=== PATIENT | male | born 1950 | race Asian ===

== ENCOUNTER 2018-11-30 14:55 | Inpatient (IN) | payer SELFPAY ==
[~2018-11-30] VITALS: Ht 170.2 cm; Wt 95.5 kg
[2018-11-30] MEDS ORDERED: FURO-68 PO (15:25)
[2018-11-30] MEDS ORDERED: APIX5TAB PO (15:25)
[2018-11-30] MEDS ORDERED: ALBU2.5V8 INH (15:25)
[2018-11-30] MEDS ORDERED: ASPI-630 PO (15:26)
[2018-11-30] MEDS ORDERED: ATOR40TA59 PO (15:26)
[2018-11-30] MEDS ORDERED: BUPR200T2 PO (15:26)
[2018-11-30] MEDS ORDERED: METO50TA6 PO (15:27)
[2018-11-30] MEDS ORDERED: NITR0.4T22 SL (15:27)
[2018-11-30] MEDS ORDERED: LEVE500T56 PO (15:27)
--- NOTE | 2018-11-30 15:34 | PHYS DOC ---
Past Medical History Past Medical History: A-Fib, Angina, Anxiety, Depression, Diabetes-Type II, GERD, High Cholesterol, Hypertension, Seizure Additional Past Medical Histor: BACK&NECK PAIN Additional Past Surgical Histo: CARDIAC STENTS Additional Information: EXPOSED TO SECOND HAND SMOKE Alcohol Use: Sober Additional Information: FORMER HEAVY ETOH Drug Use: None Adult General Chief Complaint Chief Complaint: SHORTNESS OF BREATH HPI HPI Patient is a 68 year old male, accompanied by his , who presents to the ER with complaints of shortness of breath since yesterday and a productive cough with yellow sputum. Pt states he has been out of his lasix for 2 days and reports increased swelling in both of his legs. Pt states he is from [place], [place] and he is in town visiting his daughter for a few weeks. He states that he has been having some intermittent chest pain, he denies chest pain today but states yesterday he took his nitro because of the chest pain. He denies any pain at this time. ROS Pt denies fever, sore throat, ear pain, dizziness, or headache. Pt denies nausea, vomiting, diarrhea, abdominal pain, or diaphoresis. Patient denies any chest pain or palpitations at this time. All other ROS is neg unless otherwise noted in HPI. Review of Systems Review of Systems See Above Current Medications Current Medications Current Medications Medications (Trade) Dose Ordered Sig/Cecile Start Time Stop Time Status Last Admin Dose Admin Piperacillin Sod/ Tazobactam Sod 4.5 gm/Sodium Chloride 100 ml @ 200 mls/hr 1X ONCE 11/30/18 17:00 11/30/18 17:29 Sodium Chloride 1,000 ml @ 1,000 mls/hr 1X ONCE 11/30/18 16:30 11/30/18 17:29 11/30/18 16:21 1,000 MLS/HR Allergies Allergies Allergies Coded Allergies Type Severity Reaction Last Updated Verified No Known Drug Allergies 11/30/18 No Physical Exam Physical Exam See Above Constitutional: Well developed, well nourished, no acute distress, non-toxic appearance. [] HENT: Normocephalic, atraumatic, bilateral external ears normal, nose normal. [] Eyes: conjunctiva normal, no discharge. [] Neck: Normal range of motion, no stridor. [] Cardiovascular:Heart rate irregular rhythm Lungs & Thorax: Bilateral breath sounds clear to auscultation, no retractions, regular rate [] Abdomen: Bowel sounds normal, soft, no tenderness, no masses, no pulsatile masses. [] Skin: Warm, dry, no erythema, no rash. [] Extremities: No tenderness, no cyanosis, no clubbing, ROM intact, 1+ edema bilateral lower extremities Neurologic: Alert and oriented X 3, no focal deficits noted. [] Psychologic: Affect normal, judgement normal, mood normal. [] Current Patient Data Vital Signs Vital Signs Date Time Temp Pulse Resp B/P (MAP) Pulse Ox O2 Delivery O2 Flow Rate FiO2 11/30/18 15:49 72 14 90/62 (71) 98 Room Air 11/30/18 15:03 97.8 97.8 Lab Values Laboratory Tests Test 11/30/18 15:26 11/30/18 15:42 White Blood Count 6.0 x10^3/uL (4.0-11.0) Red Blood Count 5.20 x10^6/uL (4.30-5.70) Hemoglobin 12.7 g/dL (13.0-17.5) L Hematocrit 40.1 % (39.0-53.0) Mean Corpuscular Volume 77 fL (79-100) L Mean Corpuscular Hemoglobin 25 pg (25-35) Mean Corpuscular Hemoglobin Concent 32 g/dL (31-37) Red Cell Distribution Width 14.6 % (11.5-14.5) H Platelet Count 223 x10^3/uL (140-400) Neutrophils (%) (Auto) 47 % (31-73) Lymphocytes (%) (Auto) 39 % (24-48) Monocytes (%) (Auto) 11 % (0-9) H Eosinophils (%) (Auto) 2 % (0-3) Basophils (%) (Auto) 1 % (0-3) Neutrophils # (Auto) 2.8 x10^3/uL (1.8-7.7) Lymphocytes # (Auto) 2.4 x10^3/uL (1.0-4.8) Monocytes # (Auto) 0.6 x10^3/uL (0.0-1.1) Eosinophils # (Auto) 0.1 x10^3/uL (0.0-0.7) Basophils # (Auto) 0.0 x10^3/uL (0.0-0.2) Prothrombin Time 15.1 SEC (11.7-14.0) H Prothrombin Time INR 1.2 (0.8-1.1) H Activated Partial Thromboplast Time 37 SEC (24-38) D-Dimer (Esmer) 0.29 ug/mlFEU (0.00-0.50) Sodium Level 137 mmol/L (136-145) Potassium Level 4.1 mmol/L (3.5-5.1) Chloride Level 103 mmol/L (98-107) Carbon Dioxide Level 24 mmol/L (21-32) Anion Gap 10 (6-14) Blood Urea Nitrogen 12 mg/dL (8-26) Creatinine 1.3 mg/dL (0.7-1.3) Estimated GFR (Cockcroft-Gault) 54.6 BUN/Creatinine Ratio 9 (6-20) Glucose Level 117 mg/dL (70-99) H Calcium Level 8.8 mg/dL (8.5-10.1) Magnesium Level 2.1 mg/dL (1.8-2.4) Total Bilirubin 0.4 mg/dL (0.2-1.0) Aspartate Amino Transferase (AST) 27 U/L (15-37) Alanine Aminotransferase (ALT) 35 U/L (16-63) Alkaline Phosphatase 62 U/L (46-116) Creatine Kinase 165 U/L (39-308) Creatine Kinase MB (Mass) 1.6 ng/mL (0.0-3.6) Creatine Kinase MB Relative Index 1.0 % (0-4) Troponin I Quantitative 0.018 ng/mL (0.000-0.055) WK-Ifk-D-Type Natriuretic Peptide 1090 pg/mL (0-124) H Total Protein 7.3 g/dL (6.4-8.2) Albumin 3.3 g/dL (3.4-5.0) L Albumin/Globulin Ratio 0.8 (1.0-1.7) L Urine Collection Type Unknown Urine Color Yellow Urine Clarity Clear Urine pH 5.5 Urine Specific [place] 1.010 Urine Protein Negative mg/dL (NEG-TRACE) Urine Glucose (UA) Negative mg/dL (NEG) Urine Ketones (Stick) Negative mg/dL (NEG) Urine Blood Negative (NEG) Urine Nitrite Negative (NEG) Urine Bilirubin Negative (NEG) Urine Urobilinogen Dipstick 0.2 mg/dL (0.2 mg/dL) Urine Leukocyte Esterase Negative (NEG) Urine RBC 0 /HPF (0-2) Urine WBC 0 /HPF (0-4) Urine Squamous Epithelial Cells Few /LPF Urine Bacteria 0 /HPF (0-FEW) Urine Hyaline Casts Few /HPF Urine Mucus Slight /LPF Laboratory Tests 11/30/18 15:26 Laboratory Tests 11/30/18 15:26 EKG EKG 1509- Sinus arrhythmia with prolonged MS interval, rate 72, No STEMI, ST & T abnormality consider anterior ischemia, inferolateral ischemia, or left ventricu lar strain. Read by Dr. Hou Radiology/Procedures Radiology/Procedures PROCEDURE: CHEST PA & LATERAL PA and lateral chest x-rays HISTORY: Shortness of breath. FINDINGS: Mild cardiomegaly. Mediastinal silhouette is unremarkable. There is prominent density right medial lung base partially obscuring right heart border on the frontal film with some corresponding linear density at the right lower lobe just posterior of the major fissure raising suspicion of segmental atelectasis or infiltrate of the right lower lobe anterior basilar and medial basilar segments. This is superimposed upon prominent epicardial fat pads along the right left heart borders. No pneumothorax or pleural effusions. IMPRESSION: Anterior and medial basilar right lower lobe atelectasis/infiltrate.[] Course & Med Decision Making Course & Med Decision Making Pertinent Labs and Imaging studies reviewed. (See chart for details) dx: Hospital acquired pneumonia CBC unremarkable, CMP glucose 117, BNP 1090, troponin 0.018, lactic acid 1.4, PT 15.1, INR 1.2 D-dimer 0.29, UA unremarkable CXR RLL infiltrate Pt's blood pressure had dropped to 78/53 in the ER, Pt was given 1 L of NS in the ER and BP returned to normal 119/64 at 1658. Zosyn 4.5 gm IV was ordered. 1701- Spoke with Dr. Rodriguez who will admit patient. Advised that pt was hypotensive in the ER, 1L of NS was given, lactic acid is pending. 4.5 gm of zosyn ordered in the ER and blood cx x2. Pt had been admitted at [facility] 11/03/18-11/06/18 for chest pain [] Dragon Disclaimer Dragon Disclaimer This electronic medical record was generated, in whole or in part, using a voice recognition dictation system. Departure Departure Impression: Primary Impression: HAP (hospital-acquired pneumonia) Additional Impression: Shortness of breath Disposition: ADMITTED INPATIENT Admitting Physician: JOE van) Condition: STABLE Problem Qualifiers BRIDGETT URRUTIA APRN Nov 30, 2018 15:34
[2018-11-30 15:42] LABS: BASO % 1 % (0-3); EOS # 0.1 x10^3/uL (0.0-0.7); EOS % 2 % (0-3); HEMATOCRIT 40.1 % (39.0-53.0); HEMOGLOBIN 12.7 g/dL (13.0-17.5); LYMPH # 2.4 x10^3/uL (1.0-4.8); LYMPH % 39 % (24-48); MEAN CORPUSCULAR HEMOGLOBIN 25 pg (25-35); MEAN CORPUSCULAR HGB CONC 32 g/dL (31-37); MEAN CORPUSCULAR VOLUME 77 fL (79-100); MONO # 0.6 x10^3/uL (0.0-1.1); MONO % 11 % (0-9); NEUT # 2.8 x10^3/uL (1.8-7.7); NEUT % 47 % (31-73); PLATELET COUNT 223 x10^3/uL (140-400); RED CELL DISTRIBUTION WIDTH 14.6 % (11.5-14.5)
[2018-11-30 15:48] LABS: CALCIUM 8.8 mg/dL (8.5-10.1); CREATININE 1.3 mg/dL (0.7-1.3); GFR 54.6; POTASSIUM 4.1 mmol/L (3.5-5.1)
[2018-11-30 15:48] LABS: BILIRUBIN,URINE NEGATIVE (NEG); CLARITY,URINE CLEAR; COLOR,URINE YELLOW; NITRITE,URINE NEGATIVE (NEG); PH,URINE 5.5; PROTEIN,URINE NEGATIVE (NEG-TRACE); UROBILINOGEN,URINE 0.2 mg/dL (0.2 mg/dL)
[2018-11-30 15:50] LABS: PROTHROMBIN TIME PATIENT 15.1 SEC (11.7-14.0)
[2018-11-30 15:53] LABS: ALBUMIN 3.3 g/dL (3.4-5.0); ALBUMIN/GLOBULIN RATIO 0.8 (1.0-1.7); MAGNESIUM 2.1 mg/dL (1.8-2.4); TOTAL BILIRUBIN 0.4 mg/dL (0.2-1.0); TOTAL PROTEIN 7.3 g/dL (6.4-8.2)
[2018-11-30 15:59] LABS: SQUAMOUS EPITHELIAL CELL,UR FEW /LPF
[2018-11-30 16:00] LABS: BACTERIA,URINE 0 /HPF (0-FEW); HYALINE CASTS, URINE FEW /HPF; RBC,URINE 0 /HPF (0-2); WBC,URINE 0 /HPF (0-4)
[2018-11-30] MEDS ORDERED: IV NORMAL SALINE 1000ML BAG 1,000 ML IV ONE (16:30)
--- NOTE | 2018-11-30 16:30 | RAD ---
PA and lateral chest x-rays HISTORY: Shortness of breath. FINDINGS: Mild cardiomegaly. Mediastinal silhouette is unremarkable. There is prominent density right medial lung base partially obscuring right heart border on the frontal film with some corresponding linear density at the right lower lobe just posterior of the major fissure raising suspicion of segmental atelectasis or infiltrate of the right lower lobe anterior basilar and medial basilar segments. This is superimposed upon prominent epicardial fat pads along the right left heart borders. No pneumothorax or pleural effusions. IMPRESSION: Anterior and medial basilar right lower lobe atelectasis/infiltrate. Electronically signed by: Ry Gaffney MD (11/30/2018 4:28 PM) [facility] [place]
[2018-11-30] MEDS ORDERED: PIPERACILLIN/TAZOBACTAM 4.5 GM in IV NORMAL SALINE 100ML 100 ML IV ONE (17:00)
--- NOTE | 2018-11-30 17:26 | EKG ---
[facility] [address] [place] [address] Test Date: 2018-11-30 Test Time: 15:09:17 Pat Name: NABOR EASON Department: Room: Gender: M Lumber Straightened: : 1950 Requested By: BRIDGETT URRUTIA Order Number: [id number] Reading MD: Measurements Intervals [place] Rate: 72 P: 61 ND: 360 QRS: 24 QRSD: 86 T: -113 QT: 422 QTc: 463 Interpretive Statements SINUS ARRHYTHMIA PROLONGED ND INTERVAL R-S TRANSITION ZONE IN V LEADS DISPLACED TO THE RIGHT ST & T ABNORMALITY, CONSIDER ANTERIOR ISCHEMIA OR LEFT VENTRICULAR STRAIN INFEROLATERAL ISCHEMIA OR LEFT VENTRICULAR STRAIN ABNORMAL ECG No previous ECG available for comparison
--- NOTE | 2018-11-30 18:05 | NUR ---
[id number] Patient placed in room 203 and oriented to room and call light. Claire edgar ordered and I reviewed home medications with pt. and spouse. Pt placed on telemetry monitor
[2018-11-30] MEDS ORDERED: ACET325T9 PO (18:26)
[2018-11-30 19:55] VITALS: BP 90/53
[2018-11-30] MEDS ORDERED: ALBUTEROL SULFATE 2.5 MG/3 ML NEBU. INH PRN (21:00)
[2018-11-30] MEDS ORDERED: NITROGLYCERIN SUBLINGUAL 0.4 MG BOTTLE OF 25. SL PRN (21:00)
[2018-11-30] MEDS ORDERED: ACETAMINOPHEN 325 MG TABLET. PO PRN (21:00)
[2018-11-30] MEDS ORDERED: PIP/TAZO PER PHARMACY MC PRN (21:15)
--- NOTE | 2018-11-30 21:31 | HP ---
ADMIT DATE: 11/30/2018 CHIEF COMPLAINT: Shortness of breath. HISTORY OF PRESENT ILLNESS: The patient is a pleasant 68-year-old male from [facility]. He speaks mild Stat[place]. His speaks much better [place]. Basically, he presented with shortness of breath and cough. We did some imaging, it appears he probably has pneumonia. He has also been in some type of a healthcare facility recently. I discussed the case with ER physician. We are going to admit the patient, give him some IV antibiotics and consult Pulmonary. PAST MEDICAL HISTORY: AFib, myocardial infarction, chronic angina, anxiety, depression, diabetes, GERD, hyperlipidemia, hypertension, seizures, back and neck surgery, cardiac stents, previous alcohol abuse, but apparently he has quit that. ALLERGIES: None. FAMILY HISTORY: Diabetes. SOCIAL HISTORY: He quit smoking, no drinking or drugs; apparently, he did have some secondhand smoke exposure. MEDICATIONS: Reviewed, please refer to the MRAD. REVIEW OF SYSTEMS: GENERAL: No history of weight change, weakness or fevers. SKIN: No bruising, hair changes or rashes. EYES: No blurred, double or loss of vision. NOSE AND THROAT: No history of nosebleeds, hoarseness or sore throat. HEART: No history of palpitations, chest pain or shortness of breath on exertion. LUNGS: He complains of shortness of breath and cough. GASTROINTESTINAL: Denies changes in appetite, nausea, vomiting, diarrhea or constipation. GENITOURINARY: No history of frequency, urgency, hesitancy or nocturia. NEUROLOGIC: Denies history of numbness, tingling, tremor or weakness. PSYCHIATRIC: No history of panic, anxiety or depression. ENDOCRINE: No history of heat or cold intolerance, polyuria or polydipsia. EXTREMITIES: Denies muscle weakness, joint pain, pain on walking or stiffness. PHYSICAL EXAMINATION: VITALS: Within normal limits and are stable. GENERAL: No apparent distress. Alert and oriented. HEENT: Head is normocephalic, atraumatic, pupils were equally round and reactive to light and accommodation. NECK: Supple, no JVD, no thyromegaly was noted. LUNGS: Clear to auscultation in all lung garibay without rhonchi or wheezing. HEART: RRR, S1, S2 present. Peripheral pulses intact, no obvious murmurs were noted. ABDOMEN: Soft, nontender. Positive bowel sounds no organomegaly, normal bowel sounds. EXTREMITIES: Without any cyanosis, clubbing, or edema. Pedal pulses intact, Homans sign is negative. NEUROLOGIC: Normal speech, normal tone. A & O x 3, moves all extremities, no obvious focal deficits. PSYCHIATRIC: Normal affect, normal mood. Stable. SKIN: No ulcerations or rashes, good skin turgor, no jaundice. VASCULAR: Good capillary refill, neurovascular bundle appears to be intact. LABORATORY DATA: Hemoglobin is 12.7. White count 6. Electrolytes are normal. Chest x-ray shows anterior and medial basilar right lower lobe infiltrate. ASSESSMENT AND PLAN: Pneumonia. The patient has been admitted. We will consult Pulmonary. IV antibiotics, DuoNebs, O2 per nasal cannula. Home meds, PT, OT, frequent labs. PROGNOSIS: Guarded. OUSMANE EDWARDS DO DR: LIDIA/merritt JOB#: [id number] / [id number]
[2018-11-30] MEDS: ATORVASTATIN CALCIUM 40 MG TABLET. PO SCH (21:57)
[2018-11-30] MEDS: buPROPion SR 100 MG TABLET.SA. PO SCH (21:57)
[2018-11-30] MEDS: levETIRAcetam 500 MG TABLET PO SCH (21:57)
[2018-11-30] MEDS: APIXABAN 5 MG TABLET. PO SCH (21:58)
[2018-11-30] MEDS: ALBUTEROL SULFATE 2.5 MG/3 ML NEBU. NEB PRN (22:07)
[2018-11-30] MEDS: PIPERACILLIN/TAZOBACTAM 3.375 GM in IV NORMAL SALINE 50ML 50 ML IV SCH (23:13)
[2018-11-30] MEDS: METOPROLOL TART IMMED RELEASE 50 MG TABLET. PO SCH (23:21)
[2018-11-30] MEDS: ANTI-COAG MONITOR BY PHARMACY. MC PRN (23:38)
[2018-11-30 23:45] VITALS: BP 116/56
[2018-12-01 03:45] VITALS: BP 113/82
[2018-12-01] MEDS: ALBUTEROL SULFATE 2.5 MG/3 ML NEBU. NEB PRN (03:53)
[2018-12-01] MEDS: PIPERACILLIN/TAZOBACTAM 3.375 GM in IV NORMAL SALINE 50ML 50 ML IV SCH ×4 (05:18→23:01)
[2018-12-01 07:00] VITALS: BP 112/62
--- NOTE | 2018-12-01 07:27 | PDOC ---
Provider Note Provider Note [id number] dyspnea abnl cxr pneumonia ct abx bd ? echo SHABBIR RIVERA MD Dec 01, 2018 07:27
[2018-12-01] MEDS: IPRATROPIUM BROMIDE 0.5 MG/2.5 ML NEBU. NEB SCH ×4 (08:00→19:37)
--- NOTE | 2018-12-01 08:12 | CONS ---
DATE OF CONSULTATION: 11/30/2018 I was asked to see this 68-year-old gentleman for shortness of breath, pneumonia. HISTORY OF PRESENT ILLNESS: He does have history of [id number] of smoking; quit smoking about 9 years ago. He has not been diagnosed with COPD, but has had daily cough. His cough has been getting worse for the past few days. He denies fever or chills. He has had thick yellow sputum production. He also ran out of his Lasix, has had more lower extremity edema and more shortness of breath. He has had runny nose, has had occasional gastroesophageal reflux symptoms. He denies chest pain. He is from [facility], has lived in the since 2009. He has atrial fibrillation, is on apixaban. He does not believe in [place]. He lives in [place]. He is here visiting a family member. PAST MEDICAL HISTORY: Atrial fibrillation, diabetes mellitus, hypertension, seizure, coronary artery disease, status post stent. ALLERGIES: No known drug allergies. MEDICATIONS: Currently, he is on Lasix, aspirin, Zosyn, Wellbutrin, Lipitor, apixaban, Keppra. SOCIAL HISTORY: History of [id number] smoking, stopped smoking 9 years ago. FAMILY HISTORY: Hypertension. REVIEW OF SYSTEMS: As mentioned above, other systems otherwise negative. PHYSICAL EXAMINATION: GENERAL: This is a well-developed gentleman. VITAL SIGNS: His O2 saturation on room air is 96%, respiratory rate 18, heart rate 66, blood pressure 113/82, temperature 97.9. HEENT: Normocephalic, atraumatic. Pupils are equal, round, reactive to light. He has poor dentition. Nose is clear. NECK: There is no JVD, lymphadenopathy or thyromegaly. CARDIOVASCULAR: Irregularly, irregular rhythm. PMI is nondisplaced. CHEST: Inspection is normal. LUNGS: There are bibasilar crackles, dullness at the bases. There is no wheezing. ABDOMEN: Soft and obese. Bowel sounds are good. There is no mass. EXTREMITIES: There is edema. LYMPHATICS: There is no lymphadenopathy. NEUROLOGIC: He is alert. SKIN: Chronic changes. LABORATORY DATA: I reviewed the following lab data: Chest x-ray shows right middle lobe density infiltrate/atelectasis, cannot rule out mass, cardiomegaly. WBC 6, hemoglobin 12.7, platelet 223. Sodium 137, potassium 4.1, chloride 103, CO2 24, glucose 117, BUN 112, creatinine 1.3. Lactic acid 1.4. Troponin 0.018. BNP 1090. IMPRESSION: 1. Dyspnea secondary to pneumonia, acute diastolic congestive heart failure. I suspect he has chronic obstructive pulmonary disease versus others. 2. Abnormal chest x-ray as mentioned above. 3. Pneumonia. 4. Ex-smoker, probable chronic obstructive pulmonary disease. 5. Atrial fibrillation. 6. Acute diastolic congestive heart failure, cannot rule out systolic congestive heart failure. 7. Hypertension. 8. Diabetes mellitus. PLAN AND RECOMMENDATIONS: 1. Titrate the FiO2 to keep O2 saturation 92%. 2. Start bronchodilator, Atrovent only. He has atrial fibrillation. Avoid albuterol. 3. Continue Zosyn. 4. I will do a CT of the chest to have a better look at the right middle lobe density. 5. Continue Lasix. Keep intake less than output. 6. Continue apixaban. 7. Monitor for bleeding. 8. May consider echocardiogram. 9. He has poor dentition that needs to be addressed. I defer that to the primary doctor. 10. Continue not smoking. The findings and recommendations were discussed with the patient and his . He understood and agreed to proceed with the plan. I have answered all of his questions. Thank you very much for allowing me to participate in care of this very nice gentleman. SHABBIR RIVERA M.D. : RUTH/merritt JOB#: [id number] / [id number]
[2018-12-01] MEDS: levETIRAcetam 500 MG TABLET PO SCH ×2 (08:46→20:26)
[2018-12-01] MEDS: buPROPion SR 100 MG TABLET.SA. PO SCH ×2 (08:46→20:25)
[2018-12-01] MEDS: LACTOBACILLUS RHAMNOSUS GG 1 CAPSULE. PO SCH ×2 (08:46→20:25)
[2018-12-01] MEDS: APIXABAN 5 MG TABLET. PO SCH ×2 (08:46→20:26)
[2018-12-01] MEDS: ASPIRIN CHEWABLE 81 MG TABLET. PO SCH (08:46)
[2018-12-01] MEDS: FUROSEMIDE 20 MG TABLET PO SCH (08:46)
[2018-12-01] MEDS: METOPROLOL TART IMMED RELEASE 50 MG TABLET. PO SCH ×2 (08:47→20:26)
[2018-12-01] MEDS: ANTI-COAG MONITOR BY PHARMACY. MC PRN (09:10)
[2018-12-01 11:00] VITALS: BP 118/59
[2018-12-01] MEDS ORDERED: ACETAMINOPHEN 500 MG TABLET PO PRN (11:45)
[2018-12-01] MEDS ORDERED: ONDANSETRON PF 4 MG/2 ML VIAL. IV PRN (11:45)
[2018-12-01] MEDS ORDERED: ACETAMINOPHEN/CODEINE 300/30MG TABLET. PO PRN (11:45)
[2018-12-01] MEDS ORDERED: NICOTINE 21MG PATCH. TD PRN (11:45)
[2018-12-01] MEDS ORDERED: guaiFENesin DM 200MG/20MG 10 ML SYRUP PO PRN (11:45)
[2018-12-01] MEDS: IPRATRPIUM/ALBUTEROL 0.5/2.5MG 3 ML NEBU. NEB SCH ×3 (12:16→19:36)
--- NOTE | 2018-12-01 12:31 | PDOC ---
PROGRESS NOTES Chief Complaint Chief Complaint 1. Dyspnea secondary to pneumonia, acute diastolic congestive heart failure. I suspect he has chronic obstructive pulmonary disease versus others. 2. 80 pack yr smoking hx 3. Pneumonia. 4. Ex-smoker, probable chronic obstructive pulmonary disease. 5. Atrial fibrillation on eliquis 6. Acute diastolic congestive heart failure, cannot rule out systolic congestive heart failure. 7. Hypertension. 8. Diabetes mellitus. History of Present Illness History of Present Illness no inc in [place], no cp, no complaints Only pulmo on case on eliqus for a fib and he mentioned to me he almost in [place] before and was brought back to life quit smoking 9 yrs ago PLAN: CT chest, ok to t.o non tele cont pulmo meds Vitals Vitals Vital Signs Date Time Temp Pulse Resp B/P (MAP) Pulse Ox O2 Delivery O2 Flow Rate FiO2 12/01/18 12:19 Room Air 12/01/18 11:00 97.5 73 16 118/59 (78) 97 97.5 Physical Exam General: Alert, No acute distress Heart: Regular rate, Normal S1, Normal S2 Lungs: Other (sce, diminshed BS) Abdomen: Normal bowel sounds, Soft, No tenderness Extremities: No clubbing, No cyanosis, No edema Skin: No rashes, No breakdown, No significant lesion Labs LABS Laboratory Tests Test 11/30/18 15:26 11/30/18 15:42 11/30/18 17:10 White Blood Count 6.0 x10^3/uL (4.0-11.0) Red Blood Count 5.20 x10^6/uL (4.30-5.70) Hemoglobin 12.7 g/dL (13.0-17.5) Hematocrit 40.1 % (39.0-53.0) Mean Corpuscular Volume 77 fL (79-100) Mean Corpuscular Hemoglobin 25 pg (25-35) Mean Corpuscular Hemoglobin Concent 32 g/dL (31-37) Red Cell Distribution Width 14.6 % (11.5-14.5) Platelet Count 223 x10^3/uL (140-400) Neutrophils (%) (Auto) 47 % (31-73) Lymphocytes (%) (Auto) 39 % (24-48) Monocytes (%) (Auto) 11 % (0-9) Eosinophils (%) (Auto) 2 % (0-3) Basophils (%) (Auto) 1 % (0-3) Neutrophils # (Auto) 2.8 x10^3/uL (1.8-7.7) Lymphocytes # (Auto) 2.4 x10^3/uL (1.0-4.8) Monocytes # (Auto) 0.6 x10^3/uL (0.0-1.1) Eosinophils # (Auto) 0.1 x10^3/uL (0.0-0.7) Basophils # (Auto) 0.0 x10^3/uL (0.0-0.2) Prothrombin Time 15.1 SEC (11.7-14.0) Prothromb Time International Ratio 1.2 (0.8-1.1) Activated Partial Thromboplast Time 37 SEC (24-38) D-Dimer (Esmer) 0.29 ug/mlFEU (0.00-0.50) Sodium Level 137 mmol/L (136-145) Potassium Level 4.1 mmol/L (3.5-5.1) Chloride Level 103 mmol/L (98-107) Carbon Dioxide Level 24 mmol/L (21-32) Anion Gap 10 (6-14) Blood Urea Nitrogen 12 mg/dL (8-26) Creatinine 1.3 mg/dL (0.7-1.3) Estimated GFR (Cockcroft-Gault) 54.6 BUN/Creatinine Ratio 9 (6-20) Glucose Level 117 mg/dL (70-99) Calcium Level 8.8 mg/dL (8.5-10.1) Magnesium Level 2.1 mg/dL (1.8-2.4) Total Bilirubin 0.4 mg/dL (0.2-1.0) Aspartate Amino Transf (AST/SGOT) 27 U/L (15-37) Alanine Aminotransferase (ALT/SGPT) 35 U/L (16-63) Alkaline Phosphatase 62 U/L (46-116) Creatine Kinase 165 U/L (39-308) Creatine Kinase MB (Mass) 1.6 ng/mL (0.0-3.6) Creatine Kinase MB Relative Index 1.0 % (0-4) Troponin I Quantitative 0.018 ng/mL (0.000-0.055) MJ-Xhi-[id number]-Type Natriuretic Peptide 1090 pg/mL (0-124) Total Protein 7.3 g/dL (6.4-8.2) Albumin 3.3 g/dL (3.4-5.0) Albumin/Globulin Ratio 0.8 (1.0-1.7) Urine Collection Type Unknown Urine Color Yellow Urine Clarity Clear Urine pH 5.5 Urine Specific [place] 1.010 Urine Protein Negative mg/dL (NEG-TRACE) Urine Glucose (UA) Negative mg/dL (NEG) Urine Ketones (Stick) Negative mg/dL (NEG) Urine Blood Negative (NEG) Urine Nitrite Negative (NEG) Urine Bilirubin Negative (NEG) Urine Urobilinogen Dipstick 0.2 mg/dL (0.2 mg/dL) Urine Leukocyte Esterase Negative (NEG) Urine RBC 0 /HPF (0-2) Urine WBC 0 /HPF (0-4) Urine Squamous Epithelial Cells Few /LPF Urine Bacteria 0 /HPF (0-FEW) Urine Hyaline Casts Few /HPF Urine Mucus Slight /LPF Lactic Acid Level 1.4 mmol/L (0.4-2.0) Review of Systems Review of Systems no inc in [place], no cp, no fever, no abd pain, no n/v..d Assessment and Plan Assessmemt and Plan Problems Medical Problems: (1) HAP (hospital-acquired pneumonia) Status: Acute (2) Shortness of breath Status: Acute Comment Review of Relevant I have reviewed the following items von (where applicable) has been applied. Labs Laboratory Tests Test 11/30/18 15:26 11/30/18 15:42 11/30/18 17:10 White Blood Count 6.0 x10^3/uL (4.0-11.0) Red Blood Count 5.20 x10^6/uL (4.30-5.70) Hemoglobin 12.7 g/dL (13.0-17.5) Hematocrit 40.1 % (39.0-53.0) Mean Corpuscular Volume 77 fL (79-100) Mean Corpuscular Hemoglobin 25 pg (25-35) Mean Corpuscular Hemoglobin Concent 32 g/dL (31-37) Red Cell Distribution Width 14.6 % (11.5-14.5) Platelet Count 223 x10^3/uL (140-400) Neutrophils (%) (Auto) 47 % (31-73) Lymphocytes (%) (Auto) 39 % (24-48) Monocytes (%) (Auto) 11 % (0-9) Eosinophils (%) (Auto) 2 % (0-3) Basophils (%) (Auto) 1 % (0-3) Neutrophils # (Auto) 2.8 x10^3/uL (1.8-7.7) Lymphocytes # (Auto) 2.4 x10^3/uL (1.0-4.8) Monocytes # (Auto) 0.6 x10^3/uL (0.0-1.1) Eosinophils # (Auto) 0.1 x10^3/uL (0.0-0.7) Basophils # (Auto) 0.0 x10^3/uL (0.0-0.2) Prothrombin Time 15.1 SEC (11.7-14.0) Prothromb Time International Ratio 1.2 (0.8-1.1) Activated Partial Thromboplast Time 37 SEC (24-38) D-Dimer (Esmer) 0.29 ug/mlFEU (0.00-0.50) Sodium Level 137 mmol/L (136-145) Potassium Level 4.1 mmol/L (3.5-5.1) Chloride Level 103 mmol/L (98-107) Carbon Dioxide Level 24 mmol/L (21-32) Anion Gap 10 (6-14) Blood Urea Nitrogen 12 mg/dL (8-26) Creatinine 1.3 mg/dL (0.7-1.3) Estimated GFR (Cockcroft-Gault) 54.6 BUN/Creatinine Ratio 9 (6-20) Glucose Level 117 mg/dL (70-99) Calcium Level 8.8 mg/dL (8.5-10.1) Magnesium Level 2.1 mg/dL (1.8-2.4) Total Bilirubin 0.4 mg/dL (0.2-1.0) Aspartate Amino Transf (AST/SGOT) 27 U/L (15-37) Alanine Aminotransferase (ALT/SGPT) 35 U/L (16-63) Alkaline Phosphatase 62 U/L (46-116) Creatine Kinase 165 U/L (39-308) Creatine Kinase MB (Mass) 1.6 ng/mL (0.0-3.6) Creatine Kinase MB Relative Index 1.0 % (0-4) Troponin I Quantitative 0.018 ng/mL (0.000-0.055) LH-Lpn-Y-Type Natriuretic Peptide 1090 pg/mL (0-124) Total Protein 7.3 g/dL (6.4-8.2) Albumin 3.3 g/dL (3.4-5.0) Albumin/Globulin Ratio 0.8 (1.0-1.7) Urine Collection Type Unknown Urine Color Yellow Urine Clarity Clear Urine pH 5.5 Urine Specific [place] 1.010 Urine Protein Negative mg/dL (NEG-TRACE) Urine Glucose (UA) Negative mg/dL (NEG) Urine Ketones (Stick) Negative mg/dL (NEG) Urine Blood Negative (NEG) Urine Nitrite Negative (NEG) Urine Bilirubin Negative (NEG) Urine Urobilinogen Dipstick 0.2 mg/dL (0.2 mg/dL) Urine Leukocyte Esterase Negative (NEG) Urine RBC 0 /HPF (0-2) Urine WBC 0 /HPF (0-4) Urine Squamous Epithelial Cells Few /LPF Urine Bacteria 0 /HPF (0-FEW) Urine Hyaline Casts Few /HPF Urine Mucus Slight /LPF Lactic Acid Level 1.4 mmol/L (0.4-2.0) Laboratory Tests Test 11/30/18 15:26 11/30/18 15:42 11/30/18 17:10 White Blood Count 6.0 x10^3/uL (4.0-11.0) Red Blood Count 5.20 x10^6/uL (4.30-5.70) Hemoglobin 12.7 g/dL (13.0-17.5) Hematocrit 40.1 % (39.0-53.0) Mean Corpuscular Volume 77 fL (79-100) Mean Corpuscular Hemoglobin 25 pg (25-35) Mean Corpuscular Hemoglobin Concent 32 g/dL (31-37) Red Cell Distribution Width 14.6 % (11.5-14.5) Platelet Count 223 x10^3/uL (140-400) Neutrophils (%) (Auto) 47 % (31-73) Lymphocytes (%) (Auto) 39 % (24-48) Monocytes (%) (Auto) 11 % (0-9) Eosinophils (%) (Auto) 2 % (0-3) Basophils (%) (Auto) 1 % (0-3) Neutrophils # (Auto) 2.8 x10^3/uL (1.8-7.7) Lymphocytes # (Auto) 2.4 x10^3/uL (1.0-4.8) Monocytes # (Auto) 0.6 x10^3/uL (0.0-1.1) Eosinophils # (Auto) 0.1 x10^3/uL (0.0-0.7) Basophils # (Auto) 0.0 x10^3/uL (0.0-0.2) Prothrombin Time 15.1 SEC (11.7-14.0) Prothromb Time International Ratio 1.2 (0.8-1.1) Activated Partial Thromboplast Time 37 SEC (24-38) D-Dimer (Esmer) 0.29 ug/mlFEU (0.00-0.50) Sodium Level 137 mmol/L (136-145) Potassium Level 4.1 mmol/L (3.5-5.1) Chloride Level 103 mmol/L (98-107) Carbon Dioxide Level 24 mmol/L (21-32) Anion Gap 10 (6-14) Blood Urea Nitrogen 12 mg/dL (8-26) Creatinine 1.3 mg/dL (0.7-1.3) Estimated GFR (Cockcroft-Gault) 54.6 BUN/Creatinine Ratio 9 (6-20) Glucose Level 117 mg/dL (70-99) Calcium Level 8.8 mg/dL (8.5-10.1) Magnesium Level 2.1 mg/dL (1.8-2.4) Total Bilirubin 0.4 mg/dL (0.2-1.0) Aspartate Amino Transf (AST/SGOT) 27 U/L (15-37) Alanine Aminotransferase (ALT/SGPT) 35 U/L (16-63) Alkaline Phosphatase 62 U/L (46-116) Creatine Kinase 165 U/L (39-308) Creatine Kinase MB (Mass) 1.6 ng/mL (0.0-3.6) Creatine Kinase MB Relative Index 1.0 % (0-4) Troponin I Quantitative 0.018 ng/mL (0.000-0.055) DD-Pxy-Z-Type Natriuretic Peptide 1090 pg/mL (0-124) Total Protein 7.3 g/dL (6.4-8.2) Albumin 3.3 g/dL (3.4-5.0) Albumin/Globulin Ratio 0.8 (1.0-1.7) Urine Collection Type Unknown Urine Color Yellow Urine Clarity Clear Urine pH 5.5 Urine Specific [place] 1.010 Urine Protein Negative mg/dL (NEG-TRACE) Urine Glucose (UA) Negative mg/dL (NEG) Urine Ketones (Stick) Negative mg/dL (NEG) Urine Blood Negative (NEG) Urine Nitrite Negative (NEG) Urine Bilirubin Negative (NEG) Urine Urobilinogen Dipstick 0.2 mg/dL (0.2 mg/dL) Urine Leukocyte Esterase Negative (NEG) Urine RBC 0 /HPF (0-2) Urine WBC 0 /HPF (0-4) Urine Squamous Epithelial Cells Few /LPF Urine Bacteria 0 /HPF (0-FEW) Urine Hyaline Casts Few /HPF Urine Mucus Slight /LPF Lactic Acid Level 1.4 mmol/L (0.4-2.0) Medications Current Medications Sodium Chloride 1,000 ml @ 1,000 mls/hr 1X ONCE IV Last administered on 11/30/18at 16:21; Start 11/30/18 at 16:30; Stop 11/30/18 at 17:29; Status DC Piperacillin Sod/ Tazobactam Sod 4.5 gm/Sodium Chloride 100 ml @ 200 mls/hr 1X ONCE IV Last administered on 11/30/18at 17:31; Start 11/30/18 at 17:00; Stop 11/30/18 at 17:29; Status DC Acetaminophen (Tylenol) 650 mg PRN Q6HRS PRN PO MILD PAIN 1-3; Start 11/30/18 at 21:00; Status Cancel Albuterol Sulfate (Ventolin Neb Soln) 2.5 mg PRN BID PRN INH SHORTNESS OF BREATH; Start 11/30/18 at 21:00; Stop 11/30/18 at 21:08; Status DC Apixaban (Eliquis) 5 mg BID PO Last administered on 12/01/18at 08:47; Start 11/30/18 at 21:00 Aspirin (Children'S Aspirin) 81 mg DAILY PO Last administered on 12/01/18at 08:47; Start 12/01/18 at 09:00 Atorvastatin Calcium (Lipitor) 40 mg QHS PO Last administered on 11/30/18at 22:01; Start 11/30/18 at 22:00 Furosemide (Lasix) 20 mg DAILY PO Last administered on 12/01/18at 08:47; Start 12/01/18 at 09:00 Levetiracetam (Keppra) 1,000 mg BID PO Last administered on 12/01/18at 08:47; Start 11/30/18 at 21:00 Metoprolol Tartrate (Lopressor) 75 mg BID PO Last administered on 12/01/18 08:47; Start 11/30/18 at 21:00 Nitroglycerin (Nitrostat) 0.4 mg PRN Q5MIN PRN SL CHEST PAIN; Start 11/30/18 at 21:00 Bupropion HCl (Wellbutrin Sr) 100 mg BID PO Last administered on 12/01/18 08:47; Start 11/30/18 at 22:00 Albuterol Sulfate (Ventolin Neb Soln) 2.5 mg PRN Q4HRS PRN NEB SHORTNESS OF BREATH Last administered on 12/01/18at 03:53; Start 11/30/18 at 21:15 Piperacillin Sod/ Tazobactam Sod (Zosyn Per Pharmacy) 1 each PRN DAILY PRN MC SEE COMMENTS; Start 11/30/18 at 21:15 Info (Anti-Coagulation Monitoring By Pharmacy) 1 each PRN DAILY PRN MC SEE COMMENTS Last administered on 12/01/18at 09:10; Start 11/30/18 at 21:15 Piperacillin Sod/ Tazobactam Sod 3.375 gm/Sodium Chloride 50 ml @ 100 mls/hr Q6HRS IV Last administered on 12/01/18at 05:18; Start 12/01/18 at 00:00 Lactobacillus Rhamnosus (Culturelle) 1 cap BID PO Last administered on 12/01/18 08:47; Start 12/01/18 at 09:00 Ipratropium [place] (Atrovent) 0.5 mg RTQID NEB ; Start 12/01/18 at 08:00 Acetaminophen (Tylenol) 500 mg PRN Q6HRS PRN PO MILD PAIN / TEMP; Start 12/01/18 at 11:45 Acetaminophen/ Codeine Phosphate (Tylenol #3) 1 tab PRN Q6HRS PRN PO PAIN MILD; Start 12/01/18 at 11:45 Ondansetron HCl (Zofran) 4 mg PRN Q6HRS PRN IV NAUSEA/VOMITING; Start 12/01/18 at 11:45 Guaifenesin (Robitussin Dm) 10 ml PRN Q6HRS PRN PO COUGH; Start 12/01/18 at 11:45 Albuterol/ Ipratropium (Duoneb) 3 ml RTQID NEB Last administered on 12/01/18at 12:17; Start 12/01/18 at 12:00 Nicotine (Nicoderm Cq 21mg) 1 patch PRN DAILY PRN TD SMOKING CESSATION; Start 12/01/18 at 11:45 Active Scripts Active Reported Tylenol (Acetaminophen) 325 Mg Tablet 2 Tab PO PRN Q6HRS PRN NITROGLYCERIN SubLingual (Nitroglycerin) 0.4 Mg Tab.subl 1 Tab SL UD Metoprolol Tartrate 50 Mg Tablet 1.5 Tab PO BID Keppra (Levetiracetam) 500 Mg Tablet 2 Tab PO BID Wellbutrin Sr (Bupropion Hcl) 200 Mg Tablet.er 100 Mg PO BID Atorvastatin Calcium 40 Mg Tablet 1 Tab PO DAILY Aspirin 81 Mg Tab.chew 1 Tab PO DAILY Proair Hfa Inhaler (Albuterol Sulfate) 8.5 Gm Hfa.aer.ad 2 Puff INH PRN BID PRN Eliquis (Apixaban) 5 Mg Tablet 5 Mg PO BID Lasix (Furosemide) 40 Mg Tablet 20 Mg PO DAILY Vitals/I & O Vital Sign - Last 24 Hours 11/30/18 11/30/18 11/30/18 11/30/18 15:03 15:49 16:08 16:13 Temp 97.8 97.8 Pulse 77 72 75 Resp 20 14 B/P (MAP) 129/97 (108) 90/62 (71) 78/53 (61) 85/67 (73) Pulse Ox 100 98 98 O2 Delivery Room Air Room Air Room Air 11/30/18 11/30/18 11/30/18 11/30/18 16:28 16:43 16:58 17:13 Pulse 83 85 94 74 Resp 18 B/P (MAP) 96/66 (76) 101/65 (77) 119/64 (82) 115/69 (84) Pulse Ox 98 96 96 98 O2 Delivery Room Air Room Air Room Air Room Air 11/30/18 11/30/18 11/30/18 11/30/18 17:28 19:55 19:58 22:03 Temp 97.5 97.5 Pulse 81 68 Resp 16 B/P (MAP) 120/66 (84) 90/53 (65) Pulse Ox 95 95 97 O2 Delivery Room Air Room Air Room Air Room Air 11/30/18 11/30/18 12/01/18 12/01/18 23:21 23:45 03:45 03:53 Temp 97.1 97.9 97.1 97.9 Pulse 77 64 66 Resp 17 18 B/P (MAP) 116/56 116/56 (76) 113/82 (92) Pulse Ox 96 96 97 O2 Delivery Room Air Room Air Room Air 12/01/18 12/01/18 12/01/18 12/01/18 07:00 08:00 08:47 11:00 Temp 97.4 97.5 97.4 97.5 Pulse 66 66 73 Resp 16 16 B/P (MAP) 112/62 (79) 112/62 118/59 (78) Pulse Ox 96 97 O2 Delivery Room Air Room Air Room Air 12/01/18 12:19 O2 Delivery Room Air Intake and Output 11/30/18 11/30/18 12/01/18 15:00 23:00 07:00 Intake Total 1000 ml 270 ml Balance 1000 ml 270 ml SUSIE GONZALEZ MD Dec 01, 2018 12:31
[2018-12-01 15:00] VITALS: BP 91/60
--- NOTE | 2018-12-01 15:45 | RAD ---
EXAM: CT Chest without IV contrast CLINICAL HISTORY: Right middle lobe density COMPARISON: Chest x-ray 11/30/2018 TECHNIQUE: CT of the chest without intravenous contrast. Axial, coronal and sagittal reformatted images were generated. ---PQRS compliance statement - One or more of the following individualized dose reduction techniques were utilized for this study: 1. Automated exposure control 2. Adjustment of the mA and/or kV according to patient size 3. Use of iterative reconstruction technique--- FINDINGS: Lack of intravenous contrast limits evaluation of solid organs, vasculature, and lymph nodes. Chest: Mild cardiomegaly. Coronary artery and aortic root calcifications are seen. No pericardial effusion. Prominent pericardial fat pad. No pneumothorax. Trace bilateral pleural fusions. Linear and wedge-shaped opacities in the lower lobes and lingula as well as middle lobe likely scarring/atelectasis. Vague groundglass opacities are seen in the dependent right greater than left lung base also likely atelectasis. Visualized Upper abdomen: Unremarkable Bones: Degenerative changes of the spine are seen. No aggressive osseous lesion is noted. IMPRESSION: 1. The nodular opacity seen on prior chest radiograph corresponds to prominent pericardial fat pad with adjacent linear opacities, likely atelectasis. 2. No lobar consolidation. No suspicious lung nodule or mass is seen. Electronically signed by: Anibal Moreira MD (12/01/2018 3:41 PM) [facility]
[2018-12-01 19:00] VITALS: BP 110/59
[2018-12-01] MEDS: ATORVASTATIN CALCIUM 40 MG TABLET. PO SCH (20:26)
[2018-12-01 22:49] VITALS: BP 88/61
[2018-12-02] MEDS: ALBUTEROL SULFATE 2.5 MG/3 ML NEBU. NEB PRN (01:30)
[2018-12-02 03:24] VITALS: BP 91/60
[2018-12-02] MEDS: PIPERACILLIN/TAZOBACTAM 3.375 GM in IV NORMAL SALINE 50ML 50 ML IV SCH ×4 (05:24→23:04)
[2018-12-02 07:00] VITALS: BP 100/59
[2018-12-02] MEDS: IPRATRPIUM/ALBUTEROL 0.5/2.5MG 3 ML NEBU. NEB SCH ×4 (07:17→20:00)
[2018-12-02] MEDS: IPRATROPIUM BROMIDE 0.5 MG/2.5 ML NEBU. NEB SCH ×4 (07:17→20:09)
[2018-12-02] MEDS: APIXABAN 5 MG TABLET. PO SCH ×2 (08:30→21:00)
[2018-12-02] MEDS: levETIRAcetam 500 MG TABLET PO SCH ×2 (08:30→21:00)
[2018-12-02] MEDS: FUROSEMIDE 20 MG TABLET PO SCH (08:30)
[2018-12-02] MEDS: buPROPion SR 100 MG TABLET.SA. PO SCH ×2 (08:30→21:00)
[2018-12-02] MEDS: ASPIRIN CHEWABLE 81 MG TABLET. PO SCH (08:31)
[2018-12-02] MEDS: METOPROLOL TART IMMED RELEASE 50 MG TABLET. PO SCH ×2 (08:31→21:00)
[2018-12-02] MEDS: LACTOBACILLUS RHAMNOSUS GG 1 CAPSULE. PO SCH ×2 (08:31→21:00)
--- NOTE | 2018-12-02 08:44 | PDOC ---
PROGRESS NOTES Chief Complaint Chief Complaint Dyspnea secondary to pneumonia Acute diastolic congestive heart failure, cannot rule out systolic congestive heart failure. 80 pack yr smoking hx Pneumonia. Ex-smoker, probable chronic obstructive pulmonary disease. Atrial fibrillation on eliquis Hypertension. Diabetes mellitus. History of Present Illness History of Present Illness no inc in [place], no cp, no complaints Only pulmo on case on eliqus for a fib. He wishes to return to [place] soon quit smoking 9 yrs ago PLAN: CT chest does not show nodule, was cardiac fat pad cont pulmo meds Vitals Vitals Vital Signs Date Time Temp Pulse Resp B/P (MAP) Pulse Ox O2 Delivery O2 Flow Rate FiO2 12/02/18 08:34 69 100/59 12/02/18 07:19 95 Nasal Cannula 2.0 12/02/18 07:00 97.4 18 97.4 Physical Exam General: Alert, No acute distress Heart: Regular rate, Normal S1, Normal S2 Lungs: Other (sce, diminshed BS) Abdomen: Normal bowel sounds, Soft, No tenderness Extremities: No clubbing, No cyanosis, No edema Skin: No rashes, No breakdown, No significant lesion Assessment and Plan Assessmemt and Plan Problems Medical Problems: (1) HAP (hospital-acquired pneumonia) Status: Acute (2) Shortness of breath Status: Acute Comment Review of Relevant I have reviewed the following items von (where applicable) has been applied. Labs Laboratory Tests Test 11/30/18 15:26 11/30/18 15:42 11/30/18 17:10 White Blood Count 6.0 x10^3/uL (4.0-11.0) Red Blood Count 5.20 x10^6/uL (4.30-5.70) Hemoglobin 12.7 g/dL (13.0-17.5) Hematocrit 40.1 % (39.0-53.0) Mean Corpuscular Volume 77 fL (79-100) Mean Corpuscular Hemoglobin 25 pg (25-35) Mean Corpuscular Hemoglobin Concent 32 g/dL (31-37) Red Cell Distribution Width 14.6 % (11.5-14.5) Platelet Count 223 x10^3/uL (140-400) Neutrophils (%) (Auto) 47 % (31-73) Lymphocytes (%) (Auto) 39 % (24-48) Monocytes (%) (Auto) 11 % (0-9) Eosinophils (%) (Auto) 2 % (0-3) Basophils (%) (Auto) 1 % (0-3) Neutrophils # (Auto) 2.8 x10^3/uL (1.8-7.7) Lymphocytes # (Auto) 2.4 x10^3/uL (1.0-4.8) Monocytes # (Auto) 0.6 x10^3/uL (0.0-1.1) Eosinophils # (Auto) 0.1 x10^3/uL (0.0-0.7) Basophils # (Auto) 0.0 x10^3/uL (0.0-0.2) Prothrombin Time 15.1 SEC (11.7-14.0) Prothromb Time International Ratio 1.2 (0.8-1.1) Activated Partial Thromboplast Time 37 SEC (24-38) D-Dimer (Esmer) 0.29 ug/mlFEU (0.00-0.50) Sodium Level 137 mmol/L (136-145) Potassium Level 4.1 mmol/L (3.5-5.1) Chloride Level 103 mmol/L (98-107) Carbon Dioxide Level 24 mmol/L (21-32) Anion Gap 10 (6-14) Blood Urea Nitrogen 12 mg/dL (8-26) Creatinine 1.3 mg/dL (0.7-1.3) Estimated GFR (Cockcroft-Gault) 54.6 BUN/Creatinine Ratio 9 (6-20) Glucose Level 117 mg/dL (70-99) Calcium Level 8.8 mg/dL (8.5-10.1) Magnesium Level 2.1 mg/dL (1.8-2.4) Total Bilirubin 0.4 mg/dL (0.2-1.0) Aspartate Amino Transf (AST/SGOT) 27 U/L (15-37) Alanine Aminotransferase (ALT/SGPT) 35 U/L (16-63) Alkaline Phosphatase 62 U/L (46-116) Creatine Kinase 165 U/L (39-308) Creatine Kinase MB (Mass) 1.6 ng/mL (0.0-3.6) Creatine Kinase MB Relative Index 1.0 % (0-4) Troponin I Quantitative 0.018 ng/mL (0.000-0.055) CP-Fek-N-Type Natriuretic Peptide 1090 pg/mL (0-124) Total Protein 7.3 g/dL (6.4-8.2) Albumin 3.3 g/dL (3.4-5.0) Albumin/Globulin Ratio 0.8 (1.0-1.7) Urine Collection Type Unknown Urine Color Yellow Urine Clarity Clear Urine pH 5.5 Urine Specific [place] 1.010 Urine Protein Negative mg/dL (NEG-TRACE) Urine Glucose (UA) Negative mg/dL (NEG) Urine Ketones (Stick) Negative mg/dL (NEG) Urine Blood Negative (NEG) Urine Nitrite Negative (NEG) Urine Bilirubin Negative (NEG) Urine Urobilinogen Dipstick 0.2 mg/dL (0.2 mg/dL) Urine Leukocyte Esterase Negative (NEG) Urine RBC 0 /HPF (0-2) Urine WBC 0 /HPF (0-4) Urine Squamous Epithelial Cells Few /LPF Urine Bacteria 0 /HPF (0-FEW) Urine Hyaline Casts Few /HPF Urine Mucus Slight /LPF Lactic Acid Level 1.4 mmol/L (0.4-2.0) Microbiology 11/30/18 Blood Culture - Preliminary, Resulted NO GROWTH AFTER 1 DAY Medications Current Medications Sodium Chloride 1,000 ml @ 1,000 mls/hr 1X ONCE IV Last administered on 11/30/18at 16:21; Start 11/30/18 at 16:30; Stop 11/30/18 at 17:29; Status DC Piperacillin Sod/ Tazobactam Sod 4.5 gm/Sodium Chloride 100 ml @ 200 mls/hr 1X ONCE IV Last administered on 11/30/18at 17:31; Start 11/30/18 at 17:00; Stop 11/30/18 at 17:29; Status DC Acetaminophen (Tylenol) 650 mg PRN Q6HRS PRN PO MILD PAIN 1-3; Start 11/30/18 at 21:00; Status Cancel Albuterol Sulfate (Ventolin Neb Soln) 2.5 mg PRN BID PRN INH SHORTNESS OF BREATH; Start 11/30/18 at 21:00; Stop 11/30/18 at 21:08; Status DC Apixaban (Eliquis) 5 mg BID PO Last administered on 12/02/18at 08:34; Start 11/30/18 at 21:00 Aspirin (Children'S Aspirin) 81 mg DAILY PO Last administered on 12/02/18 08:34; Start 12/01/18 at 09:00 Atorvastatin Calcium (Lipitor) 40 mg QHS PO Last administered on 12/01/18 20:26; Start 11/30/18 at 22:00 Furosemide (Lasix) 20 mg DAILY PO Last administered on 12/02/18 08:34; Start 12/01/18 at 09:00 Levetiracetam (Keppra) 1,000 mg BID PO Last administered on 12/02/18 08:34; Start 11/30/18 at 21:00 Metoprolol Tartrate (Lopressor) 75 mg BID PO Last administered on 12/02/18 08:34; Start 11/30/18 at 21:00 Nitroglycerin (Nitrostat) 0.4 mg PRN Q5MIN PRN SL CHEST PAIN; Start 11/30/18 at 21:00 Bupropion HCl (Wellbutrin Sr) 100 mg BID PO Last administered on 12/02/18 08:34; Start 11/30/18 at 22:00 Albuterol Sulfate (Ventolin Neb Soln) 2.5 mg PRN Q4HRS PRN NEB SHORTNESS OF BREATH Last administered on 12/02/18 01:30; Start 11/30/18 at 21:15 Piperacillin Sod/ Tazobactam Sod (Zosyn Per Pharmacy) 1 each PRN DAILY PRN MC SEE COMMENTS; Start 11/30/18 at 21:15 Info (Anti-Coagulation Monitoring By Pharmacy) 1 each PRN DAILY PRN MC SEE COMMENTS Last administered on 12/01/18 09:10; Start 11/30/18 at 21:15 Piperacillin Sod/ Tazobactam Sod 3.375 gm/Sodium Chloride 50 ml @ 100 mls/hr Q6HRS IV Last administered on 12/02/18 05:24; Start 12/01/18 at 00:00 Lactobacillus Rhamnosus (Culturelle) 1 cap BID PO Last administered on 12/02/18 08:34; Start 12/01/18 at 09:00 Ipratropium [place] (Atrovent) 0.5 mg RTQID NEB Last administered on 12/02/18 07:17; Start 12/01/18 at 08:00 Acetaminophen (Tylenol) 500 mg PRN Q6HRS PRN PO MILD PAIN / TEMP; Start 12/01/18 at 11:45 Acetaminophen/ Codeine Phosphate (Tylenol #3) 1 tab PRN Q6HRS PRN PO PAIN MILD; Start 12/01/18 at 11:45 Ondansetron HCl (Zofran) 4 mg PRN Q6HRS PRN IV NAUSEA/VOMITING; Start 12/01/18 at 11:45 Guaifenesin (Robitussin Dm) 10 ml PRN Q6HRS PRN PO COUGH; Start 12/01/18 at 11:45 Albuterol/ Ipratropium (Duoneb) 3 ml RTQID NEB Last administered on 12/02/18at 07:17; Start 12/01/18 at 12:00 Nicotine (Nicoderm Cq 21mg) 1 patch PRN DAILY PRN TD SMOKING CESSATION; Start 12/01/18 at 11:45 Active Scripts Active Reported Tylenol (Acetaminophen) 325 Mg Tablet 2 Tab PO PRN Q6HRS PRN NITROGLYCERIN SubLingual (Nitroglycerin) 0.4 Mg Tab.subl 1 Tab SL UD Metoprolol Tartrate 50 Mg Tablet 1.5 Tab PO BID Keppra (Levetiracetam) 500 Mg Tablet 2 Tab PO BID Wellbutrin Sr (Bupropion Hcl) 200 Mg Tablet.er 100 Mg PO BID Atorvastatin Calcium 40 Mg Tablet 1 Tab PO DAILY Aspirin 81 Mg Tab.chew 1 Tab PO DAILY Proair Hfa Inhaler (Albuterol Sulfate) 8.5 Gm Hfa.aer.ad 2 Puff INH PRN BID PRN Eliquis (Apixaban) 5 Mg Tablet 5 Mg PO BID Lasix (Furosemide) 40 Mg Tablet 20 Mg PO DAILY Vitals/I & O Vital Sign - Last 24 Hours 12/01/18 12/01/18 12/01/18 12/01/18 08:47 11:00 12:19 15:00 Temp 97.5 97.5 97.5 97.5 Pulse 66 73 65 Resp 16 16 B/P (MAP) 112/62 118/59 (78) 91/60 (70) Pulse Ox 97 93 O2 Delivery Room Air Room Air Room Air 12/01/18 12/01/18 12/01/1818/19 15:33 19:00 19:37 19:43 Temp 97.6 97.6 Pulse 68 Resp 18 B/P (MAP) 110/59 (76) Pulse Ox 98 95 96 O2 Delivery Room Air Room Air Room Air Room Air 12/01/18 12/01/18 12/02/18 12/02/18 20:26 22:49 01:30 03:24 Temp 97.3 97.4 97.3 97.4 Pulse 68 74 74 Resp 18 20 B/P (MAP) 110/59 88/61 (70) 91/60 (70) Pulse Ox 74 99 O2 Delivery Room Air Nasal Cannula Nasal Cannula O2 Flow Rate 2.0 12/02/18 12/02/18 12/02/18 07:00 07:19 08:34 Temp 97.4 97.4 Pulse 69 69 Resp 18 B/P (MAP) 100/59 (73) 100/59 Pulse Ox 100 95 O2 Delivery Room Air Nasal Cannula O2 Flow Rate 2.0 Intake and Output 12/01/18 12/01/18 12/02/18 14:59 22:59 06:59 Intake Total 587 ml 50 ml 0 ml Output Total 200 ml Balance 587 ml -150 ml 0 ml SINA KILLIAN MD Dec 02, 2018 08:43
[2018-12-02 10:45] VITALS: BP 110/55
--- NOTE | 2018-12-02 13:17 | PDOC ---
PULMONARY PROGRESS NOTES Subjective c/o mild soa Vitals Vital Signs Date Time Temp Pulse Resp B/P (MAP) Pulse Ox O2 Delivery O2 Flow Rate FiO2 12/02/18 12:08 95 Room Air 12/02/18 10:45 97.5 82 18 110/55 (73) 97.5 12/02/18 08:00 2.0 General: Alert, No acute distress Lungs: Clear Cardiovascular: S1 Abdomen: Soft Neuro Exam: Alert Extremities: No Edema Skin: Warm Labs Laboratory Tests Test 11/30/18 15:26 11/30/18 15:42 11/30/18 17:10 White Blood Count 6.0 x10^3/uL (4.0-11.0) Red Blood Count 5.20 x10^6/uL (4.30-5.70) Hemoglobin 12.7 g/dL (13.0-17.5) Hematocrit 40.1 % (39.0-53.0) Mean Corpuscular Volume 77 fL (79-100) Mean Corpuscular Hemoglobin 25 pg (25-35) Mean Corpuscular Hemoglobin Concent 32 g/dL (31-37) Red Cell Distribution Width 14.6 % (11.5-14.5) Platelet Count 223 x10^3/uL (140-400) Neutrophils (%) (Auto) 47 % (31-73) Lymphocytes (%) (Auto) 39 % (24-48) Monocytes (%) (Auto) 11 % (0-9) Eosinophils (%) (Auto) 2 % (0-3) Basophils (%) (Auto) 1 % (0-3) Neutrophils # (Auto) 2.8 x10^3/uL (1.8-7.7) Lymphocytes # (Auto) 2.4 x10^3/uL (1.0-4.8) Monocytes # (Auto) 0.6 x10^3/uL (0.0-1.1) Eosinophils # (Auto) 0.1 x10^3/uL (0.0-0.7) Basophils # (Auto) 0.0 x10^3/uL (0.0-0.2) Prothrombin Time 15.1 SEC (11.7-14.0) Prothromb Time International Ratio 1.2 (0.8-1.1) Activated Partial Thromboplast Time 37 SEC (24-38) D-Dimer (Esmer) 0.29 ug/mlFEU (0.00-0.50) Sodium Level 137 mmol/L (136-145) Potassium Level 4.1 mmol/L (3.5-5.1) Chloride Level 103 mmol/L (98-107) Carbon Dioxide Level 24 mmol/L (21-32) Anion Gap 10 (6-14) Blood Urea Nitrogen 12 mg/dL (8-26) Creatinine 1.3 mg/dL (0.7-1.3) Estimated GFR (Cockcroft-Gault) 54.6 BUN/Creatinine Ratio 9 (6-20) Glucose Level 117 mg/dL (70-99) Calcium Level 8.8 mg/dL (8.5-10.1) Magnesium Level 2.1 mg/dL (1.8-2.4) Total Bilirubin 0.4 mg/dL (0.2-1.0) Aspartate Amino Transf (AST/SGOT) 27 U/L (15-37) Alanine Aminotransferase (ALT/SGPT) 35 U/L (16-63) Alkaline Phosphatase 62 U/L (46-116) Creatine Kinase 165 U/L (39-308) Creatine Kinase MB (Mass) 1.6 ng/mL (0.0-3.6) Creatine Kinase MB Relative Index 1.0 % (0-4) Troponin I Quantitative 0.018 ng/mL (0.000-0.055) GV-Zsk-F-Type Natriuretic Peptide 1090 pg/mL (0-124) Total Protein 7.3 g/dL (6.4-8.2) Albumin 3.3 g/dL (3.4-5.0) Albumin/Globulin Ratio 0.8 (1.0-1.7) Urine Collection Type Unknown Urine Color Yellow Urine Clarity Clear Urine pH 5.5 Urine Specific Amado 1.010 Urine Protein Negative mg/dL (NEG-TRACE) Urine Glucose (UA) Negative mg/dL (NEG) Urine Ketones (Stick) Negative mg/dL (NEG) Urine Blood Negative (NEG) Urine Nitrite Negative (NEG) Urine Bilirubin Negative (NEG) Urine Urobilinogen Dipstick 0.2 mg/dL (0.2 mg/dL) Urine Leukocyte Esterase Negative (NEG) Urine RBC 0 /HPF (0-2) Urine WBC 0 /HPF (0-4) Urine Squamous Epithelial Cells Few /LPF Urine Bacteria 0 /HPF (0-FEW) Urine Hyaline Casts Few /HPF Urine Mucus Slight /LPF Lactic Acid Level 1.4 mmol/L (0.4-2.0) Medications Active Scripts Medications Dose Route/Sig Max Daily Dose Days Date Category Tylenol (Acetaminophen) 325 Mg Tablet 2 Tab PO PRN Q6HRS PRN 11/30/18 Reported NITROGLYCERIN SubLingual (Nitroglycerin) 0.4 Mg Tab.subl 1 Tab SL UD 11/30/18 Reported Metoprolol Tartrate 50 Mg Tablet 1.5 Tab PO BID 11/30/18 Reported Keppra (Levetiracetam) 500 Mg Tablet 2 Tab PO BID 11/30/18 Reported Wellbutrin Sr (Bupropion Hcl) 200 Mg Tablet.er 100 Mg PO BID 11/30/18 Reported Atorvastatin Calcium 40 Mg Tablet 1 Tab PO DAILY 11/30/18 Reported Aspirin 81 Mg Tab.chew 1 Tab PO DAILY 11/30/18 Reported Proair Hfa Inhaler (Albuterol Sulfate) 8.5 Gm Hfa.aer.ad 2 Puff INH PRN BID PRN 11/30/18 Reported Eliquis (Apixaban) 5 Mg Tablet 5 Mg PO BID 11/30/18 Reported Lasix (Furosemide) 40 Mg Tablet 20 Mg PO DAILY 11/30/18 Reported Impression . 1. Dyspnea secondary to mild RLL pneumonia, AND exacerbation of chronic obstructive pulmonary disease 2. Abnormal chest x-ray as mentioned above. 3. Pneumonia. 4. Ex-smoker, probable chronic obstructive pulmonary disease. 5. Atrial fibrillation. 6. No congestive heart failure on ct 7. Hypertension. 8. Diabetes mellitus. Plan . 1. Titrate the FiO2 to keep O2 saturation 92%. 2. bronchodilator, Atrovent only. He has atrial fibrillation. Avoid albuterol. 3. Continue Zosyn. 4. ct with no lung mass 5. Continue Lasix. Keep intake less than output. 6. Continue apixaban. 7. Monitor for bleeding. 8. May consider echocardiogram. 9. He has poor dentition that needs to be addressed. I defer that to the primary doctor. 10. Continue not smoking. PRAKASH PRESLEY MD Dec 02, 2018 13:17
[2018-12-02 14:44] VITALS: BP 138/71
--- NOTE | 2018-12-02 15:33 | NUR ---
Wound care: Attempted to see patient regarding wound care. Patient off unit at this time. Spoke with RN whom stated wound is scabbed and open to air. Will see patient tomorrow.
--- NOTE | 2018-12-02 15:46 | CARD ---
MR#: [id number] Date of Study: 12/02/2018 Ordering Physician: SINA KILLIAN, Referring Physician: SINA KILLIAN, Tech: Amber Wang [facility] APPROVED REPORT EXAM: Two-dimensional and M-mode echocardiogram with Doppler and color Doppler. Other Information Quality : AverageHR: 70bpm Rhythm : NSR INDICATION Chest Pain 2D DIMENSIONS RVDd3.0 (2.9-3.5cm)Left Atrium(2D)3.9 (1.6-4.0cm) IVSd1.4 (0.7-1.1cm)Aortic Root(2D)3.5 (2.0-3.7cm) LVDd4.9 (3.9-5.9cm)LVOT Diameter2.1 (1.8-2.4cm) PWd1.3 (0.7-1.1cm)LVDs3.4 (2.5-4.0cm) FS (%) 30.2 %SV64.8 ml LVEF(%)57.4 (>50%) M-Mode DIMENSIONS Left Atrium(MM)3.81 (2.5-4.0cm)Aortic Root3.64 (2.2-3.7cm) Aortic Valve AoV Peak Hector.126.9cm/sAoV VTI26.7cm AO Peak GR.6.4mmHgLVOT Peak Hector.105.3cm/s AO Mean GR.3mmHgAVA (VMAX)2.95cm2 CUAUHTEMOC (VTI)3.06wo3YK P 1/2 Iyqr469sv Mitral Valve MV E Aacsolag33.5cm/sMV DECEL PFAP767qu MV A Nuvrwnqz33.2cm/sE/A Ratio3.5 Pulmonary Valve PV Peak Khaprlpi55.0cm/s Tricuspid Valve TR P. Elssldfd424po/sRAP FOPBMIWQ6kbFd TR Peak Gr.71izDtLTVN80krIi LEFT VENTRICLE The left ventricle is normal size. There is mild concentric left ventricular hypertrophy. Left ventri janine systolic function is normal. The Ejection Fraction is 55-60%. There is normal LV segmental wall m otion. Transmitral Doppler flow pattern is Grade II-pseudonormal filling dynamics. RIGHT VENTRICLE The right ventricle is normal size. There is normal right ventricular wall thickness. The right ventr icular systolic function is normal. ATRIA The left atrium size is normal. The right atrium size is normal. The interatrial septum is intact wit h no evidence for an atrial septal defect or patent foramen ovale as noted on 2-D or Doppler imaging. AORTIC VALVE The aortic valve is probably trileaflet. The aortic valve is not well visualized. Doppler and Color F low revealed mild aortic regurgitation. There is no significant aortic valvular stenosis. MITRAL VALVE The mitral valve is thickened but opens well. There is no evidence of mitral valve prolapse. There is no mitral valve stenosis. Doppler and Color-flow revealed mild to moderate mitral regurgitation. TRICUSPID VALVE The tricuspid valve is normal in structure and function. Doppler and Color Flow revealed mild tricusp id regurgitation. The PA pressure was estimated at 52 mmHg. There is no tricuspid valve prolapse or v egetation. There is no tricuspid valve stenosis. PULMONIC VALVE The pulmonic valve is not well visualized. GREAT VESSELS The aortic root is normal in size. The ascending aorta is normal in size. The IVC is normal in size a nd collapses >50% with inspiration. PERICARDIAL EFFUSION There is no evidence of significant pericardial effusion. Critical Notification Critical Value: No <Conclusion> The left ventricle is normal size. Left ventricle systolic function is normal. The Ejection Fraction is 55-60%. There is mild concentric left ventricular hypertrophy. There is no significant aortic valvular stenosis. Doppler and Color Flow revealed mild aortic regurgitation. Doppler and Color-flow revealed mild to moderate mitral regurgitation. Doppler and Color Flow revealed mild tricuspid regurgitation. The PA pressure was estimated at 52 mmHg. Signed by : Jorge De Santiago MD Electronically Approved : 12/02/2018 15:46:16
--- NOTE | 2018-12-02 16:09 | NUR ---
SS following for discharge planning. SS reviewed pt chart. Pt is self pay pt. HCFS following for self pay status. Pt is from home with spouse and is currently requiring oxygen. PT recommended home at discharge. No discharge needs noted at this time. SS will continue to follow for discharge planning.
[2018-12-02 19:34] VITALS: BP 101/68
[2018-12-02] MEDS: ATORVASTATIN CALCIUM 40 MG TABLET. PO SCH (21:00)
[2018-12-02 22:52] VITALS: BP 144/66
[2018-12-03 03:16] VITALS: BP 90/55
[2018-12-03] MEDS: PIPERACILLIN/TAZOBACTAM 3.375 GM in IV NORMAL SALINE 50ML 50 ML IV SCH (05:10)
[2018-12-03 07:00] VITALS: BP 119/66
[2018-12-03] MEDS: IPRATROPIUM BROMIDE 0.5 MG/2.5 ML NEBU. NEB SCH ×2 (07:24→12:35)
[2018-12-03] MEDS: IPRATRPIUM/ALBUTEROL 0.5/2.5MG 3 ML NEBU. NEB SCH ×2 (07:29→12:30)
[2018-12-03] MEDS: APIXABAN 5 MG TABLET. PO SCH (08:18)
[2018-12-03] MEDS: ASPIRIN CHEWABLE 81 MG TABLET. PO SCH (08:18)
[2018-12-03] MEDS: levETIRAcetam 500 MG TABLET PO SCH (08:19)
[2018-12-03] MEDS: METOPROLOL TART IMMED RELEASE 50 MG TABLET. PO SCH (08:19)
[2018-12-03] MEDS: buPROPion SR 100 MG TABLET.SA. PO SCH (08:19)
[2018-12-03] MEDS: LACTOBACILLUS RHAMNOSUS GG 1 CAPSULE. PO SCH (08:19)
[2018-12-03] MEDS: FUROSEMIDE 20 MG TABLET PO SCH (08:20)
--- NOTE | 2018-12-03 08:48 | PDOC ---
PROGRESS NOTES Chief Complaint Chief Complaint Dyspnea secondary to pneumonia Acute diastolic congestive heart failure, cannot rule out systolic congestive heart failure. 80 pack yr smoking hx Pneumonia. Ex-smoker, probable chronic obstructive pulmonary disease. Atrial fibrillation on eliquis Hypertension. Diabetes mellitus. History of Present Illness History of Present Illness Mr Walker is a 68yo w/ PMHx afib, DM2, HTN, Sz disorder, CAD s/p stenting who presented with cough getting worse for the past few days. He denies fever or chills. He has had thick yellow sputum production. He also ran out of his Lasix, has had more lower extremity edema and more shortness of breath. He has had runny nose, has had occasional gastroesophageal reflux symptoms. He denies chest pain. He is from [facility], has lived in the since 2009 in [place], [place] and is visiting family in [place] for the month. He has atrial fibrillation, is on apixaban. no inc in soa, no cp, no complaints Only pulm on case on eliqus for a fib. He wishes to return to [place] soon. Needs 1 month of refills quit smoking 9 yrs ago PLAN: CT chest does not show nodule or pneumonia, this was more a diastolic CHF exac erbation based on echo Greater than 30 minutes spent on discharge. Vitals Vitals Vital Signs Date Time Temp Pulse Resp B/P (MAP) Pulse Ox O2 Delivery O2 Flow Rate FiO2 12/03/18 08:24 75 119/66 12/03/18 08:00 Room Air 2.0 12/03/18 07:25 98 12/03/18 07:00 97.3 20 97.3 Physical Exam General: Alert, No acute distress Heart: Regular rate, Normal S1, Normal S2 Lungs: Clear Abdomen: Normal bowel sounds, Soft, No tenderness Extremities: No clubbing, No cyanosis, No edema Skin: No rashes, No breakdown, No significant lesion Assessment and Plan Assessmemt and Plan Problems Medical Problems: (1) HAP (hospital-acquired pneumonia) Status: Acute (2) Shortness of breath Status: Acute Comment Review of Relevant I have reviewed the following items von (where applicable) has been applied. Labs Microbiology 11/30/18 Blood Culture - Preliminary, Resulted NO GROWTH AFTER 2 DAYS Medications Current Medications Sodium Chloride 1,000 ml @ 1,000 mls/hr 1X ONCE IV Last administered on 11/30/18 16:21; Start 11/30/18 at 16:30; Stop 11/30/18 at 17:29; Status DC Piperacillin Sod/ Tazobactam Sod 4.5 gm/Sodium Chloride 100 ml @ 200 mls/hr 1X ONCE IV Last administered on 11/30/18at 17:31; Start 11/30/18 at 17:00; Stop 11/30/18 at 17:29; Status DC Acetaminophen (Tylenol) 650 mg PRN Q6HRS PRN PO MILD PAIN 1-3; Start 11/30/18 at 21:00; Status Cancel Albuterol Sulfate (Ventolin Neb Soln) 2.5 mg PRN BID PRN INH SHORTNESS OF BREATH; Start 11/30/18 at 21:00; Stop 11/30/18 at 21:08; Status DC Apixaban (Eliquis) 5 mg BID PO Last administered on 12/03/18 08:24; Start 11/30/18 at 21:00 Aspirin (Children'S Aspirin) 81 mg DAILY PO Last administered on 12/03/18 08:24; Start 12/01/18 at 09:00 Atorvastatin Calcium (Lipitor) 40 mg QHS PO Last administered on 12/02/18 21:01; Start 11/30/18 at 22:00 Furosemide (Lasix) 20 mg DAILY PO Last administered on 12/03/18 08:24; Start 12/01/18 at 09:00 Levetiracetam (Keppra) 1,000 mg BID PO Last administered on 12/03/18 08:24; Start 11/30/18 at 21:00 Metoprolol Tartrate (Lopressor) 75 mg BID PO Last administered on 12/03/18 08:24; Start 11/30/18 at 21:00 Nitroglycerin (Nitrostat) 0.4 mg PRN Q5MIN PRN SL CHEST PAIN; Start 11/30/18 at 21:00 Bupropion HCl (Wellbutrin Sr) 100 mg BID PO Last administered on 12/03/18 08:24; Start 11/30/18 at 22:00 Albuterol Sulfate (Ventolin Neb Soln) 2.5 mg PRN Q4HRS PRN NEB SHORTNESS OF BREATH Last administered on 8/19/19at 01:30; Start 11/30/18 at 21:15 Piperacillin Sod/ Tazobactam Sod (Zosyn Per Pharmacy) 1 each PRN DAILY PRN MC SEE COMMENTS; Start 11/30/18 at 21:15 Info (Anti-Coagulation Monitoring By Pharmacy) 1 each PRN DAILY PRN MC SEE COMMENTS Last administered on 12/01/18at 09:10; Start 11/30/18 at 21:15 Piperacillin Sod/ Tazobactam Sod 3.375 gm/Sodium Chloride 50 ml @ 100 mls/hr Q6HRS IV Last administered on 12/03/18at 05:10; Start 12/01/18 at 00:00 Lactobacillus Rhamnosus (Culturelle) 1 cap BID PO Last administered on 12/03/18at 08:24; Start 12/01/18 at 09:00 Ipratropium [place] (Atrovent) 0.5 mg RTQID NEB Last administered on 12/03/18at 07:25; Start 12/01/18 at 08:00 Acetaminophen (Tylenol) 500 mg PRN Q6HRS PRN PO MILD PAIN / TEMP; Start 12/01/18 at 11:45 Acetaminophen/ Codeine Phosphate (Tylenol #3) 1 tab PRN Q6HRS PRN PO PAIN MILD; Start 12/01/18 at 11:45 Ondansetron HCl (Zofran) 4 mg PRN Q6HRS PRN IV NAUSEA/VOMITING; Start 12/01/18 at 11:45 Guaifenesin (Robitussin Dm) 10 ml PRN Q6HRS PRN PO COUGH; Start 12/01/18 at 11:45 Albuterol/ Ipratropium (Duoneb) 3 ml RTQID NEB Last administered on 12/02/18at 15:40; Start 12/01/18 at 12:00 Nicotine (Nicoderm Cq 21mg) 1 patch PRN DAILY PRN TD SMOKING CESSATION; Start 12/01/18 at 11:45 Active Scripts Active Reported Tylenol (Acetaminophen) 325 Mg Tablet 2 Tab PO PRN Q6HRS PRN NITROGLYCERIN SubLingual (Nitroglycerin) 0.4 Mg Tab.subl 1 Tab SL UD Metoprolol Tartrate 50 Mg Tablet 1.5 Tab PO BID Keppra (Levetiracetam) 500 Mg Tablet 2 Tab PO BID Wellbutrin Sr (Bupropion Hcl) 200 Mg Tablet.er 100 Mg PO BID Atorvastatin Calcium 40 Mg Tablet 1 Tab PO DAILY Aspirin 81 Mg Tab.chew 1 Tab PO DAILY Proair Hfa Inhaler (Albuterol Sulfate) 8.5 Gm Hfa.aer.ad 2 Puff INH PRN BID PRN Eliquis (Apixaban) 5 Mg Tablet 5 Mg PO BID Lasix (Furosemide) 40 Mg Tablet 20 Mg PO DAILY Vitals/I & O Vital Sign - Last 24 Hours 12/02/18 12/02/18 12/02/18 12/02/18 10:45 12:08 14:44 15:40 Temp 97.5 98.1 97.5 98.1 Pulse 82 67 Resp 18 18 B/P (MAP) 110/55 (73) 138/71 (93) Pulse Ox 100 95 98 95 O2 Delivery Room Air Room Air Room Air Room Air 12/02/18 12/02/18 12/02/18 12/02/18 19:00 19:34 20:11 21:01 Temp 97.9 97.9 Pulse 77 77 Resp 18 B/P (MAP) 101/68 (79) 101/68 Pulse Ox 98 95 O2 Delivery Room Air Room Air Room Air 12/02/18 12/03/18 12/03/18 12/03/18 22:52 03:16 07:00 07:25 Temp 98.2 97.8 97.3 98.2 97.8 97.3 Pulse 70 73 75 Resp 20 20 20 B/P (MAP) 144/66 (92) 90/55 (67) 119/66 (83) Pulse Ox 97 97 98 98 O2 Delivery Room Air Room Air Room Air Nasal Cannula O2 Flow Rate 2.0 12/03/18 12/03/18 08:00 08:24 Pulse 75 B/P (MAP) 119/66 O2 Delivery Room Air O2 Flow Rate 2.0 Intake and Output 12/02/18 12/02/18 12/03/18 15:00 23:00 07:00 Intake Total 500 ml 200 ml Balance 500 ml 200 ml SINA KILLIAN MD Dec 03, 2018 08:48
[2018-12-03 11:00] VITALS: BP 142/85
--- NOTE | 2018-12-03 11:00 | NUR ---
Wound Care: Wound care consult for left foot wound. Left foot assessed, no open areas noted, healed wound between 2nd and 3rd toe. No other open wound noted on assessment. Pt is in room accompanied by and children. Wound care signing off at this time.
[2018-12-03] MEDS ORDERED: FURO-68 PO (11:25)
[2018-12-03] MEDS ORDERED: ATOR40TA59 PO (11:25)
[2018-12-03] MEDS ORDERED: METO50TA6 PO (11:25)
[2018-12-03] MEDS ORDERED: BUPR200T2 PO (11:25)
[2018-12-03] MEDS ORDERED: LEVE500T56 PO (11:25)
[2018-12-03] MEDS ORDERED: ALBU2.5V8 INH (11:25)
[2018-12-03] MEDS ORDERED: APIX5TAB PO (11:25)
--- NOTE | 2018-12-03 11:35 | PDOC3 ---
Discharge Summary Visit Information Date of Admission: Nov 30, 2018 Date of Discharge: Dec 03, 2018 Admitting Diagnosis: Shortness of breath Final Diagnosis Problems Medical Problems: (1) HAP (hospital-acquired pneumonia) Status: Acute (2) Shortness of breath Status: Acute Brief Hospital Course Allergies Allergies Coded Allergies Type Severity Reaction Last Updated Verified No Known Drug Allergies 11/30/18 No Vital Signs Vital Signs Date Time Temp Pulse Resp B/P (MAP) Pulse Ox O2 Delivery O2 Flow Rate FiO2 12/03/18 08:24 75 119/66 12/03/18 08:00 Room Air 2.0 12/03/18 07:25 98 12/03/18 07:00 97.3 20 97.3 Brief Hospital Course Mr Walker is a 68yo w/ PMHx afib, DM2, HTN, Sz disorder, CAD s/p stenting who presented with cough getting worse for the past few days. He denies fever or chills. He has had thick yellow sputum production. He also ran out of his Lasix, has had more lower extremity edema and more shortness of breath. He has had runny nose, has had occasional gastroesophageal reflux symptoms. He denies chest pain. He is from [place], has lived in the since 2009 in [place], [place] and is visiting family in [place] for the month. He has atrial fibrillation, is on apixaban. no inc in soa, no cp, no complaints Only pulm on case on eliqus for a fib. He wishes to return to [place] soon. Needs 1 month of refills. D/w bedside quit smoking 9 yrs ago PLAN: CT chest does not show nodule or pneumonia, this was more a diastolic CHF exacerbation based on echo Dyspnea secondary to pneumonia Acute diastolic congestive heart failure, cannot rule out systolic congestive heart failure. 80 pack yr smoking hx Pneumonia. Ex-smoker, probable chronic obstructive pulmonary disease. Atrial fibrillation on eliquis Hypertension. Diabetes mellitus. Greater than 30 minutes spent on discharge. Discharge Information Condition at Discharge: Improved Follow Up: Weeks (1) Disposition/Orders: D/C to Home Scheduled Apixaban (Eliquis) 5 Mg Tablet, 5 MG PO BID for blood thinner for 30 Days, #60 Prescribed by: SINA KILLIAN MD on 12/03/18 1125 Aspirin (Aspirin) 81 Mg Tab.chew, 1 TAB PO DAILY, #30 Ref 3 (Reported) Entered as Reported by: LINDA YEAGER on 11/30/181525 Last Action: Continued on 11/30/182099 by Rommel Freeman Atorvastatin Calcium (Atorvastatin Calcium) 40 Mg Tablet, 1 TAB PO DAILY for HLD for 30 Days, #30 Ref 1 Prescribed by: SINA KILLIAN MD on 12/03/18 1125 Bupropion Hcl (Wellbutrin Sr) 200 Mg Tablet.er, 100 MG PO BID for depression for 30 Days, #30 Prescribed by: SINA KILLIAN MD on 12/03/18 1125 Furosemide (Lasix) 40 Mg Tablet, 20 MG PO DAILY for diuretic for 30 Days, #15 Ref 1 Prescribed by: SINA KILLIAN MD on 12/03/18 1125 Levetiracetam (Keppra) 500 Mg Tablet, 2 TAB PO BID for history of seizures for 30 Days, #120 Ref 3 Prescribed by: SINA KILLIAN MD on 12/03/18 1125 Metoprolol Tartrate (Metoprolol Tartrate) 50 Mg Tablet, 1.5 TAB PO BID for hypertension for 30 Days, #90 Ref 5 Prescribed by: SINA KILLIAN MD on 12/03/18 1125 Nitroglycerin (NITROGLYCERIN SubLingual) 0.4 Mg Tab.subl, 1 TAB SL UD, #25 Ref 3 (Reported) Entered as Reported by: LINDA YEAGER on 11/30/181526 Last Action: Continued on 11/30/182099 by Rommel Freeman Scheduled PRN Albuterol Sulfate (Proair Hfa Inhaler) 8.5 Gm Hfa.aer.ad, 2 PUFF INH PRN BID PRN for SHORTNESS OF BREATH for 30 Days, #1 Ref 1 Prescribed by: SINA KILLIAN MD on 12/03/18 1125 Discontinued Medications Acetaminophen (Tylenol) 325 Mg Tablet, 2 TAB PO PRN Q6HRS PRN for PAIN, #30 (Reported) Entered as Reported by: Sujatha Burgos on 11/30/181825 Last Taken: 650 mg PO Q 6HRS PRN on Unknown Date & Time Last Action: Continued on 11/30/182099 by SINA Montgomery MD Dec 03, 2018 11:35
--- NOTE | 2018-12-03 12:18 | PDOC ---
PULMONARY PROGRESS NOTES Subjective no soa Vitals Vital Signs Date Time Temp Pulse Resp B/P (MAP) Pulse Ox O2 Delivery O2 Flow Rate FiO2 12/03/18 11:00 97.7 75 20 142/85 (104) 98 Room Air 97.7 12/03/18 08:00 2.0 General: Alert, No acute distress Lungs: Clear Cardiovascular: S1 Abdomen: Soft Neuro Exam: Alert Extremities: No Edema Skin: Warm Medications Active Scripts Medications Dose Route/Sig Max Daily Dose Days Date Category Tylenol (Acetaminophen) 325 Mg Tablet 2 Tab PO PRN Q6HRS PRN 11/30/18 Reported NITROGLYCERIN SubLingual (Nitroglycerin) 0.4 Mg Tab.subl 1 Tab SL UD 11/30/18 Reported Metoprolol Tartrate 50 Mg Tablet 1.5 Tab PO BID 11/30/18 Reported Keppra (Levetiracetam) 500 Mg Tablet 2 Tab PO BID 11/30/18 Reported Wellbutrin Sr (Bupropion Hcl) 200 Mg Tablet.er 100 Mg PO BID 11/30/18 Reported Atorvastatin Calcium 40 Mg Tablet 1 Tab PO DAILY 11/30/18 Reported Aspirin 81 Mg Tab.chew 1 Tab PO DAILY 11/30/18 Reported Proair Hfa Inhaler (Albuterol Sulfate) 8.5 Gm Hfa.aer.ad 2 Puff INH PRN BID PRN 11/30/18 Reported Eliquis (Apixaban) 5 Mg Tablet 5 Mg PO BID 11/30/18 Reported Lasix (Furosemide) 40 Mg Tablet 20 Mg PO DAILY 11/30/18 Reported Impression . 1. Dyspnea secondary to mild RLL pneumonia, AND exacerbation of chronic obstructive pulmonary disease 2. Abnormal chest x-ray as mentioned above. 3. Pneumonia. 4. Ex-smoker, probable chronic obstructive pulmonary disease. 5. Atrial fibrillation. 6. No congestive heart failure on ct 7. Hypertension. 8. Diabetes mellitus. Plan . 1. Titrate the FiO2 to keep O2 saturation 92%. 2. bronchodilator, Atrovent only. He has atrial fibrillation. Avoid albuterol. 3. change to PO abx. 4. ct with no lung mass 5. Continue Lasix. Keep intake less than output. 6. Continue apixaban. 7. Monitor for bleeding. OK WITH PRAKASH BUSTAMANTE MD Dec 03, 2018 12:18
--- NOTE | 2018-12-03 12:40 | NUR ---
Discharge instruction given to patient and family and verbalizes understanding. PIV and heart monitor removed. Escorted patient to [facility] per ambulations into a private vehicle.
== END 2018-12-03 12:45 | disposition home or self-care (01) | DRG 193 ==
LOC: ER 14:55 → UNDOADMIN 17:01 → 4 NORTH 17:01 → 2 NORTH 17:02
PROVIDERS: ADMIT Internal Medicine; ATTEND Internal Medicine
DX: J18.1 Lobar pneumonia, unspecified organism (principal); I50.43 Acute on chronic combined systolic (congestive) and diastolic (congestive) heart failure; J44.0 Chronic obstructive pulmonary disease with (acute) lower respiratory infection; J44.1 Chronic obstructive pulmonary disease with (acute) exacerbation; I11.0 Hypertensive heart disease with heart failure; E11.9 Type 2 diabetes mellitus without complications; E78.00 Pure hypercholesterolemia, unspecified; E78.5 Hyperlipidemia, unspecified; G40.909 Epilepsy, unspecified, not intractable, without status epilepticus; I25.10 Atherosclerotic heart disease of native coronary artery without angina pectoris; I25.2 Old myocardial infarction; I48.91 Unspecified atrial fibrillation; K21.9 Gastro-esophageal reflux disease without esophagitis; Z79.01 Long term (current) use of anticoagulants; Z82.49 Family history of ischemic heart disease and other diseases of the circulatory system; Z83.3 Family history of diabetes mellitus; Z87.891 Personal history of nicotine dependence; Z95.5 Presence of coronary angioplasty implant and graft; F32.9 Major depressive disorder, single episode, unspecified; F41.9 Anxiety disorder, unspecified; Z77.22 Contact with and (suspected) exposure to environmental tobacco smoke (acute) (chronic)
CPT/HCPCS: 36415; 71046; 71250; 80053; 81001; 82553; 83605; 83735; 83880; 84443; 84484; 85025; 85379; 85610; 85730; 87040; 93005; 93306; 94640; 94760; 96361; 96365; J2543; J7030; J7613; J7620; J7644; 97116; 97535; 99285-25; G0378

== ENCOUNTER 2019-02-01 13:48 | Inpatient (IN) | payer SELFPAY ==
[~2019-02-01] VITALS: Ht 170.2 cm; Wt 88.5 kg
[~2019-02-01 13:48] MED LIST: ACET325T9 PO; ALBU2.5V8 INH; APIX5TAB PO; ASPI-630 PO; ATOR40TA59 PO; BUPR200T2 PO; FURO-68 PO; LEVE500T56 PO; METO50TA6 PO; NITR0.4T22 SL
[2019-02-01 14:23] LABS: BASO % 1 % (0-3); EOS # 0.1 x10^3/uL (0.0-0.7); EOS % 1 % (0-3); HEMATOCRIT 40.9 % (39.0-53.0); LYMPH # 2.2 x10^3/uL (1.0-4.8); LYMPH % 29 % (24-48); MEAN CORPUSCULAR HEMOGLOBIN 24 pg (25-35); MEAN CORPUSCULAR HGB CONC 32 g/dL (31-37); MEAN CORPUSCULAR VOLUME 76 fL (79-100); MONO # 0.8 x10^3/uL (0.0-1.1); MONO % 11 % (0-9); NEUT # 4.6 x10^3/uL (1.8-7.7); NEUT % 59 % (31-73); PLATELET COUNT 306 x10^3/uL (140-400); RED BLOOD COUNT 5.37 x10^6/uL (4.30-5.70); RED CELL DISTRIBUTION WIDTH 15.6 % (11.5-14.5); WHITE BLOOD COUNT 7.8 x10^3/uL (4.0-11.0)
--- NOTE | 2019-02-01 14:27 | PHYS DOC ---
Past Medical History Past Medical History: A-Fib, Angina, Anxiety, Depression, Diabetes-Type II, GERD, High Cholesterol, Hypertension, Seizure Additional Past Medical Histor: BACK&NECK PAIN Additional Past Surgical Histo: CARDIAC STENTS Alcohol Use: Sober Drug Use: None Adult General Chief Complaint Chief Complaint: CHEST PAIN HPI HPI Patient is a 68 year old see mdm for hpi Review of Systems Review of Systems Constitutional: Denies fever or chills [] Eyes: Denies change in visual acuity, redness, or eye pain [] H Cardiovascular: No additional information not addressed in HPI [] GI: Denies abdominal pain, nausea, vomiting, bloody stools or diarrhea [] : Denies dysuria or hematuria [] Musculoskeletal: Denies back pain or joint pain [] Integument: Denies rash or skin lesions [] Neurologic: Denies headache, focal weakness or sensory changes [] Endocrine: Denies polyuria or polydipsia [] All other systems were reviewed and found to be within normal limits, except as documented in this note. Current Medications Current Medications Current Medications Medications (Trade) Dose Ordered Sig/Cecile Start Time Stop Time Status Last Admin Dose Admin Aspirin (Children'S Aspirin) 324 mg 1X ONCE 02/01/19 16:30 02/01/19 16:33 DC Info (CONTRAST GIVEN -- Rx MONITORING) 1 each PRN DAILY PRN 02/01/19 15:00 02/03/19 14:59 Iohexol (Omnipaque 350 Mg/ml) 90 ml 1X ONCE 02/01/19 15:00 02/01/19 15:01 DC 02/01/19 15:09 90 ML Nitroglycerin (Nitrostat) 0.4 mg PRN Q5MIN PRN 02/01/19 16:30 02/02/19 16:29 Allergies Allergies Allergies Coded Allergies Type Severity Reaction Last Updated Verified No Known Drug Allergies 11/30/18 No Physical Exam Physical Exam Constitutional: Well developed, well nourished, no acute distress, non-toxic appearance. [] HENT: Normocephalic, atraumatic, bilateral external ears normal, oropharynx moist, no oral exudates, nose normal. [] Eyes: PERRLA, EOMI, conjunctiva normal, no discharge. [] Neck: Normal range of motion, no tenderness, supple, no stridor. [] Cardiovascular:Heart rate regular rhythm, no murmur [] Lungs & Thorax: Bilateral breath sounds clear to auscultation [] Abdomen: Bowel sounds normal, soft, no tenderness, no masses, no pulsatile masses. [] Skin: Warm, dry, no erythema, no rash. [] Back: No tenderness, no CVA tenderness. [] Extremities: No tenderness, no cyanosis, no clubbing, ROM intact,one plus edema. Neurologic: Alert and oriented X 3, normal motor function, normal sensory function, no focal deficits noted. [] Psychologic: Affect normal, judgement normal, mood normal. [] Current Patient Data Vital Signs Vital Signs Date Time Temp Pulse Resp B/P (MAP) Pulse Ox O2 Delivery O2 Flow Rate FiO2 02/01/19 16:26 72 16 120/66 (84) Room Air 02/01/19 15:05 96 02/01/19 13:57 97.7 97.7 Lab Values Laboratory Tests Test 02/01/19 14:12 White Blood Count 7.8 x10^3/uL (4.0-11.0) Red Blood Count 5.37 x10^6/uL (4.30-5.70) Hemoglobin 13.0 g/dL (13.0-17.5) Hematocrit 40.9 % (39.0-53.0) Mean Corpuscular Volume 76 fL (79-100) L Mean Corpuscular Hemoglobin 24 pg (25-35) L Mean Corpuscular Hemoglobin Concent 32 g/dL (31-37) Red Cell Distribution Width 15.6 % (11.5-14.5) H Platelet Count 306 x10^3/uL (140-400) Neutrophils (%) (Auto) 59 % (31-73) Lymphocytes (%) (Auto) 29 % (24-48) Monocytes (%) (Auto) 11 % (0-9) H Eosinophils (%) (Auto) 1 % (0-3) Basophils (%) (Auto) 1 % (0-3) Neutrophils # (Auto) 4.6 x10^3/uL (1.8-7.7) Lymphocytes # (Auto) 2.2 x10^3/uL (1.0-4.8) Monocytes # (Auto) 0.8 x10^3/uL (0.0-1.1) Eosinophils # (Auto) 0.1 x10^3/uL (0.0-0.7) Basophils # (Auto) 0.0 x10^3/uL (0.0-0.2) Prothrombin Time 14.7 SEC (11.7-14.0) H Prothrombin Time INR 1.2 (0.8-1.1) H Sodium Level 138 mmol/L (136-145) Potassium Level 4.7 mmol/L (3.5-5.1) Chloride Level 104 mmol/L (98-107) Carbon Dioxide Level 28 mmol/L (21-32) Anion Gap 6 (6-14) Blood Urea Nitrogen 19 mg/dL (8-26) Creatinine 1.2 mg/dL (0.7-1.3) Estimated GFR (Cockcroft-Gault) 59.9 BUN/Creatinine Ratio 16 (6-20) Glucose Level 116 mg/dL (70-99) H Calcium Level 9.1 mg/dL (8.5-10.1) Total Bilirubin 0.3 mg/dL (0.2-1.0) Aspartate Amino Transferase (AST) 22 U/L (15-37) Alanine Aminotransferase (ALT) 19 U/L (16-63) Alkaline Phosphatase 90 U/L (46-116) Troponin I Quantitative < 0.017 ng/mL (0.000-0.055) TG-Ach-G-Type Natriuretic Peptide 1051 pg/mL (0-124) H Total Protein 8.1 g/dL (6.4-8.2) Albumin 3.4 g/dL (3.4-5.0) Albumin/Globulin Ratio 0.7 (1.0-1.7) L Lipase 195 U/L (73-393) Laboratory Tests 02/01/19 14:12 Laboratory Tests 02/01/19 14:12 EKG EKG afib rate 56 deep twi laterally compared to 11/30 that is similar v1/v2 Interpretation Time: rate normal no stemi. Radiology/Procedures Radiology/Procedures [] Impressions: TECHNIQUE: CT of the chest following the administration of intravenous contrast during the pulmonary arterial phase. Axial, coronal and sagittal reformatted images were generated including MIP images. ---PQRS compliance statement - One or more of the following individualized dose reduction techniques were utilized for this study: 1. Automated exposure control 2. Adjustment of the mA and/or kV according to patient size 3. Use of iterative reconstruction technique--- FINDINGS: CHEST: Diagnostic quality: Adequate. Pulmonary emboli: None seen Right heart strain: None Pulmonary arteries: Pulmonary arterial trunk measures up to 3.9 cm in diameter. Heart is mildly enlarged. No pericardial effusion. 3 mm left apical lung nodule (series 3 image 21) is seen. Mild prominent mediastinal and hilar lymph nodes are seen, not enlarged by size criteria. No axillary lymphadenopathy. Visualized Upper abdomen: Grossly unremarkable Bones: Evaluation of the bony structures limited given MIP reconstructions. Within these constraints no discrete aggressive osseous lesion is seen. IMPRESSION: 1. No evidence for acute pulmonary embolus. 2. Prominence of pulmonary arterial trunk, nonspecific but may be seen with pulmonary arterial hypertension. 3. 3 mm left apical lung nodule.Per Fleischner Society guidelines for incidentally found solid nodules measuring less than 6 mm, no follow-up is necessary if patient is considered at low risk for lung cancer. If patient is considered to be at high risk, such as with history of smoking, then CT follow-up in about 12 months can be considered. Electronically signed by: Anibal Moreira MD (02/01/2019 3:50 PM) [facility] [place] Course & Med Decision Making Course & Med Decision Making Pertinent Labs and Imaging studies reviewed. (See chart for details) [] PMHx afib, DM2, HTN, Sz disorder, CAD s/p stenting with leg swelling on eliquis for possible pe or afib? he says he has had a clot before. [facility] doctor. cp since yesterday intermittent left side sharp a/w sob. nonradiating worse with lying flat and walking no fever mild cough occasional runny nose.lasts less than one minute. mdm could be pe get ct pe protocol, r/o mi atypical pain final plan ct scan neg for pe. trop neg in er stress test >four years ago he tells me d/w fulbright for admit Gail Disclaimer Gail Disclaimer This electronic medical record was generated, in whole or in part, using a voice recognition dictation system. Departure Departure Impression: Primary Impression: Chest pain Disposition: ADMITTED INPATIENT Admitting Physician: HIMS Condition: STABLE Referrals: UNKNOWN PCP NAME (PCP) DANIEL DORANTES MD Feb 01, 2019 14:26
[2019-02-01 14:31] LABS: CALCIUM 9.1 mg/dL (8.5-10.1); CREATININE 1.2 mg/dL (0.7-1.3); GFR 59.9; POTASSIUM 4.7 mmol/L (3.5-5.1)
--- NOTE | 2019-02-01 14:36 | RAD ---
Exam performed: One view chest. Indication: Chest pain Date of Service: 02/01/2019 1:50 PM Comparison: Two-view chest from 11/30/2018. Single AP upright portable view chest findings: Cardiomediastinal silhouette is within upper limits of normal. No acute infiltrates, effusion or pneumothorax is detected. The bony structures are normal. Impression: No acute findings seen. Electronically signed by: Flores Morales MD (02/01/2019 2:33 PM) [facility]
[2019-02-01 14:37] LABS: ALBUMIN 3.4 g/dL (3.4-5.0); ALBUMIN/GLOBULIN RATIO 0.7 (1.0-1.7); TOTAL BILIRUBIN 0.3 mg/dL (0.2-1.0); TOTAL PROTEIN 8.1 g/dL (6.4-8.2)
[2019-02-01 14:42] LABS: PROTHROMBIN TIME PATIENT 14.7 SEC (11.7-14.0)
[2019-02-01] MEDS ORDERED: IOHEXOL 350 MG/ML 100 ML VIAL. IV ONE (15:00)
[2019-02-01] MEDS ORDERED: CONTRAST GIVEN. MC PRN (15:00)
--- NOTE | 2019-02-01 15:53 | RAD ---
EXAM: CT chest with contrast - pulmonary embolus protocol CLINICAL HISTORY: Pleuritic left chest pain, evaluate for acute pulmonary embolus. COMPARISON: None. TECHNIQUE: CT of the chest following the administration of intravenous contrast during the pulmonary arterial phase. Axial, coronal and sagittal reformatted images were generated including MIP images. ---PQRS compliance statement - One or more of the following individualized dose reduction techniques were utilized for this study: 1. Automated exposure control 2. Adjustment of the mA and/or kV according to patient size 3. Use of iterative reconstruction technique--- FINDINGS: CHEST: Diagnostic quality: Adequate. Pulmonary emboli: None seen Right heart strain: None Pulmonary arteries: Pulmonary arterial trunk measures up to 3.9 cm in diameter. Heart is mildly enlarged. No pericardial effusion. 3 mm left apical lung nodule (series 3 image 21) is seen. Mild prominent mediastinal and hilar lymph nodes are seen, not enlarged by size criteria. No axillary lymphadenopathy. Visualized Upper abdomen: Grossly unremarkable Bones: Evaluation of the bony structures limited given MIP reconstructions. Within these constraints no discrete aggressive osseous lesion is seen. IMPRESSION: 1. No evidence for acute pulmonary embolus. 2. Prominence of pulmonary arterial trunk, nonspecific but may be seen with pulmonary arterial hypertension. 3. 3 mm left apical lung nodule.Per Fleischner Society guidelines for incidentally found solid nodules measuring less than 6 mm, no follow-up is necessary if patient is considered at low risk for lung cancer. If patient is considered to be at high risk, such as with history of smoking, then CT follow-up in about 12 months can be considered. Electronically signed by: Anibal Moreira MD (02/01/2019 3:50 PM) [facility]
[2019-02-01] MEDS ORDERED: NITROGLYCERIN SUBLINGUAL 0.4 MG BOTTLE OF 25. SL PRN ×2 (16:30→20:15)
[2019-02-01] MEDS ORDERED: ASPIRIN CHEWABLE 81 MG TABLET. PO ONE (16:30)
--- NOTE | 2019-02-01 17:44 | PDOC1 ---
History and Physical Date of Admission Date of Admission DATE: 02/01/19 TIME: 17:43 Identification/Chief Complaint Chief Complaint seen in er with angina Past Medical History Past Medical History Past Medical History Past Medical History Past Medical History: A-Fib, Angina, Anxiety, Depression, Diabetes-Type II, GERD, High Cholesterol, Hypertension, Seizure Additional Past Medical Histor: BACK&NECK PAIN Additional Past Surgical Histo: CARDIAC STENTS Alcohol Use: Sober Drug Use: None fhx obesity Cardiovascular: CAD Musculoskeletal: Osteoarthritis Family History Family History: High Cholestrol, Hypertension Social History Smoke: 2 packs per day ALCOHOL: none Drugs: None Current Problem List Problem List Problems Medical Problems: (1) Chest pain Status: Acute Current Medications Current Medications Current Medications Iohexol (Omnipaque 350 Mg/ml) 90 ml 1X ONCE IV Last administered on 02/01/19at 15:09; Start 02/01/19 at 15:00; Stop 02/01/19 at 15:01; Status DC Info (CONTRAST GIVEN -- Rx MONITORING) 1 each PRN DAILY PRN MC SEE COMMENTS; Start 02/01/19 at 15:00; Stop 02/03/19 at 14:59 Aspirin (Children'S Aspirin) 324 mg 1X ONCE PO ; Start 02/01/19 at 16:30; Stop 02/01/19 at 16:33; Status DC Nitroglycerin (Nitrostat) 0.4 mg PRN Q5MIN PRN SL CHEST PAIN; Start 02/01/19 at 16:30; Stop 02/02/19 at 16:29 Active Scripts Active Metoprolol Tartrate 50 Mg Tablet 1.5 Tab PO BID 30 Days Keppra (Levetiracetam) 500 Mg Tablet 2 Tab PO BID 30 Days Wellbutrin Sr (Bupropion Hcl) 200 Mg Tablet.er 100 Mg PO BID 30 Days Atorvastatin Calcium 40 Mg Tablet 1 Tab PO DAILY 30 Days Proair Hfa Inhaler (Albuterol Sulfate) 8.5 Gm Hfa.aer.ad 2 Puff INH PRN BID PRN 30 Days Eliquis (Apixaban) 5 Mg Tablet 5 Mg PO BID 30 Days Lasix (Furosemide) 40 Mg Tablet 20 Mg PO DAILY 30 Days Reported NITROGLYCERIN SubLingual (Nitroglycerin) 0.4 Mg Tab.subl 1 Tab SL UD Aspirin 81 Mg Tab.chew 1 Tab PO DAILY Allergies Allergies: Coded Allergies: No Known Drug Allergies (Unverified , 11/30/18) ROS Review of System Review of Systems Review of Systems Constitutional: Denies fever or chills [] Eyes: Denies change in visual acuity, redness, or eye pain [] Cardiovascular: No additional information not addressed in HPI [] GI: Denies abdominal pain, nausea, vomiting, bloody stools or diarrhea [] : Denies dysuria or hematuria [] Musculoskeletal: Denies back pain or joint pain [] Integument: Denies rash or skin lesions [] Neurologic: Denies headache, focal weakness or sensory changes [] Endocrine: Denies polyuria or polydipsia [] 14 PT systems were reviewed and found to be within normal limits, except as documented ALLERGY AND IMMUNOLOGY: No: Hives, Insect Bite Sensitivity, Itchy/Watery Eyes, Nasal Congestion, Post Nasal Drip, Seasonal Allergies, Other Respiratory: YES: Shortness of breath, SOB with excertion Cardiovascular: yes Chest Pain Musculoskeletal: Yes Joint Stiffness Physical Exam Physical Exam Physical Exam Physical Exam Constitutional: Well developed, well nourished, no acute distress, non-toxic appearance. [] HENT: Normocephalic, atraumatic, bilateral external ears normal, oropharynx moist, no oral exudates, nose normal. [] Eyes: PERRLA, EOMI, conjunctiva normal, no discharge. [] Neck: Normal range of motion, no tenderness, supple, no stridor. [] Cardiovascular:Heart rate regular rhythm, no murmur [] Lungs & Thorax: Bilateral breath sounds clear to auscultation [] Abdomen: Bowel sounds normal, soft, no tenderness, no masses, no pulsatile masses. [] Skin: Warm, dry, no erythema, no rash. [] Back: No tenderness, no CVA tenderness. [] Extremities: No tenderness, no cyanosis, no clubbing, ROM intact,one plus edema. Neurologic: Alert and oriented X 3, normal motor function, normal sensory function, no focal deficits noted. [] Psychologic: Affect normal, judgement normal, mood normal. [] General: Alert, Oriented X3, Cooperative, No acute distress HEENT: EOMI, Mucous membr. moist/pink Lungs: Clear to auscultation Heart: RRR Breasts: Not examined Abdomen: Normal bowel sounds, Soft Rectal Exam: not examined PELVIC: Examination not indicated Extremities: No clubbing, No cyanosis Neuro: Normal speech, Cranial nerves 3-12 NL Psych/Mental Status: Mental status NL, Mood NL Vitals Vitals Vital Signs Date Time Temp Pulse Resp B/P (MAP) Pulse Ox O2 Delivery O2 Flow Rate FiO2 02/01/19 16:26 72 16 120/66 (84) Room Air 02/01/19 15:05 96 02/01/19 13:57 97.7 97.7 Labs Labs Laboratory Tests Test 02/01/19 14:12 White Blood Count 7.8 x10^3/uL (4.0-11.0) Red Blood Count 5.37 x10^6/uL (4.30-5.70) Hemoglobin 13.0 g/dL (13.0-17.5) Hematocrit 40.9 % (39.0-53.0) Mean Corpuscular Volume 76 fL (79-100) Mean Corpuscular Hemoglobin 24 pg (25-35) Mean Corpuscular Hemoglobin Concent 32 g/dL (31-37) Red Cell Distribution Width 15.6 % (11.5-14.5) Platelet Count 306 x10^3/uL (140-400) Neutrophils (%) (Auto) 59 % (31-73) Lymphocytes (%) (Auto) 29 % (24-48) Monocytes (%) (Auto) 11 % (0-9) Eosinophils (%) (Auto) 1 % (0-3) Basophils (%) (Auto) 1 % (0-3) Neutrophils # (Auto) 4.6 x10^3/uL (1.8-7.7) Lymphocytes # (Auto) 2.2 x10^3/uL (1.0-4.8) Monocytes # (Auto) 0.8 x10^3/uL (0.0-1.1) Eosinophils # (Auto) 0.1 x10^3/uL (0.0-0.7) Basophils # (Auto) 0.0 x10^3/uL (0.0-0.2) Prothrombin Time 14.7 SEC (11.7-14.0) Prothromb Time International Ratio 1.2 (0.8-1.1) Sodium Level 138 mmol/L (136-145) Potassium Level 4.7 mmol/L (3.5-5.1) Chloride Level 104 mmol/L (98-107) Carbon Dioxide Level 28 mmol/L (21-32) Anion Gap 6 (6-14) Blood Urea Nitrogen 19 mg/dL (8-26) Creatinine 1.2 mg/dL (0.7-1.3) Estimated GFR (Cockcroft-Gault) 59.9 BUN/Creatinine Ratio 16 (6-20) Glucose Level 116 mg/dL (70-99) Calcium Level 9.1 mg/dL (8.5-10.1) Total Bilirubin 0.3 mg/dL (0.2-1.0) Aspartate Amino Transf (AST/SGOT) 22 U/L (15-37) Alanine Aminotransferase (ALT/SGPT) 19 U/L (16-63) Alkaline Phosphatase 90 U/L (46-116) Troponin I Quantitative < 0.017 ng/mL (0.000-0.055) MI-Cej-W-Type Natriuretic Peptide 1051 pg/mL (0-124) Total Protein 8.1 g/dL (6.4-8.2) Albumin 3.4 g/dL (3.4-5.0) Albumin/Globulin Ratio 0.7 (1.0-1.7) Lipase 195 U/L (73-393) Laboratory Tests Test 02/01/19 14:12 White Blood Count 7.8 x10^3/uL (4.0-11.0) Red Blood Count 5.37 x10^6/uL (4.30-5.70) Hemoglobin 13.0 g/dL (13.0-17.5) Hematocrit 40.9 % (39.0-53.0) Mean Corpuscular Volume 76 fL (79-100) Mean Corpuscular Hemoglobin 24 pg (25-35) Mean Corpuscular Hemoglobin Concent 32 g/dL (31-37) Red Cell Distribution Width 15.6 % (11.5-14.5) Platelet Count 306 x10^3/uL (140-400) Neutrophils (%) (Auto) 59 % (31-73) Lymphocytes (%) (Auto) 29 % (24-48) Monocytes (%) (Auto) 11 % (0-9) Eosinophils (%) (Auto) 1 % (0-3) Basophils (%) (Auto) 1 % (0-3) Neutrophils # (Auto) 4.6 x10^3/uL (1.8-7.7) Lymphocytes # (Auto) 2.2 x10^3/uL (1.0-4.8) Monocytes # (Auto) 0.8 x10^3/uL (0.0-1.1) Eosinophils # (Auto) 0.1 x10^3/uL (0.0-0.7) Basophils # (Auto) 0.0 x10^3/uL (0.0-0.2) Prothrombin Time 14.7 SEC (11.7-14.0) Prothromb Time International Ratio 1.2 (0.8-1.1) Sodium Level 138 mmol/L (136-145) Potassium Level 4.7 mmol/L (3.5-5.1) Chloride Level 104 mmol/L (98-107) Carbon Dioxide Level 28 mmol/L (21-32) Anion Gap 6 (6-14) Blood Urea Nitrogen 19 mg/dL (8-26) Creatinine 1.2 mg/dL (0.7-1.3) Estimated GFR (Cockcroft-Gault) 59.9 BUN/Creatinine Ratio 16 (6-20) Glucose Level 116 mg/dL (70-99) Calcium Level 9.1 mg/dL (8.5-10.1) Total Bilirubin 0.3 mg/dL (0.2-1.0) Aspartate Amino Transf (AST/SGOT) 22 U/L (15-37) Alanine Aminotransferase (ALT/SGPT) 19 U/L (16-63) Alkaline Phosphatase 90 U/L (46-116) Troponin I Quantitative < 0.017 ng/mL (0.000-0.055) AH-Zek-R-Type Natriuretic Peptide 1051 pg/mL (0-124) Total Protein 8.1 g/dL (6.4-8.2) Albumin 3.4 g/dL (3.4-5.0) Albumin/Globulin Ratio 0.7 (1.0-1.7) Lipase 195 U/L (73-393) Images Images Pulmonary Valve PV Peak Velocity 74.0cm/s Tricuspid Valve TR P. Velocity 365cm/s RAP ESTIMATE 3mmHg TR Peak Gr. 53mmHg RVSP 56mmHg LEFT VENTRICLE The left ventricle is normal size. There is mild concentric left ventricular hypertrophy. Left ventricle systolic function is normal. The Ejection Fraction is 55-60%. There is normal LV segmental wall motion. Transmitral Doppler flow pattern is Grade II-pseudonormal filling dynamics. RIGHT VENTRICLE The right ventricle is normal size. There is normal right ventricular wall thickness. The right ventricular systolic function is normal. ATRIA The left atrium size is normal. The right atrium size is normal. The interatrial septum is intact with no evidence for an atrial septal defect or patent foramen ovale as noted on 2-D or Doppler imaging. AORTIC VALVE The aortic valve is probably trileaflet. The aortic valve is not well visualized . Doppler and Color Flow revealed mild aortic regurgitation. There is no significant aortic valvular stenosis. MITRAL VALVE The mitral valve is thickened but opens well. There is no evidence of mitral valve prolapse. There is no mitral valve stenosis. Doppler and Color-flow revealed mild to moderate mitral regurgitation. TRICUSPID VALVE The tricuspid valve is normal in structure and function. Doppler and Color Flow revealed mild tricuspid regurgitation. The PA pressure was estimated at 52 mmHg. There is no tricuspid valve prolapse or vegetation. There is no tricuspid valve stenosis. PULMONIC VALVE The pulmonic valve is not well visualized. GREAT VESSELS The aortic root is normal in size. The ascending aorta is normal in size. The IVC is normal in size and collapses >50% with inspiration. PERICARDIAL EFFUSION There is no evidence of significant pericardial effusion. Critical Notification Critical Value: No <Conclusion> The left ventricle is normal size. Left ventricle systolic function is normal. The Ejection Fraction is 55-60%. There is mild concentric left ventricular hypertrophy. There is no significant aortic valvular stenosis. Doppler and Color Flow revealed mild aortic regurgitation. Doppler and Color-flow revealed mild to moderate mitral regurgitation. Doppler and Color Flow revealed mild tricuspid regurgitation. The PA pressure was estimated at 52 mmHg. Signed by : Jorge De Santiago MD Electronically Approved : 12/02/2018 15:46:16 REASON: r/o pe. pleuritic left chest pain. prior hx of pe. PROCEDURE: CT ANGIOGRAPHY CHEST EXAM: CT chest with contrast - pulmonary embolus protocol CLINICAL HISTORY: Pleuritic left chest pain, evaluate for acute pulmonary embolus. COMPARISON: None. TECHNIQUE: CT of the chest following the administration of intravenous contrast during the pulmonary arterial phase. Axial, coronal and sagittal reformatted images were generated including MIP images. ---PQRS compliance statement - One or more of the following individualized dose reduction techniques were utilized for this study: 1. Automated exposure control 2. Adjustment of the mA and/or kV according to patient size 3. Use of iterative reconstruction technique--- FINDINGS: CHEST: Diagnostic quality: Adequate. Pulmonary emboli: None seen Right heart strain: None Pulmonary arteries: Pulmonary arterial trunk measures up to 3.9 cm in diameter. Heart is mildly enlarged. No pericardial effusion. 3 mm left apical lung nodule (series 3 image 21) is seen. Mild prominent mediastinal and hilar lymph nodes are seen, not enlarged by size criteria. No axillary lymphadenopathy. Visualized Upper abdomen: Grossly unremarkable Bones: Evaluation of the bony structures limited given MIP reconstructions. Within these constraints no discrete aggressive osseous lesion is seen. IMPRESSION: 1. No evidence for acute pulmonary embolus. 2. Prominence of pulmonary arterial trunk, nonspecific but may be seen with pulmonary arterial hypertension. 3. 3 mm left apical lung nodule.Per Fleischner Society guidelines for incidentally found solid nodules measuring less than 6 mm, no follow-up is necessary if patient is considered at low risk for lung cancer. If patient is considered to be at high risk, such as with history of smoking, then CT follow-up in about 12 months can be considered. Electronically signed by: Anibal Moreira MD (02/01/2019 3:50 PM) [place] [id number] DICTATED and SIGNED BY: ANIBAL MOREIRA MD DATE: 02/01/19 1550 VTE Prophylaxis Ordered VTE Prophylaxis Devices: Yes VTE Pharmacological Prophylaxi: Yes Assessment/Plan Assessment/Plan impression Dyspnea chest discomfort, hx stents No evidence for acute pulmonary embolus. on cta Prominence of pulmonary arterial trunk, nonspecific but may be seen with pulmonary arterial hypertension. 3 mm left apical lung nodule. diastolic congestive heart failure, cannot rule out systolic congestive heart failure. ECHO 12/02 Ejection Fraction is 55-60%. mild concentric left ventricular hypertrophy mild aortic regurgitation.,mild to moderate mitral regurgitation., mild tricuspid regurgitation. PA pressure was estimated at 52 mmHg. 80 pack yr smoking hx STOPPED 2010 Ex-smoker, probable chronic obstructive pulmonary disease. Atrial fibrillation on eliquis Hypertension. CAD WITH STENTS 2017 [facility] Morbid obesity hx a-fib on eliquis PLAN ADMIT [facility]VC BED CARDIOLOGY CONSULT serial troponin i echo pulm consult home meds ECHO 75 min pt exam, chart review, > 50% of time spent with exam, chart review, pt care coordination CAROLE RIOS MD Feb 01, 2019 17:44
[2019-02-01 18:40] VITALS: BP 136/77
--- NOTE | 2019-02-01 19:04 | NUR ---
Patient admitted to floor at 1825. Patient was placed on telemetry and found to be in controlled afib and asymptomatic. Patient was hungry. Food tray ordered. Patients VS are stable and the patient is resting comfortably in bed with no issues noted at this time. Will pass along care to oncoming RN.
[2019-02-01] MEDS ORDERED: ALBUTEROL SULFATE 2.5 MG/3 ML NEBU. INH PRN (20:15)
[2019-02-01] MEDS: buPROPion SR 100 MG TABLET.SA. PO SCH (21:02)
[2019-02-01] MEDS: levETIRAcetam 500 MG TABLET PO SCH (21:02)
[2019-02-01] MEDS: APIXABAN 5 MG TABLET. PO SCH (21:02)
[2019-02-01] MEDS: ATORVASTATIN CALCIUM 40 MG TABLET. PO SCH (21:02)
[2019-02-01] MEDS: METOPROLOL TART IMMED RELEASE 25 MG TABLET. PO SCH (21:02)
[2019-02-01 23:35] VITALS: BP 119/69
[2019-02-02 03:40] VITALS: BP 101/60
[2019-02-02 07:00] VITALS: BP 111/59
--- NOTE | 2019-02-02 07:18 | PDOC ---
Provider Note Provider Note [id number] sob lung nodule copd ct in 1 yr SHABBIR RIVERA MD Feb 02, 2019 07:18
[2019-02-02] MEDS ORDERED: IPRATRPIUM/ALBUTEROL 0.5/2.5MG 3 ML NEBU. NEB SCH (08:00)
--- NOTE | 2019-02-02 08:05 | CONS ---
DATE OF CONSULTATION: 02/02/2019 I was asked to see this 68-year-old gentleman for abnormal CT of the chest. HISTORY OF PRESENT ILLNESS: He does have a history of [id number] smoking, quit smoking in 2009. He was diagnosed with chronic obstructive pulmonary disease when he lived in [place], [place]. He is on 3 inhalers. One of them is albuterol, the other 3 he does not remember the name. He was admitted with shortness of breath and chest pain. He did have stent when he lived in his country in [facility]. He moved [place] in [place]. He has daily cough. He denies fever or chills. He has atrial fibrillation and is on apixaban. PAST MEDICAL HISTORY: Atrial fibrillation, diabetes mellitus, hypertension, COPD, seizure disorder, coronary artery disease, status post stent. ALLERGIES: No known drug allergies. SOCIAL HISTORY: History of [id number]-[id number] smoking, quit smoking in 2009. He is from [facility]. He moved to in 2009 to get better medical care. FAMILY HISTORY: Hypertension. MEDICATIONS: Currently, he is on Lasix, aspirin, Wellbutrin, Lopressor, Keppra, Lipitor, Eliquis. REVIEW OF SYSTEMS: As mentioned as above, other systems otherwise negative. PHYSICAL EXAMINATION: GENERAL: This is a well-developed gentleman. VITAL SIGNS: His O2 saturation is 98%, respiratory rate 17, heart rate 68, blood pressure 101/60, temperature 97.6. HEENT: Normocephalic, atraumatic. Pupils equal, round, reactive to light. Throat is clear. Nose is clear. NECK: There is no JVD, lymphadenopathy or thyromegaly. CARDIOVASCULAR: Irregularly irregular rhythm. PMI is nondisplaced. CHEST: Inspection is normal. LUNGS: Clear to auscultation. There is no wheezing. ABDOMEN: Soft. Bowel sounds are good. There is no mass. EXTREMITIES: There is no edema. LYMPHATICS: There is no lymphadenopathy. NEUROLOGIC: He is alert and oriented. SKIN: Chronic changes. LABORATORY DATA: I reviewed the following lab data. Echocardiogram on 12/02/2018 showed ejection fraction 55% to 60%, left ventricular hypertrophy, [id number] mitral regurgitation, mild aortic regurgitation, mild tricuspid regurgitation. PA pressure of 52 mmHg. WBC 7.8, hemoglobin 13, platelets 306. Sodium 138, potassium 4.7, chloride 104, CO2 of 28, BUN 19, creatinine 1.2, glucose 116. Troponin less than 0.017. BNP 1051. CT of the chest did not show pulmonary embolism, showed a 3 mm left apical nodule. IMPRESSION: 1. Dyspnea, multifactorial in etiology including chronic obstructive pulmonary disease, deconditioning, no pulmonary embolism. 2. Abnormal CT of the chest with a small 3 mm lung nodule. Differential diagnosis including inflammatory versus infectious versus granulomatous versus malignancy versus others. 3. Chronic obstructive pulmonary disease. 4. Ex-smoker. 5. Atrial fibrillation, on apixaban. 6. Hypertension. 7. Diabetes mellitus. PLAN AND RECOMMENDATIONS: 1. Titrate FiO2 to keep O2 saturation 92%. 2. Start bronchodilator. 3. Cardiology is consulted. 4. Continue apixaban. 5. Agree with repeat echocardiogram. Agree with Cardiology consultation. 6. He would require overnight oximetry and exercise oximetry at discharge. 7. His CT of the chest, which did not show pulmonary embolism did show a 3 mm left apical nodule. He has history of [id number]-[id number] smoking, I do recommend a CT of the chest in 1 year. 8. Continue not smoking. 8. Previous echocardiogram did show pulmonary hypertension, suspect it is multifactorial due to COPD, hypoxemia. He also has a history of diastolic CHF. There is no pulmonary embolism versus others. 9. The findings and recommendations were discussed with the patient. He understood and agreed to proceed with the plan. I have answered all of his questions. Thank you very much for allowing me to participate in care of this very nice gentleman. SHABBIR RIVERA M.D. : RUTH/merritt JOB#: [id number] / [id number]
[2019-02-02] MEDS: levETIRAcetam 500 MG TABLET PO SCH ×2 (08:37→20:30)
[2019-02-02] MEDS: ASPIRIN CHEWABLE 81 MG TABLET. PO SCH (08:38)
[2019-02-02] MEDS: buPROPion SR 100 MG TABLET.SA. PO SCH ×2 (08:38→20:30)
[2019-02-02] MEDS: METOPROLOL TART IMMED RELEASE 25 MG TABLET. PO SCH ×2 (08:38→20:30)
[2019-02-02] MEDS: FUROSEMIDE 20 MG TABLET PO SCH (08:38)
[2019-02-02] MEDS: APIXABAN 5 MG TABLET. PO SCH ×2 (08:38→20:30)
[2019-02-02] MEDS ORDERED: ANTI-COAG MONITOR BY PHARMACY. MC PRN (08:45)
[2019-02-02] MEDS: IPRATRPIUM/ALBUTEROL 0.5/2.5MG 3 ML NEBU. NEB SCH ×4 (08:53→19:55)
--- NOTE | 2019-02-02 10:24 | CONS ---
DATE OF CONSULTATION: 02/02/2019 REASON FOR CONSULTATION: Chest pain. HISTORY OF PRESENT ILLNESS: The patient is a 68-year-old man with past medical history as noted below, who presented with chest pain for 2 days. He has had some intermittent sharp localized chest pain over the left chest without any association with activity. He denies any exertional dyspnea, orthopnea, or PND. No syncope or palpitations. He was admitted to the hospital approximately 2 months ago where he had an echocardiogram, which revealed normal LV function, was diagnosed with diastolic heart failure, and was discharged in stable condition. Due to language barrier, the communication is slightly difficult, but overall, the patient denies any acute alarm symptoms. PAST MEDICAL HISTORY: 1. Remote history of coronary artery disease, status post PCI. 2. Hypertension. 3. Diabetes. 4. Seizure disorder. 5. Chronic atrial fibrillation, on rate control and anticoagulation. SOCIAL HISTORY: The patient used to smoke. Denies any alcohol or illicit drug use. He is . FAMILY HISTORY: Noncontributory. REVIEW OF SYSTEMS: Negative unless otherwise mentioned above. ALLERGIES: No known drug allergies. CURRENT CARDIOVASCULAR MEDICATIONS: 1. Aspirin 81 mg daily. 2. Furosemide 20 mg daily. 3. Metoprolol 75 mg p.o. b.i.d. 4. Atorvastatin 40 mg daily. 5. Apixaban 5 mg p.o. b.i.d. PHYSICAL EXAMINATION: VITAL SIGNS: Afebrile, pulse 64, respirations 17, blood pressure 111/60, and oxygen saturation 98% on room air. GENERAL: He is alert and oriented, no acute distress. HEAD AND NECK: Unremarkable. CARDIAC: Irregularly irregular without any obvious murmurs, rubs, or gallops. LUNGS: Clear to auscultation anteriorly. ABDOMEN: Soft, nontender. EXTREMITIES: There are 2+ radial and dorsalis pedis pulses. NEUROLOGIC: No focal deficits. MUSCULOSKELETAL: No trauma. SKIN: No rashes. DIAGNOSTIC STUDIES: Hemoglobin and platelets are within normal limits. Cardiac enzymes are negative x 3. BNP is mildly elevated at 1051. Telemetry demonstrates rate-controlled atrial fibrillation. CT of the chest reveals no significant pulmonary embolus. He does have some evidence of pulmonary hypertension. Echocardiogram from 11/2018 demonstrated ejection fraction of 55% with [id number] mitral regurgitation and mild tricuspid regurgitation. His PA pressure was 52. IMPRESSION: 1. Very atypical chest pain. 2. Coronary artery disease. 3. Rate-controlled atrial fibrillation, on anticoagulation. 4. Mild diastolic heart failure. RECOMMENDATIONS: 1. At this present time, his EKG, cardiac enzymes, and presentation are of the low-risk nature. 2. Given his recurrent admission to the hospital with dyspnea, we will plan for an outpatient stress test to rule out any occult ischemia. 3. Consider outpatient event monitoring to ensure that he does not have any tachycardia/arrhythmias leading to any dyspnea. Thank you for this consultation. Outpatient referral for pulmonary hypertension evaluation. LEIGHTON CAMPOS MD DR: MAGGIE/merritt JOB#: [id number] / [id number] ARTURO
[2019-02-02 11:00] VITALS: BP 113/68
--- NOTE | 2019-02-02 12:51 | PDOC ---
PROGRESS NOTES Chief Complaint Chief Complaint angina w. hx CAD acuteon chronic mild diastolic congestive heart failure, mild concentric left ventricular hypertrophy mild aortic regurgitation.,mild to moderate mitral regurgitation., mild tricuspid regurgitation. PA pressure was estimated at 52 mmHg. 80 pack yr smoking hx quit 8 yrs ago pos COPD Atrial fibrillation on eliquis Hypertension. obesity, BMI 31 hx a-fib on eliquis History of Present Illness History of Present Illness [facility] BED CARDIOLOGY CONSULT serial troponin i echo pulm consult home meds ECHO Vitals Vitals Vital Signs Date Time Temp Pulse Resp B/P (MAP) Pulse Ox O2 Delivery O2 Flow Rate FiO2 02/02/19 12:26 98 Room Air 02/02/19 11:00 97.6 57 17 113/68 (83) 97.6 Physical Exam General: Alert, Oriented X3, Cooperative, No acute distress Lungs: Clear Abdomen: Normal bowel sounds, Soft Extremities: No clubbing, No cyanosis Labs LABS Laboratory Tests Test 02/01/19 14:12 02/01/19 18:20 02/01/19 22:30 02/02/19 08:02 White Blood Count 7.8 x10^3/uL (4.0-11.0) Red Blood Count 5.37 x10^6/uL (4.30-5.70) Hemoglobin 13.0 g/dL (13.0-17.5) Hematocrit 40.9 % (39.0-53.0) Mean Corpuscular Volume 76 fL (79-100) Mean Corpuscular Hemoglobin 24 pg (25-35) Mean Corpuscular Hemoglobin Concent 32 g/dL (31-37) Red Cell Distribution Width 15.6 % (11.5-14.5) Platelet Count 306 x10^3/uL (140-400) Neutrophils (%) (Auto) 59 % (31-73) Lymphocytes (%) (Auto) 29 % (24-48) Monocytes (%) (Auto) 11 % (0-9) Eosinophils (%) (Auto) 1 % (0-3) Basophils (%) (Auto) 1 % (0-3) Neutrophils # (Auto) 4.6 x10^3/uL (1.8-7.7) Lymphocytes # (Auto) 2.2 x10^3/uL (1.0-4.8) Monocytes # (Auto) 0.8 x10^3/uL (0.0-1.1) Eosinophils # (Auto) 0.1 x10^3/uL (0.0-0.7) Basophils # (Auto) 0.0 x10^3/uL (0.0-0.2) Prothrombin Time 14.7 SEC (11.7-14.0) Prothromb Time International Ratio 1.2 (0.8-1.1) Sodium Level 138 mmol/L (136-145) Potassium Level 4.7 mmol/L (3.5-5.1) Chloride Level 104 mmol/L (98-107) Carbon Dioxide Level 28 mmol/L (21-32) Anion Gap 6 (6-14) Blood Urea Nitrogen 19 mg/dL (8-26) Creatinine 1.2 mg/dL (0.7-1.3) Estimated GFR (Cockcroft-Gault) 59.9 BUN/Creatinine Ratio 16 (6-20) Glucose Level 116 mg/dL (70-99) Calcium Level 9.1 mg/dL (8.5-10.1) Total Bilirubin 0.3 mg/dL (0.2-1.0) Aspartate Amino Transf (AST/SGOT) 22 U/L (15-37) Alanine Aminotransferase (ALT/SGPT) 19 U/L (16-63) Alkaline Phosphatase 90 U/L (46-116) Troponin I Quantitative < 0.017 ng/mL (0.000-0.055) < 0.017 ng/mL (0.000-0.055) < 0.017 ng/mL (0.000-0.055) NL-Box-E-Type Natriuretic Peptide 1051 pg/mL (0-124) Total Protein 8.1 g/dL (6.4-8.2) Albumin 3.4 g/dL (3.4-5.0) Albumin/Globulin Ratio 0.7 (1.0-1.7) Lipase 195 U/L (73-393) Glucose (Fingerstick) 99 mg/dL (70-99) Test 02/02/19 12:14 Glucose (Fingerstick) 101 mg/dL (70-99) Assessment and Plan Assessmemt and Plan Problems Medical Problems: (1) Chest pain Status: Acute Comment Review of Relevant I have reviewed the following items von (where applicable) has been applied. Labs Laboratory Tests Test 02/01/19 14:12 02/01/19 18:20 02/01/19 22:30 02/02/19 08:02 White Blood Count 7.8 x10^3/uL (4.0-11.0) Red Blood Count 5.37 x10^6/uL (4.30-5.70) Hemoglobin 13.0 g/dL (13.0-17.5) Hematocrit 40.9 % (39.0-53.0) Mean Corpuscular Volume 76 fL (79-100) Mean Corpuscular Hemoglobin 24 pg (25-35) Mean Corpuscular Hemoglobin Concent 32 g/dL (31-37) Red Cell Distribution Width 15.6 % (11.5-14.5) Platelet Count 306 x10^3/uL (140-400) Neutrophils (%) (Auto) 59 % (31-73) Lymphocytes (%) (Auto) 29 % (24-48) Monocytes (%) (Auto) 11 % (0-9) Eosinophils (%) (Auto) 1 % (0-3) Basophils (%) (Auto) 1 % (0-3) Neutrophils # (Auto) 4.6 x10^3/uL (1.8-7.7) Lymphocytes # (Auto) 2.2 x10^3/uL (1.0-4.8) Monocytes # (Auto) 0.8 x10^3/uL (0.0-1.1) Eosinophils # (Auto) 0.1 x10^3/uL (0.0-0.7) Basophils # (Auto) 0.0 x10^3/uL (0.0-0.2) Prothrombin Time 14.7 SEC (11.7-14.0) Prothromb Time International Ratio 1.2 (0.8-1.1) Sodium Level 138 mmol/L (136-145) Potassium Level 4.7 mmol/L (3.5-5.1) Chloride Level 104 mmol/L (98-107) Carbon Dioxide Level 28 mmol/L (21-32) Anion Gap 6 (6-14) Blood Urea Nitrogen 19 mg/dL (8-26) Creatinine 1.2 mg/dL (0.7-1.3) Estimated GFR (Cockcroft-Gault) 59.9 BUN/Creatinine Ratio 16 (6-20) Glucose Level 116 mg/dL (70-99) Calcium Level 9.1 mg/dL (8.5-10.1) Total Bilirubin 0.3 mg/dL (0.2-1.0) Aspartate Amino Transf (AST/SGOT) 22 U/L (15-37) Alanine Aminotransferase (ALT/SGPT) 19 U/L (16-63) Alkaline Phosphatase 90 U/L (46-116) Troponin I Quantitative < 0.017 ng/mL (0.000-0.055) < 0.017 ng/mL (0.000-0.055) < 0.017 ng/mL (0.000-0.055) DA-Urd-N-Type Natriuretic Peptide 1051 pg/mL (0-124) Total Protein 8.1 g/dL (6.4-8.2) Albumin 3.4 g/dL (3.4-5.0) Albumin/Globulin Ratio 0.7 (1.0-1.7) Lipase 195 U/L (73-393) Glucose (Fingerstick) 99 mg/dL (70-99) Test 02/02/19 12:14 Glucose (Fingerstick) 101 mg/dL (70-99) Laboratory Tests Test 02/01/19 14:12 02/01/19 18:20 02/01/19 22:30 02/02/19 08:02 White Blood Count 7.8 x10^3/uL (4.0-11.0) Red Blood Count 5.37 x10^6/uL (4.30-5.70) Hemoglobin 13.0 g/dL (13.0-17.5) Hematocrit 40.9 % (39.0-53.0) Mean Corpuscular Volume 76 fL (79-100) Mean Corpuscular Hemoglobin 24 pg (25-35) Mean Corpuscular Hemoglobin Concent 32 g/dL (31-37) Red Cell Distribution Width 15.6 % (11.5-14.5) Platelet Count 306 x10^3/uL (140-400) Neutrophils (%) (Auto) 59 % (31-73) Lymphocytes (%) (Auto) 29 % (24-48) Monocytes (%) (Auto) 11 % (0-9) Eosinophils (%) (Auto) 1 % (0-3) Basophils (%) (Auto) 1 % (0-3) Neutrophils # (Auto) 4.6 x10^3/uL (1.8-7.7) Lymphocytes # (Auto) 2.2 x10^3/uL (1.0-4.8) Monocytes # (Auto) 0.8 x10^3/uL (0.0-1.1) Eosinophils # (Auto) 0.1 x10^3/uL (0.0-0.7) Basophils # (Auto) 0.0 x10^3/uL (0.0-0.2) Prothrombin Time 14.7 SEC (11.7-14.0) Prothromb Time International Ratio 1.2 (0.8-1.1) Sodium Level 138 mmol/L (136-145) Potassium Level 4.7 mmol/L (3.5-5.1) Chloride Level 104 mmol/L (98-107) Carbon Dioxide Level 28 mmol/L (21-32) Anion Gap 6 (6-14) Blood Urea Nitrogen 19 mg/dL (8-26) Creatinine 1.2 mg/dL (0.7-1.3) Estimated GFR (Cockcroft-Gault) 59.9 BUN/Creatinine Ratio 16 (6-20) Glucose Level 116 mg/dL (70-99) Calcium Level 9.1 mg/dL (8.5-10.1) Total Bilirubin 0.3 mg/dL (0.2-1.0) Aspartate Amino Transf (AST/SGOT) 22 U/L (15-37) Alanine Aminotransferase (ALT/SGPT) 19 U/L (16-63) Alkaline Phosphatase 90 U/L (46-116) Troponin I Quantitative < 0.017 ng/mL (0.000-0.055) < 0.017 ng/mL (0.000-0.055) < 0.017 ng/mL (0.000-0.055) HP-Iam-U-Type Natriuretic Peptide 1051 pg/mL (0-124) Total Protein 8.1 g/dL (6.4-8.2) Albumin 3.4 g/dL (3.4-5.0) Albumin/Globulin Ratio 0.7 (1.0-1.7) Lipase 195 U/L (73-393) Glucose (Fingerstick) 99 mg/dL (70-99) Test 02/02/19 12:14 Glucose (Fingerstick) 101 mg/dL (70-99) Medications Current Medications Iohexol (Omnipaque 350 Mg/ml) 90 ml 1X ONCE IV Last administered on 02/01/19 15:09; Start 02/01/19 at 15:00; Stop 02/01/19 at 15:01; Status DC Info (CONTRAST GIVEN -- Rx MONITORING) 1 each PRN DAILY PRN MC SEE COMMENTS; Start 02/01/19 at 15:00; Stop 02/03/19 at 14:59 Aspirin (Children'S Aspirin) 324 mg 1X ONCE PO ; Start 02/01/19 at 16:30; Stop 02/01/19 at 16:33; Status DC Nitroglycerin (Nitrostat) 0.4 mg PRN Q5MIN PRN SL CHEST PAIN; Start 02/01/19 at 16:30; Stop 02/01/19 at 20:08; Status DC Albuterol Sulfate (Ventolin Neb Soln) 2.5 mg PRN Q3HRS PRN INH SHORTNESS OF BREATH; Start 02/01/19 at 20:15 Apixaban (Eliquis) 5 mg BID PO Last administered on 02/02/19at 08:38; Start 02/01/19 at 21:00 Aspirin (Children'S Aspirin) 81 mg DAILY PO Last administered on 02/02/19at 08:38; Start 02/02/19 at 09:00 Atorvastatin Calcium (Lipitor) 40 mg QHS PO Last administered on 02/01/19at 21:02; Start 02/01/19 at 21:00 Furosemide (Lasix) 20 mg DAILY PO Last administered on 02/02/19 08:38; Start 02/02/19 at 09:00 Levetiracetam (Keppra) 1,000 mg BID PO Last administered on 02/02/19 08:37; Start 02/01/19 at 21:00 Metoprolol Tartrate (Lopressor) 75 mg BID PO Last administered on 02/02/19at 08:38; Start 02/01/19 at 21:00 Nitroglycerin (Nitrostat) 0.4 mg PRN Q10MIN PRN SL CHEST PAIN; Start 02/01/19 at 20:15 Bupropion HCl (Wellbutrin Sr) 100 mg BID PO Last administered on 02/02/19at 08:38; Start 02/01/19 at 21:00 Albuterol/ Ipratropium (Duoneb) 3 ml RTQID NEB Last administered on 02/02/19at 12:25; Start 02/02/19 at 08:00 Albuterol/ Ipratropium (Duoneb) 3 ml RTQID NEB ; Start 02/02/19 at 08:00; Status UNV Info (Anti-Coagulation Monitoring By Pharmacy) 1 each PRN DAILY PRN MC SEE COMMENTS Last administered on 02/02/19at 08:55; Start 02/02/19 at 08:45 Active Scripts Active Metoprolol Tartrate 50 Mg Tablet 1.5 Tab PO BID 30 Days Keppra (Levetiracetam) 500 Mg Tablet 2 Tab PO BID 30 Days Wellbutrin Sr (Bupropion Hcl) 200 Mg Tablet.er 100 Mg PO BID 30 Days Atorvastatin Calcium 40 Mg Tablet 1 Tab PO DAILY 30 Days Proair Hfa Inhaler (Albuterol Sulfate) 8.5 Gm Hfa.aer.ad 2 Puff INH PRN BID PRN 30 Days Eliquis (Apixaban) 5 Mg Tablet 5 Mg PO BID 30 Days Lasix (Furosemide) 40 Mg Tablet 20 Mg PO DAILY 30 Days Reported NITROGLYCERIN SubLingual (Nitroglycerin) 0.4 Mg Tab.subl 1 Tab SL UD Aspirin 81 Mg Tab.chew 1 Tab PO DAILY Vitals/I & O Vital Sign - Last 24 Hours 02/01/19 02/01/19 02/01/19 02/01/19 13:57 15:05 16:26 18:40 Temp 97.7 97.6 97.7 97.6 Pulse 71 74 72 74 Resp 14 16 16 14 B/P (MAP) 106/59 (75) 108/69 (82) 120/66 (84) 136/77 (96) Pulse Ox 97 96 95 O2 Delivery Room Air Room Air Room Air Room Air 02/01/19 02/01/19 02/01/19 02/02/19 20:00 21:02 23:35 03:40 Temp 97.5 97.6 97.5 97.6 Pulse 74 65 68 Resp 17 17 B/P (MAP) 136/77 119/69 (86) 101/60 (74) Pulse Ox 97 98 O2 Delivery Room Air Room Air Room Air 02/02/19 02/02/19 02/02/19 02/02/19 07:00 08:00 08:38 08:57 Temp 97.3 97.3 Pulse 61 64 Resp 17 B/P (MAP) 111/59 (76) 111/60 Pulse Ox 95 98 O2 Delivery Room Air Room Air Room Air 02/02/19 02/02/19 11:00 12:26 Temp 97.6 97.6 Pulse 57 Resp 17 B/P (MAP) 113/68 (83) Pulse Ox 95 98 O2 Delivery Room Air Room Air Intake and Output 02/01/19 02/01/19 02/02/19 15:00 23:00 07:00 Intake Total 260 ml Output Total 400 ml Balance -140 ml VINNY KIRBY MD Feb 02, 2019 12:51
[2019-02-02 15:00] VITALS: BP 111/64
[2019-02-02 19:38] VITALS: BP 109/65
[2019-02-02] MEDS: ATORVASTATIN CALCIUM 40 MG TABLET. PO SCH (20:30)
[2019-02-02 22:55] VITALS: BP 101/63
[2019-02-03 03:45] VITALS: BP 111/64
[2019-02-03 07:37] VITALS: BP 110/58
[2019-02-03] MEDS: IPRATRPIUM/ALBUTEROL 0.5/2.5MG 3 ML NEBU. NEB SCH ×2 (07:42→11:50)
--- NOTE | 2019-02-03 08:11 | EKG ---
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
[2019-02-03] MEDS: buPROPion SR 100 MG TABLET.SA. PO SCH (08:59)
[2019-02-03] MEDS ORDERED: FLU VAX QS 2019-20 (36MOS+)/PF 0.5 ML SYRINGE. VAX IM ONE (09:00)
[2019-02-03] MEDS: APIXABAN 5 MG TABLET. PO SCH (09:00)
[2019-02-03] MEDS: METOPROLOL TART IMMED RELEASE 25 MG TABLET. PO SCH (09:00)
[2019-02-03] MEDS: FUROSEMIDE 20 MG TABLET PO SCH (09:00)
[2019-02-03] MEDS: levETIRAcetam 500 MG TABLET PO SCH (09:00)
[2019-02-03] MEDS: ASPIRIN CHEWABLE 81 MG TABLET. PO SCH (09:04)
--- NOTE | 2019-02-03 09:16 | PDOC ---
PULMONARY PROGRESS NOTES Vitals Vital Signs Date Time Temp Pulse Resp B/P (MAP) Pulse Ox O2 Delivery O2 Flow Rate FiO2 02/03/19 09:00 75 110/58 02/03/19 07:42 99 Room Air 02/03/19 07:37 97.5 16 97.5 General: Alert, No acute distress Lungs: Clear Cardiovascular: S1 Abdomen: Soft Extremities: No Edema Labs Laboratory Tests Test 02/01/19 14:12 02/01/19 18:20 02/01/19 22:30 02/02/19 08:02 White Blood Count 7.8 x10^3/uL (4.0-11.0) Red Blood Count 5.37 x10^6/uL (4.30-5.70) Hemoglobin 13.0 g/dL (13.0-17.5) Hematocrit 40.9 % (39.0-53.0) Mean Corpuscular Volume 76 fL (79-100) Mean Corpuscular Hemoglobin 24 pg (25-35) Mean Corpuscular Hemoglobin Concent 32 g/dL (31-37) Red Cell Distribution Width 15.6 % (11.5-14.5) Platelet Count 306 x10^3/uL (140-400) Neutrophils (%) (Auto) 59 % (31-73) Lymphocytes (%) (Auto) 29 % (24-48) Monocytes (%) (Auto) 11 % (0-9) Eosinophils (%) (Auto) 1 % (0-3) Basophils (%) (Auto) 1 % (0-3) Neutrophils # (Auto) 4.6 x10^3/uL (1.8-7.7) Lymphocytes # (Auto) 2.2 x10^3/uL (1.0-4.8) Monocytes # (Auto) 0.8 x10^3/uL (0.0-1.1) Eosinophils # (Auto) 0.1 x10^3/uL (0.0-0.7) Basophils # (Auto) 0.0 x10^3/uL (0.0-0.2) Prothrombin Time 14.7 SEC (11.7-14.0) Prothromb Time International Ratio 1.2 (0.8-1.1) Sodium Level 138 mmol/L (136-145) Potassium Level 4.7 mmol/L (3.5-5.1) Chloride Level 104 mmol/L (98-107) Carbon Dioxide Level 28 mmol/L (21-32) Anion Gap 6 (6-14) Blood Urea Nitrogen 19 mg/dL (8-26) Creatinine 1.2 mg/dL (0.7-1.3) Estimated GFR (Cockcroft-Gault) 59.9 BUN/Creatinine Ratio 16 (6-20) Glucose Level 116 mg/dL (70-99) Calcium Level 9.1 mg/dL (8.5-10.1) Total Bilirubin 0.3 mg/dL (0.2-1.0) Aspartate Amino Transf (AST/SGOT) 22 U/L (15-37) Alanine Aminotransferase (ALT/SGPT) 19 U/L (16-63) Alkaline Phosphatase 90 U/L (46-116) Troponin I Quantitative < 0.017 ng/mL (0.000-0.055) < 0.017 ng/mL (0.000-0.055) < 0.017 ng/mL (0.000-0.055) BV-Doj-C-Type Natriuretic Peptide 1051 pg/mL (0-124) Total Protein 8.1 g/dL (6.4-8.2) Albumin 3.4 g/dL (3.4-5.0) Albumin/Globulin Ratio 0.7 (1.0-1.7) Lipase 195 U/L (73-393) Glucose (Fingerstick) 99 mg/dL (70-99) Test 02/02/19 12:14 02/02/19 16:59 02/02/19 21:27 02/03/19 07:40 Glucose (Fingerstick) 101 mg/dL (70-99) 105 mg/dL (70-99) 108 mg/dL (70-99) 96 mg/dL (70-99) Laboratory Tests Test 02/02/19 12:14 02/02/19 16:59 02/02/19 21:27 02/03/19 07:40 Glucose (Fingerstick) 101 mg/dL (70-99) 105 mg/dL (70-99) 108 mg/dL (70-99) 96 mg/dL (70-99) Medications Active Scripts Medications Dose Route/Sig Max Daily Dose Days Date Category Metoprolol Tartrate 50 Mg Tablet 1.5 Tab PO BID 30 12/03/18 Rx Keppra (Levetiracetam) 500 Mg Tablet 2 Tab PO BID 30 12/03/18 Rx Wellbutrin Sr (Bupropion Hcl) 200 Mg Tablet.er 100 Mg PO BID 30 12/03/18 Rx Atorvastatin Calcium 40 Mg Tablet 1 Tab PO DAILY 30 12/03/18 Rx Proair Hfa Inhaler (Albuterol Sulfate) 8.5 Gm Hfa.aer.ad 2 Puff INH PRN BID PRN 30 12/03/18 Rx Eliquis (Apixaban) 5 Mg Tablet 5 Mg PO BID 30 12/03/18 Rx Lasix (Furosemide) 40 Mg Tablet 20 Mg PO DAILY 30 12/03/18 Rx NITROGLYCERIN SubLingual (Nitroglycerin) 0.4 Mg Tab.subl 1 Tab SL UD 11/30/18 Reported Aspirin 81 Mg Tab.chew 1 Tab PO DAILY 11/30/18 Reported MARC HERNÁNDEZ MD Feb 03, 2019 09:16
[2019-02-03 10:39] VITALS: BP 118/71
--- NOTE | 2019-02-03 12:27 | PDOC ---
CARDIO Progress Notes Date and Time Date of Service 02/03/19 Time of Evaluation 1210 Subjective Subjective: No Chest Pain, No shortness of breath, No Palpitations, Other (breathing improved ) Vitals Vitals Vital Signs Date Time Temp Pulse Resp B/P (MAP) Pulse Ox O2 Delivery O2 Flow Rate FiO2 02/03/19 10:39 97.4 67 16 118/71 (87) 97 Room Air 97.4 Weight Weight [ ] Input and Output Intake and Output Intake and Output 02/03/19 07:00 # Voids 1 Laboratory Labs Laboratory Tests Test 02/02/19 16:59 02/02/19 21:27 02/03/19 07:40 02/03/19 11:43 Glucose (Fingerstick) 105 mg/dL (70-99) 108 mg/dL (70-99) 96 mg/dL (70-99) 96 mg/dL (70-99) Physical Exam HEENT: Neck Supple W Full Motion LUNGS: Other (diminished ) Heart: S1S2, irregularly irregular (rate controlled) Abdomen: Soft N/T Extremities: No Edema Neurology: oriented, follow commands Assessment Assessment 1. Chest pain, atypical. AMI ruled out. 2. CAD s/p PCI/stent 2018 at [facility]. 3. AFIB; rate controlled. On OAC 4. Mild acute diastolic HF; better compensated 5. Rate-controlled atrial fibrillation, on anticoagulation. 7. Mild acute on chronic diastolic heart failure. Recommendations Secondary prevention Eliquis for stroke prophylaxis MAy discharge from a CV standpoint and f/u in our office with Dr. Young in 8 weeks as able. MOISES RICCI APRN Feb 03, 2019 12:27
--- NOTE | 2019-02-03 12:31 | PDOC3 ---
Discharge Summary Visit Information Date of Admission: Feb 01, 2019 Date of Discharge: Feb 03, 2019 Final Diagnosis angina w. hx CAD acuteon chronic mild diastolic congestive heart failure, mild concentric left ventricular hypertrophy mild aortic regurgitation.,mild to moderate mitral regurgitation., mild tricuspid regurgitation. PA pressure was estimated at 52 mmHg. 80 pack yr smoking hx quit 8 yrs ago pos COPD Atrial fibrillation on eliquis Hypertension. obesity, BMI 31 hx a-fib on eliquis Problems Medical Problems: (1) Chest pain Status: Acute Brief Hospital Course Allergies Allergies Coded Allergies Type Severity Reaction Last Updated Verified No Known Drug Allergies 11/30/18 No Vital Signs Vital Signs Date Time Temp Pulse Resp B/P (MAP) Pulse Ox O2 Delivery O2 Flow Rate FiO2 02/03/19 10:39 97.4 67 16 118/71 (87) 97 Room Air 97.4 Lab Results Laboratory Tests Test 02/01/19 14:12 02/01/19 18:20 02/01/19 22:30 02/02/19 08:02 White Blood Count 7.8 x10^3/uL (4.0-11.0) Red Blood Count 5.37 x10^6/uL (4.30-5.70) Hemoglobin 13.0 g/dL (13.0-17.5) Hematocrit 40.9 % (39.0-53.0) Mean Corpuscular Volume 76 fL (79-100) Mean Corpuscular Hemoglobin 24 pg (25-35) Mean Corpuscular Hemoglobin Concent 32 g/dL (31-37) Red Cell Distribution Width 15.6 % (11.5-14.5) Platelet Count 306 x10^3/uL (140-400) Neutrophils (%) (Auto) 59 % (31-73) Lymphocytes (%) (Auto) 29 % (24-48) Monocytes (%) (Auto) 11 % (0-9) Eosinophils (%) (Auto) 1 % (0-3) Basophils (%) (Auto) 1 % (0-3) Neutrophils # (Auto) 4.6 x10^3/uL (1.8-7.7) Lymphocytes # (Auto) 2.2 x10^3/uL (1.0-4.8) Monocytes # (Auto) 0.8 x10^3/uL (0.0-1.1) Eosinophils # (Auto) 0.1 x10^3/uL (0.0-0.7) Basophils # (Auto) 0.0 x10^3/uL (0.0-0.2) Prothrombin Time 14.7 SEC (11.7-14.0) Prothromb Time International Ratio 1.2 (0.8-1.1) Sodium Level 138 mmol/L (136-145) Potassium Level 4.7 mmol/L (3.5-5.1) Chloride Level 104 mmol/L (98-107) Carbon Dioxide Level 28 mmol/L (21-32) Anion Gap 6 (6-14) Blood Urea Nitrogen 19 mg/dL (8-26) Creatinine 1.2 mg/dL (0.7-1.3) Estimated GFR (Cockcroft-Gault) 59.9 BUN/Creatinine Ratio 16 (6-20) Glucose Level 116 mg/dL (70-99) Calcium Level 9.1 mg/dL (8.5-10.1) Total Bilirubin 0.3 mg/dL (0.2-1.0) Aspartate Amino Transf (AST/SGOT) 22 U/L (15-37) Alanine Aminotransferase (ALT/SGPT) 19 U/L (16-63) Alkaline Phosphatase 90 U/L (46-116) Troponin I Quantitative < 0.017 ng/mL (0.000-0.055) < 0.017 ng/mL (0.000-0.055) < 0.017 ng/mL (0.000-0.055) BQ-Hvg-V-Type Natriuretic Peptide 1051 pg/mL (0-124) Total Protein 8.1 g/dL (6.4-8.2) Albumin 3.4 g/dL (3.4-5.0) Albumin/Globulin Ratio 0.7 (1.0-1.7) Lipase 195 U/L (73-393) Glucose (Fingerstick) 99 mg/dL (70-99) Test 02/02/19 12:14 02/02/19 16:59 02/02/19 21:27 02/03/19 07:40 Glucose (Fingerstick) 101 mg/dL (70-99) 105 mg/dL (70-99) 108 mg/dL (70-99) 96 mg/dL (70-99) Test 02/03/19 11:43 Glucose (Fingerstick) 96 mg/dL (70-99) Laboratory Tests Test 02/02/19 16:59 02/02/19 21:27 02/03/19 07:40 02/03/19 11:43 Glucose (Fingerstick) 105 mg/dL (70-99) 108 mg/dL (70-99) 96 mg/dL (70-99) 96 mg/dL (70-99) Brief Hospital Course Mr. Walker is a 68 old with CAD, admit with chest pain and dyspnea. CHF, stable angina. CV eval, would like to follow outpatient for CAD with stress test and consider PULM htn eval, can be done outpatient other problems listed above pt felt improved Discharge Information Condition at Discharge: Improved Follow Up: Weeks Disposition/Orders: D/C to Home Scheduled Apixaban (Eliquis) 5 Mg Tablet, 5 MG PO BID for blood thinner for 30 Days, #60 Prescribed by: SINA KILLIAN MD on 12/03/181124 Last Action: Continued on 02/01/192004 by CAROLE RIOS MD Aspirin (Aspirin) 81 Mg Tab.chew, 1 TAB PO DAILY, #30 Ref 3 (Reported) Entered as Reported by: LINDA YEAGER on 11/30/18 1526 Last Action: Continued on 02/01/192004 by CAROLE RIOS MD Atorvastatin Calcium (Atorvastatin Calcium) 40 Mg Tablet, 1 TAB PO DAILY for HLD for 30 Days, #30 Ref 1 Prescribed by: SINA KILLIAN MD on 12/03/181124 Last Action: Continued on 02/01/192004 by CAROLE RIOS MD Bupropion Hcl (Wellbutrin Sr) 200 Mg Tablet.er, 100 MG PO BID for depression for 30 Days, #30 Prescribed by: SINA KILLIAN MD on 12/03/181124 Last Action: Converted on 02/01/192004 by CAROLE RIOS MD Furosemide (Lasix) 40 Mg Tablet, 20 MG PO DAILY for diuretic for 30 Days, #15 Ref 1 Prescribed by: SINA KILLIAN MD on 12/03/18 112 Last Action: Continued on 02/01/192004 by CAROLE RIOS MD Levetiracetam (Keppra) 500 Mg Tablet, 2 TAB PO BID for history of seizures for 30 Days, #120 Ref 3 Prescribed by: SINA KILLIAN MD on 12/03/181124 Last Action: Continued on 02/01/192004 by CAROLE RIOS MD Metoprolol Tartrate (Metoprolol Tartrate) 50 Mg Tablet, 1.5 TAB PO BID for hypertension for 30 Days, #90 Ref 5 Prescribed by: SINA KILLIAN MD on 12/03/181124 Last Action: Continued on 02/01/192004 by CAROLE RIOS MD Nitroglycerin (NITROGLYCERIN SubLingual) 0.4 Mg Tab.subl, 1 TAB SL UD, #25 Ref 3 (Reported) Entered as Reported by: LINDA YEAGER on 11/30/18 1527 Last Action: Continued on 02/01/192004 by CAROLE RIOS MD Scheduled PRN Albuterol Sulfate (Proair Hfa Inhaler) 8.5 Gm Hfa.aer.ad, 2 PUFF INH PRN BID PRN for SHORTNESS OF BREATH for 30 Days, #1 Ref 1 Prescribed by: SINA KILLIAN MD on 12/03/181124 Last Action: Continued on 02/01/192004 by CAROLE RIOS MD Patient Instructions Patient Instructions face to face VINNY Manzo MD Feb 03, 2019 12:31
--- NOTE | 2019-02-03 12:33 | NUR ---
SS following for discharge planning. SS reviewed pt chart. Pt is self pay pt. HCFS following for self pay status. Pt is from home with spouse and is currently on room air. Discharge order on the chart for home with self care.
[2019-02-03 14:35] VITALS: BP 109/60
--- NOTE | 2019-02-03 16:15 | NUR ---
Discharge Note: NABOR EASON P 2 LINDEN Discharge instructions and discharge home medications reviewed with Patient and a copy given. All questions have been answered and understanding verbalized. The following instructions and handouts were given: discharge instructions, CHF info, CAD info, CP/angina info. Discontinued lines and drains: Peripheral IV intact. Patient discharged to Home or Self Care with Spouse via Wheelchair at 1615.
== END 2019-02-03 16:15 | disposition home or self-care (01) | DRG 302 ==
LOC: ER 13:48 → 2 NORTH 16:42 → OBSVTOIN 19:48
PROVIDERS: ADMIT Family Medicine; ATTEND Family Medicine
DX: I25.118 Atherosclerotic heart disease of native coronary artery with other forms of angina pectoris (principal); I50.33 Acute on chronic diastolic (congestive) heart failure; I48.20 Chronic atrial fibrillation, unspecified; I11.0 Hypertensive heart disease with heart failure; R07.89 Other chest pain; E11.9 Type 2 diabetes mellitus without complications; E66.01 Morbid (severe) obesity due to excess calories; E78.00 Pure hypercholesterolemia, unspecified; F17.210 Nicotine dependence, cigarettes, uncomplicated; G40.909 Epilepsy, unspecified, not intractable, without status epilepticus; K21.9 Gastro-esophageal reflux disease without esophagitis; Z68.31 Body mass index [BMI] 31.0-31.9, adult; Z79.01 Long term (current) use of anticoagulants; Z82.49 Family history of ischemic heart disease and other diseases of the circulatory system; Z87.01 Personal history of pneumonia (recurrent); Z95.5 Presence of coronary angioplasty implant and graft; F32.9 Major depressive disorder, single episode, unspecified; F41.9 Anxiety disorder, unspecified; M19.90 Unspecified osteoarthritis, unspecified site; Z68.30 Body mass index [BMI] 30.0-30.9, adult; J44.9 Chronic obstructive pulmonary disease, unspecified
CPT/HCPCS: 36415; 71045; 71275; 80053; 82962; 83690; 83880; 84484; 85025; 85610; 90471; 90686; 93005; 94640; 94760; G0378; G0379; J7620; Q9967; 99285-25

== ENCOUNTER 2019-03-18 09:45 | Emergency (ER) | payer BC ==
[~2019-03-18] VITALS: Ht 170.2 cm; Wt 95.3 kg
[2019-03-18 11:27] LABS: BASO # 0.1 x10^3/uL (0.0-0.2); BASO % 1 % (0-3); EOS # 0.1 x10^3/uL (0.0-0.7); EOS % 1 % (0-3); HEMATOCRIT 48.4 % (39.0-53.0); HEMOGLOBIN 15.1 g/dL (13.0-17.5); LYMPH # 1.6 x10^3/uL (1.0-4.8); LYMPH % 18 % (24-48); MEAN CORPUSCULAR HEMOGLOBIN 24 pg (25-35); MEAN CORPUSCULAR HGB CONC 31 g/dL (31-37); MEAN CORPUSCULAR VOLUME 77 fL (79-100); MONO # 1.1 x10^3/uL (0.0-1.1); MONO % 12 % (0-9); NEUT # 6.1 x10^3/uL (1.8-7.7); NEUT % 68 % (31-73); PLATELET COUNT 249 x10^3/uL (140-400); RED BLOOD COUNT 6.29 x10^6/uL (4.30-5.70); RED CELL DISTRIBUTION WIDTH 15.8 % (11.5-14.5); WHITE BLOOD COUNT 8.9 x10^3/uL (4.0-11.0)
--- NOTE | 2019-03-18 11:37 | RAD ---
3 views left foot dated 03/18/2019. No comparison available. CLINICAL INDICATION: Pain. FINDINGS: 3 views left foot show normal bony alignment. No displaced fracture. No acute osseous or articular abnormality. Mild soft tissue swelling.. IMPRESSION: Soft tissue swelling with no apparent underlying acute bony abnormality. Electronically signed by: Jorge Smith MD (03/18/2019 11:35 AM) [id number]
[2019-03-18 11:40] LABS: CALCIUM 9.8 mg/dL (8.5-10.1); CREATININE 1.4 mg/dL (0.7-1.3); GFR 50.1; POTASSIUM 5.4 mmol/L (3.5-5.1)
[2019-03-18 11:46] LABS: ALBUMIN 3.9 g/dL (3.4-5.0); ALBUMIN/GLOBULIN RATIO 0.8 (1.0-1.7); C-REACTIVE PROTEIN 8.9 mg/L (0-3.3); TOTAL BILIRUBIN 0.5 mg/dL (0.2-1.0); TOTAL PROTEIN 9.1 g/dL (6.4-8.2)
--- NOTE | 2019-03-18 11:49 | RAD ---
Examination: Left Lower Extremity Venous Doppler Ultrasound History: Left leg swelling Comparison: None Procedure: Elizondo scale, color flow 2D and spectal waveform analysis images are obtained with and without compression in the area of the common femoral vein, superficial femoral vein - femoral vein junction, main femoral vein (superficial femoral vein) and popliteal vein. Veins of the proximal calf are also imaged. Findings: There is normal duplex flow, color flow and compressibility of all visualized vein segments. No evidence of deep venous thrombus is present. Impression: No evidence of DVT in the left lower extremity venous system. Electronically signed by: Endy Le MD (03/18/2019 11:47 AM) [id number]
[2019-03-18] MEDS ORDERED: SODIUM POLYSTYRENE SULFON/SORB 15 GM/60 ML ORAL.SUSP PO ONE (12:30)
[2019-03-18] MEDS ORDERED: cefTRIAXone IV Push 1 GM VIAL. IVP ONE (12:45)
[2019-03-18] MEDS ORDERED: CEPH-264 PO (12:54)
[2019-03-18] MEDS ORDERED: HYDR-3164 PO (12:54)
--- NOTE | 2019-03-18 12:54 | PHYS DOC ---
Past Medical History Past Medical History: A-Fib, Angina, Anxiety, CAD, Depression, Diabetes-Type II, GERD, High Cholesterol, Hypertension, Seizure Additional Past Medical Histor: BACK&NECK PAIN Additional Past Surgical Histo: CARDIAC STENTS Alcohol Use: Sober Drug Use: None Adult General Chief Complaint Chief Complaint: LOWER EXT PAIN HPI HPI Patient is a 68 year old patient with history of hypertension, dyslipidemia, diabetes mellitus, coronary artery disease, atrial fibrillation on Eliquis, CHF, anxiety, lower extremity cellulitis who presents with complaining of left foot and ankle pain. Patient complaining of gradual onset of left foot and ankle pain since yesterday that getting worse with bearing weight and activity with erythema without injury, fever and chills, shortness of breath, nausea and vomiting, focal neuro deficit. Patient states he had the same episode of foot and ankle pain and erythema frequency previously. Review of Systems Review of Systems Constitutional: Denies fever or chills [] Eyes: Denies change in visual acuity, redness, or eye pain [] HENT: Denies nasal congestion or sore throat [] Respiratory: Denies cough or shortness of breath [] Cardiovascular: No additional information not addressed in HPI [] GI: Denies abdominal pain, nausea, vomiting, bloody stools or diarrhea [] : Denies dysuria or hematuria [] Musculoskeletal: Denies back pain, reports joint pain [] Integument: Denies rash or skin lesions [] Neurologic: Denies headache, focal weakness or sensory changes [] Endocrine: Denies polyuria or polydipsia [] All other systems were reviewed and found to be within normal limits, except as documented in this note. Current Medications Current Medications Current Medications Medications (Trade) Dose Ordered Sig/Cecile Start Time Stop Time Status Last Admin Dose Admin Sodium Polystyrene Sulfonate (Kayexalate) 15 gm 1X ONCE 03/18/19 12:30 03/18/19 12:31 DC 03/18/19 12:32 15 GM Allergies Allergies Allergies Coded Allergies Type Severity Reaction Last Updated Verified No Known Drug Allergies 11/30/18 No Physical Exam Physical Exam Constitutional: Well developed, well nourished, no acute distress, non-toxic appearance. [] HENT: Normocephalic, atraumatic, oropharynx moist. Eyes: PERRLA, EOMI, conjunctiva normal, no discharge. [] Neck: Normal range of motion, no tenderness, supple, no stridor. [] Cardiovascular:Heart rate regular rhythm, no murmur [] Lungs & Thorax: Bilateral breath sounds clear to auscultation [] Skin: Warm, dry, no erythema, no rash. [] Extremities: Left lower extremity with erythema and mild tenderness and edema in forefoot between second and third toes , no cyanosis, no clubbing, ROM intact. Neurologic: Alert and oriented X 3, normal motor function, normal sensory function, no focal deficits noted. [] Psychologic: Affect normal, judgement normal, mood normal. [] Current Patient Data Vital Signs Vital Signs Date Time Temp Pulse Resp B/P (MAP) Pulse Ox O2 Delivery O2 Flow Rate FiO2 03/18/19 12:00 66 18 108/69 (82) 99 Room Air 03/18/19 10:36 97.8 97.8 Lab Values Laboratory Tests Test 03/18/19 11:19 03/18/19 11:40 White Blood Count 8.9 x10^3/uL (4.0-11.0) Red Blood Count 6.29 x10^6/uL (4.30-5.70) H Hemoglobin 15.1 g/dL (13.0-17.5) Hematocrit 48.4 % (39.0-53.0) Mean Corpuscular Volume 77 fL (79-100) L Mean Corpuscular Hemoglobin 24 pg (25-35) L Mean Corpuscular Hemoglobin Concent 31 g/dL (31-37) Red Cell Distribution Width 15.8 % (11.5-14.5) H Platelet Count 249 x10^3/uL (140-400) Neutrophils (%) (Auto) 68 % (31-73) Lymphocytes (%) (Auto) 18 % (24-48) L Monocytes (%) (Auto) 12 % (0-9) H Eosinophils (%) (Auto) 1 % (0-3) Basophils (%) (Auto) 1 % (0-3) Neutrophils # (Auto) 6.1 x10^3/uL (1.8-7.7) Lymphocytes # (Auto) 1.6 x10^3/uL (1.0-4.8) Monocytes # (Auto) 1.1 x10^3/uL (0.0-1.1) Eosinophils # (Auto) 0.1 x10^3/uL (0.0-0.7) Basophils # (Auto) 0.1 x10^3/uL (0.0-0.2) Sodium Level 138 mmol/L (136-145) Potassium Level 5.4 mmol/L (3.5-5.1) H Chloride Level 102 mmol/L (98-107) Carbon Dioxide Level 30 mmol/L (21-32) Anion Gap 6 (6-14) Blood Urea Nitrogen 22 mg/dL (8-26) Creatinine 1.4 mg/dL (0.7-1.3) H Estimated GFR (Cockcroft-Gault) 50.1 BUN/Creatinine Ratio 16 (6-20) Glucose Level 130 mg/dL (70-99) H Calcium Level 9.8 mg/dL (8.5-10.1) Total Bilirubin 0.5 mg/dL (0.2-1.0) Aspartate Amino Transferase (AST) 25 U/L (15-37) Alanine Aminotransferase (ALT) 19 U/L (16-63) Alkaline Phosphatase 99 U/L (46-116) C-Reactive Protein, Quantitative 8.9 mg/L (0-3.3) H Total Protein 9.1 g/dL (6.4-8.2) H Albumin 3.9 g/dL (3.4-5.0) Albumin/Globulin Ratio 0.8 (1.0-1.7) L Lactic Acid Level 0.8 mmol/L (0.4-2.0) Laboratory Tests 03/18/19 11:19 Laboratory Tests 03/18/19 11:19 EKG EKG [] Radiology/Procedures Radiology/Procedures [][facility] [address] [place] [address] IMAGING REPORT Signed PATIENT: NABOR EASON ACCOUNT: [id number] : 1950 LOCATION: ER AGE: 68 SEX: M EXAM STATUS: REG ER ORD. PHYSICIAN: ANAMARIA SALAZAR MD REASON: pain PROCEDURE: FOOT LEFT 3V 3 views left foot dated 03/18/2019. No comparison available. CLINICAL INDICATION: Pain. FINDINGS: 3 views left foot show normal bony alignment. No displaced fracture. No acute osseous or articular abnormality. Mild soft tissue swelling.. IMPRESSION: Soft tissue swelling with no apparent underlying acute bony abnormality. Electronically signed by: Jorge Smith MD (03/18/2019 11:35 AM) [id number] DICTATED and SIGNED BY: JORGE SMITH MD DATE: 03/18/19 1135 [facility] [address] [place] [address] IMAGING REPORT Signed PATIENT: NABOR EASON ACCOUNT: [id number] : 1950 LOCATION: ER AGE: 68 SEX: M EXAM STATUS: REG ER ORD. PHYSICIAN: ANAMARIA SALAZAR MD REASON: left leg pain PROCEDURE: VENOUS LOWER EXTREMITY LEFT Examination: Left Lower Extremity Venous Doppler Ultrasound History: Left leg swelling Comparison: None Procedure: Elizondo scale, color flow 2D and spectal waveform analysis images are obtained with and without compression in the area of the common femoral vein, superficial femoral vein - femoral vein junction, main femoral vein (superficial femoral vein) and popliteal vein. Veins of the proximal calf are also imaged. Findings: There is normal duplex flow, color flow and compressibility of all visualized vein segments. No evidence of deep venous thrombus is present. Impression: No evidence of DVT in the left lower extremity venous system. Electronically signed by: Endy Le MD (03/18/2019 11:47 AM) [id number] DICTATED and SIGNED BY: ENDY LE MD DATE: 03/18/19 1147 Course & Med Decision Making Course & Med Decision Making Pertinent Labs and Imaging studies reviewed. (See chart for details) Evaluation of patient in ER showed 68-year-old diabetic male patient with histor y of previous episodes of left lower extremity cellulitis presented with erythema and pain of left foot since yesterday. Patient did not have fever, leukocytosis, elevation of lactic acid, DVT or osteomyelitis. Patient had mild elevation of potassium level and creatinine and treated with Kayexalate. Patient had a stable vital signs in ER. Patient treated with Rocephin and plan discharge home with diagnosis of cellulitis of left foot and prescription for Keflex and pain medication. Dragon Disclaimer Dragon Disclaimer This electronic medical record was generated, in whole or in part, using a voice recognition dictation system. Departure Departure Impression: Primary Impression: Cellulitis of left foot Additional Impressions: Renal insufficiency, mild Hyperkalemia Disposition: HOME, SELF-CARE (1250) Condition: IMPROVED Referrals: UNKNOWN PCP NAME (PCP) Patient Instructions: Cellulitis, Chronic Renal Insufficiency, Hyperkalemia Additional Instructions: Follow-up with your primary care physician in 2-3 days Return to ER if not getting better Scripts Hydrocodone/Apap 5-325 (NORCO 5-325 TABLET) 1 Each Tablet 1 TAB PO PRN Q6HRS PRN for PAIN, #10 TAB 0 Refills Prov: ANAMARIA SALAZAR MD 03/18/19 Cephalexin (KEFLEX) 500 Mg Capsule 1 CAP PO Q8HRS, #21 CAP 0 Refills Prov: NAAMARIA SALAZAR MD 03/18/19 Problem Qualifiers ANAMARIA SALAZAR MD Mar 18, 2019 12:54
[2019-03-18 13:00] VITALS: BP 114/65
[2019-03-18] MEDS ORDERED: HYDROcodone/APAP 5/325MG 1 TAB TABLET PO ONE (13:30)
== END 2019-03-18 13:37 | disposition home or self-care (01) ==
LOC: ER 09:45
DX: L03.116 Cellulitis of left lower limb (principal); N28.9 Disorder of kidney and ureter, unspecified; E87.5 Hyperkalemia; I48.91 Unspecified atrial fibrillation; F41.9 Anxiety disorder, unspecified; I25.10 Atherosclerotic heart disease of native coronary artery without angina pectoris; F32.9 Major depressive disorder, single episode, unspecified; E11.9 Type 2 diabetes mellitus without complications; E78.00 Pure hypercholesterolemia, unspecified; I10 Essential (primary) hypertension
CPT/HCPCS: 36415; 73630; 80053; 83605; 85025; 85651; 86140; 93971; 96374; 99285; J0696

== ENCOUNTER 2019-03-29 07:34 | Inpatient (IN) | payer BC ==
[~2019-03-29] VITALS: Ht 170.2 cm; Wt 95.3 kg
[~2019-03-29 07:34] MED LIST changes: +CEPH-264 PO; +HYDR-3164 PO
[2019-03-29] MEDS ORDERED: fentaNYL PF VIAL 100 MCG/2 ML VIAL IVP ONE (08:00)
[2019-03-29] MEDS ORDERED: ONDANSETRON PF 4 MG/2 ML VIAL. IV ONE (08:00)
[2019-03-29 08:03] LABS: BASO % 0 % (0-3); EOS # 0.1 x10^3/uL (0.0-0.7); EOS % 1 % (0-3); HEMATOCRIT 39.5 % (39.0-53.0); HEMOGLOBIN 12.6 g/dL (13.0-17.5); LYMPH # 1.2 x10^3/uL (1.0-4.8); LYMPH % 14 % (24-48); MEAN CORPUSCULAR HEMOGLOBIN 24 pg (25-35); MEAN CORPUSCULAR HGB CONC 32 g/dL (31-37); MEAN CORPUSCULAR VOLUME 76 fL (79-100); MONO # 1.2 x10^3/uL (0.0-1.1); MONO % 14 % (0-9); NEUT # 6.2 x10^3/uL (1.8-7.7); NEUT % 71 % (31-73); PLATELET COUNT 366 x10^3/uL (140-400); RED CELL DISTRIBUTION WIDTH 15.2 % (11.5-14.5); WHITE BLOOD COUNT 8.7 x10^3/uL (4.0-11.0)
[2019-03-29 09:13] LABS: CALCIUM 8.7 mg/dL (8.5-10.1); CREATININE 1.2 mg/dL (0.7-1.3); GFR 59.9; POTASSIUM 3.7 mmol/L (3.5-5.1)
[2019-03-29 09:18] LABS: ALBUMIN 2.9 g/dL (3.4-5.0); ALBUMIN/GLOBULIN RATIO 0.6 (1.0-1.7); TOTAL BILIRUBIN 0.9 mg/dL (0.2-1.0); TOTAL PROTEIN 8.1 g/dL (6.4-8.2)
[2019-03-29] MEDS ORDERED: MORPHINE SULFATE 4 MG/ML VIAL. IV ONE (09:30)
[2019-03-29] MEDS ORDERED: methylPREDNISolone SOD SUCC PF 125 MG/2 ML VIAL. IV ONE (09:30)
[2019-03-29] MEDS ORDERED: KETOROLAC 15 MG/ML VIAL. IVP ONE (09:30)
--- NOTE | 2019-03-29 09:30 | PDOC1 ---
History and Physical Date of Admission Date of Admission DATE: 03/29/19 TIME: 09:29 Identification/Chief Complaint Chief Complaint seen in er in distress, unable to ambulate 68-year-old male who presents with complaint of severe bilateral foot pain for the last couple of weeks. Patient indicates that it is been so bad that he has not been able to bear any weight and he has been crawling around on the floor just to get to the bathroom. He rates his pain to be a 10 out of 10. He denies any chest pain or shortness of breath. He denies any fever, nausea or vomiting. states that nothing has been helping with the pain.[] right DIP JOINT SEEMS MOST PAINFUL. HE DRINKS ABOUT 4 BEERS A DAY, UA LEVEL =9 Past Medical History Past Medical History chronic mild diastolic congestive heart failure, mild concentric left ventricular hypertrophy mild aortic regurgitation.,mild to moderate mitral regurgitation., mild tricuspid regurgitation. PA pressure was estimated at 52 mmHg. 80 pack yr smoking hx quit 8 yrs ago pos COPD Atrial fibrillation on eliquis Hypertension. obesity, BMI 32.9 hx a-fib on eliquis Cardiovascular: AFIB, CAD Psych: Addictions Musculoskeletal: Osteoarthritis Family History Family History: High Cholestrol, Hypertension Social History Smoke: Quit ALCOHOL: heavy (4 BEERS A DAY) Drugs: None Current Medications Current Medications Current Medications Fentanyl Citrate (Fentanyl 2ml Vial) 50 mcg 1X ONCE IVP Last administered on 03/29/19at 08:14; Start 03/29/19 at 08:00; Stop 03/29/19 at 08:01; Status DC Ondansetron HCl (Zofran) 4 mg 1X ONCE IV Last administered on 03/29/19at 08:14; Start 03/29/19 at 08:00; Stop 03/29/19 at 08:01; Status DC Active Scripts Active [place] 5-325 Tablet (Acetaminophen/Hydrocodone Bitart) 1 Each Tablet 1 Tab PO PRN Q6HRS PRN Keflex (Cephalexin) 500 Mg Capsule 1 Cap PO Q8HRS Metoprolol Tartrate 50 Mg Tablet 1.5 Tab PO BID 30 Days Keppra (Levetiracetam) 500 Mg Tablet 2 Tab PO BID 30 Days Wellbutrin Sr (Bupropion Hcl) 200 Mg Tablet.er 100 Mg PO BID 30 Days Atorvastatin Calcium 40 Mg Tablet 1 Tab PO DAILY 30 Days Proair Hfa Inhaler (Albuterol Sulfate) 8.5 Gm Hfa.aer.ad 2 Puff INH PRN BID PRN 30 Days Eliquis (Apixaban) 5 Mg Tablet 5 Mg PO BID 30 Days Lasix (Furosemide) 40 Mg Tablet 20 Mg PO DAILY 30 Days Reported NITROGLYCERIN SubLingual (Nitroglycerin) 0.4 Mg Tab.subl 1 Tab SL UD Aspirin 81 Mg Tab.chew 1 Tab PO DAILY Allergies Allergies: Coded Allergies: No Known Drug Allergies (Unverified , 11/30/18) ROS Review of System Review of Systems Review of Systems Constitutional: Denies fever or chills [] Respiratory: Denies cough or shortness of breath [] Cardiovascular: No additional information not addressed in HPI [] Musculoskeletal: Positive bilateral foot pain [] Integument: Denies rash or skin lesions [] Neurologic: Denies headache, focal weakness or sensory changes [] 14 pt r systems were reviewed and found to be within normal limits, except as documented . Hematological and Lymphatic: No: Bleeding Problems, Blood Clots, Blood Transfusions, Brusing, Night Sweats, Pallor, Swollen Lymph Nodes, Other Respiratory: No: Cough, Hemoptysis, Orthopnea, Pleuritic Pain, Shortness of chava ath, SOB with excertion, Sputum Changes, Stridor, Tachypnea, Wheezing, Other Gastrointestinal: No Nausea, No Vomiting, No Abdominal Pain, No Diarrhea, No Constipation, No Melena, No Hematochezia, No Other Musculoskeletal: Yes Gait Disturbance, Yes Joint Pain, Yes Joint Stiffness Neurological: Yes Gait Disturbance Skin: Yes Dry Skin Physical Exam Physical Exam Physical Exam Physical Exam Constitutional: Well developed, well nourished, no acute distress, non-toxic appearance. [] HENT: Normocephalic, atraumatic, bilateral external ears normal, oropharynx moist, no oral exudates, nose normal. [] Eyes: PERRLA, EOMI, conjunctiva normal, no discharge. [] Neck: Normal range of motion, no tenderness, supple. [] Cardiovascular: Regular rate and rhythm[] Lungs & Thorax: Bilateral breath sounds clear to auscultation [] Abdomen: Bowel sounds normal, soft, no tenderness. [] Skin: Warm, dry, no erythema, no rash. [] Extremities: Bilateral feet demonstrate very mild erythema and warmth to touch. Both feet are diffusely tender to palpation. [] Neurologic: Alert and oriented X 3, no focal deficits noted. [] General: Alert, Oriented X3, Cooperative HEENT: Atraumatic Lungs: Clear to auscultation Heart: RRR Abdomen: Soft Rectal Exam: not examined PELVIC: Examination not indicated Extremities: No cyanosis, Other (VERY TENDER BOTH DISTAL FEET OVER DIP JOINT R> L) Neuro: Normal speech, Cranial nerves 3-12 NL Psych/Mental Status: Mental status NL, Mood NL Vitals Vitals Vital Signs Date Time Temp Pulse Resp B/P (MAP) Pulse Ox O2 Delivery O2 Flow Rate FiO2 03/29/19 08:14 18 03/29/19 07:41 98.2 90 121/66 (84) 97 98.2 Labs Labs Laboratory Tests Test 03/29/19 07:55 03/29/19 09:00 White Blood Count 8.7 x10^3/uL (4.0-11.0) Red Blood Count 5.20 x10^6/uL (4.30-5.70) Hemoglobin 12.6 g/dL (13.0-17.5) Hematocrit 39.5 % (39.0-53.0) Mean Corpuscular Volume 76 fL (79-100) Mean Corpuscular Hemoglobin 24 pg (25-35) Mean Corpuscular Hemoglobin Concent 32 g/dL (31-37) Red Cell Distribution Width 15.2 % (11.5-14.5) Platelet Count 366 x10^3/uL (140-400) Neutrophils (%) (Auto) 71 % (31-73) Lymphocytes (%) (Auto) 14 % (24-48) Monocytes (%) (Auto) 14 % (0-9) Eosinophils (%) (Auto) 1 % (0-3) Basophils (%) (Auto) 0 % (0-3) Neutrophils # (Auto) 6.2 x10^3/uL (1.8-7.7) Lymphocytes # (Auto) 1.2 x10^3/uL (1.0-4.8) Monocytes # (Auto) 1.2 x10^3/uL (0.0-1.1) Eosinophils # (Auto) 0.1 x10^3/uL (0.0-0.7) Basophils # (Auto) 0.0 x10^3/uL (0.0-0.2) Sodium Level 140 mmol/L (136-145) Potassium Level 3.7 mmol/L (3.5-5.1) Chloride Level 101 mmol/L (98-107) Carbon Dioxide Level 30 mmol/L (21-32) Anion Gap 9 (6-14) Blood Urea Nitrogen 10 mg/dL (8-26) Creatinine 1.2 mg/dL (0.7-1.3) Estimated GFR (Cockcroft-Gault) 59.9 BUN/Creatinine Ratio 8 (6-20) Glucose Level 115 mg/dL (70-99) Uric Acid 9.0 mg/dL (3.5-7.2) Calcium Level 8.7 mg/dL (8.5-10.1) Total Bilirubin 0.9 mg/dL (0.2-1.0) Aspartate Amino Transf (AST/SGOT) 20 U/L (15-37) Alanine Aminotransferase (ALT/SGPT) 21 U/L (16-63) Alkaline Phosphatase 77 U/L (46-116) C-Reactive Protein, Quantitative 73.0 mg/L (0-3.3) Total Protein 8.1 g/dL (6.4-8.2) Albumin 2.9 g/dL (3.4-5.0) Albumin/Globulin Ratio 0.6 (1.0-1.7) Laboratory Tests Test 03/29/19 07:55 03/29/19 09:00 White Blood Count 8.7 x10^3/uL (4.0-11.0) Red Blood Count 5.20 x10^6/uL (4.30-5.70) Hemoglobin 12.6 g/dL (13.0-17.5) Hematocrit 39.5 % (39.0-53.0) Mean Corpuscular Volume 76 fL (79-100) Mean Corpuscular Hemoglobin 24 pg (25-35) Mean Corpuscular Hemoglobin Concent 32 g/dL (31-37) Red Cell Distribution Width 15.2 % (11.5-14.5) Platelet Count 366 x10^3/uL (140-400) Neutrophils (%) (Auto) 71 % (31-73) Lymphocytes (%) (Auto) 14 % (24-48) Monocytes (%) (Auto) 14 % (0-9) Eosinophils (%) (Auto) 1 % (0-3) Basophils (%) (Auto) 0 % (0-3) Neutrophils # (Auto) 6.2 x10^3/uL (1.8-7.7) Lymphocytes # (Auto) 1.2 x10^3/uL (1.0-4.8) Monocytes # (Auto) 1.2 x10^3/uL (0.0-1.1) Eosinophils # (Auto) 0.1 x10^3/uL (0.0-0.7) Basophils # (Auto) 0.0 x10^3/uL (0.0-0.2) Sodium Level 140 mmol/L (136-145) Potassium Level 3.7 mmol/L (3.5-5.1) Chloride Level 101 mmol/L (98-107) Carbon Dioxide Level 30 mmol/L (21-32) Anion Gap 9 (6-14) Blood Urea Nitrogen 10 mg/dL (8-26) Creatinine 1.2 mg/dL (0.7-1.3) Estimated GFR (Cockcroft-Gault) 59.9 BUN/Creatinine Ratio 8 (6-20) Glucose Level 115 mg/dL (70-99) Uric Acid 9.0 mg/dL (3.5-7.2) Calcium Level 8.7 mg/dL (8.5-10.1) Total Bilirubin 0.9 mg/dL (0.2-1.0) Aspartate Amino Transf (AST/SGOT) 20 U/L (15-37) Alanine Aminotransferase (ALT/SGPT) 21 U/L (16-63) Alkaline Phosphatase 77 U/L (46-116) C-Reactive Protein, Quantitative 73.0 mg/L (0-3.3) Total Protein 8.1 g/dL (6.4-8.2) Albumin 2.9 g/dL (3.4-5.0) Albumin/Globulin Ratio 0.6 (1.0-1.7) Images Images 3 views left foot dated 03/18/2019. No comparison available. CLINICAL INDICATION: Pain. FINDINGS: 3 views left foot show normal bony alignment. No displaced fracture. No acute osseous or articular abnormality. Mild soft tissue swelling.. IMPRESSION: Soft tissue swelling with no apparent underlying acute bony abnormality. Electronically signed by: Mallika Smith MD (03/18/2019 11:35 AM) [id number] DICTATED and SIGNED BY: MALLIKA SMITH MD DATE: 03/18/19 1135 VTE Prophylaxis Ordered VTE Prophylaxis Devices: Yes VTE Pharmacological Prophylaxi: Yes Assessment/Plan Assessment/Plan bilateral foot pain, intractable possible gout chronic mild diastolic congestive heart failure, mild concentric left ventricular hypertrophy mild aortic regurgitation.,mild to moderate mitral regurgitation., mild tricuspid regurgitation. PA pressure was estimated at 52 mmHg. c/w mod pulm htn 80 pack yr smoking hx quit 8 yrs ago pos COPD Atrial fibrillation on eliquis Hypertension. obesity, BMI 31 hx a-fib on eliquis morbid obesity admit pain control bedrest ct both feet COLCHICHINE 0.6 MG PO X 3 TODAY PREDNISONE 50 MG PO X 1 NOW CAROLE RIOS MD Mar 29, 2019 09:30
--- NOTE | 2019-03-29 09:34 | PHYS DOC ---
Past Medical History Past Medical History: A-Fib, Angina, Anxiety, CAD, Depression, Diabetes-Type II, GERD, High Cholesterol, Hypertension, Seizure Additional Past Medical Histor: BACK&NECK PAIN Additional Past Surgical Histo: CARDIAC STENTS Alcohol Use: Sober Drug Use: None Adult General Chief Complaint Chief Complaint: General Complaint HPI HPI Patient is a 68-year-old male who presents with complaint of severe bilateral foot pain for the last couple of weeks. Patient indicates that it is been so bad that he has not been able to bear any weight and he has been crawling around on the floor just to get to the bathroom. He rates his pain to be a 10 out of 10. He denies any chest pain or shortness of breath. He denies any fever, nausea or vomiting. Patient states that nothing has been helping with the pain.[] Review of Systems Review of Systems Constitutional: Denies fever or chills [] Respiratory: Denies cough or shortness of breath [] Cardiovascular: No additional information not addressed in HPI [] Musculoskeletal: Positive bilateral foot pain [] Integument: Denies rash or skin lesions [] Neurologic: Denies headache, focal weakness or sensory changes [] All other systems were reviewed and found to be within normal limits, except as documented in this note. Current Medications Current Medications Current Medications Medications (Trade) Dose Ordered Sig/[facility] Start Time Stop Time Status Last Admin Dose Admin Fentanyl Citrate (Fentanyl 2ml Vial) 50 mcg 1X ONCE 03/29/19 08:00 03/29/19 08:01 DC 03/29/19 08:14 50 MCG Ketorolac Tromethamine (Toradol 15mg Vial) 15 mg 1X ONCE 03/29/19 09:30 03/29/19 09:31 UNV Methylprednisolone Sodium Succinate (SOLU-Medrol 125MG VIAL) 125 mg 1X ONCE 03/29/19 09:30 03/29/19 09:31 Morphine Sulfate (Morphine Sulfate) 4 mg 1X ONCE 03/29/19 09:30 03/29/19 09:31 UNV Ondansetron HCl (Zofran) 4 mg 1X ONCE 03/29/19 08:00 03/29/19 08:01 DC 03/29/19 08:14 4 MG Allergies Allergies Allergies Coded Allergies Type Severity Reaction Last Updated Verified No Known Drug Allergies 11/30/18 No Physical Exam Physical Exam Constitutional: Well developed, well nourished, no acute distress, non-toxic appearance. [] HENT: Normocephalic, atraumatic, bilateral external ears normal, oropharynx moist, no oral exudates, nose normal. [] Eyes: PERRLA, EOMI, conjunctiva normal, no discharge. [] Neck: Normal range of motion, no tenderness, supple. [] Cardiovascular: Regular rate and rhythm[] Lungs & Thorax: Bilateral breath sounds clear to auscultation [] Abdomen: Bowel sounds normal, soft, no tenderness. [] Skin: Warm, dry, no erythema, no rash. [] Extremities: Bilateral feet demonstrate very mild erythema and warmth to touch. Both feet are diffusely tender to palpation. [] Neurologic: Alert and oriented X 3, no focal deficits noted. [] Current Patient Data Vital Signs Vital Signs Date Time Temp Pulse Resp B/P (MAP) Pulse Ox O2 Delivery O2 Flow Rate FiO2 03/29/19 08:14 18 03/29/19 07:41 98.2 90 121/66 (84) 97 98.2 Lab Values Laboratory Tests Test 03/29/19 07:55 03/29/19 09:00 White Blood Count 8.7 x10^3/uL (4.0-11.0) Red Blood Count 5.20 x10^6/uL (4.30-5.70) Hemoglobin 12.6 g/dL (13.0-17.5) L Hematocrit 39.5 % (39.0-53.0) Mean Corpuscular Volume 76 fL (79-100) L Mean Corpuscular Hemoglobin 24 pg (25-35) L Mean Corpuscular Hemoglobin Concent 32 g/dL (31-37) Red Cell Distribution Width 15.2 % (11.5-14.5) H Platelet Count 366 x10^3/uL (140-400) Neutrophils (%) (Auto) 71 % (31-73) Lymphocytes (%) (Auto) 14 % (24-48) L Monocytes (%) (Auto) 14 % (0-9) H Eosinophils (%) (Auto) 1 % (0-3) Basophils (%) (Auto) 0 % (0-3) Neutrophils # (Auto) 6.2 x10^3/uL (1.8-7.7) Lymphocytes # (Auto) 1.2 x10^3/uL (1.0-4.8) Monocytes # (Auto) 1.2 x10^3/uL (0.0-1.1) H Eosinophils # (Auto) 0.1 x10^3/uL (0.0-0.7) Basophils # (Auto) 0.0 x10^3/uL (0.0-0.2) Sodium Level 140 mmol/L (136-145) Potassium Level 3.7 mmol/L (3.5-5.1) Chloride Level 101 mmol/L (98-107) Carbon Dioxide Level 30 mmol/L (21-32) Anion Gap 9 (6-14) Blood Urea Nitrogen 10 mg/dL (8-26) Creatinine 1.2 mg/dL (0.7-1.3) Estimated GFR (Cockcroft-Gault) 59.9 BUN/Creatinine Ratio 8 (6-20) Glucose Level 115 mg/dL (70-99) H Uric Acid 9.0 mg/dL (3.5-7.2) H Calcium Level 8.7 mg/dL (8.5-10.1) Total Bilirubin 0.9 mg/dL (0.2-1.0) Aspartate Amino Transferase (AST) 20 U/L (15-37) Alanine Aminotransferase (ALT) 21 U/L (16-63) Alkaline Phosphatase 77 U/L (46-116) C-Reactive Protein, Quantitative 73.0 mg/L (0-3.3) H Total Protein 8.1 g/dL (6.4-8.2) Albumin 2.9 g/dL (3.4-5.0) L Albumin/Globulin Ratio 0.6 (1.0-1.7) L Laboratory Tests 03/29/19 07:55 Laboratory Tests 03/29/19 09:00 EKG EKG [] Radiology/Procedures Radiology/Procedures [] Course & Med Decision Making Course & Med Decision Making Pertinent Labs and Imaging studies reviewed. (See chart for details) [] Dragon Disclaimer Dragon Disclaimer This electronic medical record was generated, in whole or in part, using a voice recognition dictation system. Departure Departure Impression: Primary Impression: Intractable pain Additional Impression: Gout of both feet Disposition: ADMITTED INPATIENT Admitting Physician: [facility] (Dr. Mendez) Condition: IMPROVED Referrals: UNKNOWN PCP NAME (PCP) Problem Qualifiers CARLEY SKINNER Jr. DO Mar 29, 2019 09:34
[2019-03-29] MEDS ORDERED: MORPHINE SULFATE 4 MG/ML VIAL. IV PRN (09:45)
[2019-03-29] MEDS ORDERED: ONDANSETRON PF 4 MG/2 ML VIAL. IV PRN (09:45)
[2019-03-29 11:50] VITALS: BP 103/62
--- NOTE | 2019-03-29 13:23 | NUR ---
This RN received report from SIL Suh in ER at 1030. Pt arrived on unit by bed at 1050. Pt oriented to room and call light with no additional concerns. Pain rated 7/10. Will continue to monitor pt.
[2019-03-29] MEDS ORDERED: ALBUTEROL SULFATE 2.5 MG/3 ML NEBU. INH PRN (14:30)
[2019-03-29] MEDS ORDERED: NITROGLYCERIN SUBLINGUAL 0.4 MG BOTTLE OF 25. SL PRN (14:30)
[2019-03-29] MEDS ORDERED: HYDROmorphone 2 MG/ML VIAL IVP PRN (14:45)
[2019-03-29] MEDS ORDERED: predniSONE 10 MG TABLET PO ONE (14:45)
[2019-03-29 15:00] VITALS: BP 120/70
[2019-03-29] MEDS: ASPIRIN CHEWABLE 81 MG TABLET. PO SCH (16:10)
[2019-03-29] MEDS: FUROSEMIDE 40 MG TABLET. PO SCH (16:10)
[2019-03-29] MEDS: COLCHICINE 0.6 MG TABLET PO SCH ×2 (16:11→20:37)
[2019-03-29] MEDS: HYDROcodone/APAP 5/325MG 1 TAB TABLET PO PRN (16:18)
--- NOTE | 2019-03-29 16:56 | NUR ---
Pharmacy Medication Review S: Consulted for medication review re: C.diff Risk Assessment score of 5 O: NABOR EASON P is a 68 year old with: Previous C.diff infection: No Previous hospitalization: Within 30 days Recent antibiotics: Within 30 days Use of gastric acid suppressor: No Transfer from [place]: No Current antibiotic regimen: Current acid suppression regimen: A: Patient has been identified as having risk factors for C.diff infection as noted above. P: Antibiotic Regimen recommendation made: N/A Probiotic ordered: YES PPI changed to [id number]: N/A Abdiel Reeves [facility], 03/29/19 [id number]
[2019-03-29] MEDS ORDERED: C.DIFF MED SCREEN BY RX. MC ONE (17:00)
[2019-03-29] MEDS ORDERED: FLU VAX QS 2019-20 (36MOS+)/PF 0.5 ML SYRINGE. VAX IM ONE (17:00)
[2019-03-29 19:00] VITALS: BP 135/70
[2019-03-29] MEDS: LACTOBACILLUS RHAMNOSUS GG 1 CAPSULE. PO SCH (20:37)
[2019-03-29] MEDS: ATORVASTATIN CALCIUM 40 MG TABLET. PO SCH (20:37)
[2019-03-29] MEDS: levETIRAcetam 500 MG TABLET PO SCH (20:37)
[2019-03-29] MEDS: METOPROLOL TART IMMED RELEASE 25 MG TABLET. PO SCH (20:38)
[2019-03-29] MEDS: buPROPion SR 100 MG TABLET.SA. PO SCH (20:38)
[2019-03-29] MEDS: APIXABAN 5 MG TABLET. PO SCH (20:38)
[2019-03-29 23:02] VITALS: BP 132/84
[2019-03-30] MEDS: COLCHICINE 0.6 MG TABLET PO SCH
[2019-03-30 03:02] VITALS: BP 111/57
[2019-03-30 07:00] VITALS: BP 104/64
--- NOTE | 2019-03-30 07:59 | RAD ---
CT bilateral feet without contrast. HISTORY: Severe bilateral foot pain Axial CT images were obtained through both feet. Coronal and sagittal reconstructed images were reviewed. There is no fracture identified. There is irregularity between the medial sesamoid and great toe of the left foot suggesting mild arthritis or inflammation or old injury. There is arthritis at the fourth metatarsal phalangeal joint of the left foot with joint space narrowing and erosions or subchondral cysts on the head of the fourth metatarsal. There is mild lucency at the head of the first metatarsal the left foot which can be seen with osteoporosis or demineralization from an inflammatory process. No acute osseous abnormality is noted in the right foot. IMPRESSION: 1. Demineralization and irregularity of the head of the first metatarsal of the left foot which can be seen with arthritis or inflammation. MRI could be of benefit for further evaluation. 2. Arthritis with joint space narrowing and subchondral cysts or erosions at the fourth metatarsal phalangeal joint of the left foot. 3. No fracture or other bony destructive process noted. 4. No acute osseous abnormality noted in the right foot. Electronically signed by: Jesús Mosquera MD (03/30/2019 7:56 AM) [facility]
[2019-03-30] MEDS: ANTI-COAG MONITOR BY PHARMACY. MC PRN (08:10)
[2019-03-30] MEDS: LACTOBACILLUS RHAMNOSUS GG 1 CAPSULE. PO SCH ×2 (09:42→21:13)
[2019-03-30] MEDS: buPROPion SR 100 MG TABLET.SA. PO SCH ×2 (09:42→21:13)
[2019-03-30] MEDS: levETIRAcetam 500 MG TABLET PO SCH ×2 (09:42→21:13)
[2019-03-30] MEDS: FUROSEMIDE 40 MG TABLET. PO SCH (09:43)
[2019-03-30] MEDS: ASPIRIN CHEWABLE 81 MG TABLET. PO SCH (09:43)
[2019-03-30] MEDS: APIXABAN 5 MG TABLET. PO SCH ×2 (09:43→21:14)
[2019-03-30] MEDS: METOPROLOL TART IMMED RELEASE 25 MG TABLET. PO SCH ×2 (09:45→21:00)
[2019-03-30] MEDS: HYDROcodone/APAP 5/325MG 1 TAB TABLET PO PRN ×2 (10:15→21:13)
--- NOTE | 2019-03-30 10:38 | PDOC ---
PROGRESS NOTES History of Present Illness History of Present Illness VTE Prophylaxis Ordered VTE Prophylaxis Devices: Yes VTE Pharmacological Prophylaxi: Yes Assessment/Plan Assessment/Plan bilateral foot pain, intractable Demineralization and irregularity of the head of the first metatarsal of the left foot which can be seen with arthritis or inflammation. MRI could be of benefit for further evaluation. Arthritis with joint space narrowing and subchondral cysts or erosions at the fourth metatarsal phalangeal joint of the left foot. possible gout chronic mild diastolic congestive heart failure, mild concentric left ventricular hypertrophy mild aortic regurgitation.,mild to moderate mitral regurgitation., mild tricuspid regurgitation. PA pressure was estimated at 52 mmHg. c/w mod pulm htn 80 pack yr smoking hx quit 8 yrs ago pos COPD Atrial fibrillation on eliquis Hypertension. obesity, BMI 31 hx a-fib on eliquis morbid obesity admit pain control bedrest ct both feet REVIEWED COLCHICHINE 0.6 MG PO DAILY pt/ot PREDNISONE 30 MG PO X 1 NOW stop beer intake, as this will make gout pain worse 03/30 STATES PAIN NOT MUCH BETTER TODAY, WILL CONSULT ORTHO Vitals Vitals Vital Signs Date Time Temp Pulse Resp B/P (MAP) Pulse Ox O2 Delivery O2 Flow Rate FiO2 03/30/19 09:45 87 104/64 03/30/19 08:00 Room Air 03/30/19 07:00 97.9 16 98 97.9 Physical Exam General: Alert, Oriented X3, Cooperative, No acute distress Heart: Regular rate Lungs: Clear Abdomen: Normal bowel sounds, Soft Extremities: No clubbing, No cyanosis, Other (VERY TENDER BOTH DISTAL FEET OVER DIP JOINT R> L) Labs LABS DICTATED AND SIGNED BY: VIKRAM BROOKS MD DATE: 03/30/19800 CC: CAROLE RIOS MD; UNKNOWN PCP NAME ~ CT bilateral feet without contrast. HISTORY: Severe bilateral foot pain Axial CT images were obtained through both feet. Coronal and sagittal reconstructed images were reviewed. There is no fracture identified. There is irregularity between the medial sesamoid and great toe of the left foot suggesting mild arthritis or inflammation or old injury. There is arthritis at the fourth metatarsal phalangeal joint of the left foot with joint space narrowing and erosions or subchondral cysts on the head of the fourth metatarsal. There is mild lucency at the head of the first metatarsal the left foot which can be seen with osteoporosis or demineralization from an inflammatory process. No acute osseous abnormality is noted in the right foot. IMPRESSION: 1. Demineralization and irregularity of the head of the first metatarsal of the left foot which can be seen with arthritis or inflammation. MRI could be of benefit for further evaluation. 2. Arthritis with joint space narrowing and subchondral cysts or erosions at the fourth metatarsal phalangeal joint of the left foot. 3. No fracture or other bony destructive process noted. 4. No acute osseous abnormality noted in the right foot. Electronically signed by: Vikram Brooks MD (03/30/2019 7:56 AM) [facility] DICTATED and SIGNED BY: VIKRAM BROOKS MD DATE: 03/30/19 0756 Assessment and Plan Assessmemt and Plan Problems Medical Problems: (1) Gout of both feet Status: Acute (2) Intractable pain Status: Acute Comment Review of Relevant I have reviewed the following items von (where applicable) has been applied. Labs Laboratory Tests Test 03/29/19 07:55 03/29/19 09:00 White Blood Count 8.7 x10^3/uL (4.0-11.0) Red Blood Count 5.20 x10^6/uL (4.30-5.70) Hemoglobin 12.6 g/dL (13.0-17.5) Hematocrit 39.5 % (39.0-53.0) Mean Corpuscular Volume 76 fL (79-100) Mean Corpuscular Hemoglobin 24 pg (25-35) Mean Corpuscular Hemoglobin Concent 32 g/dL (31-37) Red Cell Distribution Width 15.2 % (11.5-14.5) Platelet Count 366 x10^3/uL (140-400) Neutrophils (%) (Auto) 71 % (31-73) Lymphocytes (%) (Auto) 14 % (24-48) Monocytes (%) (Auto) 14 % (0-9) Eosinophils (%) (Auto) 1 % (0-3) Basophils (%) (Auto) 0 % (0-3) Neutrophils # (Auto) 6.2 x10^3/uL (1.8-7.7) Lymphocytes # (Auto) 1.2 x10^3/uL (1.0-4.8) Monocytes # (Auto) 1.2 x10^3/uL (0.0-1.1) Eosinophils # (Auto) 0.1 x10^3/uL (0.0-0.7) Basophils # (Auto) 0.0 x10^3/uL (0.0-0.2) Sodium Level 140 mmol/L (136-145) Potassium Level 3.7 mmol/L (3.5-5.1) Chloride Level 101 mmol/L (98-107) Carbon Dioxide Level 30 mmol/L (21-32) Anion Gap 9 (6-14) Blood Urea Nitrogen 10 mg/dL (8-26) Creatinine 1.2 mg/dL (0.7-1.3) Estimated GFR (Cockcroft-Gault) 59.9 BUN/Creatinine Ratio 8 (6-20) Glucose Level 115 mg/dL (70-99) Uric Acid 9.0 mg/dL (3.5-7.2) Calcium Level 8.7 mg/dL (8.5-10.1) Total Bilirubin 0.9 mg/dL (0.2-1.0) Aspartate Amino Transf (AST/SGOT) 20 U/L (15-37) Alanine Aminotransferase (ALT/SGPT) 21 U/L (16-63) Alkaline Phosphatase 77 U/L (46-116) C-Reactive Protein, Quantitative 73.0 mg/L (0-3.3) Total Protein 8.1 g/dL (6.4-8.2) Albumin 2.9 g/dL (3.4-5.0) Albumin/Globulin Ratio 0.6 (1.0-1.7) Medications Current Medications Fentanyl Citrate (Fentanyl 2ml Vial) 50 mcg 1X ONCE IVP Last administered on 03/29/19at 08:14; Start 03/29/19 at 08:00; Stop 03/29/19 at 08:01; Status DC Ondansetron HCl (Zofran) 4 mg 1X ONCE IV Last administered on 03/29/19at 08:14; Start 03/29/19 at 08:00; Stop 03/29/19 at 08:01; Status DC Methylprednisolone Sodium Succinate (SOLU-Medrol 125MG VIAL) 125 mg 1X ONCE IV Last administered on 03/29/19at 09:46; Start 03/29/19 at 09:30; Stop 03/29/19 at 09:31; Status DC Ketorolac Tromethamine (Toradol 15mg Vial) 15 mg 1X ONCE IVP Last administered on 03/29/19 09:47; Start 03/29/19 at 09:30; Stop 03/29/19 at 09:31; Status DC Morphine Sulfate (Morphine Sulfate) 4 mg 1X ONCE IV ; Start 03/29/19 at 09:30; Stop 03/29/19 at 09:31; Status DC Ondansetron HCl (Zofran) 4 mg PRN Q8HRS PRN IV NAUSEA/VOMITING; Start 03/29/19 at 09:45; Stop 03/30/19 at 09:44; Status DC Morphine Sulfate (Morphine Sulfate) 4 mg PRN Q2HR PRN IV PAIN; Start 03/29/19 at 09:45; Stop 03/30/19 at 09:44; Status DC Albuterol Sulfate (Ventolin Neb Soln) 2.5 mg PRN BID PRN INH SHORTNESS OF BREATH; Start 03/29/19 at 14:30 Apixaban (Eliquis) 5 mg BID PO Last administered on 03/30/19 09:43; Start 03/29/19 at 21:00 Aspirin (Children'S Aspirin) 81 mg DAILY PO Last administered on 03/30/19 09:43; Start 03/29/19 at 15:00 Atorvastatin Calcium (Lipitor) 40 mg QHS PO Last administered on 03/29/19 20:37; Start 03/29/19 at 21:00 Furosemide (Lasix) 20 mg DAILY PO Last administered on 03/30/19 09:43; Start 03/29/19 at 15:00 Acetaminophen/ Hydrocodone Bitart (Lortab 5/325) 1 tab PRN Q6HRS PRN PO MODERATE PAIN Last administered on 03/30/19 10:15; Start 03/29/19 at 14:30 Levetiracetam (Keppra) 1,000 mg BID PO Last administered on 03/30/19 09:42; Start 03/29/19 at 21:00 Metoprolol Tartrate (Lopressor) 75 mg BID PO Last administered on 03/30/19 09:45; Start 03/29/19 at 21:00 Nitroglycerin (Nitrostat) 0.4 mg PRN Q10MIN PRN SL CHEST PAIN; Start 03/29/19 at 14:30 Bupropion HCl (Wellbutrin Sr) 100 mg BID PO Last administered on 03/30/19at 09:42; Start 03/29/19 at 21:00 Colchicine (Colcrys) 0.6 mg Q4HRS PO Last administered on 03/29/19at 20:37; Start 03/29/19 at 16:00; Stop 03/30/19 at 03:00; Status DC Prednisone (Prednisone) 50 mg 1X ONCE PO Last administered on 03/29/19at 16:11; Start 03/29/19 at 14:45; Stop 03/29/19 at 14:46; Status DC Hydromorphone HCl (Dilaudid) 0.4 mg PRN Q4HRS PRN IVP MODERATE TO SEVERE PAIN; Start 03/29/19 at 14:45 Pharmacy Consult (C.diff Med Screen By Rx) 1 each 1X ONCE MC ; Start 03/29/19 at 17:00; Stop 03/29/19 at 17:01; Status UNV Influenza Virus Vaccine Quadrival (Afluria Quad 2019-20 (3yr Up) Syringe) 0.5 ml ONCE ONCE VAX IM ; Start 03/29/19 at 17:00; Stop 03/29/19 at 17:01; Status DC Lactobacillus Rhamnosus (Culturelle) 1 cap BID PO Last administered on 03/30/19at 09:42; Start 03/29/19 at 21:00 Info (Anti-Coagulation Monitoring By Pharmacy) 1 each PRN DAILY PRN MC SEE COMMENTS Last administered on 03/30/19at 08:10; Start 03/30/19 at 08:15 Active Scripts Active [place] 5-325 Tablet (Acetaminophen/Hydrocodone Bitart) 1 Each Tablet 1 Tab PO PRN Q6HRS PRN Keflex (Cephalexin) 500 Mg Capsule 1 Cap PO Q8HRS Metoprolol Tartrate 50 Mg Tablet 1.5 Tab PO BID 30 Days Keppra (Levetiracetam) 500 Mg Tablet 2 Tab PO BID 30 Days Wellbutrin Sr (Bupropion Hcl) 200 Mg Tablet.er 100 Mg PO BID 30 Days Atorvastatin Calcium 40 Mg Tablet 1 Tab PO DAILY 30 Days Proair Hfa Inhaler (Albuterol Sulfate) 8.5 Gm Hfa.aer.ad 2 Puff INH PRN BID PRN 30 Days Eliquis (Apixaban) 5 Mg Tablet 5 Mg PO BID 30 Days Lasix (Furosemide) 40 Mg Tablet 20 Mg PO DAILY 30 Days Reported NITROGLYCERIN SubLingual (Nitroglycerin) 0.4 Mg Tab.subl 1 Tab SL UD Aspirin 81 Mg Tab.chew 1 Tab PO DAILY Vitals/I & O Vital Sign - Last 24 Hours 03/29/19 03/29/19 03/29/19 03/29/19 10:50 11:50 15:00 19:00 Temp 97.8 98.3 97.7 97.8 98.3 97.7 Pulse 80 92 87 Resp 18 18 20 B/P (MAP) 103/62 (76) 120/70 (87) 135/70 (91) Pulse Ox 93 90 96 O2 Delivery Room Air Room Air Room Air Room Air 03/29/19 03/29/19 03/29/19 03/30/19 20:00 20:38 23:02 03:02 Temp 97.6 97.4 97.6 97.4 Pulse 87 75 79 Resp 20 20 B/P (MAP) 135/70 132/84 (100) 111/57 (75) Pulse Ox 98 96 O2 Delivery Room Air Room Air Room Air 03/30/19 03/30/19 03/30/19 07:00 08:00 09:45 Temp 97.9 97.9 Pulse 87 87 Resp 16 B/P (MAP) 104/64 (77) 104/64 Pulse Ox 98 O2 Delivery Room Air Room Air CAROLE RIOS MD Mar 30, 2019 10:38
[2019-03-30] MEDS ORDERED: predniSONE 10 MG TABLET PO ONE (10:45)
[2019-03-30 10:59] VITALS: BP 117/60
[2019-03-30 14:44] VITALS: BP 119/62
[2019-03-30] MEDS ORDERED: methylPREDNISolone ACETATE 40 MG/ML VIAL. IM ONE ×2 (14:45)
[2019-03-30] MEDS ORDERED: BUPIVACAINE MPF 0.25% 10 ML VIAL. IJ ONE (14:45)
--- NOTE | 2019-03-30 14:48 | PDOC2 ---
CONSULT Date of Consult Date of Consult DATE: 03/30/19 TIME: 14:47 Reason for Consult Reason for Consult: bilateral big toe pain, difficulty walking Identification/Chief Complaint Chief Complaint bilateral big toe pain, difficulty walking Source Source: Chart review, Patient History of Present Illness Reason for Visit: 68 yo man, [place] [facility], admitted with bilateral big toe pain, difficulty walking. Uric acid elevated, and has been told before that he has gout. Severe bilateral foot pain for the last couple of weeks. Patient indicates that it is been so bad that he has not been able to bear any weight and he has been crawling around on the floor just to get to the bathroom. He rates his pain to be a 10 out of 10. He denies any chest pain or shortness of breath. He denies any fever, nausea or vomiting. Some loss of appetite, and some itching. Past Medical History Cardiovascular: AFIB, CAD Psych: Addictions Musculoskeletal: Osteoarthritis Rheumatologic: Gout Family History Family History: High Cholestrol, Hypertension Social History Quit ALCOHOL: heavy (4 BEERS A DAY) Drugs: None Current Problem List Problem List Problems Medical Problems: (1) Gout of both feet Status: Acute (2) Intractable pain Status: Acute Current Medications Current Medications Current Medications Fentanyl Citrate (Fentanyl 2ml Vial) 50 mcg 1X ONCE IVP Last administered on 03/29/19at 08:14; Start 03/29/19 at 08:00; Stop 03/29/19 at 08:01; Status DC Ondansetron HCl (Zofran) 4 mg 1X ONCE IV Last administered on 03/29/19at 08:14; Start 03/29/19 at 08:00; Stop 03/29/19 at 08:01; Status DC Methylprednisolone Sodium Succinate (SOLU-Medrol 125MG VIAL) 125 mg 1X ONCE IV Last administered on 03/29/19at 09:46; Start 03/29/19 at 09:30; Stop 03/29/19 at 09:31; Status DC Ketorolac Tromethamine (Toradol 15mg Vial) 15 mg 1X ONCE IVP Last administered on 03/29/19at 09:47; Start 03/29/19 at 09:30; Stop 03/29/19 at 09:31; Status DC Morphine Sulfate (Morphine Sulfate) 4 mg 1X ONCE IV ; Start 03/29/19 at 09:30; Stop 03/29/19 at 09:31; Status DC Ondansetron HCl (Zofran) 4 mg PRN Q8HRS PRN IV NAUSEA/VOMITING; Start 03/29/19 at 09:45; Stop 03/30/19 at 09:44; Status DC Morphine Sulfate (Morphine Sulfate) 4 mg PRN Q2HR PRN IV PAIN; Start 03/29/19 at 09:45; Stop 03/30/19 at 09:44; Status DC Albuterol Sulfate (Ventolin Neb Soln) 2.5 mg PRN BID PRN INH SHORTNESS OF BREATH; Start 03/29/19 at 14:30 Apixaban (Eliquis) 5 mg BID PO Last administered on 03/30/19 09:43; Start 03/29/19 at 21:00 Aspirin (Children'S Aspirin) 81 mg DAILY PO Last administered on 03/30/19 09:43; Start 03/29/19 at 15:00 Atorvastatin Calcium (Lipitor) 40 mg QHS PO Last administered on 03/29/19 20:37; Start 03/29/19 at 21:00 Furosemide (Lasix) 20 mg DAILY PO Last administered on 03/30/19 09:43; Start 03/29/19 at 15:00 Acetaminophen/ Hydrocodone Bitart (Lortab 5/325) 1 tab PRN Q6HRS PRN PO MODERATE PAIN Last administered on 03/30/19 10:15; Start 03/29/19 at 14:30 Levetiracetam (Keppra) 1,000 mg BID PO Last administered on 03/30/19 09:42; Start 03/29/19 at 21:00 Metoprolol Tartrate (Lopressor) 75 mg BID PO Last administered on 03/30/19 09:45; Start 03/29/19 at 21:00 Nitroglycerin (Nitrostat) 0.4 mg PRN Q10MIN PRN SL CHEST PAIN; Start 03/29/19 at 14:30 Bupropion HCl (Wellbutrin Sr) 100 mg BID PO Last administered on 03/30/19 09:42; Start 03/29/19 at 21:00 Colchicine (Colcrys) 0.6 mg Q4HRS PO Last administered on 03/29/19 20:37; Start 03/29/19 at 16:00; Stop 03/30/19 at 03:00; Status DC Prednisone (Prednisone) 50 mg 1X ONCE PO Last administered on 03/29/19at 16:11; Start 03/29/19 at 14:45; Stop 03/29/19 at 14:46; Status DC Hydromorphone HCl (Dilaudid) 0.4 mg PRN Q4HRS PRN IVP MODERATE TO SEVERE PAIN; Start 03/29/19 at 14:45 Pharmacy Consult (C.diff Med Screen By Rx) 1 each 1X ONCE MC ; Start 03/29/19 at 17:00; Stop 03/29/19 at 17:01; Status UNV Influenza Virus Vaccine Quadrival (Afluria Quad 2019-20 (3yr Up) Syringe) 0.5 ml ONCE ONCE VAX IM ; Start 03/29/19 at 17:00; Stop 03/29/19 at 17:01; Status DC Lactobacillus Rhamnosus (Culturelle) 1 cap BID PO Last administered on at 09:42; Start 03/29/19 at 21:00 Info (Anti-Coagulation Monitoring By Pharmacy) 1 each PRN DAILY PRN MC SEE COMMENTS Last administered on 03/30/19at 08:10; Start 03/30/19 at 08:15 Prednisone (Prednisone) 30 mg 1X ONCE PO Last administered on 03/30/19at 10:46; Start 03/30/19 at 10:45; Stop 03/30/19 at 10:46; Status DC Colchicine (Colcrys) 0.6 mg DAILY PO ; Start 03/31/19 at 09:00 Active Scripts Active [place] 5-325 Tablet (Acetaminophen/Hydrocodone Bitart) 1 Each Tablet 1 Tab PO PRN Q6HRS PRN Keflex (Cephalexin) 500 Mg Capsule 1 Cap PO Q8HRS Metoprolol Tartrate 50 Mg Tablet 1.5 Tab PO BID 30 Days Keppra (Levetiracetam) 500 Mg Tablet 2 Tab PO BID 30 Days Wellbutrin Sr (Bupropion Hcl) 200 Mg Tablet.er 100 Mg PO BID 30 Days Atorvastatin Calcium 40 Mg Tablet 1 Tab PO DAILY 30 Days Proair Hfa Inhaler (Albuterol Sulfate) 8.5 Gm Hfa.aer.ad 2 Puff INH PRN BID PRN 30 Days Eliquis (Apixaban) 5 Mg Tablet 5 Mg PO BID 30 Days Lasix (Furosemide) 40 Mg Tablet 20 Mg PO DAILY 30 Days Reported NITROGLYCERIN SubLingual (Nitroglycerin) 0.4 Mg Tab.subl 1 Tab SL UD Aspirin 81 Mg Tab.chew 1 Tab PO DAILY Allergies Allergies: Coded Allergies: No Known Drug Allergies (Unverified , 11/30/18) Physical Exam General: Alert, Cooperative HEENT: Atraumatic Lungs: Normal air movement Heart: Regular rate Abdomen: Soft Extremities: Other (tenderness and slight swelling of bilateral great toe MTP joint. No erythema or open wound. Painful passive ROM. Skin intact. ) Neuro: Normal speech, Sensation intact Vitals VITALS Vital Signs Date Time Temp Pulse Resp B/P (MAP) Pulse Ox O2 Delivery O2 Flow Rate FiO2 03/30/19 14:44 97.8 84 16 119/62 (81) 98 Room Air 97.8 Labs Labs Laboratory Tests Test 03/29/19 07:55 03/29/19 09:00 White Blood Count 8.7 x10^3/uL (4.0-11.0) Red Blood Count 5.20 x10^6/uL (4.30-5.70) Hemoglobin 12.6 g/dL (13.0-17.5) Hematocrit 39.5 % (39.0-53.0) Mean Corpuscular Volume 76 fL (79-100) Mean Corpuscular Hemoglobin 24 pg (25-35) Mean Corpuscular Hemoglobin Concent 32 g/dL (31-37) Red Cell Distribution Width 15.2 % (11.5-14.5) Platelet Count 366 x10^3/uL (140-400) Neutrophils (%) (Auto) 71 % (31-73) Lymphocytes (%) (Auto) 14 % (24-48) Monocytes (%) (Auto) 14 % (0-9) Eosinophils (%) (Auto) 1 % (0-3) Basophils (%) (Auto) 0 % (0-3) Neutrophils # (Auto) 6.2 x10^3/uL (1.8-7.7) Lymphocytes # (Auto) 1.2 x10^3/uL (1.0-4.8) Monocytes # (Auto) 1.2 x10^3/uL (0.0-1.1) Eosinophils # (Auto) 0.1 x10^3/uL (0.0-0.7) Basophils # (Auto) 0.0 x10^3/uL (0.0-0.2) Sodium Level 140 mmol/L (136-145) Potassium Level 3.7 mmol/L (3.5-5.1) Chloride Level 101 mmol/L (98-107) Carbon Dioxide Level 30 mmol/L (21-32) Anion Gap 9 (6-14) Blood Urea Nitrogen 10 mg/dL (8-26) Creatinine 1.2 mg/dL (0.7-1.3) Estimated GFR (Cockcroft-Gault) 59.9 BUN/Creatinine Ratio 8 (6-20) Glucose Level 115 mg/dL (70-99) Uric Acid 9.0 mg/dL (3.5-7.2) Calcium Level 8.7 mg/dL (8.5-10.1) Total Bilirubin 0.9 mg/dL (0.2-1.0) Aspartate Amino Transf (AST/SGOT) 20 U/L (15-37) Alanine Aminotransferase (ALT/SGPT) 21 U/L (16-63) Alkaline Phosphatase 77 U/L (46-116) C-Reactive Protein, Quantitative 73.0 mg/L (0-3.3) Total Protein 8.1 g/dL (6.4-8.2) Albumin 2.9 g/dL (3.4-5.0) Albumin/Globulin Ratio 0.6 (1.0-1.7) Images Images [facility] [address] [place] [address] IMAGING REPORT Signed PATIENT: NABOR EASON ACCOUNT: [id number] : 1950 LOCATION: [address] [place] [address] AGE: 68 SEX: M EXAM STATUS: ADM IN ORD. PHYSICIAN: CAROLE RIOS MD REASON: severe bilateral foot pain PROCEDURE: CT LOWER EXTREMITY WO BILAT ADDENDUM Addendum: PQRS Compliance Statement: One or more of the following individualized dose reduction techniques were utilized for this examination: 1. Automated exposure control 2. Adjustment of the mA and/or kV according to patient size 3. Use of iterative reconstruction technique Electronically signed by: Jesús Mosquera MD (03/30/2019 8:01 AM) [facility] DICTATED AND SIGNED BY: JESÚS MOSQUERA MD DATE: 03/30/19 0801 CC: CAROLE RIOS MD; UNKNOWN PCP NAME ~ CT bilateral feet without contrast. HISTORY: Severe bilateral foot pain Axial CT images were obtained through both feet. Coronal and sagittal reconstructed images were reviewed. There is no fracture identified. There is irregularity between the medial sesamoid and great toe of the left foot suggesting mild arthritis or inflammation or old injury. There is arthritis at the fourth metatarsal phalangeal joint of the left foot with joint space narrowing and erosions or subchondral cysts on the head of the fourth metatarsal. There is mild lucency at the head of the first metatarsal the left foot which can be seen with osteoporosis or demineralization from an inflammatory process. No acute osseous abnormality is noted in the right foot. IMPRESSION: 1. Demineralization and irregularity of the head of the first metatarsal of the left foot which can be seen with arthritis or inflammation. MRI could be of benefit for further evaluation. 2. Arthritis with joint space narrowing and subchondral cysts or erosions at the fourth metatarsal phalangeal joint of the left foot. 3. No fracture or other bony destructive process noted. 4. No acute osseous abnormality noted in the right foot. Electronically signed by: Jesús Mosquera MD (03/30/2019 7:56 AM) [facility] DICTATED and SIGNED BY: JESÚS MOSQUERA MD DATE: 03/30/19 0756 Assessment/Plan Assessment/Plan Gout flare bilateral feet at the classic MTP joints. (also called "Podagra.") Agree with colchicine and oral steroids. I offered him cortisone injection into MTPJ bilaterally and he agrees. He requested stronger pain med and I will order Percocet. I will also start oral Vitamin C to prevent future attacks. Oral Vitamin C supplementation is preventive for gout attacks, and is relatively low- risk and inexpensive. KEMAR MISTRY MD Mar 30, 2019 14:48
[2019-03-30] MEDS ORDERED: oxyCODONE/APAP 5/325 1 TAB TABLET PO PRN (15:15)
--- NOTE | 2019-03-30 15:23 | PDOC ---
Provider Note Provider Note Several metabolic studies and a recent double-blinded placebo-controlled randomized trial have shown that higher vitamin C intake significantly reduces serum uric acid levels. Yet, the relation with the risk of gout is unknown. Methods We prospectively examined over a 20-year period () the relation between vitamin C intake and the risk of incident gout in [id number],994 male participants with no history of gout at baseline. We used a supplementary questionnaire to ascertain the [employer] criteria for gout. Vitamin C intake was assessed every four years through validated questionnaires. Results During the 20 years of follow-up, we documented 1,317 confirmed incident cases of gout. Compared with men with vitamin C intake < 250mg/day, the multivariate relative risk (RR) of gout was 0.83 (95% confidence interval [CI], 0.71 to 0.97) for total vitamin C intake 182993 mg/day, 0.66 (0.52 to 0.86) for 1,0001,499 mg/day, and 0.55 (0.38 to 0.80) for = 1500 mg/day (P for trend < 0.001). The multivariate RR per 500mg increase in total daily vitamin C intake was 0.83 (95% CI, 0.77 to 0.90). Compared with men who did not use supplemental vitamin C, the multivariate RR of gout was 0.66 (95% CI, 0.49 to 0.88) for supplemental vitamin C intake 1,0001,499 mg/day and 0.55 (0.36 to 0.86) for = 1500 mg/day (P for trend < 0.001). Conclusions Higher vitamin C intake is independently associated with a lower risk of gout. Supplemental vitamin C intake may be beneficial in the prevention of gout. Keywords: Gout, vitamin C, prospective, cohort KEMAR MISTRY MD Mar 30, 2019 15:23
[2019-03-30 19:04] VITALS: BP 103/62
[2019-03-30] MEDS: ATORVASTATIN CALCIUM 40 MG TABLET. PO SCH (21:13)
[2019-03-30 23:10] VITALS: BP 115/70
[2019-03-31 03:02] VITALS: BP 100/63
[2019-03-31 07:00] VITALS: BP 97/58
[2019-03-31] MEDS: ASPIRIN CHEWABLE 81 MG TABLET. PO SCH (08:53)
[2019-03-31] MEDS: FUROSEMIDE 40 MG TABLET. PO SCH (08:53)
[2019-03-31] MEDS: buPROPion SR 100 MG TABLET.SA. PO SCH (08:54)
[2019-03-31] MEDS: APIXABAN 5 MG TABLET. PO SCH (08:54)
[2019-03-31] MEDS: levETIRAcetam 500 MG TABLET PO SCH (08:54)
[2019-03-31] MEDS: HYDROcodone/APAP 5/325MG 1 TAB TABLET PO PRN (08:54)
[2019-03-31] MEDS: METOPROLOL TART IMMED RELEASE 25 MG TABLET. PO SCH (08:56)
[2019-03-31] MEDS ORDERED: COLCHICINE 0.6 MG TABLET PO SCH (09:00)
[2019-03-31] MEDS ORDERED: ASCORBIC ACID 500 MG TABLET PO SCH (09:00)
[2019-03-31] MEDS: LACTOBACILLUS RHAMNOSUS GG 1 CAPSULE. PO SCH (10:07)
[2019-03-31] MEDS ORDERED: COLCHICINE 0.6 MG TABLET PO ONE (10:15)
[2019-03-31 11:00] VITALS: BP 119/85
[2019-03-31] MEDS ORDERED: ASCO500T2 PO (11:47)
[2019-03-31] MEDS ORDERED: COLC0.6T34 PO (11:47)
[2019-03-31] MEDS ORDERED: HYDR-3164 PO (11:47)
--- NOTE | 2019-03-31 11:49 | PDOC3 ---
Discharge Summary Visit Information Date of Admission: Mar 29, 2019 Date of Discharge: Mar 31, 2019 Admitting Diagnosis Comment: bilateral foot pain, intractable GOUT Demineralization and irregularity of the head of the first metatarsal of the left foot which can be seen with arthritis or inflammation. MRI could be of benefit for further evaluation. Arthritis with joint space narrowing and subchondral cysts or erosions at the fourth metatarsal phalangeal joint of the left foot. possible gout chronic mild diastolic congestive heart failure, mild concentric left ventricular hypertrophy mild aortic regurgitation.,mild to moderate mitral regurgitation., mild tricuspid regurgitation. PA pressure was estimated at 52 mmHg. c/w mod pulm htn 80 pack yr smoking hx quit 8 yrs ago pos COPD Atrial fibrillation on eliquis Hypertension. obesity, BMI 31 hx a-fib on eliquis morbid obesity Final Diagnosis Problems Medical Problems: (1) Gout of both feet Status: Acute (2) Intractable pain Status: Acute Brief Hospital Course Allergies Allergies Coded Allergies Type Severity Reaction Last Updated Verified No Known Drug Allergies 11/30/18 No Vital Signs Vital Signs Date Time Temp Pulse Resp B/P (MAP) Pulse Ox O2 Delivery O2 Flow Rate FiO2 03/31/19 09:54 18 Room Air 03/31/19 08:56 78 97/58 03/31/19 07:00 97.6 95 97.6 Lab Results Laboratory Tests Test 03/31/19 10:30 Uric Acid 8.5 mg/dL (3.5-7.2) Laboratory Tests Test 03/31/19 10:30 Uric Acid 8.5 mg/dL (3.5-7.2) Brief Hospital Course Mr. Walker is a 68 old [employer] came for gout both feet, CO mananged with ortho, BEtter After IM steroid and pain med and colcrys. NO PT needs, Stable for home, I wrote colcrys and some pain med rx Initially did not wanna dc, i had to get case mx involved Discharge Information Condition at Discharge: Improved, Stable Disposition/Orders: D/C to Home Scheduled Apixaban (Eliquis) 5 Mg Tablet, 5 MG PO BID for blood thinner for 30 Days, #60 Prescribed by: SINA KILLIAN MD on 12/03/18 1125 Last Action: Continued on 03/29/19 1426 by CAROLE RIOS MD Ascorbic Acid (Vitamin C) 500 Mg Tablet, 1,000 MG PO DAILY for mvi, #30 Prescribed by: SUSIE GONZALEZ on 03/31/19 1147 Aspirin (Aspirin) 81 Mg Tab.chew, 1 TAB PO DAILY, #30 Ref 3 (Reported) Entered as Reported by: LINDA YEAGER on 11/30/18 152 Last Action: Continued on 03/29/191425 by CAROLE RIOS MD Atorvastatin Calcium (Atorvastatin Calcium) 40 Mg Tablet, 1 TAB PO DAILY for HLD for 30 Days, #30 Ref 1 Prescribed by: SINA KILLIAN MD on 12/03/181124 Last Action: Continued on 03/29/191425 by CAROLE RIOS MD Bupropion Hcl (Wellbutrin Sr) 200 Mg Tablet.er, 100 MG PO BID for depression for 30 Days, #30 Prescribed by: SINA KILLIAN MD on 12/03/181124 Last Action: Converted on 03/29/191425 by CAROLE RIOS MD Cephalexin (Keflex) 500 Mg Capsule, 1 CAP PO Q8HRS, #21 Ref 0 Prescribed by: ANAMARIA SALAZAR MD on 03/18/19 1254 Last Action: HELD on 03/29/191425 by CAROLE RIOS MD Colchicine (Colcrys) 0.6 Mg Tablet, 0.6 MG PO DAILY for gout, #60 Prescribed by: SUSIE GONZALEZ on 03/31/19 1147 Furosemide (Lasix) 40 Mg Tablet, 20 MG PO DAILY for diuretic for 30 Days, #15 Ref 1 Prescribed by: SINA KILLIAN MD on 12/03/181124 Last Action: Continued on 03/29/191425 by CAROLE RIOS MD Levetiracetam (Keppra) 500 Mg Tablet, 2 TAB PO BID for history of seizures for 30 Days, #120 Ref 3 Prescribed by: SINA KILLIAN MD on 12/03/181124 Last Action: Continued on 03/29/191425 by CAROLE RIOS MD Metoprolol Tartrate (Metoprolol Tartrate) 50 Mg Tablet, 1.5 TAB PO BID for hypertension for 30 Days, #90 Ref 5 Prescribed by: SINA KILLIAN MD on 8/20/19 1125 Last Action: Continued on 03/29/191425 by CAROLE RIOS MD Nitroglycerin (NITROGLYCERIN SubLingual) 0.4 Mg Tab.subl, 1 TAB SL UD, #25 Ref 3 (Reported) Entered as Reported by: LINDA YEAGER on 11/30/18 1527 Last Action: Continued on 03/29/191425 by CAROLE RIOS MD Scheduled PRN Albuterol Sulfate (Proair Hfa Inhaler) 8.5 Gm Hfa.aer.ad, 2 PUFF INH PRN BID PRN for SHORTNESS OF BREATH for 30 Days, #1 Ref 1 Prescribed by: SINA KILLIAN MD on 12/03/18 112 Last Action: Continued on 03/29/191425 by CAROLE RIOS MD Hydrocodone/Apap 5-325 (Dalton 5-325 Tablet) 1 Each Tablet, 1 TAB PO PRN Q6HRS PRN for PAIN, #30 Ref 0 Prescribed by: SUSIE GONZALEZ on 03/31/19 1147 SUSIE GONZALEZ MD Mar 31, 2019 11:48
--- NOTE | 2019-03-31 11:53 | NUR ---
D/W Dr. Elliott metoprolol held this morning as patient blood pressure 97/58 and patient had some dizziness with ambulation with PT, they are recommending HH. Recheck of blood pressure after ambulation with PT 139/83. Social Work Yumiko notified of orders.
--- NOTE | 2019-03-31 11:54 | SNU/HH DC ---
DISCHARGE WITH HOME HEALTH DISCHARGE INFORMATION: Discharge Date: Mar 31, 2019 Final Diagnosis: Problems Medical Problems: (1) Gout of both feet Status: Acute (2) Intractable pain Status: Acute Condition on Discharge: Stable CODE STATUS: Code Status: Full HOME HEALTH: Face to Face: I certify this patient is under my care and that I, or a nurse practitioner or physician's assistant production manager working with me, had a face to face encounter that meets the physician face to face encounter requirements with this patient on []. Medical Complications: DM, HTN RN For Eval/Treatment: Yes Physical Therapy For: Evalulation/Treatment Occupational Therapy For: Evaluation/Treatment Home Health Aide For: Self-care Pt Meets Homebound Status: Unsteady balance w/ amb, POST DISCHARGE ORDERS: Activity Instructions for Disc: Activity as tolerated Weight Bearing Status after Di: As tolerated DIET AFTER DISCHARGE: ADA CHECKS AFTER DISCHARGE: Checks after discharge: Check blood press - daily, Check blood sugar, ac/hs, Check your Temp as needed, Weigh Yourself Daily FOLLOW-UP: PCP to follow Home Health: WOF for hypotension - had to stop MEtoprolol 50 qD in the hospital CERTIFICATION STATEMENT: Certification Statement: Certification Statement: Based on the above finding, I certify that this patient is confined to the home and needs intermittent half-way care, physical therapy and/or speech therapy, or continues to need occupational therapy.~ This patient is under my care, and I have initiated the establishment of the plan of care.~ This patient will be followed by myself or a community physician who will periodically review the plan of care. Home Meds Active Scripts Colchicine (COLCRYS) 0.6 Mg Tablet, 0.6 MG PO DAILY for gout, #60 TAB Prov:SUSIE GONZALEZ MD 03/31/19 Ascorbic Acid (VITAMIN C) 500 Mg Tablet, 1000 MG PO DAILY for mvi, #30 TAB Prov:SUSIE GONZALEZ MD 03/31/19 Hydrocodone/Apap 5-325 (NORCO 5-325 TABLET) 1 Each Tablet, 1 TAB PO PRN Q6HRS PRN for PAIN, #30 TAB 0 Refills Prov:SUSIE GONZALEZ MD 03/31/19 Cephalexin (KEFLEX) 500 Mg Capsule, 1 CAP PO Q8HRS, #21 CAP 0 Refills Prov:ANAMARIA SALAZAR MD 03/18/19 Levetiracetam (KEPPRA) 500 Mg Tablet, 2 TAB PO BID for history of seizures for 30 Days, #120 TAB 3 Refills Prov:SINA KILLIAN MD 12/03/18 Bupropion Hcl (WELLBUTRIN SR) 200 Mg Tablet.er, 100 MG PO BID for depression for 30 Days, #30 TAB.SR Prov:SINA KILLIAN MD 12/03/18 Atorvastatin Calcium (ATORVASTATIN CALCIUM) 40 Mg Tablet, 1 TAB PO DAILY for HLD for 30 Days, #30 TAB 1 Refill Prov:SINA KILLIAN MD 12/03/18 Albuterol Sulfate (PROAIR HFA INHALER) 8.5 Gm Hfa.aer.ad, 2 PUFF INH PRN BID PRN for SHORTNESS OF BREATH for 30 Days, #1 INHALER 1 Refill Prov:SINA KILLIAN MD 12/03/18 Apixaban (ELIQUIS) 5 Mg Tablet, 5 MG PO BID for blood thinner for 30 Days, #60 TAB Prov:SINA KILLIAN MD 12/03/18 Furosemide (LASIX) 40 Mg Tablet, 20 MG PO DAILY for diuretic for 30 Days, #15 TAB 1 Refill Prov:SINA KILLIAN MD 12/03/18 Reported Medications Nitroglycerin (NITROGLYCERIN SubLingual) 0.4 Mg Tab.subl, 1 TAB SL UD, #25 TAB 3 Refills 11/30/18 Aspirin (ASPIRIN) 81 Mg Tab.chew, 1 TAB PO DAILY, #30 TAB 3 Refills 11/30/18 Discontinued Scripts Metoprolol Tartrate (METOPROLOL TARTRATE) 50 Mg Tablet, 1.5 TAB PO BID for hypertension for 30 Days, #90 TAB 5 Refills Prov:SINA KILLIAN MD 12/03/18 SUSIE GONZALEZ MD Mar 31, 2019 11:54
--- NOTE | 2019-03-31 12:24 | NUR ---
JAH following for discharge planning. Discussed with RN, PT recommending home health. JAH met with pt, pt agreeable to home health and would like to speak with Demi Wills RN. JAH notified Demi, she will meet with pt prior to discharge. SIL notified. Addendum: 03/31/19 at 1615 by CAM TYSON Pt wanted Johann Simms RN to come back when his is present, advised his would be back around 1400. Pt's did not come at 1400, SW contacted pt's and had to leave [facility]. JAH met with pt at 1515, still not present. Johann has accepted pt. Pt's did not return to [facility] before Johann or JAH leave for the day. Plan to discharge home with Johann [facility]. No further SW needs. RN notified.
[2019-03-31] MEDS: ANTI-COAG MONITOR BY PHARMACY. MC PRN (14:49)
[2019-03-31 15:00] VITALS: BP 97/62
--- NOTE | 2019-03-31 16:43 | NUR ---
Discharge instructions, medications and prescriptions reviewed with patient and . They verb. understanding all instructions and deny questions. Patient discharge to home with family with all belongings instructions and prescriptions with Johann SIMON.
== END 2019-03-31 16:44 | disposition home health service (06) | DRG 554 ==
LOC: ER 07:34 → 5 SOUTH 09:30
PROVIDERS: ADMIT Family Medicine; ATTEND Family Medicine
DX: M10.9 Gout, unspecified (principal); I50.32 Chronic diastolic (congestive) heart failure; E11.9 Type 2 diabetes mellitus without complications; E66.01 Morbid (severe) obesity due to excess calories; E78.00 Pure hypercholesterolemia, unspecified; E78.5 Hyperlipidemia, unspecified; F32.9 Major depressive disorder, single episode, unspecified; I11.0 Hypertensive heart disease with heart failure; I25.10 Atherosclerotic heart disease of native coronary artery without angina pectoris; I48.91 Unspecified atrial fibrillation; J44.9 Chronic obstructive pulmonary disease, unspecified; M19.90 Unspecified osteoarthritis, unspecified site; Z68.31 Body mass index [BMI] 31.0-31.9, adult; Z79.01 Long term (current) use of anticoagulants; Z79.82 Long term (current) use of aspirin; Z79.899 Other long term (current) drug therapy; Z82.49 Family history of ischemic heart disease and other diseases of the circulatory system; Z87.891 Personal history of nicotine dependence; Z95.5 Presence of coronary angioplasty implant and graft; F41.9 Anxiety disorder, unspecified; K21.9 Gastro-esophageal reflux disease without esophagitis; Z68.32 Body mass index [BMI] 32.0-32.9, adult
CPT/HCPCS: 36415; 73700; 80053; 84550; 85025; 85651; 86140; 90471; 90686; J1030; J1885; J2405; J2930; J3010; J3490; J7512; G0378

== ENCOUNTER 2019-04-18 13:35 | Inpatient (IN) | payer BC ==
[~2019-04-18] VITALS: Ht 170.2 cm; Wt 91.6 kg
[~2019-04-18 13:35] MED LIST changes: +ASCO500T2 PO; +COLC0.6T34 PO
[2019-04-18] MEDS ORDERED: ASPIRIN 325 MG TABLET PO ONE (14:15)
--- NOTE | 2019-04-18 14:17 | PHYS DOC ---
Past Medical History Past Medical History: A-Fib, Angina, Anxiety, CAD, Depression, Diabetes-Type II, GERD, High Cholesterol, Hypertension, Seizure Additional Past Medical Histor: BACK&NECK PAIN, PE Additional Past Surgical Histo: CARDIAC STENTS Alcohol Use: Sober Additional Information: SOBER SINCE 2010 Drug Use: None Adult General Chief Complaint Chief Complaint: CHEST PAIN HPI HPI Patient is a 68 year old male with PMH of ACS sp PCI, PE, DVT, CHF, GERD, Afib on eliquis who presents with chest pain and SOB. Pt reports having sharp chest pain with no radiation started last time. The chest pain is intermittent, rates 4/10. Lying flat makes it worse. He also reports some reflux symptom and feeling chill when the chest pain started last night. Denies any N/V, recent travel, sick contact, unilateral leg pain or hemoptysis. Wells criteria score of 4 (for likely PE symptoms and PE history) Review of Systems Review of Systems Constitutional: reports fever or chills Eyes: Denies redness or eye pain HENT: Denies nasal congestion or sore throat Respiratory: reports cough or shortness of breath Cardiovascular: reports chest pain and palpitations GI: Denies abdominal pain, nausea, or vomiting : Denies dysuria or hematuria Musculoskeletal: Denies back pain or joint pain Integument: Denies rash or skin lesions Neurologic: Denies headache, focal weakness or sensory changes Complete systems were reviewed and found to be within normal limits, except as documented in this note. Current Medications Current Medications Current Medications Medications (Trade) Dose Ordered Sig/Cecile Start Time Stop Time Status Last Admin Dose Admin Aspirin (Juan Aspirin) 325 mg 1X ONCE 04/18/19 14:15 04/18/19 14:16 DC 04/18/19 15:59 325 MG Famotidine (Pepcid Vial) 20 mg 1X ONCE 04/18/19 14:45 04/18/19 14:46 DC 04/18/19 15:59 20 MG Fentanyl Citrate (Fentanyl 2ml Vial) 50 mcg 1X ONCE 04/18/19 14:45 04/18/19 14:46 DC 04/18/19 16:00 50 MCG Allergies Allergies Allergies Coded Allergies Type Severity Reaction Last Updated Verified No Known Drug Allergies 11/30/18 No Physical Exam Physical Exam Constitutional: Well developed, well nourished, no acute distress, non-toxic appearance. [] HENT: Normocephalic, atraumatic, bilateral external ears normal, oropharynx moist, no oral exudates, nose normal. [] Eyes: PERRLA, EOMI, conjunctiva normal, no discharge. [] Neck: Normal range of motion, no tenderness, supple, no stridor. [] Cardiovascular:Heart rate regular rhythm, no murmur [] Lungs & Thorax: Bilateral breath sounds clear to auscultation [] Abdomen: Bowel sounds normal, soft, no tenderness, no masses, no pulsatile masses. [] Skin: Warm, dry, no erythema, no rash. [] Back: No tenderness, no CVA tenderness. [] Extremities: No tenderness, no cyanosis, no clubbing, ROM intact, no edema. [] Neurologic: Alert and oriented X 3, normal motor function, normal sensory function, no focal deficits noted. [] Psychologic: Affect normal, judgement normal, mood normal. [] Current Patient Data Vital Signs Vital Signs Date Time Temp Pulse Resp B/P (MAP) Pulse Ox O2 Delivery O2 Flow Rate FiO2 04/18/19 13:55 97.8 58 16 142/64 (90) 99 Room Air 97.8 Lab Values Laboratory Tests Test 04/18/19 14:20 White Blood Count 6.4 x10^3/uL (4.0-11.0) Red Blood Count 5.53 x10^6/uL (4.30-5.70) Hemoglobin 13.4 g/dL (13.0-17.5) Hematocrit 42.4 % (39.0-53.0) Mean Corpuscular Volume 77 fL (79-100) L Mean Corpuscular Hemoglobin 24 pg (25-35) L Mean Corpuscular Hemoglobin Concent 32 g/dL (31-37) Red Cell Distribution Width 16.2 % (11.5-14.5) H Platelet Count 214 x10^3/uL (140-400) Neutrophils (%) (Auto) 58 % (31-73) Lymphocytes (%) (Auto) 30 % (24-48) Monocytes (%) (Auto) 8 % (0-9) Eosinophils (%) (Auto) 3 % (0-3) Basophils (%) (Auto) 1 % (0-3) Neutrophils # (Auto) 3.7 x10^3/uL (1.8-7.7) Lymphocytes # (Auto) 1.9 x10^3/uL (1.0-4.8) Monocytes # (Auto) 0.5 x10^3/uL (0.0-1.1) Eosinophils # (Auto) 0.2 x10^3/uL (0.0-0.7) Basophils # (Auto) 0.1 x10^3/uL (0.0-0.2) Prothrombin Time 15.0 SEC (11.7-14.0) H Prothrombin Time INR 1.2 (0.8-1.1) H Activated Partial Thromboplast Time 32 SEC (24-38) D-Dimer (Esmer) 0.39 ug/mlFEU (0.00-0.50) Sodium Level 142 mmol/L (136-145) Potassium Level 4.3 mmol/L (3.5-5.1) Chloride Level 104 mmol/L (98-107) Carbon Dioxide Level 31 mmol/L (21-32) Anion Gap 7 (6-14) Blood Urea Nitrogen 14 mg/dL (8-26) Creatinine 1.3 mg/dL (0.7-1.3) Estimated GFR (Cockcroft-Gault) 54.6 BUN/Creatinine Ratio 11 (6-20) Glucose Level 127 mg/dL (70-99) H Calcium Level 8.7 mg/dL (8.5-10.1) Magnesium Level 2.0 mg/dL (1.8-2.4) Total Bilirubin 0.4 mg/dL (0.2-1.0) Aspartate Amino Transferase (AST) 50 U/L (15-37) H Alanine Aminotransferase (ALT) 70 U/L (16-63) H Alkaline Phosphatase 75 U/L (46-116) Creatine Kinase 107 U/L (39-308) Creatine Kinase MB (Mass) 1.7 ng/mL (0.0-3.6) Creatine Kinase MB Relative Index 1.6 % (0-4) Troponin I Quantitative < 0.017 ng/mL (0.000-0.055) BL-Oug-X-Type Natriuretic Peptide 2052 pg/mL (0-124) H Total Protein 7.4 g/dL (6.4-8.2) Albumin 3.2 g/dL (3.4-5.0) L Albumin/Globulin Ratio 0.8 (1.0-1.7) L Lipase 128 U/L (73-393) Laboratory Tests 04/18/19 14:20 Laboratory Tests 04/18/19 14:20 EKG EKG 13:56:16 Sinus bradycardia. Inverted T waves in II, III, V4-6. No ST elevations. Similar findings to previous EKG (02/01/2019). Radiology/Procedures Radiology/Procedures PROCEDURE: CHEST PA & LATERAL AP and Lateral Views of the Chest 04/18/2019 2:04 PM Indication: Chest pain Comparison: Chest radiograph February 01, 2019 Findings: Bilateral medial basilar opacities are noted the appearance of which favors atelectasis over less likely infiltrate. No pneumothorax or pleural effusion is seen. Heart size is mildly enlarged. No acute osseous changes are seen. IMPRESSION: Mild medial basilar opacities bilaterally, the appearance which favors atelectasis over infiltrate. Radiographic follow-up to ensure resolution. Electronically signed by: Trenton Matson MD (04/18/2019 2:24 PM) [facility] Course & Med Decision Making Course & Med Decision Making Pertinent Labs and Imaging studies reviewed. (See chart for details) Patient is a 68 year old male with PMH of ACS sp PCI, PE, DVT, CHF, GERD, Afib on eliquis who presents with chest pain and SOB. DDX consider: CHF, PNA, ACS, PE, GERD. WIll order labs, chest xray, EKG. Will provide aspirin, fentanyl and pepcid at bedside. Pt is stable will reassess. BNP is elevated, with negative troponin, negative d-dimer. Heart score of 6. EKG shows some inverted T waves but similar to previous EKGs. CXR shows most likely atelectasis . Will admit for further cardiac workup. Dragon Disclaimer Dragon Disclaimer This electronic medical record was generated, in whole or in part, using a voice recognition dictation system. Departure Departure Impression: Primary Impression: Chest pain Disposition: ADMITTED INPATIENT Admitting Physician: JOE Guy) Condition: STABLE Referrals: UNKNOWN PCP NAME (PCP) The HEART Score for CP Pts HEART Score for Chest Pain: HEART Score for Chest Pain Response (Comments) Value History Moderately Suspicious 1 ECG Nonspecific Repolarizatio 1 Age > 65 2 Risk Factors >3 Risk Factors or Hx CAD 2 Troponin < Normal Limit 0 Total 6 Risk Factors: Risk Factors: DM, Current or recent (<one month) smoker, HTN, HLP, family h istory of CAD, obesity. Risk Scores: Score 0 - 3: 2.5% MACE over next 6 weeks - Discharge Home Score 4 - 6: 20.3% MACE over next 6 weeks - Admit for Clinical Observation Score 7 - 10: 72.7% MACE over next 6 weeks - Early Invasive Strategies Problem Qualifiers Primary Impression: Chest pain Chest pain type: unspecified Qualified Codes: R07.9 - Chest pain, unspecified MALLIKA ORTEGA DO Apr 18, 2019 14:17
--- NOTE | 2019-04-18 14:27 | RAD ---
AP and Lateral Views of the Chest 04/18/2019 2:04 PM Indication: Chest pain Comparison: Chest radiograph February 01, 2019 Findings: Bilateral medial basilar opacities are noted the appearance of which favors atelectasis over less likely infiltrate. No pneumothorax or pleural effusion is seen. Heart size is mildly enlarged. No acute osseous changes are seen. IMPRESSION: Mild medial basilar opacities bilaterally, the appearance which favors atelectasis over infiltrate. Radiographic follow-up to ensure resolution. Electronically signed by: Trenton Matson MD (04/18/2019 2:24 PM) [facility]
[2019-04-18 14:32] LABS: BASO # 0.1 x10^3/uL (0.0-0.2); BASO % 1 % (0-3); EOS # 0.2 x10^3/uL (0.0-0.7); EOS % 3 % (0-3); HEMATOCRIT 42.4 % (39.0-53.0); HEMOGLOBIN 13.4 g/dL (13.0-17.5); LYMPH # 1.9 x10^3/uL (1.0-4.8); LYMPH % 30 % (24-48); MEAN CORPUSCULAR HEMOGLOBIN 24 pg (25-35); MEAN CORPUSCULAR HGB CONC 32 g/dL (31-37); MEAN CORPUSCULAR VOLUME 77 fL (79-100); MONO # 0.5 x10^3/uL (0.0-1.1); MONO % 8 % (0-9); NEUT # 3.7 x10^3/uL (1.8-7.7); NEUT % 58 % (31-73); PLATELET COUNT 214 x10^3/uL (140-400); RED BLOOD COUNT 5.53 x10^6/uL (4.30-5.70); RED CELL DISTRIBUTION WIDTH 16.2 % (11.5-14.5); WHITE BLOOD COUNT 6.4 x10^3/uL (4.0-11.0)
[2019-04-18 14:43] LABS: CALCIUM 8.7 mg/dL (8.5-10.1); CREATININE 1.3 mg/dL (0.7-1.3); GFR 54.6; POTASSIUM 4.3 mmol/L (3.5-5.1)
[2019-04-18] MEDS ORDERED: fentaNYL PF VIAL 100 MCG/2 ML VIAL IV ONE (14:45)
[2019-04-18] MEDS ORDERED: FAMOTIDINE 20 MG/2 ML VIAL IVP ONE (14:45)
[2019-04-18 14:49] LABS: ALBUMIN 3.2 g/dL (3.4-5.0); ALBUMIN/GLOBULIN RATIO 0.8 (1.0-1.7); TOTAL BILIRUBIN 0.4 mg/dL (0.2-1.0); TOTAL PROTEIN 7.4 g/dL (6.4-8.2)
[2019-04-18] MEDS ORDERED: ACETAMINOPHEN/CODEINE 300/30MG TABLET. PO PRN (15:30)
[2019-04-18] MEDS ORDERED: ONDANSETRON PF 4 MG/2 ML VIAL. IV PRN (15:30)
[2019-04-18] MEDS ORDERED: TEMAZEPAM 7.5 MG CAPSULE PO PRN (15:30)
[2019-04-18] MEDS ORDERED: ACETAMINOPHEN 500 MG TABLET PO PRN (15:30)
[2019-04-18] MEDS ORDERED: HYDROcodone/APAP 5/325MG 1 TAB TABLET PO PRN (15:30)
[2019-04-18] MEDS ORDERED: fentaNYL PF VIAL 100 MCG/2 ML VIAL IV PRN (15:30)
[2019-04-18] MEDS ORDERED: ALBUTEROL SULFATE 2.5 MG/3 ML NEBU. INH PRN (15:30)
[2019-04-18] MEDS ORDERED: NITROGLYCERIN SUBLINGUAL 0.4 MG BOTTLE OF 25. SL PRN (15:30)
[2019-04-18] MEDS ORDERED: ONDANSETRON PF 4 MG/2 ML VIAL. IVP PRN (15:30)
[2019-04-18] MEDS ORDERED: fentaNYL PF VIAL 100 MCG/2 ML VIAL IVP PRN (15:30)
[2019-04-18] MEDS ORDERED: NITROGLYCERIN OINT 1 GM PACKET. TP ONE (15:45)
[2019-04-18] MEDS ORDERED: ANTI-COAG MONITOR BY PHARMACY. MC PRN (15:45)
[2019-04-18 17:30] VITALS: BP 131/78
--- NOTE | 2019-04-18 18:00 | NUR ---
The patient, BRITNI EASON, 68 y/o, M admitted by SUSIE GONZALEZ MD, was given written information regarding hospital policies, unit procedures and contact persons. Patient alert and oriented and verbalizes understanding. Vitals stable, will continue to monitor.
--- NOTE | 2019-04-18 18:46 | PDOC1 ---
History and Physical Date of Admission Date of Admission DATE: 04/18/19 TIME: 18:42 Identification/Chief Complaint Chief Complaint CP at rest Source Source: Caregiver, Chart review, Patient History of Present Illness History of Present Illness 68 AA male, chest pain at rest relieved by NTG SL, NO KNown precip event, hx CVA with no residuals, on eliquis, lasix etc and keppra, HE denies personal hx CAD, but onc clarke hx CAD (poor historian)HEART score 5,. EKG old changes, first set CE neg, admitted for r.o ACS Past Medical History Cardiovascular: AFIB, CAD, HTN CENTRAL NERVOUS SYSTEM: CVA Psych: Addictions Musculoskeletal: Osteoarthritis Rheumatologic: Gout Past Surgical History Past Surgical History: No pertinent history Family History Family History: High Cholestrol, Hypertension Social History Smoke: No ALCOHOL: heavy Drugs: None Current Problem List Problem List Problems Medical Problems: (1) Chest pain Status: Acute Current Medications Current Medications Current Medications Aspirin (Juan Aspirin) 325 mg 1X ONCE PO Last administered on 04/18/19at 15:59; Start 04/18/19 at 14:15; Stop 04/18/19 at 14:16; Status DC Fentanyl Citrate (Fentanyl 2ml Vial) 50 mcg 1X ONCE IV Last administered on 04/18/19at 16:00; Start 04/18/19 at 14:45; Stop 04/18/19 at 14:46; Status DC Famotidine (Pepcid Vial) 20 mg 1X ONCE IVP Last administered on 04/18/19at 15:59; Start 04/18/19 at 14:45; Stop 04/18/19 at 14:46; Status DC Ondansetron HCl (Zofran) 4 mg PRN Q8HRS PRN IV NAUSEA/VOMITING; Start 04/18/19 at 15:30; Stop 04/19/19 at 15:29 Fentanyl Citrate (Fentanyl 2ml Vial) 50 mcg PRN Q2HRS PRN IV MODERATE TO SEVERE PAIN; Start 04/18/19 at 15:30; Status Cancel Ondansetron HCl (Zofran) 4 mg PRN Q6HRS PRN IVP NAUSEA/VOMITING; Start 04/18/19 at 15:30 Fentanyl Citrate (Fentanyl 2ml Vial) 50 mcg PRN Q2HR PRN IVP MODERATE TO SEVERE PAIN; Start 04/18/19 at 15:30 Acetaminophen (Tylenol) 500 mg PRN Q6HRS PRN PO MILD PAIN / TEMP; Start 04/18/19 at 15:30 Acetaminophen/ Codeine Phosphate (Tylenol #3) 1 tab PRN Q6HRS PRN PO MODERATE PAIN; Start 04/18/19 at 15:30 Temazepam (Restoril) 7.5 mg PRN QHS PRN PO INSOMNIA; Start 04/18/19 at 15:30 Albuterol Sulfate (Ventolin Neb Soln) 2.5 mg PRN BID PRN INH SHORTNESS OF BREATH; Start 04/18/19 at 15:30 Apixaban (Eliquis) 5 mg BID PO ; Start 04/18/19 at 21:00 Ascorbic Acid (Vitamin C) 1,000 mg DAILY PO ; Start 04/19/19 at 09:00 Aspirin (Children'S Aspirin) 81 mg DAILY PO ; Start 04/19/19 at 09:00 Atorvastatin Calcium (Lipitor) 40 mg QHS PO ; Start 04/18/19 at 21:00 Colchicine (Colcrys) 0.6 mg DAILY PO ; Start 04/19/19 at 09:00 Furosemide (Lasix) 20 mg DAILY PO ; Start 04/19/19 at 09:00 Acetaminophen/ Hydrocodone Bitart (Lortab 5/325) 1 tab PRN Q6HRS PRN PO SEVERE PAIN; Start 04/18/19 at 15:30 Levetiracetam (Keppra) 1,000 mg BID PO ; Start 04/18/19 at 21:00 Nitroglycerin (Nitrostat) 0.4 mg QID PRN SL chest pain; Start 04/18/19 at 15:30 Bupropion HCl (Wellbutrin Sr) 100 mg BID PO ; Start 04/18/19 at 21:00 Nitroglycerin (Nitro-Bid Oint) 0.5 inch 1X ONCE TP Last administered on 04/18/19at 16:01; Start 04/18/19 at 15:45; Stop 04/18/19 at 15:46; Status DC Info (Anti-Coagulation Monitoring By Pharmacy) 1 each PRN DAILY PRN MC SEE COMMENTS; Start 04/18/19 at 15:45 Active Scripts Active Colcrys (Colchicine) 0.6 Mg Tablet 0.6 Mg PO DAILY Vitamin C (Ascorbic Acid) 500 Mg Tablet 1,000 Mg PO DAILY [facility] 5-325 Tablet (Acetaminophen/Hydrocodone Bitart) 1 Each Tablet 1 Tab PO PRN Q6HRS PRN Keflex (Cephalexin) 500 Mg Capsule 1 Cap PO Q8HRS Keppra (Levetiracetam) 500 Mg Tablet 2 Tab PO BID 30 Days Wellbutrin Sr (Bupropion Hcl) 200 Mg Tablet.er 100 Mg PO BID 30 Days Atorvastatin Calcium 40 Mg Tablet 1 Tab PO DAILY 30 Days Proair Hfa Inhaler (Albuterol Sulfate) 8.5 Gm Hfa.aer.ad 2 Puff INH PRN BID PRN 30 Days Eliquis (Apixaban) 5 Mg Tablet 5 Mg PO BID 30 Days Lasix (Furosemide) 40 Mg Tablet 20 Mg PO DAILY 30 Days Reported NITROGLYCERIN SubLingual (Nitroglycerin) 0.4 Mg Tab.subl 1 Tab SL UD Aspirin 81 Mg Tab.chew 1 Tab PO DAILY Allergies Allergies: Coded Allergies: No Known Drug Allergies (Unverified , 11/30/18) ROS Review of System as per hpi, all else is neg Physical Exam General: Alert, Oriented X3, Cooperative, No acute distress HEENT: PERRLA Lungs: Clear to auscultation, Normal air movement Heart: S1S2, RRR, no thrills, no rubs, no gallops, no murmurs Cardiovascular: S1, S2 Abdomen: Normal bowel sounds, Soft, No tenderness, No hepatosplenomegaly, No masses Rectal Exam: not examined PELVIC: Nml ext genitalia Extremities: No clubbing, No cyanosis, No edema, Normal pulses, No tenderness/swelling Skin: No rashes, No breakdown, No significant lesion Neuro: Normal gait, Normal speech, Strength at 5/5 X4 ext, Normal tone, Sensation intact, Cranial nerves 3-12 NL, Reflexes 2+ Psych/Mental Status: Mental status NL, Mood NL Vitals Vitals Vital Signs Date Time Temp Pulse Resp B/P (MAP) Pulse Ox O2 Delivery O2 Flow Rate FiO2 04/18/19 18:34 Room Air 04/18/19 17:30 97.8 63 18 131/78 (95) 99 97.8 Labs Labs Laboratory Tests Test 04/18/19 14:20 White Blood Count 6.4 x10^3/uL (4.0-11.0) Red Blood Count 5.53 x10^6/uL (4.30-5.70) Hemoglobin 13.4 g/dL (13.0-17.5) Hematocrit 42.4 % (39.0-53.0) Mean Corpuscular Volume 77 fL (79-100) Mean Corpuscular Hemoglobin 24 pg (25-35) Mean Corpuscular Hemoglobin Concent 32 g/dL (31-37) Red Cell Distribution Width 16.2 % (11.5-14.5) Platelet Count 214 x10^3/uL (140-400) Neutrophils (%) (Auto) 58 % (31-73) Lymphocytes (%) (Auto) 30 % (24-48) Monocytes (%) (Auto) 8 % (0-9) Eosinophils (%) (Auto) 3 % (0-3) Basophils (%) (Auto) 1 % (0-3) Neutrophils # (Auto) 3.7 x10^3/uL (1.8-7.7) Lymphocytes # (Auto) 1.9 x10^3/uL (1.0-4.8) Monocytes # (Auto) 0.5 x10^3/uL (0.0-1.1) Eosinophils # (Auto) 0.2 x10^3/uL (0.0-0.7) Basophils # (Auto) 0.1 x10^3/uL (0.0-0.2) Prothrombin Time 15.0 SEC (11.7-14.0) Prothromb Time International Ratio 1.2 (0.8-1.1) Activated Partial Thromboplast Time 32 SEC (24-38) D-Dimer (Esmer) 0.39 ug/mlFEU (0.00-0.50) Sodium Level 142 mmol/L (136-145) Potassium Level 4.3 mmol/L (3.5-5.1) Chloride Level 104 mmol/L (98-107) Carbon Dioxide Level 31 mmol/L (21-32) Anion Gap 7 (6-14) Blood Urea Nitrogen 14 mg/dL (8-26) Creatinine 1.3 mg/dL (0.7-1.3) Estimated GFR (Cockcroft-Gault) 54.6 BUN/Creatinine Ratio 11 (6-20) Glucose Level 127 mg/dL (70-99) Calcium Level 8.7 mg/dL (8.5-10.1) Magnesium Level 2.0 mg/dL (1.8-2.4) Total Bilirubin 0.4 mg/dL (0.2-1.0) Aspartate Amino Transf (AST/SGOT) 50 U/L (15-37) Alanine Aminotransferase (ALT/SGPT) 70 U/L (16-63) Alkaline Phosphatase 75 U/L (46-116) Creatine Kinase 107 U/L (39-308) Creatine Kinase MB (Mass) 1.7 ng/mL (0.0-3.6) Creatine Kinase MB Relative Index 1.6 % (0-4) Troponin I Quantitative < 0.017 ng/mL (0.000-0.055) WF-Gye-G-Type Natriuretic Peptide 2052 pg/mL (0-124) Total Protein 7.4 g/dL (6.4-8.2) Albumin 3.2 g/dL (3.4-5.0) Albumin/Globulin Ratio 0.8 (1.0-1.7) Lipase 128 U/L (73-393) Laboratory Tests Test 04/18/19 14:20 White Blood Count 6.4 x10^3/uL (4.0-11.0) Red Blood Count 5.53 x10^6/uL (4.30-5.70) Hemoglobin 13.4 g/dL (13.0-17.5) Hematocrit 42.4 % (39.0-53.0) Mean Corpuscular Volume 77 fL (79-100) Mean Corpuscular Hemoglobin 24 pg (25-35) Mean Corpuscular Hemoglobin Concent 32 g/dL (31-37) Red Cell Distribution Width 16.2 % (11.5-14.5) Platelet Count 214 x10^3/uL (140-400) Neutrophils (%) (Auto) 58 % (31-73) Lymphocytes (%) (Auto) 30 % (24-48) Monocytes (%) (Auto) 8 % (0-9) Eosinophils (%) (Auto) 3 % (0-3) Basophils (%) (Auto) 1 % (0-3) Neutrophils # (Auto) 3.7 x10^3/uL (1.8-7.7) Lymphocytes # (Auto) 1.9 x10^3/uL (1.0-4.8) Monocytes # (Auto) 0.5 x10^3/uL (0.0-1.1) Eosinophils # (Auto) 0.2 x10^3/uL (0.0-0.7) Basophils # (Auto) 0.1 x10^3/uL (0.0-0.2) Prothrombin Time 15.0 SEC (11.7-14.0) Prothromb Time International Ratio 1.2 (0.8-1.1) Activated Partial Thromboplast Time 32 SEC (24-38) D-Dimer (Esmer) 0.39 ug/mlFEU (0.00-0.50) Sodium Level 142 mmol/L (136-145) Potassium Level 4.3 mmol/L (3.5-5.1) Chloride Level 104 mmol/L (98-107) Carbon Dioxide Level 31 mmol/L (21-32) Anion Gap 7 (6-14) Blood Urea Nitrogen 14 mg/dL (8-26) Creatinine 1.3 mg/dL (0.7-1.3) Estimated GFR (Cockcroft-Gault) 54.6 BUN/Creatinine Ratio 11 (6-20) Glucose Level 127 mg/dL (70-99) Calcium Level 8.7 mg/dL (8.5-10.1) Magnesium Level 2.0 mg/dL (1.8-2.4) Total Bilirubin 0.4 mg/dL (0.2-1.0) Aspartate Amino Transf (AST/SGOT) 50 U/L (15-37) Alanine Aminotransferase (ALT/SGPT) 70 U/L (16-63) Alkaline Phosphatase 75 U/L (46-116) Creatine Kinase 107 U/L (39-308) Creatine Kinase MB (Mass) 1.7 ng/mL (0.0-3.6) Creatine Kinase MB Relative Index 1.6 % (0-4) Troponin I Quantitative < 0.017 ng/mL (0.000-0.055) QL-Blk-U-Type Natriuretic Peptide 2052 pg/mL (0-124) Total Protein 7.4 g/dL (6.4-8.2) Albumin 3.2 g/dL (3.4-5.0) Albumin/Globulin Ratio 0.8 (1.0-1.7) Lipase 128 U/L (73-393) VTE Prophylaxis Ordered VTE Prophylaxis Devices: Yes VTE Pharmacological Prophylaxi: Yes Assessment/Plan Assessment/Plan 1. Chest pain at rest 2, Hx CAD, sz on eliquis, lasix, keppra 3. Hx signif etoh drinking in past -denies currently 4. HTN etc controlled PLAn: NPO post MN, can eat tonight in case cardiac tests CArds consult TREnd CE resume home meds, eliquis etc Dw him FULL CODE SUSIE GONZALEZ MD Apr 18, 2019 18:46
[2019-04-18 19:10] VITALS: BP 149/79
[2019-04-18] MEDS ORDERED: MULTIVITAMINS,THERAPEUTIC 5 ML ORAL LIQUID. PEG SCH (20:00)
[2019-04-18] MEDS: levETIRAcetam 500 MG TABLET PO SCH (20:02)
[2019-04-18] MEDS: buPROPion SR 100 MG TABLET.SA. PO SCH (20:02)
[2019-04-18] MEDS: APIXABAN 5 MG TABLET. PO SCH (20:02)
[2019-04-18] MEDS ORDERED: METO25TA4 PO (20:40)
--- NOTE | 2019-04-18 20:43 | NUR ---
pt requested a nitro SL at med pass time for 3/10 sharp left sided chest pain. He states it is intermittent and chronic and he frequently takes nitro SL, which he is prescribed, at home for this same quality and intensity of pain. He states his pain is now a 1/10 after 1 nitro tab and refused further intervention. His troponin lab has been negative x2 now.
[2019-04-18] MEDS ORDERED: MULTIVITAMIN with MINERAL TABLET. PO SCH (21:00)
[2019-04-18] MEDS ORDERED: ATORVASTATIN CALCIUM 40 MG TABLET. PO SCH (21:00)
[2019-04-18] MEDS: METOPROLOL TART IMMED RELEASE 25 MG TABLET. PO SCH (21:18)
[2019-04-18 23:23] VITALS: BP 97/71
[2019-04-19 03:00] VITALS: BP 108/77
[2019-04-19 05:21] LABS: CHOLESTEROL/HDL RATIO 4.2
[2019-04-19 07:00] VITALS: BP 129/74
[2019-04-19] MEDS ORDERED: ASCORBIC ACID 500 MG TABLET PO SCH (09:00)
[2019-04-19] MEDS ORDERED: COLCHICINE 0.6 MG TABLET PO SCH (09:00)
[2019-04-19] MEDS ORDERED: ASPIRIN CHEWABLE 81 MG TABLET. PO SCH (09:00)
[2019-04-19] MEDS ORDERED: FUROSEMIDE 40 MG TABLET. PO SCH (09:00)
--- NOTE | 2019-04-19 09:37 | PDOC ---
PROGRESS NOTES History of Present Illness History of Present Illness VTE Prophylaxis Ordered VTE Prophylaxis Devices: Yes VTE Pharmacological Prophylaxi: Yes discharge dx Assessment/Plan 1. Chest pain at rest 2, Hx CAD, sz on eliquis, lasix, keppra 3. Hx signif etoh drinking in past -denies currently 4. HTN etc controlled 5. moderate pulmonary hypertension PLAn: CArds consult ok with d/c today TREnd CE resume home meds, eliquis etc Dw him FULL CODE Vitals Vitals Vital Signs Date Time Temp Pulse Resp B/P (MAP) Pulse Ox O2 Delivery O2 Flow Rate FiO2 04/19/19 08:20 Room Air 04/19/19 07:00 97.6 62 18 129/74 (92) 96 97.6 Physical Exam General: Alert, Oriented X3, Cooperative, No acute distress Heart: Regular rate Lungs: Clear Abdomen: Normal bowel sounds, Soft, No tenderness, No hepatosplenomegaly, No masses Extremities: No clubbing, No cyanosis, No edema, Normal pulses, No tenderness/swelling Skin: No rashes, No breakdown, No significant lesion Labs LABS EXAM: CT chest with contrast - pulmonary embolus protocol CLINICAL HISTORY: Pleuritic left chest pain, evaluate for acute pulmonary embolus. COMPARISON: None. TECHNIQUE: CT of the chest following the administration of intravenous contrast during the pulmonary arterial phase. Axial, coronal and sagittal reformatted images were generated including MIP images. ---PQRS compliance statement - One or more of the following individualized dose reduction techniques were utilized for this study: 1. Automated exposure control 2. Adjustment of the mA and/or kV according to patient size 3. Use of iterative reconstruction technique--- FINDINGS: CHEST: Diagnostic quality: Adequate. Pulmonary emboli: None seen Right heart strain: None Pulmonary arteries: Pulmonary arterial trunk measures up to 3.9 cm in diameter. Heart is mildly enlarged. No pericardial effusion. 3 mm left apical lung nodule (series 3 image 21) is seen. Mild prominent mediastinal and hilar lymph nodes are seen, not enlarged by size criteria. No axillary lymphadenopathy. Visualized Upper abdomen: Grossly unremarkable Bones: Evaluation of the bony structures limited given MIP reconstructions. Within these constraints no discrete aggressive osseous lesion is seen. IMPRESSION: 1. No evidence for acute pulmonary embolus. 2. Prominence of pulmonary arterial trunk, nonspecific but may be seen with pulmonary arterial hypertension. 3. 3 mm left apical lung nodule.Per Fleischner Society guidelines for incidentally found solid nodules measuring less than 6 mm, no follow-up is necessary if patient is considered at low risk for lung cancer. If patient is considered to be at high risk, such as with history of smoking, then CT follow-up in about 12 months can be considered. Electronically signed by: Anibal Burt MD (02/01/2019 3:50 PM) [facility] [id number] DICTATED and SIGNED BY: ANIBAL BURT MD DATE: 02/01/19 1550 APPROVED REPORT EXAM: Two-dimensional and M-mode echocardiogram with Doppler and color Doppler. Other Information Quality : Average HR: 70bpm Rhythm : NSR INDICATION Chest Pain 2D DIMENSIONS RVDd 3.0 (2.9-3.5cm) Left Atrium(2D) 3.9 (1.6-4.0cm) IVSd 1.4 (0.7-1.1cm) Aortic Root(2D) 3.5 (2.0-3.7cm) LVDd 4.9 (3.9-5.9cm) LVOT Diameter 2.1 (1.8-2.4cm) PWd 1.3 (0.7-1.1cm) LVDs 3.4 (2.5-4.0cm) FS (%) 30.2 % SV 64.8 ml LVEF(%) 57.4 (>50%) M-Mode DIMENSIONS Left Atrium(MM) 3.81 (2.5-4.0cm) Aortic Root 3.64 (2.2-3.7cm) Aortic Valve AoV Peak Hector. 126.9cm/s AoV VTI 26.7cm AO Peak GR. 6.4mmHg LVOT Peak Hector. 105.3cm/s AO Mean GR. 3mmHg CUAUHTEMOC (VMAX) 2.95cm2 CUAUHTEMOC (VTI) 3.00cm2 AI P 1/2 Time 730ms Mitral Valve MV E Velocity 92.5cm/s MV DECEL TIME 187ms MV A Velocity 26.2cm/s E/A Ratio 3.5 Pulmonary Valve PV Peak Velocity 74.0cm/s Tricuspid Valve TR P. Velocity 365cm/s RAP ESTIMATE 3mmHg TR Peak Gr. 53mmHg RVSP 56mmHg LEFT VENTRICLE The left ventricle is normal size. There is mild concentric left ventricular hypertrophy. Left ventricle systolic function is normal. The Ejection Fraction is 55-60%. There is normal LV segmental wall motion. Transmitral Doppler flow pattern is Grade II-pseudonormal filling dynamics. RIGHT VENTRICLE The right ventricle is normal size. There is normal right ventricular wall thickness. The right ventricular systolic function is normal. ATRIA The left atrium size is normal. The right atrium size is normal. The interatrial septum is intact with no evidence for an atrial septal defect or patent foramen ovale as noted on 2-D or Doppler imaging. AORTIC VALVE The aortic valve is probably trileaflet. The aortic valve is not well visualized. Doppler and Color Flow revealed mild aortic regurgitation. There is no significant aortic valvular stenosis. MITRAL VALVE The mitral valve is thickened but opens well. There is no evidence of mitral valve prolapse. There is no mitral valve stenosis. Doppler and Color-flow revealed mild to moderate mitral regurgitation. TRICUSPID VALVE The tricuspid valve is normal in structure and function. Doppler and Color Flow revealed mild tricuspid regurgitation. The PA pressure was estimated at 52 mmHg. There is no tricuspid valve prolapse or vegetation. There is no tricuspid valve stenosis. PULMONIC VALVE The pulmonic valve is not well visualized. GREAT VESSELS The aortic root is normal in size. The ascending aorta is normal in size. The IVC is normal in size and collapses >50% with inspiration. PERICARDIAL EFFUSION There is no evidence of significant pericardial effusion. Critical Notification Critical Value: No <Conclusion> The left ventricle is normal size. Left ventricle systolic function is normal. The Ejection Fraction is 55-60%. There is mild concentric left ventricular hypertrophy. There is no significant aortic valvular stenosis. Doppler and Color Flow revealed mild aortic regurgitation. Doppler and Color-flow revealed mild to moderate mitral regurgitation. Doppler and Color Flow revealed mild tricuspid regurgitation. The PA pressure was estimated at 52 mmHg. Signed by : Antonina De Santiago MD Electronically Approved : 12/02/2018 15:46:16 DICTATED and SIGNED BY: ANTONINA DE SANTIAGO MD DATE: 12/02/18 1534 Laboratory Tests Test 04/18/19 14:20 04/18/19 18:25 04/18/19 21:45 04/19/19 04:10 White Blood Count 6.4 x10^3/uL (4.0-11.0) Red Blood Count 5.53 x10^6/uL (4.30-5.70) Hemoglobin 13.4 g/dL (13.0-17.5) Hematocrit 42.4 % (39.0-53.0) Mean Corpuscular Volume 77 fL (79-100) Mean Corpuscular Hemoglobin 24 pg (25-35) Mean Corpuscular Hemoglobin Concent 32 g/dL (31-37) Red Cell Distribution Width 16.2 % (11.5-14.5) Platelet Count 214 x10^3/uL (140-400) Neutrophils (%) (Auto) 58 % (31-73) Lymphocytes (%) (Auto) 30 % (24-48) Monocytes (%) (Auto) 8 % (0-9) Eosinophils (%) (Auto) 3 % (0-3) Basophils (%) (Auto) 1 % (0-3) Neutrophils # (Auto) 3.7 x10^3/uL (1.8-7.7) Lymphocytes # (Auto) 1.9 x10^3/uL (1.0-4.8) Monocytes # (Auto) 0.5 x10^3/uL (0.0-1.1) Eosinophils # (Auto) 0.2 x10^3/uL (0.0-0.7) Basophils # (Auto) 0.1 x10^3/uL (0.0-0.2) Prothrombin Time 15.0 SEC (11.7-14.0) Prothromb Time International Ratio 1.2 (0.8-1.1) Activated Partial Thromboplast Time 32 SEC (24-38) D-Dimer (Esmer) 0.39 ug/mlFEU (0.00-0.50) Sodium Level 142 mmol/L (136-145) Potassium Level 4.3 mmol/L (3.5-5.1) Chloride Level 104 mmol/L (98-107) Carbon Dioxide Level 31 mmol/L (21-32) Anion Gap 7 (6-14) Blood Urea Nitrogen 14 mg/dL (8-26) Creatinine 1.3 mg/dL (0.7-1.3) Estimated GFR (Cockcroft-Gault) 54.6 BUN/Creatinine Ratio 11 (6-20) Glucose Level 127 mg/dL (70-99) Calcium Level 8.7 mg/dL (8.5-10.1) Magnesium Level 2.0 mg/dL (1.8-2.4) Total Bilirubin 0.4 mg/dL (0.2-1.0) Aspartate Amino Transf (AST/SGOT) 50 U/L (15-37) Alanine Aminotransferase (ALT/SGPT) 70 U/L (16-63) Alkaline Phosphatase 75 U/L (46-116) Creatine Kinase 107 U/L (39-308) Creatine Kinase MB (Mass) 1.7 ng/mL (0.0-3.6) Creatine Kinase MB Relative Index 1.6 % (0-4) Troponin I Quantitative < 0.017 ng/mL (0.000-0.055) < 0.017 ng/mL (0.000-0.055) < 0.017 ng/mL (0.000-0.055) UX-Imo-S-Type Natriuretic Peptide 2052 pg/mL (0-124) Total Protein 7.4 g/dL (6.4-8.2) Albumin 3.2 g/dL (3.4-5.0) Albumin/Globulin Ratio 0.8 (1.0-1.7) Lipase 128 U/L (73-393) Triglycerides Level 129 mg/dL (0-150) Cholesterol Level 171 mg/dL (0-200) LDL Cholesterol, Calculated 104 mg/dL (0-100) VLDL Cholesterol, Calculated 26 mg/dL (0-40) Non-HDL Cholesterol Calculated 130 mg/dL (0-129) HDL Cholesterol 41 mg/dL (40-60) Cholesterol/HDL Ratio 4.2 Assessment and Plan Assessmemt and Plan Problems Medical Problems: (1) Chest pain Status: Acute Comment Review of Relevant I have reviewed the following items von (where applicable) has been applied. Labs Laboratory Tests Test 04/18/19 14:20 04/18/19 18:25 04/18/19 21:45 04/19/19 04:10 White Blood Count 6.4 x10^3/uL (4.0-11.0) Red Blood Count 5.53 x10^6/uL (4.30-5.70) Hemoglobin 13.4 g/dL (13.0-17.5) Hematocrit 42.4 % (39.0-53.0) Mean Corpuscular Volume 77 fL (79-100) Mean Corpuscular Hemoglobin 24 pg (25-35) Mean Corpuscular Hemoglobin Concent 32 g/dL (31-37) Red Cell Distribution Width 16.2 % (11.5-14.5) Platelet Count 214 x10^3/uL (140-400) Neutrophils (%) (Auto) 58 % (31-73) Lymphocytes (%) (Auto) 30 % (24-48) Monocytes (%) (Auto) 8 % (0-9) Eosinophils (%) (Auto) 3 % (0-3) Basophils (%) (Auto) 1 % (0-3) Neutrophils # (Auto) 3.7 x10^3/uL (1.8-7.7) Lymphocytes # (Auto) 1.9 x10^3/uL (1.0-4.8) Monocytes # (Auto) 0.5 x10^3/uL (0.0-1.1) Eosinophils # (Auto) 0.2 x10^3/uL (0.0-0.7) Basophils # (Auto) 0.1 x10^3/uL (0.0-0.2) Prothrombin Time 15.0 SEC (11.7-14.0) Prothromb Time International Ratio 1.2 (0.8-1.1) Activated Partial Thromboplast Time 32 SEC (24-38) D-Dimer (Esmer) 0.39 ug/mlFEU (0.00-0.50) Sodium Level 142 mmol/L (136-145) Potassium Level 4.3 mmol/L (3.5-5.1) Chloride Level 104 mmol/L (98-107) Carbon Dioxide Level 31 mmol/L (21-32) Anion Gap 7 (6-14) Blood Urea Nitrogen 14 mg/dL (8-26) Creatinine 1.3 mg/dL (0.7-1.3) Estimated GFR (Cockcroft-Gault) 54.6 BUN/Creatinine Ratio 11 (6-20) Glucose Level 127 mg/dL (70-99) Calcium Level 8.7 mg/dL (8.5-10.1) Magnesium Level 2.0 mg/dL (1.8-2.4) Total Bilirubin 0.4 mg/dL (0.2-1.0) Aspartate Amino Transf (AST/SGOT) 50 U/L (15-37) Alanine Aminotransferase (ALT/SGPT) 70 U/L (16-63) Alkaline Phosphatase 75 U/L (46-116) Creatine Kinase 107 U/L (39-308) Creatine Kinase MB (Mass) 1.7 ng/mL (0.0-3.6) Creatine Kinase MB Relative Index 1.6 % (0-4) Troponin I Quantitative < 0.017 ng/mL (0.000-0.055) < 0.017 ng/mL (0.000-0.055) < 0.017 ng/mL (0.000-0.055) US-Ddr-U-Type Natriuretic Peptide 2052 pg/mL (0-124) Total Protein 7.4 g/dL (6.4-8.2) Albumin 3.2 g/dL (3.4-5.0) Albumin/Globulin Ratio 0.8 (1.0-1.7) Lipase 128 U/L (73-393) Triglycerides Level 129 mg/dL (0-150) Cholesterol Level 171 mg/dL (0-200) LDL Cholesterol, Calculated 104 mg/dL (0-100) VLDL Cholesterol, Calculated 26 mg/dL (0-40) Non-HDL Cholesterol Calculated 130 mg/dL (0-129) HDL Cholesterol 41 mg/dL (40-60) Cholesterol/HDL Ratio 4.2 Laboratory Tests Test 04/18/19 14:20 04/18/19 18:25 04/18/19 21:45 04/19/19 04:10 White Blood Count 6.4 x10^3/uL (4.0-11.0) Red Blood Count 5.53 x10^6/uL (4.30-5.70) Hemoglobin 13.4 g/dL (13.0-17.5) Hematocrit 42.4 % (39.0-53.0) Mean Corpuscular Volume 77 fL (79-100) Mean Corpuscular Hemoglobin 24 pg (25-35) Mean Corpuscular Hemoglobin Concent 32 g/dL (31-37) Red Cell Distribution Width 16.2 % (11.5-14.5) Platelet Count 214 x10^3/uL (140-400) Neutrophils (%) (Auto) 58 % (31-73) Lymphocytes (%) (Auto) 30 % (24-48) Monocytes (%) (Auto) 8 % (0-9) Eosinophils (%) (Auto) 3 % (0-3) Basophils (%) (Auto) 1 % (0-3) Neutrophils # (Auto) 3.7 x10^3/uL (1.8-7.7) Lymphocytes # (Auto) 1.9 x10^3/uL (1.0-4.8) Monocytes # (Auto) 0.5 x10^3/uL (0.0-1.1) Eosinophils # (Auto) 0.2 x10^3/uL (0.0-0.7) Basophils # (Auto) 0.1 x10^3/uL (0.0-0.2) Prothrombin Time 15.0 SEC (11.7-14.0) Prothromb Time International Ratio 1.2 (0.8-1.1) Activated Partial Thromboplast Time 32 SEC (24-38) D-Dimer (Esmer) 0.39 ug/mlFEU (0.00-0.50) Sodium Level 142 mmol/L (136-145) Potassium Level 4.3 mmol/L (3.5-5.1) Chloride Level 104 mmol/L (98-107) Carbon Dioxide Level 31 mmol/L (21-32) Anion Gap 7 (6-14) Blood Urea Nitrogen 14 mg/dL (8-26) Creatinine 1.3 mg/dL (0.7-1.3) Estimated GFR (Cockcroft-Gault) 54.6 BUN/Creatinine Ratio 11 (6-20) Glucose Level 127 mg/dL (70-99) Calcium Level 8.7 mg/dL (8.5-10.1) Magnesium Level 2.0 mg/dL (1.8-2.4) Total Bilirubin 0.4 mg/dL (0.2-1.0) Aspartate Amino Transf (AST/SGOT) 50 U/L (15-37) Alanine Aminotransferase (ALT/SGPT) 70 U/L (16-63) Alkaline Phosphatase 75 U/L (46-116) Creatine Kinase 107 U/L (39-308) Creatine Kinase MB (Mass) 1.7 ng/mL (0.0-3.6) Creatine Kinase MB Relative Index 1.6 % (0-4) Troponin I Quantitative < 0.017 ng/mL (0.000-0.055) < 0.017 ng/mL (0.000-0.055) < 0.017 ng/mL (0.000-0.055) AH-Mdm-C-Type Natriuretic Peptide 2052 pg/mL (0-124) Total Protein 7.4 g/dL (6.4-8.2) Albumin 3.2 g/dL (3.4-5.0) Albumin/Globulin Ratio 0.8 (1.0-1.7) Lipase 128 U/L (73-393) Triglycerides Level 129 mg/dL (0-150) Cholesterol Level 171 mg/dL (0-200) LDL Cholesterol, Calculated 104 mg/dL (0-100) VLDL Cholesterol, Calculated 26 mg/dL (0-40) Non-HDL Cholesterol Calculated 130 mg/dL (0-129) HDL Cholesterol 41 mg/dL (40-60) Cholesterol/HDL Ratio 4.2 Medications Current Medications Aspirin (Juan Aspirin) 325 mg 1X ONCE PO Last administered on 04/18/19at 15:59; Start 04/18/19 at 14:15; Stop 04/18/19 at 14:16; Status DC Fentanyl Citrate (Fentanyl 2ml Vial) 50 mcg 1X ONCE IV Last administered on 04/18/19at 16:00; Start 04/18/19 at 14:45; Stop 04/18/19 at 14:46; Status DC Famotidine (Pepcid Vial) 20 mg 1X ONCE IVP Last administered on 04/18/19at 15:59; Start 04/18/19 at 14:45; Stop 04/18/19 at 14:46; Status DC Ondansetron HCl (Zofran) 4 mg PRN Q8HRS PRN IV NAUSEA/VOMITING; Start 04/18/19 at 15:30; Stop 04/18/19 at 20:53; Status DC Fentanyl Citrate (Fentanyl 2ml Vial) 50 mcg PRN Q2HRS PRN IV MODERATE TO SEVERE PAIN; Start 04/18/19 at 15:30; Status Cancel Ondansetron HCl (Zofran) 4 mg PRN Q6HRS PRN IVP NAUSEA/VOMITING; Start 04/18/19 at 15:30 Fentanyl Citrate (Fentanyl 2ml Vial) 50 mcg PRN Q2HR PRN IVP MODERATE TO SEVERE PAIN; Start 04/18/19 at 15:30 Acetaminophen (Tylenol) 500 mg PRN Q6HRS PRN PO MILD PAIN / TEMP; Start 04/18/19 at 15:30 Acetaminophen/ Codeine Phosphate (Tylenol #3) 1 tab PRN Q6HRS PRN PO MODERATE PAIN; Start 04/18/19 at 15:30 Temazepam (Restoril) 7.5 mg PRN QHS PRN PO INSOMNIA; Start 04/18/19 at 15:30 Albuterol Sulfate (Ventolin Neb Soln) 2.5 mg PRN BID PRN INH SHORTNESS OF BREATH; Start 04/18/19 at 15:30 Apixaban (Eliquis) 5 mg BID PO Last administered on 04/18/19at 20:02; Start 04/18/19 at 21:00 Ascorbic Acid (Vitamin C) 1,000 mg DAILY PO ; Start 04/19/19 at 09:00 Aspirin (Children'S Aspirin) 81 mg DAILY PO ; Start 04/19/19 at 09:00 Atorvastatin Calcium (Lipitor) 40 mg QHS PO Last administered on 04/18/19at 20:02; Start 04/18/19 at 21:00 Colchicine (Colcrys) 0.6 mg DAILY PO ; Start 04/19/19 at 09:00 Furosemide (Lasix) 20 mg DAILY PO ; Start 04/19/19 at 09:00 Acetaminophen/ Hydrocodone Bitart (Lortab 5/325) 1 tab PRN Q6HRS PRN PO SEVERE PAIN; Start 04/18/19 at 15:30 Levetiracetam (Keppra) 1,000 mg BID PO Last administered on 04/18/19at 20:02; Start 04/18/19 at 21:00 Nitroglycerin (Nitrostat) 0.4 mg QID PRN SL chest pain Last administered on 04/18/19at 20:02; Start 04/18/19 at 15:30 Bupropion HCl (Wellbutrin Sr) 100 mg BID PO Last administered on 04/18/19at 20:02; Start 04/18/19 at 21:00 Nitroglycerin (Nitro-Bid Oint) 0.5 inch 1X ONCE TP Last administered on 04/18/19at 16:01; Start 04/18/19 at 15:45; Stop 04/18/19 at 15:46; Status DC Info (Anti-Coagulation Monitoring By Pharmacy) 1 each PRN DAILY PRN MC SEE COMMENTS; Start 04/18/19 at 15:45 Multivitamins/ Minerals Therapeutic (Centrum Multivit-Mineral Liq) 5 ml DAILY PEG ; Start 04/18/19 at 20:00; Stop 04/18/19 at 20:05; Status DC Multivitamins (Thera M Plus) 1 tab QHS PO Last administered on 04/18/19at 21:18; Start 04/18/19 at 21:00 Metoprolol Tartrate (Lopressor) 25 mg BID PO Last administered on 04/18/19at 21:18; Start 04/18/19 at 21:00 Active Scripts Active Colcrys (Colchicine) 0.6 Mg Tablet 0.6 Mg PO DAILY Vitamin C (Ascorbic Acid) 500 Mg Tablet 1,000 Mg PO DAILY [place] 5-325 Tablet (Acetaminophen/Hydrocodone Bitart) 1 Each Tablet 1 Tab PO PRN Q6HRS PRN Keflex (Cephalexin) 500 Mg Capsule 1 Cap PO Q8HRS Keppra (Levetiracetam) 500 Mg Tablet 2 Tab PO BID 30 Days Wellbutrin Sr (Bupropion Hcl) 200 Mg Tablet.er 100 Mg PO BID 30 Days Atorvastatin Calcium 40 Mg Tablet 1 Tab PO DAILY 30 Days Proair Hfa Inhaler (Albuterol Sulfate) 8.5 Gm Hfa.aer.ad 2 Puff INH PRN BID PRN 30 Days Eliquis (Apixaban) 5 Mg Tablet 5 Mg PO BID 30 Days Lasix (Furosemide) 40 Mg Tablet 20 Mg PO DAILY 30 Days Reported Metoprolol Tartrate 25 Mg Tablet 1 Tab PO BID NITROGLYCERIN SubLingual (Nitroglycerin) 0.4 Mg Tab.subl 1 Tab SL UD Aspirin 81 Mg Tab.chew 1 Tab PO DAILY Vitals/I & O Vital Sign - Last 24 Hours 04/18/19 04/18/19 04/18/19 04/18/19 13:55 15:58 16:00 16:01 Temp 97.8 97.8 Pulse 58 70 68 Resp 16 16 B/P (MAP) 142/64 (90) 100/61 (74) 100/61 Pulse Ox 99 95 98 O2 Delivery Room Air Room Air Room Air 04/18/19 04/18/19 04/18/19 04/18/19 16:28 16:58 17:18 17:30 Pulse 86 71 66 Resp 16 B/P (MAP) 108/68 (81) 121/80 (94) 122/76 (91) Pulse Ox 93 96 97 O2 Delivery Room Air Room Air 04/18/19 04/18/19 04/18/19 04/18/19 17:30 18:34 19:10 20:00 Temp 97.8 97.7 97.8 97.7 Pulse 63 70 Resp 18 21 B/P (MAP) 131/78 (95) 149/79 (102) Pulse Ox 99 95 O2 Delivery Room Air Room Air Room Air Room Air 04/18/19 04/18/19 04/18/19 04/19/19 20:02 21:18 23:23 03:00 Temp 97.7 97.9 97.7 97.9 Pulse 78 78 71 75 Resp 20 20 B/P (MAP) 149/79 149/79 97/71 (80) 108/77 (87) Pulse Ox 96 96 O2 Delivery Room Air Room Air 04/19/19 04/19/19 07:00 08:20 Temp 97.6 97.6 Pulse 62 Resp 18 B/P (MAP) 129/74 (92) Pulse Ox 96 O2 Delivery Room Air Room Air Intake and Output 04/18/19 04/18/19 04/19/19 15:00 23:00 07:00 Intake Total 400 ml Balance 400 ml CAROLE RIOS MD Apr 19, 2019 09:37
[2019-04-19 10:47] VITALS: BP 128/71
[2019-04-19] MEDS: buPROPion SR 100 MG TABLET.SA. PO SCH (11:34)
[2019-04-19] MEDS: APIXABAN 5 MG TABLET. PO SCH (11:34)
[2019-04-19] MEDS: METOPROLOL TART IMMED RELEASE 25 MG TABLET. PO SCH (11:35)
[2019-04-19] MEDS: levETIRAcetam 500 MG TABLET PO SCH (11:35)
--- NOTE | 2019-04-19 12:20 | PDOC2 ---
CONSULT Date of Consult Date of Consult DATE: 04/19/19 TIME: 12:20 Reason for Consult Reason for Consult: Chest pain Referring Physician Referring Physician: Dr. Mendez Identification/Chief Complaint Chief Complaint Chest pain Source Source: Chart review, Patient History of Present Illness Reason for Visit: 68-year-old male with history of coronary artery disease and persistent atrial fibrillation presented complaining of intermittent episodes of retrosternal chest pain not related to exertion or food intake. Chest pain is actually worse when he's lying down flat. He also complained of mild associated dyspnea but denied any orthopnea/PND, palpitations or syncope. Past Medical History Cardiovascular: AFIB, CAD, HTN CENTRAL NERVOUS SYSTEM: CVA Psych: Addictions Musculoskeletal: Osteoarthritis Rheumatologic: Gout Past Surgical History Past Surgical History: No pertinent history Family History Family History: High Cholestrol, Hypertension Social History No ALCOHOL: heavy Drugs: None Current Problem List Problem List Problems Medical Problems: (1) Chest pain Status: Acute Current Medications Current Medications Current Medications Aspirin (Juan Aspirin) 325 mg 1X ONCE PO Last administered on 04/18/19at 15:59; Start 04/18/19 at 14:15; Stop 04/18/19 at 14:16; Status DC Fentanyl Citrate (Fentanyl 2ml Vial) 50 mcg 1X ONCE IV Last administered on 04/18/19at 16:00; Start 04/18/19 at 14:45; Stop 04/18/19 at 14:46; Status DC Famotidine (Pepcid Vial) 20 mg 1X ONCE IVP Last administered on 04/18/19at 15:59; Start 04/18/19 at 14:45; Stop 04/18/19 at 14:46; Status DC Ondansetron HCl (Zofran) 4 mg PRN Q8HRS PRN IV NAUSEA/VOMITING; Start 04/18/19 at 15:30; Stop 04/18/19 at 20:53; Status DC Fentanyl Citrate (Fentanyl 2ml Vial) 50 mcg PRN Q2HRS PRN IV MODERATE TO SEVERE PAIN; Start 04/18/19 at 15:30; Status Cancel Ondansetron HCl (Zofran) 4 mg PRN Q6HRS PRN IVP NAUSEA/VOMITING; Start 04/18/19 at 15:30 Fentanyl Citrate (Fentanyl 2ml Vial) 50 mcg PRN Q2HR PRN IVP MODERATE TO SEVERE PAIN; Start 04/18/19 at 15:30 Acetaminophen (Tylenol) 500 mg PRN Q6HRS PRN PO MILD PAIN / TEMP; Start 04/18/19 at 15:30 Acetaminophen/ Codeine Phosphate (Tylenol #3) 1 tab PRN Q6HRS PRN PO MODERATE PAIN; Start 04/18/19 at 15:30 Temazepam (Restoril) 7.5 mg PRN QHS PRN PO INSOMNIA; Start 04/18/19 at 15:30 Albuterol Sulfate (Ventolin Neb Soln) 2.5 mg PRN BID PRN INH SHORTNESS OF BREATH; Start 04/18/19 at 15:30 Apixaban (Eliquis) 5 mg BID PO Last administered on 04/19/19 11:34; Start 04/18/19 at 21:00 Ascorbic Acid (Vitamin C) 1,000 mg DAILY PO Last administered on 04/19/19 11 :34; Start 04/19/19 at 09:00 Aspirin (Children'S Aspirin) 81 mg DAILY PO Last administered on 04/19/19 11:34; Start 04/19/19 at 09:00 Atorvastatin Calcium (Lipitor) 40 mg QHS PO Last administered on 04/18/19at 20:02; Start 04/18/19 at 21:00 Colchicine (Colcrys) 0.6 mg DAILY PO Last administered on 04/19/19 11:34; Start 04/19/19 at 09:00 Furosemide (Lasix) 20 mg DAILY PO Last administered on 04/19/19 11:34; Start 04/19/19 at 09:00 Acetaminophen/ Hydrocodone Bitart (Lortab 5/325) 1 tab PRN Q6HRS PRN PO SEVERE PAIN; Start 04/18/19 at 15:30 Levetiracetam (Keppra) 1,000 mg BID PO Last administered on 04/19/19 11:35; Start 04/18/19 at 21:00 Nitroglycerin (Nitrostat) 0.4 mg QID PRN SL chest pain Last administered on 04/18/19at 20:02; Start 04/18/19 at 15:30 Bupropion HCl (Wellbutrin Sr) 100 mg BID PO Last administered on 04/19/19 11:34; Start 04/18/19 at 21:00 Nitroglycerin (Nitro-Bid Oint) 0.5 inch 1X ONCE TP Last administered on 04/18/19at 16:01; Start 04/18/19 at 15:45; Stop 04/18/19 at 15:46; Status DC Info (Anti-Coagulation Monitoring By Pharmacy) 1 each PRN DAILY PRN MC SEE COMMENTS; Start 04/18/19 at 15:45 Multivitamins/ Minerals Therapeutic (Centrum Multivit-Mineral Liq) 5 ml DAILY PEG ; Start 04/18/19 at 20:00; Stop 04/18/19 at 20:05; Status DC Multivitamins (Thera M Plus) 1 tab QHS PO Last administered on 04/18/19at 21:18; Start 04/18/19 at 21:00 Metoprolol Tartrate (Lopressor) 25 mg BID PO Last administered on 04/19/19at 11:35; Start 04/18/19 at 21:00 Active Scripts Active Colcrys (Colchicine) 0.6 Mg Tablet 0.6 Mg PO DAILY Vitamin C (Ascorbic Acid) 500 Mg Tablet 1,000 Mg PO DAILY [place] 5-325 Tablet (Acetaminophen/Hydrocodone Bitart) 1 Each Tablet 1 Tab PO PRN Q6HRS PRN Keflex (Cephalexin) 500 Mg Capsule 1 Cap PO Q8HRS Keppra (Levetiracetam) 500 Mg Tablet 2 Tab PO BID 30 Days Wellbutrin Sr (Bupropion Hcl) 200 Mg Tablet.er 100 Mg PO BID 30 Days Atorvastatin Calcium 40 Mg Tablet 1 Tab PO DAILY 30 Days Proair Hfa Inhaler (Albuterol Sulfate) 8.5 Gm Hfa.aer.ad 2 Puff INH PRN BID PRN 30 Days Eliquis (Apixaban) 5 Mg Tablet 5 Mg PO BID 30 Days Lasix (Furosemide) 40 Mg Tablet 20 Mg PO DAILY 30 Days Reported Metoprolol Tartrate 25 Mg Tablet 1 Tab PO BID NITROGLYCERIN SubLingual (Nitroglycerin) 0.4 Mg Tab.subl 1 Tab SL UD Aspirin 81 Mg Tab.chew 1 Tab PO DAILY Allergies Allergies: Coded Allergies: No Known Drug Allergies (Unverified , 11/30/18) ROS PSYCHOLOGICAL ROS: No: Hallucinations Eyes: No Loss of vision HEENT: No: Epistaxis Respiratory: YES: Shortness of breath Cardiovascular: yes Chest Pain Genitourinary: No Hematuria Neurological: No Seizures Skin: No Rash Physical Exam General: Alert, Oriented X3 HEENT: Atraumatic Lungs: Clear to auscultation Heart: Other (heart rate is irregular) Extremities: No edema Psych/Mental Status: Mood NL Vitals VITALS Vital Signs Date Time Temp Pulse Resp B/P (MAP) Pulse Ox O2 Delivery O2 Flow Rate FiO2 04/19/19 11:35 85 128/71 04/19/19 10:47 97.6 18 99 Room Air 97.6 Labs Labs Laboratory Tests Test 04/18/19 14:20 04/18/19 18:25 04/18/19 21:45 04/19/19 04:10 White Blood Count 6.4 x10^3/uL (4.0-11.0) Red Blood Count 5.53 x10^6/uL (4.30-5.70) Hemoglobin 13.4 g/dL (13.0-17.5) Hematocrit 42.4 % (39.0-53.0) Mean Corpuscular Volume 77 fL (79-100) Mean Corpuscular Hemoglobin 24 pg (25-35) Mean Corpuscular Hemoglobin Concent 32 g/dL (31-37) Red Cell Distribution Width 16.2 % (11.5-14.5) Platelet Count 214 x10^3/uL (140-400) Neutrophils (%) (Auto) 58 % (31-73) Lymphocytes (%) (Auto) 30 % (24-48) Monocytes (%) (Auto) 8 % (0-9) Eosinophils (%) (Auto) 3 % (0-3) Basophils (%) (Auto) 1 % (0-3) Neutrophils # (Auto) 3.7 x10^3/uL (1.8-7.7) Lymphocytes # (Auto) 1.9 x10^3/uL (1.0-4.8) Monocytes # (Auto) 0.5 x10^3/uL (0.0-1.1) Eosinophils # (Auto) 0.2 x10^3/uL (0.0-0.7) Basophils # (Auto) 0.1 x10^3/uL (0.0-0.2) Prothrombin Time 15.0 SEC (11.7-14.0) Prothromb Time International Ratio 1.2 (0.8-1.1) Activated Partial Thromboplast Time 32 SEC (24-38) D-Dimer (Esmer) 0.39 ug/mlFEU (0.00-0.50) Sodium Level 142 mmol/L (136-145) Potassium Level 4.3 mmol/L (3.5-5.1) Chloride Level 104 mmol/L (98-107) Carbon Dioxide Level 31 mmol/L (21-32) Anion Gap 7 (6-14) Blood Urea Nitrogen 14 mg/dL (8-26) Creatinine 1.3 mg/dL (0.7-1.3) Estimated GFR (Cockcroft-Gault) 54.6 BUN/Creatinine Ratio 11 (6-20) Glucose Level 127 mg/dL (70-99) Calcium Level 8.7 mg/dL (8.5-10.1) Magnesium Level 2.0 mg/dL (1.8-2.4) Total Bilirubin 0.4 mg/dL (0.2-1.0) Aspartate Amino Transf (AST/SGOT) 50 U/L (15-37) Alanine Aminotransferase (ALT/SGPT) 70 U/L (16-63) Alkaline Phosphatase 75 U/L (46-116) Creatine Kinase 107 U/L (39-308) Creatine Kinase MB (Mass) 1.7 ng/mL (0.0-3.6) Creatine Kinase MB Relative Index 1.6 % (0-4) Troponin I Quantitative < 0.017 ng/mL (0.000-0.055) < 0.017 ng/mL (0.000-0.055) < 0.017 ng/mL (0.000-0.055) VV-Gpz-H-Type Natriuretic Peptide 2052 pg/mL (0-124) Total Protein 7.4 g/dL (6.4-8.2) Albumin 3.2 g/dL (3.4-5.0) Albumin/Globulin Ratio 0.8 (1.0-1.7) Lipase 128 U/L (73-393) Triglycerides Level 129 mg/dL (0-150) Cholesterol Level 171 mg/dL (0-200) LDL Cholesterol, Calculated 104 mg/dL (0-100) VLDL Cholesterol, Calculated 26 mg/dL (0-40) Non-HDL Cholesterol Calculated 130 mg/dL (0-129) HDL Cholesterol 41 mg/dL (40-60) Cholesterol/HDL Ratio 4.2 Laboratory Tests Test 04/18/19 14:20 04/18/19 18:25 04/18/19 21:45 04/19/19 04:10 White Blood Count 6.4 x10^3/uL (4.0-11.0) Red Blood Count 5.53 x10^6/uL (4.30-5.70) Hemoglobin 13.4 g/dL (13.0-17.5) Hematocrit 42.4 % (39.0-53.0) Mean Corpuscular Volume 77 fL (79-100) Mean Corpuscular Hemoglobin 24 pg (25-35) Mean Corpuscular Hemoglobin Concent 32 g/dL (31-37) Red Cell Distribution Width 16.2 % (11.5-14.5) Platelet Count 214 x10^3/uL (140-400) Neutrophils (%) (Auto) 58 % (31-73) Lymphocytes (%) (Auto) 30 % (24-48) Monocytes (%) (Auto) 8 % (0-9) Eosinophils (%) (Auto) 3 % (0-3) Basophils (%) (Auto) 1 % (0-3) Neutrophils # (Auto) 3.7 x10^3/uL (1.8-7.7) Lymphocytes # (Auto) 1.9 x10^3/uL (1.0-4.8) Monocytes # (Auto) 0.5 x10^3/uL (0.0-1.1) Eosinophils # (Auto) 0.2 x10^3/uL (0.0-0.7) Basophils # (Auto) 0.1 x10^3/uL (0.0-0.2) Prothrombin Time 15.0 SEC (11.7-14.0) Prothromb Time International Ratio 1.2 (0.8-1.1) Activated Partial Thromboplast Time 32 SEC (24-38) D-Dimer (Esmer) 0.39 ug/mlFEU (0.00-0.50) Sodium Level 142 mmol/L (136-145) Potassium Level 4.3 mmol/L (3.5-5.1) Chloride Level 104 mmol/L (98-107) Carbon Dioxide Level 31 mmol/L (21-32) Anion Gap 7 (6-14) Blood Urea Nitrogen 14 mg/dL (8-26) Creatinine 1.3 mg/dL (0.7-1.3) Estimated GFR (Cockcroft-Gault) 54.6 BUN/Creatinine Ratio 11 (6-20) Glucose Level 127 mg/dL (70-99) Calcium Level 8.7 mg/dL (8.5-10.1) Magnesium Level 2.0 mg/dL (1.8-2.4) Total Bilirubin 0.4 mg/dL (0.2-1.0) Aspartate Amino Transf (AST/SGOT) 50 U/L (15-37) Alanine Aminotransferase (ALT/SGPT) 70 U/L (16-63) Alkaline Phosphatase 75 U/L (46-116) Creatine Kinase 107 U/L (39-308) Creatine Kinase MB (Mass) 1.7 ng/mL (0.0-3.6) Creatine Kinase MB Relative Index 1.6 % (0-4) Troponin I Quantitative < 0.017 ng/mL (0.000-0.055) < 0.017 ng/mL (0.000-0.055) < 0.017 ng/mL (0.000-0.055) RB-Ttn-M-Type Natriuretic Peptide 2052 pg/mL (0-124) Total Protein 7.4 g/dL (6.4-8.2) Albumin 3.2 g/dL (3.4-5.0) Albumin/Globulin Ratio 0.8 (1.0-1.7) Lipase 128 U/L (73-393) Triglycerides Level 129 mg/dL (0-150) Cholesterol Level 171 mg/dL (0-200) LDL Cholesterol, Calculated 104 mg/dL (0-100) VLDL Cholesterol, Calculated 26 mg/dL (0-40) Non-HDL Cholesterol Calculated 130 mg/dL (0-129) HDL Cholesterol 41 mg/dL (40-60) Cholesterol/HDL Ratio 4.2 Assessment/Plan Assessment/Plan 1. Chest pain with atypical features. Myocardial infarction has been ruled out. Recent 2-D echo in November 2018 showed LVEF 55-60%. He has history of coronary artery disease and was seen at [facility] in the past. Plan for outpatient Lexiscan nuclear stress test to rule out ischemia. 2. Persistent atrial fibrillation, rate controlled. Continue eliquis for stroke prophylaxis. Consider outpatient cardioversion. 3. Elevated BNP level without any acute cardiopulmonary process on chest x-ray and clinical exam not consistent with fluid overload. 4. Hypertension: Controlled Okay for discharge from cardiac standpoint. Follow-up with our office as scheduled. KRISTINE ARIAS MD Apr 19, 2019 12:20
--- NOTE | 2019-04-19 15:14 | PDOC3 ---
Discharge Summary Date of Admission: Apr 18, 2019 Date of Discharge: Apr 19, 2019 Follow-Up: 3-5 days Admitting Diagnosis comment: discharge dx Assessment/Plan 1. Chest pain at rest 2, Hx CAD, sz on eliquis, lasix, keppra 3. Hx signif etoh drinking in past -denies currently 4. HTN etc controlled 5. moderate pulmonary hypertension PLAn: CArds consult ok with d/c today TREnd CE resume home meds, eliquis etc Dw him FULL CODE Vitals Vitals Vital Signs Date Time Temp Pulse Resp B/P (MAP) Pulse Ox O2 Delivery O2 Flow Rate FiO2 04/19/19 08:20 Room Air 04/19/19 07:00 97.6 62 18 129/74 (92) 96 97.6 Physical Exam General: Alert, Oriented X3, Cooperative, No acute distress Heart: Regular rate Lungs: Clear Abdomen: Normal bowel sounds, Soft, No tenderness, No hepatosplenomegaly, No masses Extremities: No clubbing, No cyanosis, No edema, Normal pulses, No tenderness/swelling Skin: No rashes, No breakdown, No significant lesion Labs LABS EXAM: CT chest with contrast - pulmonary embolus protocol CLINICAL HISTORY: Pleuritic left chest pain, evaluate for acute pulmonary embolus. COMPARISON: None. TECHNIQUE: CT of the chest following the administration of intravenous contrast during the pulmonary arterial phase. Axial, coronal and sagittal reformatted images were generated including MIP images. ---PQRS compliance statement - One or more of the following individualized dose reduction techniques were utilized for this study: 1. Automated exposure control 2. Adjustment of the mA and/or kV according to patient size 3. Use of iterative reconstruction technique--- FINDINGS: CHEST: Diagnostic quality: Adequate. Pulmonary emboli: None seen Right heart strain: None Pulmonary arteries: Pulmonary arterial trunk measures up to 3.9 cm in diameter. Heart is mildly enlarged. No pericardial effusion. 3 mm left apical lung nodule (series 3 image 21) is seen. Mild prominent mediastinal and hilar lymph nodes are seen, not enlarged by size criteria. No axillary lymphadenopathy. Visualized Upper abdomen: Grossly unremarkable Bones: Evaluation of the bony structures limited given MIP reconstructions. Within these constraints no discrete aggressive osseous lesion is seen. IMPRESSION: 1. No evidence for acute pulmonary embolus. 2. Prominence of pulmonary arterial trunk, nonspecific but may be seen with pulmonary arterial hypertension. 3. 3 mm left apical lung nodule.Per Fleischner Society guidelines for incidentally found solid nodules measuring less than 6 mm, no follow-up is necessary if patient is considered at low risk for lung cancer. If patient is considered to be at high risk, such as with history of smoking, then CT follow-up in about 12 months can be considered. Electronically signed by: Anibal Burt MD (02/01/2019 3:50 PM) [facility] [id number] DICTATED and SIGNED BY: ANIBAL BURT MD DATE: 02/01/19 1550 APPROVED REPORT EXAM: Two-dimensional and M-mode echocardiogram with Doppler and color Doppler. Other Information Quality : Average HR: 70bpm Rhythm : NSR INDICATION Chest Pain 2D DIMENSIONS RVDd 3.0 (2.9-3.5cm) Left Atrium(2D) 3.9 (1.6-4.0cm) IVSd 1.4 (0.7-1.1cm) Aortic Root(2D) 3.5 (2.0-3.7cm) LVDd 4.9 (3.9-5.9cm) LVOT Diameter 2.1 (1.8-2.4cm) PWd 1.3 (0.7-1.1cm) LVDs 3.4 (2.5-4.0cm) FS (%) 30.2 % SV 64.8 ml LVEF(%) 57.4 (>50%) M-Mode DIMENSIONS Left Atrium(MM) 3.81 (2.5-4.0cm) Aortic Root 3.64 (2.2-3.7cm) Aortic Valve AoV Peak Hector. 126.9cm/s AoV VTI 26.7cm AO Peak GR. 6.4mmHg LVOT Peak Hector. 105.3cm/s AO Mean GR. 3mmHg CUAUHTEMOC (VMAX) 2.95cm2 CUAUHTEMOC (VTI) 3.00cm2 AI P 1/2 Time 730ms Mitral Valve MV E Velocity 92.5cm/s MV DECEL TIME 187ms MV A Velocity 26.2cm/s E/A Ratio 3.5 Pulmonary Valve PV Peak Velocity 74.0cm/s Tricuspid Valve TR P. Velocity 365cm/s RAP ESTIMATE 3mmHg TR Peak Gr. 53mmHg RVSP 56mmHg LEFT VENTRICLE The left ventricle is normal size. There is mild concentric left ventricular hypertrophy. Left ventricle systolic function is normal. The Ejection Fraction is 55-60%. There is normal LV segmental wall motion. Transmitral Doppler flow pattern is Grade II-pseudonormal filling dynamics. RIGHT VENTRICLE The right ventricle is normal size. There is normal right ventricular wall thickness. The right ventricular systolic function is normal. ATRIA The left atrium size is normal. The right atrium size is normal. The interatrial septum is intact with no evidence for an atrial septal defect or patent foramen ovale as noted on 2-D or Doppler imaging. AORTIC VALVE The aortic valve is probably trileaflet. The aortic valve is not well visualized. Doppler and Color Flow revealed mild aortic regurgitation. There is no significant aortic valvular stenosis. MITRAL VALVE The mitral valve is thickened but opens well. There is no evidence of mitral valve prolapse. There is no mitral valve stenosis. Doppler and Color-flow revealed mild to moderate mitral regurgitation. TRICUSPID VALVE The tricuspid valve is normal in structure and function. Doppler and Color Flow revealed mild tricuspid regurgitation. The PA pressure was estimated at 52 mmHg. There is no tricuspid valve prolapse or vegetation. There is no tricuspid valve stenosis. PULMONIC VALVE The pulmonic valve is not well visualized. GREAT VESSELS The aortic root is normal in size. The ascending aorta is normal in size. The IVC is normal in size and collapses >50% with inspiration. PERICARDIAL EFFUSION There is no evidence of significant pericardial effusion. Critical Notification Critical Value: No <Conclusion> The left ventricle is normal size. Left ventricle systolic function is normal. The Ejection Fraction is 55-60%. There is mild concentric left ventricular hypertrophy. There is no significant aortic valvular stenosis. Doppler and Color Flow revealed mild aortic regurgitation. Doppler and Color-flow revealed mild to moderate mitral regurgitation. Doppler and Color Flow revealed mild tricuspid regurgitation. The PA pressure was estimated at 52 mmHg. Signed by : Jorge De Santiago MD Electronically Approved : 12/02/2018 15:46:16 FINAL DIAGNOSIS Problems Medical Problems: (1) Chest pain Status: Acute Brief Hospital Course Mr. Walker is a 68 old [sex] who presented with [chest pain] CONDITION AT DISCHARGE: Improved Discharge Medications Current Medications Aspirin (Juan Aspirin) 325 mg 1X ONCE PO Last administered on 04/18/19at 15:59; Start 04/18/19 at 14:15; Stop 04/18/19 at 14:16; Status DC Fentanyl Citrate (Fentanyl 2ml Vial) 50 mcg 1X ONCE IV Last administered on 04/18/19at 16:00; Start 04/18/19 at 14:45; Stop 04/18/19 at 14:46; Status DC Famotidine (Pepcid Vial) 20 mg 1X ONCE IVP Last administered on 04/18/19at 15:59; Start 04/18/19 at 14:45; Stop 04/18/19 at 14:46; Status DC Ondansetron HCl (Zofran) 4 mg PRN Q8HRS PRN IV NAUSEA/VOMITING; Start 04/18/19 at 15:30; Stop 04/18/19 at 20:53; Status DC Fentanyl Citrate (Fentanyl 2ml Vial) 50 mcg PRN Q2HRS PRN IV MODERATE TO SEVERE PAIN; Start 04/18/19 at 15:30; Status Cancel Ondansetron HCl (Zofran) 4 mg PRN Q6HRS PRN IVP NAUSEA/VOMITING; Start 04/18/19 at 15:30 Fentanyl Citrate (Fentanyl 2ml Vial) 50 mcg PRN Q2HR PRN IVP MODERATE TO SEVERE PAIN; Start 04/18/19 at 15:30 Acetaminophen (Tylenol) 500 mg PRN Q6HRS PRN PO MILD PAIN / TEMP; Start 04/18/19 at 15:30 Acetaminophen/ Codeine Phosphate (Tylenol #3) 1 tab PRN Q6HRS PRN PO MODERATE PAIN; Start 04/18/19 at 15:30 Temazepam (Restoril) 7.5 mg PRN QHS PRN PO INSOMNIA; Start 04/18/19 at 15:30 Albuterol Sulfate (Ventolin Neb Soln) 2.5 mg PRN BID PRN INH SHORTNESS OF BREATH; Start 04/18/19 at 15:30 Apixaban (Eliquis) 5 mg BID PO Last administered on 04/19/19at 11:34; Start 04/18/19 at 21:00 Ascorbic Acid (Vitamin C) 1,000 mg DAILY PO Last administered on 04/19/19at 11:34; Start 04/19/19 at 09:00 Aspirin (Children'S Aspirin) 81 mg DAILY PO Last administered on 04/19/19 11:34; Start 04/19/19 at 09:00 Atorvastatin Calcium (Lipitor) 40 mg QHS PO Last administered on 04/18/19at 20:02; Start 04/18/19 at 21:00 Colchicine (Colcrys) 0.6 mg DAILY PO Last administered on 04/19/19 11:34; Start 04/19/19 at 09:00 Furosemide (Lasix) 20 mg DAILY PO Last administered on 04/19/19 11:34; Start 04/19/19 at 09:00 Acetaminophen/ Hydrocodone Bitart (Lortab 5/325) 1 tab PRN Q6HRS PRN PO SEVERE PAIN; Start 04/18/19 at 15:30 Levetiracetam (Keppra) 1,000 mg BID PO Last administered on 04/19/19 11:35; Start 04/18/19 at 21:00 Nitroglycerin (Nitrostat) 0.4 mg QID PRN SL chest pain Last administered on 04/18/19 20:02; Start 04/18/19 at 15:30 Bupropion HCl (Wellbutrin Sr) 100 mg BID PO Last administered on 04/19/19 11:34; Start 04/18/19 at 21:00 Nitroglycerin (Nitro-Bid Oint) 0.5 inch 1X ONCE TP Last administered on 04/18/19 16:01; Start 04/18/19 at 15:45; Stop 04/18/19 at 15:46; Status DC Info (Anti-Coagulation Monitoring By Pharmacy) 1 each PRN DAILY PRN MC SEE COMMENTS; Start 04/18/19 at 15:45 Multivitamins/ Minerals Therapeutic (Centrum Multivit-Mineral Liq) 5 ml DAILY PEG ; Start 04/18/19 at 20:00; Stop 04/18/19 at 20:05; Status DC Multivitamins (Thera M Plus) 1 tab QHS PO Last administered on 04/18/19at 21:18; Start 04/18/19 at 21:00 Metoprolol Tartrate (Lopressor) 25 mg BID PO Last administered on 04/19/19 11:35; Start 04/18/19 at 21:00 Active Scripts Active Colcrys (Colchicine) 0.6 Mg Tablet 0.6 Mg PO DAILY Vitamin C (Ascorbic Acid) 500 Mg Tablet 1,000 Mg PO DAILY [place] 5-325 Tablet (Acetaminophen/Hydrocodone Bitart) 1 Each Tablet 1 Tab PO PRN Q6HRS PRN Keflex (Cephalexin) 500 Mg Capsule 1 Cap PO Q8HRS Keppra (Levetiracetam) 500 Mg Tablet 2 Tab PO BID 30 Days Wellbutrin Sr (Bupropion Hcl) 200 Mg Tablet.er 100 Mg PO BID 30 Days Atorvastatin Calcium 40 Mg Tablet 1 Tab PO DAILY 30 Days Proair Hfa Inhaler (Albuterol Sulfate) 8.5 Gm Hfa.aer.ad 2 Puff INH PRN BID PRN 30 Days Eliquis (Apixaban) 5 Mg Tablet 5 Mg PO BID 30 Days Lasix (Furosemide) 40 Mg Tablet 20 Mg PO DAILY 30 Days Reported Metoprolol Tartrate 25 Mg Tablet 1 Tab PO BID NITROGLYCERIN SubLingual (Nitroglycerin) 0.4 Mg Tab.subl 1 Tab SL UD Aspirin 81 Mg Tab.chew 1 Tab PO DAILY Vital Signs Vital Signs Date Time Temp Pulse Resp B/P (MAP) Pulse Ox O2 Delivery O2 Flow Rate FiO2 04/19/19 11:35 85 128/71 04/19/19 10:47 97.6 18 99 Room Air 97.6 Labs Laboratory Tests Test 04/18/19 14:20 04/18/19 18:25 04/18/19 21:45 04/19/19 04:10 White Blood Count 6.4 x10^3/uL (4.0-11.0) Red Blood Count 5.53 x10^6/uL (4.30-5.70) Hemoglobin 13.4 g/dL (13.0-17.5) Hematocrit 42.4 % (39.0-53.0) Mean Corpuscular Volume 77 fL (79-100) Mean Corpuscular Hemoglobin 24 pg (25-35) Mean Corpuscular Hemoglobin Concent 32 g/dL (31-37) Red Cell Distribution Width 16.2 % (11.5-14.5) Platelet Count 214 x10^3/uL (140-400) Neutrophils (%) (Auto) 58 % (31-73) Lymphocytes (%) (Auto) 30 % (24-48) Monocytes (%) (Auto) 8 % (0-9) Eosinophils (%) (Auto) 3 % (0-3) Basophils (%) (Auto) 1 % (0-3) Neutrophils # (Auto) 3.7 x10^3/uL (1.8-7.7) Lymphocytes # (Auto) 1.9 x10^3/uL (1.0-4.8) Monocytes # (Auto) 0.5 x10^3/uL (0.0-1.1) Eosinophils # (Auto) 0.2 x10^3/uL (0.0-0.7) Basophils # (Auto) 0.1 x10^3/uL (0.0-0.2) Prothrombin Time 15.0 SEC (11.7-14.0) Prothromb Time International Ratio 1.2 (0.8-1.1) Activated Partial Thromboplast Time 32 SEC (24-38) D-Dimer (Esmer) 0.39 ug/mlFEU (0.00-0.50) Sodium Level 142 mmol/L (136-145) Potassium Level 4.3 mmol/L (3.5-5.1) Chloride Level 104 mmol/L (98-107) Carbon Dioxide Level 31 mmol/L (21-32) Anion Gap 7 (6-14) Blood Urea Nitrogen 14 mg/dL (8-26) Creatinine 1.3 mg/dL (0.7-1.3) Estimated GFR (Cockcroft-Gault) 54.6 BUN/Creatinine Ratio 11 (6-20) Glucose Level 127 mg/dL (70-99) Calcium Level 8.7 mg/dL (8.5-10.1) Magnesium Level 2.0 mg/dL (1.8-2.4) Total Bilirubin 0.4 mg/dL (0.2-1.0) Aspartate Amino Transf (AST/SGOT) 50 U/L (15-37) Alanine Aminotransferase (ALT/SGPT) 70 U/L (16-63) Alkaline Phosphatase 75 U/L (46-116) Creatine Kinase 107 U/L (39-308) Creatine Kinase MB (Mass) 1.7 ng/mL (0.0-3.6) Creatine Kinase MB Relative Index 1.6 % (0-4) Troponin I Quantitative < 0.017 ng/mL (0.000-0.055) < 0.017 ng/mL (0.000-0.055) < 0.017 ng/mL (0.000-0.055) ZI-Idb-J-Type Natriuretic Peptide 2052 pg/mL (0-124) Total Protein 7.4 g/dL (6.4-8.2) Albumin 3.2 g/dL (3.4-5.0) Albumin/Globulin Ratio 0.8 (1.0-1.7) Lipase 128 U/L (73-393) Triglycerides Level 129 mg/dL (0-150) Cholesterol Level 171 mg/dL (0-200) LDL Cholesterol, Calculated 104 mg/dL (0-100) VLDL Cholesterol, Calculated 26 mg/dL (0-40) Non-HDL Cholesterol Calculated 130 mg/dL (0-129) HDL Cholesterol 41 mg/dL (40-60) Cholesterol/HDL Ratio 4.2 Laboratory Tests Test 04/18/19 18:25 04/18/19 21:45 04/19/19 04:10 Troponin I Quantitative < 0.017 ng/mL (0.000-0.055) < 0.017 ng/mL (0.000-0.055) Triglycerides Level 129 mg/dL (0-150) Cholesterol Level 171 mg/dL (0-200) LDL Cholesterol, Calculated 104 mg/dL (0-100) VLDL Cholesterol, Calculated 26 mg/dL (0-40) Non-HDL Cholesterol Calculated 130 mg/dL (0-129) HDL Cholesterol 41 mg/dL (40-60) Cholesterol/HDL Ratio 4.2 Allergies Allergies Coded Allergies Type Severity Reaction Last Updated Verified No Known Drug Allergies 11/30/18 No Disposition/Orders: D/C to Home Patient Instructions d/c planning 28 min CAROLE RIOS MD Apr 19, 2019 15:14
[2019-04-19] MEDS ORDERED: ACET500T68 PO (15:16)
[2019-04-19] MEDS ORDERED: MULT1TAB90 PO (15:16)
--- NOTE | 2019-04-19 15:17 | DISCH ---
DISCHARGE INSTRUCTIONS Condition on Discharge Condition on Discharge: Stable Activity After Discharge Activity Instructions for Disc: Activity as tolerated Driving Instructions after Dis: Do not drive Weight Bearing Status after Di: As tolerated Diet after Discharge Diet after Discharge: Cardiac, Regular Diet Texture: Regular Liquid Texture: Thin Liquid Swallowing Supervision: None needed Checks after Discharge Checks after discharge: Check blood press - daily, Check your Temp as needed, Weigh Yourself Daily Contacting the DR. after DC Call your doctor for: If your condition worsens CAROLE RIOS MD Apr 19, 2019 15:17
[2019-04-19 15:26] VITALS: BP 114/72
--- NOTE | 2019-04-19 16:30 | NUR ---
discharge instructions discussed with patient. patients iv removed and tele monitor off. patient stable at time of discharge with no complaints of chest pain. patient and patients escorted to daughters personal vehicle per wheelchair by this rn.
--- NOTE | 2019-04-21 07:37 | EKG ---
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
== END 2019-04-19 18:30 | disposition home or self-care (01) | DRG 313 ==
LOC: ER 13:35 → 2 NORTH 15:15
PROVIDERS: ADMIT Internal Medicine; ATTEND Internal Medicine
DX: R07.89 Other chest pain (principal); I48.19 Other persistent atrial fibrillation; J98.11 Atelectasis; E11.9 Type 2 diabetes mellitus without complications; E78.00 Pure hypercholesterolemia, unspecified; I11.0 Hypertensive heart disease with heart failure; I25.10 Atherosclerotic heart disease of native coronary artery without angina pectoris; I50.9 Heart failure, unspecified; Z79.01 Long term (current) use of anticoagulants; Z82.49 Family history of ischemic heart disease and other diseases of the circulatory system; Z86.73 Personal history of transient ischemic attack (TIA), and cerebral infarction without residual deficits; Z95.5 Presence of coronary angioplasty implant and graft; Z86.711 Personal history of pulmonary embolism; F32.9 Major depressive disorder, single episode, unspecified; F41.9 Anxiety disorder, unspecified; K21.9 Gastro-esophageal reflux disease without esophagitis; M10.9 Gout, unspecified; M19.90 Unspecified osteoarthritis, unspecified site
CPT/HCPCS: 36415; 71046; 80053; 80061; 82553; 83690; 83735; 83880; 84484; 85025; 85379; 85610; 85730; 93005; J3010; J3490; G0378

== ENCOUNTER 2019-05-04 11:10 | Observation (INO) | payer BC ==
[~2019-05-04] VITALS: Ht 170.2 cm; Wt 43.7 kg
[~2019-05-04 11:10] MED LIST changes: +ACET500T68 PO; +METO25TA4 PO; +MULT1TAB90 PO
[2019-05-04 11:41] LABS: BASO # 0.1 x10^3/uL (0.0-0.2); BASO % 1 % (0-3); EOS # 0.1 x10^3/uL (0.0-0.7); EOS % 1 % (0-3); HEMATOCRIT 41.1 % (39.0-53.0); LYMPH # 2.1 x10^3/uL (1.0-4.8); LYMPH % 35 % (24-48); MEAN CORPUSCULAR HEMOGLOBIN 25 pg (25-35); MEAN CORPUSCULAR HGB CONC 32 g/dL (31-37); MEAN CORPUSCULAR VOLUME 78 fL (79-100); MONO # 0.6 x10^3/uL (0.0-1.1); MONO % 10 % (0-9); NEUT # 3.1 x10^3/uL (1.8-7.7); NEUT % 53 % (31-73); PLATELET COUNT 199 x10^3/uL (140-400); RED BLOOD COUNT 5.29 x10^6/uL (4.30-5.70); RED CELL DISTRIBUTION WIDTH 16.7 % (11.5-14.5); WHITE BLOOD COUNT 5.9 x10^3/uL (4.0-11.0)
--- NOTE | 2019-05-04 11:47 | RAD ---
Single view chest dated 05/04/2019. Comparison made to 04/18/2019. Clinical data indication: Chest pain. FINDINGS: Single upright portable exam performed. Heart and mediastinal contours are stable. Lungs are hyperinflated but otherwise clear. No consolidation or pleural effusion. No pneumothorax. IMPRESSION: No acute radiographic abnormality. Stable findings compared to 04/18/2019. Electronically signed by: Jorge Smith MD (05/04/2019 11:44 AM) [facility]
[2019-05-04 12:21] LABS: PROTHROMBIN TIME PATIENT 16.7 SEC (11.7-14.0)
[2019-05-04 12:23] LABS: CALCIUM 8.6 mg/dL (8.5-10.1); CREATININE 1.5 mg/dL (0.7-1.3); GFR 46.1; POTASSIUM 3.8 mmol/L (3.5-5.1)
[2019-05-04 12:30] LABS: ALBUMIN 3.2 g/dL (3.4-5.0); ALBUMIN/GLOBULIN RATIO 0.9 (1.0-1.7); TOTAL BILIRUBIN 0.4 mg/dL (0.2-1.0); TOTAL PROTEIN 6.7 g/dL (6.4-8.2)
[2019-05-04] MEDS ORDERED: NITROGLYCERIN SUBLINGUAL 0.4 MG BOTTLE OF 25. SL PRN ×2 (13:15→15:00)
[2019-05-04 13:50] VITALS: BP 86/58
--- NOTE | 2019-05-04 14:00 | PHYS DOC ---
Past Medical History Past Medical History: A-Fib, Angina, Anxiety, CAD, Depression, Diabetes-Type II, GERD, High Cholesterol, Hypertension, Seizure Additional Past Medical Histor: BACK&NECK PAIN, PE Additional Past Surgical Histo: CARDIAC STENTS Alcohol Use: Sober Drug Use: None Adult General Chief Complaint Chief Complaint: CHEST PAIN HPI HPI Patient is a 69 year old M P/W CHEST PAIN BIBA HAS HAD IT ON AND OFF SINCE YESTERDAY SHARP LEFT SIDE NONRADIATING ASSOCIATED WITH SOME MILD SOB SIMILAR TO LAST VISIT OF NOTE DDIMER NEGATIVE THEN SAW CARDS RECOMMENDED OUTPT STRESS TEST PATIENT TELLS ME HE HASNT' HAD ONE YET NO FEVER NO COUGH NO ABDO PAIN Review of Systems Review of Systems Constitutional: Denies fever or chills [] Eyes: Denies change in visual acuity, redness, or eye pain [] HENT: Denies nasal congestion or sore throat [] Respiratory: Denies cough or shortness of breath [] Cardiovascular: Neurologic: Denies headache, focal weakness or sensory changes [] Endocrine: Denies polyuria or polydipsia [] All other systems were reviewed and found to be within normal limits, except as documented in this note. Allergies Allergies Allergies Coded Allergies Type Severity Reaction Last Updated Verified No Known Drug Allergies 11/30/18 No Physical Exam Physical Exam Constitutional: Well developed, well nourished, no acute distress, non-toxic appearance. [] HENT: Normocephalic, atraumatic, bilateral external ears normal, oropharynx moist, no oral exudates, nose normal. [] Eyes: PERRLA, EOMI, conjunctiva normal, no discharge. [] Neck: Normal range of motion, no tenderness, supple, no stridor. [] Cardiovascular:IRREGULAR, murmur noted Lungs & Thorax: Bilateral breath sounds clear to auscultation [] Abdomen: Bowel sounds normal, soft, no tenderness, no masses, no pulsatile masses. [] Skin: Warm, dry, no erythema, no rash. [] Back: No tenderness, no CVA tenderness. [] Extremities: No tenderness, no cyanosis, no clubbing, ROM intact, no edema. [] Neurologic: Alert and oriented X 3, normal motor function, normal sensory function, no focal deficits noted. [] Psychologic: Affect normal, judgement normal, mood normal. [] Current Patient Data Vital Signs Vital Signs Date Time Temp Pulse Resp B/P (MAP) Pulse Ox O2 Delivery O2 Flow Rate FiO2 05/04/19 12:55 66 16 129/71 (90) 97 Room Air 05/04/19 11:10 97.6 97.6 Lab Values Laboratory Tests Test 05/04/19 11:25 05/04/19 12:02 White Blood Count 5.9 x10^3/uL (4.0-11.0) Red Blood Count 5.29 x10^6/uL (4.30-5.70) Hemoglobin 13.0 g/dL (13.0-17.5) Hematocrit 41.1 % (39.0-53.0) Mean Corpuscular Volume 78 fL (79-100) L Mean Corpuscular Hemoglobin 25 pg (25-35) Mean Corpuscular Hemoglobin Concent 32 g/dL (31-37) Red Cell Distribution Width 16.7 % (11.5-14.5) H Platelet Count 199 x10^3/uL (140-400) Neutrophils (%) (Auto) 53 % (31-73) Lymphocytes (%) (Auto) 35 % (24-48) Monocytes (%) (Auto) 10 % (0-9) H Eosinophils (%) (Auto) 1 % (0-3) Basophils (%) (Auto) 1 % (0-3) Neutrophils # (Auto) 3.1 x10^3/uL (1.8-7.7) Lymphocytes # (Auto) 2.1 x10^3/uL (1.0-4.8) Monocytes # (Auto) 0.6 x10^3/uL (0.0-1.1) Eosinophils # (Auto) 0.1 x10^3/uL (0.0-0.7) Basophils # (Auto) 0.1 x10^3/uL (0.0-0.2) Prothrombin Time 16.7 SEC (11.7-14.0) H Prothrombin Time INR 1.4 (0.8-1.1) H Sodium Level 142 mmol/L (136-145) Potassium Level 3.8 mmol/L (3.5-5.1) Chloride Level 104 mmol/L (98-107) Carbon Dioxide Level 27 mmol/L (21-32) Anion Gap 11 (6-14) Blood Urea Nitrogen 23 mg/dL (8-26) Creatinine 1.5 mg/dL (0.7-1.3) H Estimated GFR (Cockcroft-Gault) 46.1 BUN/Creatinine Ratio 15 (6-20) Glucose Level 115 mg/dL (70-99) H Calcium Level 8.6 mg/dL (8.5-10.1) Total Bilirubin 0.4 mg/dL (0.2-1.0) Aspartate Amino Transferase (AST) 32 U/L (15-37) Alanine Aminotransferase (ALT) 33 U/L (16-63) Alkaline Phosphatase 81 U/L (46-116) Troponin I Quantitative < 0.017 ng/mL (0.000-0.055) UP-Juo-Y-Type Natriuretic Peptide 2389 pg/mL (0-124) H Total Protein 6.7 g/dL (6.4-8.2) Albumin 3.2 g/dL (3.4-5.0) L Albumin/Globulin Ratio 0.9 (1.0-1.7) L Laboratory Tests 05/04/19 11:25 Laboratory Tests 05/04/19 12:02 EKG EKG EKG shows A. fib with a rate of 69 deep T wave inversions noted these are similar to the prior EKG dated 02/01/2019[] Radiology/Procedures Radiology/Procedures [] Impressions: IMPRESSION: No acute radiographic abnormality. Stable findings compared to 04/18/2019. Electronically signed by: Mallika Smith MD (05/04/2019 11:44 AM) [facility] DICTATED and SIGNED BY: MALLIKA SMITH MD DATE: 05/04/19 1144 Course & Med Decision Making Course & Med Decision Making Pertinent Labs and Imaging studies reviewed. (See chart for details) []p history of depression diabetes known coronary artery disease multiple other medical problems frequent visits present with chest pain sharp there is some reproducibility on examination negative troponin but does have deep T-wave inversions that look the same as previous. He may benefit from risk stratification it was recommended this happen as an outpatient. He tells me that has not he has not had a stress test yet. I spoke with Dr. monzon at 145 admit for cp rule out. ddimer neg earlier this month i dont think we need to repeat. Dragon Disclaimer Dragon Disclaimer This electronic medical record was generated, in whole or in part, using a voice recognition dictation system. Departure Departure Impression: Primary Impression: Chest pain Disposition: ADMITTED INPATIENT Admitting Physician: JOE Condition: STABLE Referrals: UNKNOWN PCP NAME (PCP) DANIEL DORANTES MD May 04, 2019 14:00
[2019-05-04 15:00] VITALS: BP 86/58
[2019-05-04] MEDS ORDERED: HYDROcodone/APAP 5/325MG 1 TAB TABLET PO PRN (15:00)
[2019-05-04] MEDS ORDERED: TEMAZEPAM 7.5 MG CAPSULE PO PRN (15:00)
[2019-05-04] MEDS ORDERED: CALCIUM CARBONATE 500 MG TAB.CHEW PO PRN (15:00)
[2019-05-04] MEDS ORDERED: MORPHINE SULFATE 2 MG/ML VIAL. IV PRN (15:00)
[2019-05-04] MEDS ORDERED: ALBUTEROL SULFATE 2.5 MG/3 ML NEBU. INH PRN (15:00)
[2019-05-04] MEDS ORDERED: ANTI-COAG MONITOR BY PHARMACY. MC PRN (15:00)
[2019-05-04] MEDS ORDERED: ACETAMINOPHEN 500 MG TABLET PO PRN (15:00)
[2019-05-04] MEDS ORDERED: ONDANSETRON PF 4 MG/2 ML VIAL. IVP PRN (15:00)
[2019-05-04 19:20] VITALS: BP 98/55
[2019-05-04] MEDS: METOPROLOL TART IMMED RELEASE 25 MG TABLET. PO SCH (20:43)
[2019-05-04] MEDS: levETIRAcetam 500 MG TABLET PO SCH (20:44)
[2019-05-04] MEDS: APIXABAN 5 MG TABLET. PO SCH (20:44)
[2019-05-04] MEDS: buPROPion SR 100 MG TABLET.SA. PO SCH (20:44)
[2019-05-04] MEDS ORDERED: ATORVASTATIN CALCIUM 40 MG TABLET. PO SCH (21:00)
[2019-05-04] MEDS ORDERED: MULTIVITAMIN with MINERAL TABLET. PO SCH (21:00)
[2019-05-04 23:10] VITALS: BP 94/54
[2019-05-05 03:12] VITALS: BP 108/46
[2019-05-05 05:23] LABS: CALCIUM 8.5 mg/dL (8.5-10.1); CREATININE 1.3 mg/dL (0.7-1.3); GFR 54.4; POTASSIUM 3.8 mmol/L (3.5-5.1)
--- NOTE | 2019-05-05 06:09 | EKG ---
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
[2019-05-05 07:00] VITALS: BP 108/67
[2019-05-05] MEDS: levETIRAcetam 500 MG TABLET PO SCH (08:08)
[2019-05-05] MEDS: APIXABAN 5 MG TABLET. PO SCH (08:08)
[2019-05-05] MEDS ORDERED: ASPIRIN CHEWABLE 81 MG TABLET. PO SCH (09:00)
[2019-05-05] MEDS ORDERED: ASCORBIC ACID 500 MG TABLET PO SCH (09:00)
[2019-05-05] MEDS ORDERED: FUROSEMIDE 20 MG TABLET PO SCH (09:00)
[2019-05-05 11:00] VITALS: BP 89/56
--- NOTE | 2019-05-05 11:44 | PDOC2 ---
CARDIAC CONSULT DATE OF CONSULT Date of Consult DATE: 05/05/19 TIME: 11:41 REASON FOR CONSULT Reason for Consult: Chest pain REFERRING PHYSICIAN Referring Physician: Dr. Elliott SOURCE Source: Chart review, Patient HISTORY OF PRESENT ILLNESS HISTORY OF PRESENT ILLNESS This is a 69 yo male who presented secondary to chest pain. Patient reports pain has been intermittent for the last month or so. Located in his left chest. Describes as stabbing in nature. Associated with shortness of breath, dizziness, and diaphoresis. No palpitations or nausea/vomiting. Gets very short of breathing with minimal activity. Pain is normally with exertion, but has been waking his up in the middle of the night occasionally. Was seen by our service earlier this month for pain. AMI was ruled out. Outpatient echo was recommended. Patient has not been able to get this yet. Reports cardiac cath many year ago. reports there was some plaque buildup, but he did not received a stent. No recent stress test. Previously saw a log pond worker through in [place], [place], but has not seen since 2014 .PCP is through [facility]. PAST MEDICAL HISTORY Cardiovascular: AFIB, CAD, HTN, Hyperlipidemia Pulmonary: COPD, Pulmonary embolus CENTRAL NERVOUS SYSTEM: CVA, Seizure GI: GERD Psych: Anxiety, Depression Musculoskeletal: Osteoarthritis Rheumatologic: Gout Endocrine: Diabetes PAST SURGICAL HISTORY Past Surgical History: No pertinent history FAMILY HISTORY Family History: High Cholestrol, Hypertension SOCIAL HISTORY Lives: with Family CURRENT MEDICATIONS CURRENT MEDICATIONS Current Medications Medications (Trade) Dose Ordered Sig/Cecile Route PRN Reason Start Time Stop Time Status Last Admin Dose Admin Acetaminophen (Tylenol) 500 mg PRN Q6HRS PRN PO MILD PAIN / TEMP 05/04/19 15:00 05/05/19 03:07 Apixaban (Eliquis) 5 mg BID PO 05/04/19 21:00 05/05/19 08:08 Ascorbic Acid (Vitamin C) 1,000 mg DAILY PO 05/05/19 09:00 05/05/19 08:08 Aspirin (Children'S Aspirin) 81 mg DAILY PO 05/05/19 09:00 05/05/19 08:09 Atorvastatin Calcium (Lipitor) 40 mg QHS PO 05/04/19 21:00 05/04/19 20:44 Levetiracetam (Keppra) 1,000 mg BID PO 05/04/19 21:00 05/05/19 08:08 Metoprolol Tartrate (Lopressor) 25 mg BID PO 05/04/19 21:00 05/04/19 20:43 Multivitamins (Thera M Plus) 1 tab QHS PO 05/04/19 21:00 05/04/19 20:43 Bupropion HCl (Wellbutrin Sr) 100 mg BID PO 05/04/19 21:00 05/04/19 20:44 ALLERGIES ALLERGIES: Coded Allergies: No Known Drug Allergies (Unverified , 11/30/18) ROS Review of System 14 point ROS conducted with pertinent positives noted above in HPI. PHYSICAL EXAM General: Alert, Oriented X3, Cooperative, No acute distress HEENT: Atraumatic, Mucous membr. moist/pink Lungs: Clear to auscultation, Normal air movement Heart: Other (2/6 systolic murmur, AFIB- rate controlled ) Abdomen: Soft Extremities: No edema, Normal pulses Skin: No breakdown, No significant lesion Neuro: Normal speech, Sensation intact Psych/Mental Status: Mental status NL, Mood NL MUSCULOSKELETAL: Osteoarthritic changes both hands VITALS/I&O VITALS/I&O: Vital Signs Date Time Temp Pulse Resp B/P (MAP) Pulse Ox O2 Delivery O2 Flow Rate FiO2 05/05/19 11:00 97.6 71 18 89/56 (67) 96 Room Air 97.6 I & O 05/04/19 05/04/19 05/05/19 15:00 23:00 07:00 Intake Total 540 ml 0 ml Balance 540 ml 0 ml LABS Lab: Laboratory Tests Test 05/04/19 12:02 05/04/19 15:50 05/04/19 19:00 05/05/19 04:40 Prothrombin Time 16.7 SEC (11.7-14.0) H Prothrombin Time INR 1.4 (0.8-1.1) H Sodium Level 142 mmol/L (136-145) 143 mmol/L (136-145) Potassium Level 3.8 mmol/L (3.5-5.1) 3.8 mmol/L (3.5-5.1) Chloride Level 104 mmol/L (98-107) 108 mmol/L (98-107) H Carbon Dioxide Level 27 mmol/L (21-32) 27 mmol/L (21-32) Anion Gap 11 (6-14) 8 (6-14) Blood Urea Nitrogen 23 mg/dL (8-26) 20 mg/dL (8-26) Creatinine 1.5 mg/dL (0.7-1.3) H 1.3 mg/dL (0.7-1.3) Estimated GFR (Cockcroft-Gault) 46.1 54.4 BUN/Creatinine Ratio 15 (6-20) Glucose Level 115 mg/dL (70-99) H 100 mg/dL (70-99) H Calcium Level 8.6 mg/dL (8.5-10.1) 8.5 mg/dL (8.5-10.1) Total Bilirubin 0.4 mg/dL (0.2-1.0) Aspartate Amino Transferase (AST) 32 U/L (15-37) Alanine Aminotransferase (ALT) 33 U/L (16-63) Alkaline Phosphatase 81 U/L (46-116) Troponin I Quantitative < 0.017 ng/mL (0.000-0.055) < 0.017 ng/mL (0.000-0.055) 0.018 ng/mL (0.000-0.055) SY-Vjx-R-Type Natriuretic Peptide 2389 pg/mL (0-124) H Total Protein 6.7 g/dL (6.4-8.2) Albumin 3.2 g/dL (3.4-5.0) L Albumin/Globulin Ratio 0.9 (1.0-1.7) L Laboratory Tests 05/04/19 12:02 05/05/19 04:40 ECHOCARDIOGRAM ECHOCARDIOGRAM <Conclusion> The left ventricle is normal size. Left ventricle systolic function is normal. The Ejection Fraction is 55-60%. There is mild concentric left ventricular hypertrophy. There is no significant aortic valvular stenosis. Doppler and Color Flow revealed mild aortic regurgitation. Doppler and Color-flow revealed mild to moderate mitral regurgitation. Doppler and Color Flow revealed mild tricuspid regurgitation. The PA pressure was estimated at 52 mmHg. DATE: 12/02/18 1834 ASSESSMENT/PLAN ASSESSMENT/PLAN 1. Chest pain, mixed features. AMI ruled out. Echo 11/2018 showed LVEF 55-60%. \ 2. CAD; details unclear. reports cath many years ago with plaque buildup, but no stents. 2. Persistent AFIB; rate controlled . On Eliquis for stroke prophylaxis. 3. Hypertension: Controlled 4. Hyperlipidemia; LDL 104 5. Diabetes, II 6. H/o CVA Recommendations Stress test pending to r/o ischemia Continue secondary prevention measures; ASA, statin therapy Metoprolol for rate control Eliquis for stroke prophylaxis Further pending [facility] MOISES RICCI APRN May 05, 2019 11:44
[2019-05-05] MEDS ORDERED: REGADENOSON 0.4 MG/5 ML DISP.SYRIN. IV ONE (12:30)
[2019-05-05] MEDS: buPROPion SR 100 MG TABLET.SA. PO SCH (13:36)
[2019-05-05] MEDS: METOPROLOL TART IMMED RELEASE 25 MG TABLET. PO SCH (13:37)
--- NOTE | 2019-05-05 14:02 | NUR ---
SS following for discharge planning. SS reviewed pt chart. Pt is from home with family and is currently on room air. PT/OT recommending home independent. SS will continue to follow for discharge planning.
--- NOTE | 2019-05-05 14:57 | RAD ---
MR#: [id number] Date of Study: 05/05/2019 Ordering Physician: KEVIN WEBSTER, Referring Physician: JORDY CANNON Tech: RT Ruby Zimmer) (N) APPROVED REPORT Test Type: Pharmacological Stress Nurse/Tech: Edelmira Carbajal RN Test Indications: Chest pain Cardiac History: Family history, Hypertension Medications: See Electronic Medical Record Medical History: See Electronic Medical Record Resting ECG: A-fib with BBB Resting Heart Rate: 71 bpm Resting Blood Pressure: 124/66mmHg Pretest Chest Pain: No chest pain Nurse/Tech Notes S1,S2 irregular and lungs clear to auscultation. Consent: The procedure was explained to the patient in lay terms. Informed consent was witnessed. Rd eout was entered into [employer]. History and Stress Test performed by RT Ruby Zimmer) (N) Pharm. Details Pharmacologic stress testing was performed using 0.4mg per 5ml of regadenoson given intravenously ove r 7-10 seconds. Stress Symptoms Dyspnea, chest pain 4/10 at beginning of test and resolved by end of study. POST EXERCISE Reason for Termination: Infusion complete Target HR: No Max HR: 104 bpm Max Blood Pressure: 121/81mmHg Blood Pressure response to exercise: Normal blood pressure response during stress. Heart Rate response to exercise: WNL Chest Pain: Yes. see note above. Arrhythmia: No. ST Change: No. INTERPRETATION Stress EKG Conclusion: The resting EKG shows atrial fibrillation with T-wave inversion in the inferio r and lateral leads. The stress EKG shows no significant changes from baseline. Abnormal resting EKG but no EKG evidence of stressed induced ischemia. Rest: Stress: Viability: Radiopharm.Tc99m ZjbqleowaWp83w Sestamibi Ybiq74nLn 33mCi Img Date 05/05/2019 05/05/2019 Inj-Img Yekw10kmk. 60min. Rest Admin Site:IV - Left AntecubitalAdministrator:RT uRby Zimmer)(N) Stress Admin Site: IV - Left AntecubitalAdministrator: BLADIMIR Mo STRESS DATA End Diast. Vol.101.0mlAv. Heart Rate74.0bpm End Syst. Vol.33.0mlCO Index BSA5.0L/min Myocardial Zccv650.0gEject. Taxtxaag26.0% Stress Rates Pk. Fill Rate4.11EDV/secLVtime Pk. Fill 231.63msec Pk. Empty Rate4.29ESV/secLVtime Pk. Gswzt956.49msec /3 Pk. Fill0.99EDV/sec Stress Scores Regional WT1.00Summed WT27.00 Regional WM0.00Summed WM1.00 LV Perfusion The stress scans show no significant defects. The rest scans showed no significant defects. Nuclear imaging shows no reversible ischemia or infarct. Wall Motion Left ventricular systolic function is normal with an ejection fraction of 67%. LV Perf. Quant 17 Seg. SSS2.00 17 Seg. SRS3.00 17 Seg. SDS0.00 Stress Defect Extent (% LAD)0.00Rest Defect Extent (% LAD)0.00Rev. Defect Extent (% LAD)0.00 Stress Defect Extent (% LCX) 21.30Rest Defect Extent (% LCX)23.80Rev. Defect Extent (% LCX)2.50 Stress Defect Extent (% RCA)0.00Rest Defect Extent (% RCA)0.00Rev. Defect Extent (% RCA)0.00 Stress Defect Extent (% SHIVAM)3.70Rest Defect Extent (% SHIVMA)4.10Rev. Defect Extent (% SHIVAM)0.40 Conclusion 1. Abnormal baseline EKG but no EKG evidence of stress-induced ischemia. 2. Nuclear imaging shows no reversible ischemia or infarct. 3. Normal left ventricular systolic function with an ejection fraction of 67%. 4. Low to moderately low risk Lexiscan nuclear stress test. Signed by : Jorge De Santiago MD Electronically Approved : 05/05/2019 14:57:36
[2019-05-05 15:00] VITALS: BP 120/70
--- NOTE | 2019-05-05 15:30 | PDOC1 ---
History and Physical Date of Admission Date of Admission 05/05/19 Identification/Chief Complaint Chief Complaint Chest pain Source Source: Chart review, Patient History of Present Illness History of Present Illness Patient is a 69-year-old gentleman with multiple comorbidities including atrial fibrillation anxiety coronary artery disease type 2 diabetes and dyslipidemia who was in his usual state of health until approximately one day prior to his admission when he started complaining off sharp left pain with no radiation to the carotids or the arm no sensation of impending doom no diaphoresis no nausea vomiting associated with the symptoms. The patient had been in his usual state of health and no recent illnesses have been reported nevertheless his and kids have been sick with cold-like symptoms. The patient denies fever no pleurisy no cough or sputum production was reported. The patient denies any recent falls no recent heavy lifting or exertion. We were asked to admit the patient for a stress test given that the patient was advised to have one done nevertheless he never got around doing 1. At the time my evaluation the patient is in no apparent distress and he denies chest discomfort. No EKG findings of concern no ischemic changes either on telemetry troponins were negative at the time of this note. Plan of care was explained detail all concerns were addressed to the best of my abilities Past Medical History Cardiovascular: AFIB, CAD, HTN, Hyperlipidemia Pulmonary: COPD, Pulmonary embolus CENTRAL NERVOUS SYSTEM: CVA, Seizure GI: GERD Psych: Anxiety, Depression Rheumatologic: Gout Endocrine: Diabetes Past Surgical History Past Surgical History: No pertinent history Family History Family History: High Cholestrol, Hypertension Social History ALCOHOL: heavy Drugs: None Current Problem List Problem List Problems Medical Problems: (1) Chest pain Status: Acute Current Medications Current Medications Current Medications Medications (Trade) Dose Ordered Sig/Cecile Start Time Stop Time Status Last Admin Dose Admin Acetaminophen (Tylenol) 500 mg PRN Q6HRS PRN 05/04/19 15:00 05/05/19 03:07 500 MG Acetaminophen/ Hydrocodone Bitart (Lortab 5/325) 1 tab PRN Q6HRS PRN 05/04/19 15:00 Albuterol Sulfate (Ventolin Neb Soln) 2.5 mg PRN BID PRN 05/04/19 15:00 Apixaban (Eliquis) 5 mg BID 05/04/19 21:00 05/05/19 08:08 5 MG Ascorbic Acid (Vitamin C) 1,000 mg DAILY 05/05/19 09:00 05/05/19 08:08 1,000 MG Aspirin (Children'S Aspirin) 81 mg DAILY 05/05/19 09:00 05/05/19 08:09 81 MG Atorvastatin Calcium (Lipitor) 40 mg QHS 05/04/19 21:00 05/04/19 20:44 40 MG Bupropion HCl (Wellbutrin Sr) 100 mg BID 05/04/19 21:00 05/05/19 13:36 100 MG Calcium Carbonate/ Glycine (Tums) 500 mg PRN AFTMEALHC PRN 05/04/19 15:00 Furosemide (Lasix) 20 mg DAILY 05/05/19 09:00 05/05/19 13:39 20 MG Info (Anti-Coagulation Monitoring By Pharmacy) 1 each PRN DAILY PRN 05/04/19 15:00 Levetiracetam (Keppra) 1,000 mg BID 05/04/19 21:00 05/05/19 08:08 1,000 MG Metoprolol Tartrate (Lopressor) 25 mg BID 05/04/19 21:00 05/05/19 13:37 25 MG Morphine Sulfate (Morphine Sulfate) 2 mg PRN Q2HR PRN 05/04/19 15:00 Multivitamins (Thera M Plus) 1 tab QHS 05/04/19 21:00 05/04/19 20:43 1 TAB Nitroglycerin (Nitrostat) 0.4 mg PRN QID PRN 05/04/19 15:00 Ondansetron HCl (Zofran) 4 mg PRN Q6HRS PRN 05/04/19 15:00 Regadenoson (Lexiscan) 0.4 mg 1X ONCE 05/05/19 12:30 05/05/19 12:31 DC 05/05/19 13:16 0.4 MG Temazepam (Restoril) 7.5 mg PRN QHS PRN 05/04/19 15:00 Allergies Allergies Allergies Coded Allergies Type Severity Reaction Last Updated Verified No Known Drug Allergies 11/30/18 No ROS Review of System CONSTITUTIONAL: No fever or chills EYES: No recent changes SKIN: No rash or itching CARDIOVASCULAR: No chest pain, syncope, palpitations, or edema RESPIRATORY: No SOB or cough GASTROINTESTINAL: No nausea, vomiting or abdominal pain NEUROLOGICAL: No headaches or weakness ENDOCRINE: No cold or heat intolerance GENITOURINARY: No urgency or frequency of urination MUSCULOSKELETAL: No back pain or joint pain LYMPHATICS: No enlarged lymph nodes PSYCHIATRIC: No anxiety or depression Physical Exam Physical Exam GEN.: No apparent distress. Alert and oriented. HEENT: Head is normocephalic, atraumatic NECK: Supple. LUNGS: Clear to auscultation. HEART: RRR, S1, S2 present. Irregular Peripheral pulses intact ABDOMEN: Soft, nontender. Positive bowel sounds. EXTREMITIES: Without any cyanosis. NEUROLOGIC: Normal speech, normal tone PSYCHIATRIC: Normal affect, normal mood. SKIN: No ulcerations Vitals Vitals Vital Signs Date Time Temp Pulse Resp B/P (MAP) Pulse Ox O2 Delivery O2 Flow Rate FiO2 05/05/19 13:37 80 116/66 05/05/19 11:00 97.6 18 96 Room Air 97.6 Labs Labs Laboratory Tests Test 05/04/19 11:25 05/04/19 12:02 05/04/19 15:50 05/04/19 19:00 White Blood Count 5.9 x10^3/uL (4.0-11.0) Red Blood Count 5.29 x10^6/uL (4.30-5.70) Hemoglobin 13.0 g/dL (13.0-17.5) Hematocrit 41.1 % (39.0-53.0) Mean Corpuscular Volume 78 fL (79-100) Mean Corpuscular Hemoglobin 25 pg (25-35) Mean Corpuscular Hemoglobin Concent 32 g/dL (31-37) Red Cell Distribution Width 16.7 % (11.5-14.5) Platelet Count 199 x10^3/uL (140-400) Neutrophils (%) (Auto) 53 % (31-73) Lymphocytes (%) (Auto) 35 % (24-48) Monocytes (%) (Auto) 10 % (0-9) Eosinophils (%) (Auto) 1 % (0-3) Basophils (%) (Auto) 1 % (0-3) Neutrophils # (Auto) 3.1 x10^3/uL (1.8-7.7) Lymphocytes # (Auto) 2.1 x10^3/uL (1.0-4.8) Monocytes # (Auto) 0.6 x10^3/uL (0.0-1.1) Eosinophils # (Auto) 0.1 x10^3/uL (0.0-0.7) Basophils # (Auto) 0.1 x10^3/uL (0.0-0.2) Prothrombin Time 16.7 SEC (11.7-14.0) Prothromb Time International Ratio 1.4 (0.8-1.1) Sodium Level 142 mmol/L (136-145) Potassium Level 3.8 mmol/L (3.5-5.1) Chloride Level 104 mmol/L (98-107) Carbon Dioxide Level 27 mmol/L (21-32) Anion Gap 11 (6-14) Blood Urea Nitrogen 23 mg/dL (8-26) Creatinine 1.5 mg/dL (0.7-1.3) Estimated GFR (Cockcroft-Gault) 46.1 BUN/Creatinine Ratio 15 (6-20) Glucose Level 115 mg/dL (70-99) Calcium Level 8.6 mg/dL (8.5-10.1) Total Bilirubin 0.4 mg/dL (0.2-1.0) Aspartate Amino Transf (AST/SGOT) 32 U/L (15-37) Alanine Aminotransferase (ALT/SGPT) 33 U/L (16-63) Alkaline Phosphatase 81 U/L (46-116) Troponin I Quantitative < 0.017 ng/mL (0.000-0.055) < 0.017 ng/mL (0.000-0.055) 0.018 ng/mL (0.000-0.055) KT-Jmz-G-Type Natriuretic Peptide 2389 pg/mL (0-124) Total Protein 6.7 g/dL (6.4-8.2) Albumin 3.2 g/dL (3.4-5.0) Albumin/Globulin Ratio 0.9 (1.0-1.7) Test 05/05/19 04:40 Sodium Level 143 mmol/L (136-145) Potassium Level 3.8 mmol/L (3.5-5.1) Chloride Level 108 mmol/L (98-107) Carbon Dioxide Level 27 mmol/L (21-32) Anion Gap 8 (6-14) Blood Urea Nitrogen 20 mg/dL (8-26) Creatinine 1.3 mg/dL (0.7-1.3) Estimated GFR (Cockcroft-Gault) 54.4 Glucose Level 100 mg/dL (70-99) Calcium Level 8.5 mg/dL (8.5-10.1) Laboratory Tests Test 05/04/19 15:50 05/04/19 19:00 05/05/19 04:40 Troponin I Quantitative < 0.017 ng/mL (0.000-0.055) 0.018 ng/mL (0.000-0.055) Sodium Level 143 mmol/L (136-145) Potassium Level 3.8 mmol/L (3.5-5.1) Chloride Level 108 mmol/L (98-107) Carbon Dioxide Level 27 mmol/L (21-32) Anion Gap 8 (6-14) Blood Urea Nitrogen 20 mg/dL (8-26) Creatinine 1.3 mg/dL (0.7-1.3) Estimated GFR (Cockcroft-Gault) 54.4 Glucose Level 100 mg/dL (70-99) Calcium Level 8.5 mg/dL (8.5-10.1) VTE Prophylaxis Ordered VTE Prophylaxis Devices: Yes VTE Pharmacological Prophylaxi: Yes Assessment/Plan Assessment/Plan A typical chest pain History of atrial fibrillation History of coronary artery disease Essential hypertension Diabetes mellitus type 2 [id number]-[id number] History of dyslipidemia Seizure disorder Plan: Trend troponins Stress test has been ordered Cardiology evaluation greatly appreciated Her the recommendations based on the clinical course If his cardiac testing is negative patient will be dismissed later in the day KEVIN WEBSTER MD May 05, 2019 15:29
--- NOTE | 2019-05-05 15:32 | PDOC3 ---
Discharge Summary Visit Information Date of Admission: May 05, 2019 Date of Discharge: May 05, 2019 Admitting Diagnosis: chest pain Final Diagnosis Problems Medical Problems: (1) Chest pain noncardiac in nature Status: Acute Brief Hospital Course Allergies Allergies Coded Allergies Type Severity Reaction Last Updated Verified No Known Drug Allergies 11/30/18 No Vital Signs Vital Signs Date Time Temp Pulse Resp B/P (MAP) Pulse Ox O2 Delivery O2 Flow Rate FiO2 05/05/19 13:37 80 116/66 05/05/19 11:00 97.6 18 96 Room Air 97.6 Lab Results Laboratory Tests Test 05/04/19 11:25 05/04/19 12:02 05/04/19 15:50 05/04/19 19:00 White Blood Count 5.9 x10^3/uL (4.0-11.0) Red Blood Count 5.29 x10^6/uL (4.30-5.70) Hemoglobin 13.0 g/dL (13.0-17.5) Hematocrit 41.1 % (39.0-53.0) Mean Corpuscular Volume 78 fL (79-100) Mean Corpuscular Hemoglobin 25 pg (25-35) Mean Corpuscular Hemoglobin Concent 32 g/dL (31-37) Red Cell Distribution Width 16.7 % (11.5-14.5) Platelet Count 199 x10^3/uL (140-400) Neutrophils (%) (Auto) 53 % (31-73) Lymphocytes (%) (Auto) 35 % (24-48) Monocytes (%) (Auto) 10 % (0-9) Eosinophils (%) (Auto) 1 % (0-3) Basophils (%) (Auto) 1 % (0-3) Neutrophils # (Auto) 3.1 x10^3/uL (1.8-7.7) Lymphocytes # (Auto) 2.1 x10^3/uL (1.0-4.8) Monocytes # (Auto) 0.6 x10^3/uL (0.0-1.1) Eosinophils # (Auto) 0.1 x10^3/uL (0.0-0.7) Basophils # (Auto) 0.1 x10^3/uL (0.0-0.2) Prothrombin Time 16.7 SEC (11.7-14.0) Prothromb Time International Ratio 1.4 (0.8-1.1) Sodium Level 142 mmol/L (136-145) Potassium Level 3.8 mmol/L (3.5-5.1) Chloride Level 104 mmol/L (98-107) Carbon Dioxide Level 27 mmol/L (21-32) Anion Gap 11 (6-14) Blood Urea Nitrogen 23 mg/dL (8-26) Creatinine 1.5 mg/dL (0.7-1.3) Estimated GFR (Cockcroft-Gault) 46.1 BUN/Creatinine Ratio 15 (6-20) Glucose Level 115 mg/dL (70-99) Calcium Level 8.6 mg/dL (8.5-10.1) Total Bilirubin 0.4 mg/dL (0.2-1.0) Aspartate Amino Transf (AST/SGOT) 32 U/L (15-37) Alanine Aminotransferase (ALT/SGPT) 33 U/L (16-63) Alkaline Phosphatase 81 U/L (46-116) Troponin I Quantitative < 0.017 ng/mL (0.000-0.055) < 0.017 ng/mL (0.000-0.055) 0.018 ng/mL (0.000-0.055) CQ-Vkf-L-Type Natriuretic Peptide 2389 pg/mL (0-124) Total Protein 6.7 g/dL (6.4-8.2) Albumin 3.2 g/dL (3.4-5.0) Albumin/Globulin Ratio 0.9 (1.0-1.7) Test 05/05/19 04:40 Sodium Level 143 mmol/L (136-145) Potassium Level 3.8 mmol/L (3.5-5.1) Chloride Level 108 mmol/L (98-107) Carbon Dioxide Level 27 mmol/L (21-32) Anion Gap 8 (6-14) Blood Urea Nitrogen 20 mg/dL (8-26) Creatinine 1.3 mg/dL (0.7-1.3) Estimated GFR (Cockcroft-Gault) 54.4 Glucose Level 100 mg/dL (70-99) Calcium Level 8.5 mg/dL (8.5-10.1) Laboratory Tests Test 05/04/19 15:50 05/04/19 19:00 05/05/19 04:40 Troponin I Quantitative < 0.017 ng/mL (0.000-0.055) 0.018 ng/mL (0.000-0.055) Sodium Level 143 mmol/L (136-145) Potassium Level 3.8 mmol/L (3.5-5.1) Chloride Level 108 mmol/L (98-107) Carbon Dioxide Level 27 mmol/L (21-32) Anion Gap 8 (6-14) Blood Urea Nitrogen 20 mg/dL (8-26) Creatinine 1.3 mg/dL (0.7-1.3) Estimated GFR (Cockcroft-Gault) 54.4 Glucose Level 100 mg/dL (70-99) Calcium Level 8.5 mg/dL (8.5-10.1) Brief Hospital Course Mr. Walker is a 69 old male who presented with multiple comorbidities and risk factors for CAD who already has a diagnosis of coronary disease was admitted to the hospital for cardiac rule out. The patient had 3 sets of cardiac enzymes negative and underwent a stress test with negative findings as well. He was deemed appropriate for dismissal with instructions to follow-up with his primary care physician who can continue working out the etiology of his discomfort which seems to be that it's more musculoskeletal due to some dry cough that he has experience lately. Patient is in good spirits to be dismissed home signs and symptoms of alarm discussed prior to dismissal all concerns address to the best of my abilities Physical examination unchanged from this morning Discharge Information Condition at Discharge: Improved Follow Up: Weeks Disposition/Orders: D/C to Home Scheduled Apixaban (Eliquis) 5 Mg Tablet, 5 MG PO BID for blood thinner for 30 Days, #60 Prescribed by: SINA KILLIAN MD on 12/03/18 1125 Last Taken: Unknown Dose on 05/04/19 Last Action: Continued on 05/04/19 1456 by SUSIE GONZALEZ Ascorbic Acid (Vitamin C) 500 Mg Tablet, 1,000 MG PO DAILY for mvi, #30 Prescribed by: SUSIE GONZALEZ on 03/31/19 1147 Last Taken: Unknown Dose on 05/04/19 Last Action: Continued on 05/04/19 1456 by SUSIE GONZALEZ Aspirin (Aspirin) 81 Mg Tab.chew, 1 TAB PO DAILY, #30 Ref 3 (Reported) Entered as Reported by: LINDA YEAGER on 11/30/18 1526 Last Taken: Unknown Dose on 05/04/19 Last Action: Continued on 05/04/19 1456 by SUSIE GONZALEZ Atorvastatin Calcium (Atorvastatin Calcium) 40 Mg Tablet, 1 TAB PO DAILY for HLD for 30 Days, #30 Ref 1 Prescribed by: SINA KILLIAN MD on 12/03/18 112 Last Taken: Unknown Dose on 05/04/19 Last Action: Continued on 05/04/19 1456 by SUSIE GONZALEZ Bupropion Hcl (Wellbutrin Sr) 200 Mg Tablet.er, 100 MG PO BID for depression for 30 Days, #30 Prescribed by: SINA KILLIAN MD on 12/03/181124 Last Taken: Unknown Dose on 05/04/19 Last Action: Converted on 05/04/19 1456 by SUSIE GONZALEZ Colchicine (Colcrys) 0.6 Mg Tablet, 0.6 MG PO DAILY for gout, #60 Prescribed by: SUSIE GONZALEZ on 03/31/19 1147 Last Taken: Unknown Dose on 05/04/19 Last Action: HELD on 05/04/19 1456 by SUSIE GONZALEZ Furosemide (Lasix) 40 Mg Tablet, 20 MG PO DAILY for diuretic for 30 Days, #15 Ref 1 Prescribed by: SINA KILLIAN MD on 12/03/181124 Last Taken: Unknown Dose on 05/04/19 Last Action: Continued on 05/04/19 1456 by SUSIE GONZALEZ Levetiracetam (Keppra) 500 Mg Tablet, 2 TAB PO BID for history of seizures for 30 Days, #120 Ref 3 Prescribed by: SINA KILLIAN MD on 12/03/18 112 Last Taken: Unknown Dose on 05/04/19 Last Action: Continued on 05/04/19 1456 by SUSIE GONZALEZ Metoprolol Tartrate (Metoprolol Tartrate) 25 Mg Tablet, 1 TAB PO BID for heart health & blood pressure, #180 Ref 1 (Reported) Entered as Reported by: DARYL GONZALEZ RN on 04/18/192039 Last Taken: Unknown Dose on 05/04/19 Last Action: Continued on 05/04/19 1 456 by SUSIE GONZALEZ Multivits,Ca,Minerals/Iron/Fa (Thera-M Tablet) 1 Each Tablet, 1 TAB PO QHS for supplement for 30 Days, #30 Prescribed by: CAROLE RIOS MD on 04/19/19 1516 Last Taken: Unknown Dose on 05/03/19 Last Action: Continued on 05/04/19 1456 by SUSIE GONZALEZ Nitroglycerin (NITROGLYCERIN SubLingual) 0.4 Mg Tab.subl, 1 TAB SL UD, #25 Ref 3 (Reported) Entered as Reported by: LINDA YEAGER on 11/30/18 1527 Last Taken: Unknown Dose on Unknown Date & Time Last Action: Continued on 05/04/19 145 by SUSIE GONZALEZ Scheduled PRN Acetaminophen (Acetaminophen) 500 Mg Tablet, 500 MG PO PRN Q6HRS PRN for MILD PAIN / TEMP for 14 Days, #30 Prescribed by: CAROLE RIOS MD on 04/19/19 1516 Last Taken: Unknown Dose on Unknown Date & Time Last Action: Continued on 05/04/191455 by SUSIE GONZALEZ Albuterol Sulfate (Proair Hfa Inhaler) 8.5 Gm Hfa.aer.ad, 2 PUFF INH PRN BID PRN for SHORTNESS OF BREATH for 30 Days, #1 Ref 1 Prescribed by: SINA KILLIAN MD on 12/03/18 1125 Last Taken: Unknown Dose on 05/04/19 Last Action: Continued on 05/04/19 1456 by SUSIE GONZALEZ Hydrocodone/Apap 5-325 ([place] 5-325 Tablet) 1 Each Tablet, 1 TAB PO PRN Q6HRS PRN for PAIN, #30 Ref 0 Prescribed by: SUSIE GONZALEZ on 03/31/19 1147 Last Taken: Unknown Dose on Unknown Date & Time Last Action: Continued on 05/04/191455 by KEVIN CINTRON MD May 05, 2019 15:32
--- NOTE | 2019-05-05 16:51 | NUR ---
Discharge Note: BRITNI EASON [address] Discharge instructions and discharge home medications reviewed with Patient and a copy given. All questions have been answered and understanding verbalized. The following instructions and handouts were given: chest pain Patient discharged to home with spouse via wheelchair.
--- NOTE | 2019-05-05 17:48 | NUR ---
Patient off unit per wheelchair into a private vehicle.
== END 2019-05-05 15:30 | disposition home or self-care (01) ==
LOC: ER 11:10 → 2 SOUTH 13:10
PROVIDERS: ADMIT Internal Medicine; ATTEND Internal Medicine
DX: R07.89 Other chest pain (principal); I48.91 Unspecified atrial fibrillation; I25.10 Atherosclerotic heart disease of native coronary artery without angina pectoris; I10 Essential (primary) hypertension; E11.9 Type 2 diabetes mellitus without complications; E78.5 Hyperlipidemia, unspecified; R56.9 Unspecified convulsions; F41.9 Anxiety disorder, unspecified; F32.9 Major depressive disorder, single episode, unspecified; Z86.711 Personal history of pulmonary embolism; Z95.1 Presence of aortocoronary bypass graft
CPT/HCPCS: 36415; 71045; 78452; 80048; 80053; 83880; 84484; 85025; 85610; 93005; 93017; 99284; A9500; G0378; J2785; G0379

== ENCOUNTER 2019-07-29 07:27 | Inpatient (IN) | payer BC ==
[2019-07-29] VITALS (13 sets, daily range): BP systolic 105–147; BP diastolic 62–94
[~2019-07-29] VITALS: Ht 170.2 cm; Wt 95.1 kg
[2019-07-29] MEDS ORDERED: ASPIRIN CHEWABLE 81 MG TABLET. PO ONE (08:00)
[2019-07-29] MEDS ORDERED: KETOROLAC 30 MG/ML VIAL. IV ONE (08:00)
[2019-07-29 08:11] LABS: BASO # 0.1 x10^3/uL (0.0-0.2); BASO % 1 % (0-3); EOS # 0.2 x10^3/uL (0.0-0.7); EOS % 2 % (0-3); HEMATOCRIT 43.3 % (39.0-53.0); HEMOGLOBIN 13.7 g/dL (13.0-17.5); LYMPH # 1.6 x10^3/uL (1.0-4.8); LYMPH % 21 % (24-48); MEAN CORPUSCULAR HEMOGLOBIN 24 pg (25-35); MEAN CORPUSCULAR HGB CONC 32 g/dL (31-37); MEAN CORPUSCULAR VOLUME 76 fL (79-100); MONO % 13 % (0-9); NEUT # 4.9 x10^3/uL (1.8-7.7); NEUT % 64 % (31-73); PLATELET COUNT 266 x10^3/uL (140-400); RED BLOOD COUNT 5.66 x10^6/uL (4.30-5.70); RED CELL DISTRIBUTION WIDTH 14.9 % (11.5-14.5); WHITE BLOOD COUNT 7.8 x10^3/uL (4.0-11.0)
[2019-07-29 08:20] LABS: CALCIUM 8.4 mg/dL (8.5-10.1); CREATININE 1.2 mg/dL (0.7-1.3); GFR 59.7
[2019-07-29 08:26] LABS: ALBUMIN 3.5 g/dL (3.4-5.0); ALBUMIN/GLOBULIN RATIO 0.8 (1.0-1.7); TOTAL BILIRUBIN 0.5 mg/dL (0.2-1.0); TOTAL PROTEIN 7.8 g/dL (6.4-8.2)
--- NOTE | 2019-07-29 09:03 | RAD ---
CHEST AP ONLY Clinical History: Dyspnea Technique: AP view of the chest was obtained at 07/29/2019 8:47 AM. Comparison: May 04, 2019. Findings: The cardiomediastinal silhouette is normal. The pulmonary vasculature is normal. A few linear opacities in the lung bases are likely discoid atelectasis or scar. Impression: Stable appearance of the chest. Electronically signed by: Milton Duong III, MD (07/29/2019 9:00 AM) [id number]
--- NOTE | 2019-07-29 10:12 | EKG ---
[facility] [address] [place] [address] Test Date: 2019-07-29 Test Time: 08:18:06 Pat Name: BRITNI EASON Department: Room: Gender: M Complaint Analyst: : 1950 Requested By: CHARITY OSORIO Order Number: [id number] Reading MD: Jorge De Santiago Measurements Intervals [place] Rate: 79 P: DE: QRS: 9 QRSD: 92 T: -144 QT: 428 QTc: 492 Interpretive Statements ATRIAL FIBRILLATION. ST & T ABNORMALITY, CONSIDER ANTERIOR ISCHEMIA OR LEFT VENTRICULAR STRAIN LATERAL ISCHEMIA OR LEFT VENTRICULAR STRAIN Electronically Signed On 07-29-2019 11:26:07 CDT by Jorge De Santiago
--- NOTE | 2019-07-29 10:14 | PHYS DOC ---
Past Medical History Past Medical History: A-Fib, Angina, Anxiety, CAD, Depression, Diabetes-Type II, GERD, High Cholesterol, Hypertension, Seizure Additional Past Medical Histor: BACK&NECK PAIN, PE Additional Past Surgical Histo: CARDIAC STENTS Smoking Status: Never Smoker Alcohol Use: Sober Drug Use: None General Adult EDM: Chief Complaint: SHORTNESS OF BREATH HPI: HPI: Patient is a 69-year-old male with multiple medical problems who presents with a variety of complaints today. First he has had some off-and-on chest pain over the last 2 days currently he is not having any chest pain but he is having some left elbow pain. He also describes shortness of breath and dyspnea on exertion which really started yesterday. He denies any fever chills or sweats. He is not had a cough or congestion. He states nothing that he does takes care of the pain in his chest or elbow. He does state that moving his elbow around seems to make the pain worse. [] Review of Systems: Review of Systems: Constitutional: Denies fever or chills. [] Eyes: Denies change in visual acuity. [] HENT: Denies nasal congestion or sore throat. [] Respiratory: Denies cough or shortness of breath. [] Cardiovascular: Per HPI] GI: Denies abdominal pain, nausea, vomiting, bloody stools or diarrhea. [] : Denies dysuria. [] Musculoskeletal: Reports pain left elbow Integument: Denies rash. [] Neurologic: Denies headache, focal weakness or sensory changes. [] Endocrine: Denies polyuria or polydipsia. [] Lymphatic: Denies swollen glands. [] Psychiatric: Denies depression or anxiety. [] Heart Score: HEART Score for Chest Pain: HEART Score for Chest Pain Response (Comments) Value History Highly Suspicious [address] Depression 2 Age > 65 2 Risk Factors >3 Risk Factors or Hx CAD 2 Troponin >1-<3x Normal Limit 1 Total 9 Risk Factors: Risk Factors: DM, Current or recent (<one month) smoker, HTN, HLP, family history of CAD, obesity. Risk Scores: Score 0 - 3: 2.5% MACE over next 6 weeks - Discharge Home Score 4 - 6: 20.3% MACE over next 6 weeks - Admit for Clinical Observation Score 7 - 10: 72.7% MACE over next 6 weeks - Early Invasive Strategies Current Medications: Current Medications Medications (Trade) Dose Ordered Sig/Cecile Start Time Stop Time Status Last Admin Dose Admin Aspirin (Aspirin Chewable) 324 mg 1X ONCE 07/29/19 08:00 07/29/19 08:01 DC 07/29/19 08:29 324 MG Ketorolac Tromethamine (Toradol 30mg Vial) 30 mg 1X ONCE 07/29/19 08:00 07/29/19 08:01 DC 07/29/19 08:30 30 MG Allergies: Allergies: Allergies Coded Allergies Type Severity Reaction Last Updated Verified No Known Drug Allergies 11/30/18 No Physical Exam: PE: Constitutional: Well developed, well nourished, mild distress, non-toxic appearance. [] HENT: Normocephalic, atraumatic, bilateral external ears normal, oropharynx moist, no oral exudates, nose normal. [] Eyes: PERRLA, EOMI, conjunctiva normal, no discharge. [] Neck: Normal range of motion, no tenderness, supple, no stridor. [] Cardiovascular:Heart rate regular rhythm, no murmur [] Lungs & Thorax: Bilateral breath sounds clear to auscultation [] Abdomen: Bowel sounds normal, soft, no tenderness, no masses, no pulsatile masses. [] Skin: Warm, dry, no erythema, no rash. [] Back: No tenderness, no CVA tenderness. [] Extremities: Left elbow is tenderness over the lateral epicondyle and pain is i ntensified with pronation and supination. [] Neurologic: Alert and oriented X 3, normal motor function, normal sensory function, no focal deficits noted. [] Psychologic: Anxious. [] Current Patient Data: Labs: Laboratory Tests Test 07/29/19 08:00 White Blood Count 7.8 x10^3/uL (4.0-11.0) Red Blood Count 5.66 x10^6/uL (4.30-5.70) Hemoglobin 13.7 g/dL (13.0-17.5) Hematocrit 43.3 % (39.0-53.0) Mean Corpuscular Volume 76 fL (79-100) L Mean Corpuscular Hemoglobin 24 pg (25-35) L Mean Corpuscular Hemoglobin Concent 32 g/dL (31-37) Red Cell Distribution Width 14.9 % (11.5-14.5) H Platelet Count 266 x10^3/uL (140-400) Neutrophils (%) (Auto) 64 % (31-73) Lymphocytes (%) (Auto) 21 % (24-48) L Monocytes (%) (Auto) 13 % (0-9) H Eosinophils (%) (Auto) 2 % (0-3) Basophils (%) (Auto) 1 % (0-3) Neutrophils # (Auto) 4.9 x10^3/uL (1.8-7.7) Lymphocytes # (Auto) 1.6 x10^3/uL (1.0-4.8) Monocytes # (Auto) 1.0 x10^3/uL (0.0-1.1) Eosinophils # (Auto) 0.2 x10^3/uL (0.0-0.7) Basophils # (Auto) 0.1 x10^3/uL (0.0-0.2) Sodium Level 138 mmol/L (136-145) Potassium Level 4.0 mmol/L (3.5-5.1) Chloride Level 101 mmol/L (98-107) Carbon Dioxide Level 28 mmol/L (21-32) Anion Gap 9 (6-14) Blood Urea Nitrogen 13 mg/dL (8-26) Creatinine 1.2 mg/dL (0.7-1.3) Estimated GFR (Cockcroft-Gault) 59.7 BUN/Creatinine Ratio 11 (6-20) Glucose Level 111 mg/dL (70-99) H Calcium Level 8.4 mg/dL (8.5-10.1) L Total Bilirubin 0.5 mg/dL (0.2-1.0) Aspartate Amino Transferase (AST) 28 U/L (15-37) Alanine Aminotransferase (ALT) 37 U/L (16-63) Alkaline Phosphatase 74 U/L (46-116) Troponin I Quantitative 0.038 ng/mL (0.000-0.055) WL-Gts-T-Type Natriuretic Peptide 769 pg/mL (0-124) H Total Protein 7.8 g/dL (6.4-8.2) Albumin 3.5 g/dL (3.4-5.0) Albumin/Globulin Ratio 0.8 (1.0-1.7) L Thyroid Stimulating Hormone (TSH) 2.812 uIU/mL (0.358-3.74) Laboratory Tests 07/29/19 08:00 Laboratory Tests 07/29/19 08:00 Vital Signs: Vital Signs Date Time Temp Pulse Resp B/P (MAP) Pulse Ox O2 Delivery O2 Flow Rate FiO2 07/29/19 07:52 98.1 79 12 127/71 (89) 96 Room Air 98.1 EKG: EKG: EKG: Normal sinus rhythm with significant T wave abnormality anterior laterally this is unchanged from previous EKG [] Radiology/Procedures: Radiology/Procedures: []PROCEDURE: CHEST AP ONLY CHEST AP ONLY Clinical History: Dyspnea Technique: AP view of the chest was obtained at 07/29/2019 8:47 AM. Comparison: May 04, 2019. Findings: The cardiomediastinal silhouette is normal. The pulmonary vasculature is normal. A few linear opacities in the lung bases are likely discoid atelectasis or scar. Impression: Stable appearance of the chest. Course & Med Decision Making: Course & Med Decision Making Pertinent Labs and Imaging studies reviewed. (See chart for details) [ED course: Evaluation reveals a 69-year-old male with progressive shortness of breath over the last several days. His BNP was elevated at 6000. He was given Lasix IV during his stay in the emergency department and did begin to diurese. We will go ahead and admit the patient for further evaluation.] Dragon Disclaimer: Dragon Disclaimer: This electronic medical record was generated, in whole or in part, using a voice recognition dictation system. Departure Departure Impression: Primary Impression: Shortness of breath Additional Impression: Chest pain Qualified Codes: R07.9 - Chest pain, unspecified Disposition: ADMITTED INPATIENT Admitting Physician: JOE Condition: STABLE Referrals: UNKNOWN PCP NAME (PCP) CHARITY OSORIO DO Jul 29, 2019 10:14
[2019-07-29] MEDS ORDERED: NITROGLYCERIN SUBLINGUAL 0.4 MG BOTTLE OF 25. SL PRN ×2 (10:15→15:30)
[2019-07-29] MEDS ORDERED: ONDANSETRON PF 4 MG/2 ML VIAL. IV PRN ×2 (10:15→12:30)
[2019-07-29] MEDS ORDERED: ACETAMINOPHEN 325 MG TABLET. PO PRN ×2 (10:15→12:30)
--- NOTE | 2019-07-29 10:35 | PDOC1 ---
History and Physical Date of Admission Date of Admission DATE: 07/29/19 TIME: 10:32 Identification/Chief Complaint Chief Complaint Chest pain Source Source: Chart review, Patient History of Present Illness History of Present Illness Mr Walker is a 69yo M w/ PMHx A-Fib, Angina, Anxiety, CAD s/p stenting, Depression, Diabetes-Type II, GERD, High Cholesterol, Hypertension, Seizures, chronic neck and back pain presents to ED with multiple complaints 07/29/19. C/o chest pain intermittently over the last 2 days currently he is not having any chest pain but he is having some left elbow pain and he notes this was his primary reason for coming to the hospital in addition to shortness of breath and dyspnea on exertion for 1 day. He denies any fever chills or sweats. He has not had a cough or congestion. He states nothing that he does takes care of the pain in his chest or elbow. He does state that moving his elbow around seems to make the pain worse. Given toradol with improvement in the ED. Troponin 0.038, BNP 769, WBC 7.8, Hb 13.7, MCV 76, BUN 13, Cr 1.2 CXR clear with previous scarring noted basilar. EKG: Normal sinus rhythm with significant T wave abnormality anterior laterally this is unchanged from previous EKG On further ROS noted with pruritis every morning when he awakens and small red larvae insect found resembling a bedbug or tick mite. He has had no outdoor travel but is concerned his daughter may have bedbugs in her home. he recently moved from [place] to [place] to be closer to family. Admitted for further care and investigation. Past Medical History Cardiovascular: AFIB, CAD, HTN, Hyperlipidemia Pulmonary: COPD, Pulmonary embolus CENTRAL NERVOUS SYSTEM: CVA, Seizure GI: GERD Psych: Anxiety, Depression Musculoskeletal: Osteoarthritis Rheumatologic: Gout Endocrine: Diabetes Past Surgical History Past Surgical History: No pertinent history Family History Family History: High Cholestrol, Hypertension Social History Smoke: Quit (2008) ALCOHOL: heavy Drugs: None Current Problem List Problem List Problems Medical Problems: (1) Chest pain Status: Acute (2) Shortness of breath Status: Acute Current Medications Current Medications Current Medications Aspirin (Aspirin Chewable) 324 mg 1X ONCE PO Last administered on 07/29/19at 08:29; Start 07/29/19 at 08:00; Stop 07/29/19 at 08:01; Status DC Ketorolac Tromethamine (Toradol 30mg Vial) 30 mg 1X ONCE IV Last administered on 07/29/19at 08:30; Start 07/29/19 at 08:00; Stop 07/29/19 at 08:01; Status DC Ondansetron HCl (Zofran) 4 mg PRN Q8HRS PRN IV NAUSEA/VOMITING; Start 07/29/19 at 10:15; Stop 07/30/19 at 10:14 Acetaminophen (Tylenol) 650 mg PRN Q4HRS PRN PO FEVER; Start 07/29/19 at 10:15; Stop 07/30/19 at 10:14 Nitroglycerin (Nitrostat) 0.4 mg PRN Q5MIN PRN SL CHEST PAIN; Start 07/29/19 at 10:15; Stop 07/30/19 at 10:14 Active Scripts Active Thera-M Tablet (Multivits,Ca,Minerals/Iron/Fa) 1 Each Tablet 1 Tab PO QHS 30 Days Acetaminophen 500 Mg Tablet 500 Mg PO PRN Q6HRS PRN 14 Days Colcrys (Colchicine) 0.6 Mg Tablet 0.6 Mg PO DAILY Vitamin C (Ascorbic Acid) 500 Mg Tablet 1,000 Mg PO DAILY [place] 5-325 Tablet (Acetaminophen/Hydrocodone Bitart) 1 Each Tablet 1 Tab PO PRN Q6HRS PRN Keppra (Levetiracetam) 500 Mg Tablet 2 Tab PO BID 30 Days Wellbutrin Sr (Bupropion Hcl) 200 Mg Tablet.er 100 Mg PO BID 30 Days Atorvastatin Calcium 40 Mg Tablet 1 Tab PO DAILY 30 Days Proair Hfa Inhaler (Albuterol Sulfate) 8.5 Gm Hfa.aer.ad 2 Puff INH PRN BID PRN 30 Days Eliquis (Apixaban) 5 Mg Tablet 5 Mg PO BID 30 Days Lasix (Furosemide) 40 Mg Tablet 20 Mg PO DAILY 30 Days Reported Metoprolol Tartrate 25 Mg Tablet 1 Tab PO BID NITROGLYCERIN SubLingual (Nitroglycerin) 0.4 Mg Tab.subl 1 Tab SL UD Aspirin 81 Mg Tab.chew 1 Tab PO DAILY Allergies Allergies: Coded Allergies: No Known Drug Allergies (Unverified , 11/30/18) ROS General: YES: Fatigue, Malaise; No: Chills, Night Sweats, Appetite, Other PSYCHOLOGICAL ROS: YES: Anxiety, Depression; No: Behavioral Disorder, Concentration difficultie, Decreased libido, Disorientation, Hallucinations, Hostility, Irritablity, Memory difficulties, Mood Swings, Obsessive thoughts, Physical abuse, Sexual abuse, Sleep disturbances, Suicidal ideation, Other Eyes: No Blurry vision, No Decreased vision, No Double vision, No Dry eyes, No Excessive tearing, No Eye Pain, No Itchy Eyes, No Loss of vision, No Photophobia, No Scotomata, No Uses contacts, No Uses glasses, No Other HEENT: No: Heacaches, Visual Changes, Hearing change, Nasal congestion, Nasal discharge, Oral lesions, Sinus pain, Sore Throat, Epistaxis, Sneezing, Snoring, Tinnitus, Vertigo, Vocal changes, Other ALLERGY AND IMMUNOLOGY: YES: Insect Bite Sensitivity; No: Hives, Itchy/Watery Eyes, Nasal Congestion, Post Nasal Drip, Seasonal Allergies, Other Hematological and Lymphatic: No: Bleeding Problems, Blood Clots, Blood Transfusions, Brusing, Night Sweats, Pallor, Swollen Lymph Nodes, Other ENDOCRINE: No: Breast Changes, Galactorrhea, Hair Pattern Changes, Hot Flashes, Malaise/lethargy, Mood Swings, Palpitations, Polydipsia/polyuria, Skin Changes, Temperature Intolerance, Unexpected Weight Changes, Other Breast: No New/Changing Breast Lumps, No Nipple changes, No Nipple discharge, No Other Respiratory: YES: Pleuritic Pain, Shortness of breath, SOB with excertion, Wheezing; No: Cough, Hemoptysis, Orthopnea, Sputum Changes, Stridor, Tachypnea, Other Cardiovascular: yes Chest Pain, yes Edema; No Palpitations, No Orthopnea, No Paroxysmal Noc. Dyspnea, No Lt Headedness, No Other Gastrointestinal: No Nausea, No Vomiting, No Abdominal Pain, No Diarrhea, No Constipation, No Melena, No Hematochezia, No Other Genitourinary: No Dysuria, No Frequency, No Incontinence, No Hematuria, No Retention, No Discharge, No Urgency, No Pain, No Flank Pain, No Other, No , No , No , No , No , No , No Musculoskeletal: No Gait Disturbance, No Joint Pain, No Joint Stiffness, No Joint Swelling, No Muscle Pain, No Muscular Weakness, No Pain In:, No Swelling In:, No Other Neurological: No Behavorial Changes, No Bowel/Bladder ControlChng, No Confusion, No Dizziness, No Gait Disturbance, No Headaches, No Impaired Coord/balance, No Memory Loss, No Numbness/Tingling, No Seizures, No Speech Problems, No Tremors, No Visual Changes, No Weakness, No Other Skin: No Dry Skin, No Eczema, No Hair Changes, No Lumps, No Mole Changes, No Mottling, No Nail Changes, No Pruritus, No Rash, No Skin Lesion Changes, No Other, No Acne Physical Exam General: Alert, Oriented X3, Cooperative, mild distress HEENT: Atraumatic, PERRLA, EOMI, Mucous membr. moist/pink Lungs: Other (Slight scattered wheezes) Heart: irregularly irregular Abdomen: Normal bowel sounds, Soft, No tenderness, No hepatosplenomegaly, No masses Rectal Exam: not examined Extremities: No clubbing, No cyanosis, Other (1+ edema) Skin: Other (pruritic rash) Neuro: Normal gait, Normal speech, Strength at 5/5 X4 ext, Normal tone, Sensation intact, Cranial nerves 3-12 NL, Reflexes 2+ Psych/Mental Status: Mental status NL, Mood NL Vitals Vitals Vital Signs Date Time Temp Pulse Resp B/P (MAP) Pulse Ox O2 Delivery O2 Flow Rate FiO2 07/29/19 09:20 70 120/74 (89) 98 Room Air 07/29/19 08:20 12 07/29/19 07:52 98.1 98.1 Labs Labs Laboratory Tests Test 07/29/19 08:00 White Blood Count 7.8 x10^3/uL (4.0-11.0) Red Blood Count 5.66 x10^6/uL (4.30-5.70) Hemoglobin 13.7 g/dL (13.0-17.5) Hematocrit 43.3 % (39.0-53.0) Mean Corpuscular Volume 76 fL (79-100) Mean Corpuscular Hemoglobin 24 pg (25-35) Mean Corpuscular Hemoglobin Concent 32 g/dL (31-37) Red Cell Distribution Width 14.9 % (11.5-14.5) Platelet Count 266 x10^3/uL (140-400) Neutrophils (%) (Auto) 64 % (31-73) Lymphocytes (%) (Auto) 21 % (24-48) Monocytes (%) (Auto) 13 % (0-9) Eosinophils (%) (Auto) 2 % (0-3) Basophils (%) (Auto) 1 % (0-3) Neutrophils # (Auto) 4.9 x10^3/uL (1.8-7.7) Lymphocytes # (Auto) 1.6 x10^3/uL (1.0-4.8) Monocytes # (Auto) 1.0 x10^3/uL (0.0-1.1) Eosinophils # (Auto) 0.2 x10^3/uL (0.0-0.7) Basophils # (Auto) 0.1 x10^3/uL (0.0-0.2) Sodium Level 138 mmol/L (136-145) Potassium Level 4.0 mmol/L (3.5-5.1) Chloride Level 101 mmol/L (98-107) Carbon Dioxide Level 28 mmol/L (21-32) Anion Gap 9 (6-14) Blood Urea Nitrogen 13 mg/dL (8-26) Creatinine 1.2 mg/dL (0.7-1.3) Estimated GFR (Cockcroft-Gault) 59.7 BUN/Creatinine Ratio 11 (6-20) Glucose Level 111 mg/dL (70-99) Calcium Level 8.4 mg/dL (8.5-10.1) Total Bilirubin 0.5 mg/dL (0.2-1.0) Aspartate Amino Transf (AST/SGOT) 28 U/L (15-37) Alanine Aminotransferase (ALT/SGPT) 37 U/L (16-63) Alkaline Phosphatase 74 U/L (46-116) Troponin I Quantitative 0.038 ng/mL (0.000-0.055) HT-Qiy-O-Type Natriuretic Peptide 769 pg/mL (0-124) Total Protein 7.8 g/dL (6.4-8.2) Albumin 3.5 g/dL (3.4-5.0) Albumin/Globulin Ratio 0.8 (1.0-1.7) Thyroid Stimulating Hormone (TSH) 2.812 uIU/mL (0.358-3.74) Laboratory Tests Test 07/29/19 08:00 White Blood Count 7.8 x10^3/uL (4.0-11.0) Red Blood Count 5.66 x10^6/uL (4.30-5.70) Hemoglobin 13.7 g/dL (13.0-17.5) Hematocrit 43.3 % (39.0-53.0) Mean Corpuscular Volume 76 fL (79-100) Mean Corpuscular Hemoglobin 24 pg (25-35) Mean Corpuscular Hemoglobin Concent 32 g/dL (31-37) Red Cell Distribution Width 14.9 % (11.5-14.5) Platelet Count 266 x10^3/uL (140-400) Neutrophils (%) (Auto) 64 % (31-73) Lymphocytes (%) (Auto) 21 % (24-48) Monocytes (%) (Auto) 13 % (0-9) Eosinophils (%) (Auto) 2 % (0-3) Basophils (%) (Auto) 1 % (0-3) Neutrophils # (Auto) 4.9 x10^3/uL (1.8-7.7) Lymphocytes # (Auto) 1.6 x10^3/uL (1.0-4.8) Monocytes # (Auto) 1.0 x10^3/uL (0.0-1.1) Eosinophils # (Auto) 0.2 x10^3/uL (0.0-0.7) Basophils # (Auto) 0.1 x10^3/uL (0.0-0.2) Sodium Level 138 mmol/L (136-145) Potassium Level 4.0 mmol/L (3.5-5.1) Chloride Level 101 mmol/L (98-107) Carbon Dioxide Level 28 mmol/L (21-32) Anion Gap 9 (6-14) Blood Urea Nitrogen 13 mg/dL (8-26) Creatinine 1.2 mg/dL (0.7-1.3) Estimated GFR (Cockcroft-Gault) 59.7 BUN/Creatinine Ratio 11 (6-20) Glucose Level 111 mg/dL (70-99) Calcium Level 8.4 mg/dL (8.5-10.1) Total Bilirubin 0.5 mg/dL (0.2-1.0) Aspartate Amino Transf (AST/SGOT) 28 U/L (15-37) Alanine Aminotransferase (ALT/SGPT) 37 U/L (16-63) Alkaline Phosphatase 74 U/L (46-116) Troponin I Quantitative 0.038 ng/mL (0.000-0.055) OW-Jun-I-Type Natriuretic Peptide 769 pg/mL (0-124) Total Protein 7.8 g/dL (6.4-8.2) Albumin 3.5 g/dL (3.4-5.0) Albumin/Globulin Ratio 0.8 (1.0-1.7) Thyroid Stimulating Hormone (TSH) 2.812 uIU/mL (0.358-3.74) Images Images CXR: The cardiomediastinal silhouette is normal. The pulmonary vasculature is normal. A few linear opacities in the lung bases are likely discoid atelectasis or scar. Impression: Stable appearance of the chest. VTE Prophylaxis Ordered VTE Prophylaxis Devices: Yes VTE Pharmacological Prophylaxi: Yes Assessment/Plan Assessment/Plan A/P: Dyspnea - likely secondary to mild CHF exacerbation. No CXR abnormalities, no COVID19 exposure Acute diastolic congestive heart failure, cannot rule out systolic congestive heart failure. Mild compared to his previous episodes. BNP is lower than prior as well. Ex-smoker 2008, probable chronic obstructive pulmonary disease. 80 pack yr smoking hx Atrial fibrillation on eliquis, BB, rate controlled. Will continue Hypertension - cont home meds Diabetes mellitus - will place on ADA diet, basal bolus plus insulin regimen ?Bedbug infestation - living larvae sent to lab for confirmation, does appear to be a bedbug larvae. Permethrin topical BID Left elbow pain - with history of gout. Toradol helped, will give prn, cont colchicine, check uric acid level Anxiety with depression - reassurance, cont wellbutrin CAD s/p stenting - remote stenting. Will trend troponins given his chest pain. EKG reassuring. SOB could be anginal equivalent. cont telemetry GERD High Cholesterol Seizures - none recently, will cont meds H/o gout with chronic neck and back pain - will check uric acid as above. ETOH use disorder - counseled on cutting back, cessation. No history of wi thdrawal FEN - ADA diet PPX - lovenox FULL CODE Dispo - inpatient for HAMEED, CP, likely 2 midnights SINA KILLIAN MD Jul 29, 2019 10:35
[2019-07-29] MEDS ORDERED: METO25TA4 PO (11:14)
[2019-07-29] MEDS ORDERED: BUPR200T2 PO (11:14)
[2019-07-29] MEDS ORDERED: ASCO500C PO (11:16)
[2019-07-29] MEDS ORDERED: ENOXAPARIN 40 MG/0.4 ML SYRINGE. SQ SCH (12:30)
[2019-07-29] MEDS ORDERED: ALBUTEROL SULFATE 2.5 MG/3 ML NEBU. INH PRN (12:30)
[2019-07-29] MEDS ORDERED: PERMETHRIN 5% TOPICAL CREAM 60GM TUBE. TP PRN (12:30)
[2019-07-29] MEDS: APIXABAN 5 MG TABLET. PO SCH ×2 (12:32→20:53)
[2019-07-29] MEDS: COLCHICINE 0.6 MG TABLET PO SCH (12:32)
[2019-07-29] MEDS: levETIRAcetam 500 MG TABLET PO SCH ×2 (12:33→20:53)
[2019-07-29] MEDS: buPROPion SR 100 MG TABLET.SA. PO SCH (12:33)
[2019-07-29] MEDS: ASCORBIC ACID 500 MG TABLET PO SCH (12:33)
[2019-07-29] MEDS: METOPROLOL TART IMMED RELEASE 25 MG TABLET. PO SCH ×2 (12:33→20:53)
[2019-07-29] MEDS: FUROSEMIDE 20 MG TABLET PO SCH (12:51)
[2019-07-29] MEDS: HYDROcodone/APAP 5/325MG 1 TAB TABLET PO PRN ×2 (12:52→20:56)
--- NOTE | 2019-07-29 12:57 | PDOC2 ---
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 Reports that he has been having intermittent chest tightness and pressure in [place] last few days and also HAMEED. Yesterday worse lasting about 45 minutes finally relieved at rest. Sometimes feels like his chest is pounding. No dizziness or passing out. No falls or any recent injury. He sees Dr. Qureshi as his master [place] but failed to go on his last appointment. No recent intractable coughing spells, feve or chills. Has chronic AFIB and on eliquis. Presently CP free. PAST MEDICAL HISTORY Past Medical History Cardiovascular: AFIB, CAD, HTN, Hyperlipidemia Pulmonary: COPD, Pulmonary embolus CENTRAL NERVOUS SYSTEM: CVA, Seizure GI: GERD Psych: Anxiety, Depression Musculoskeletal: Osteoarthritis Rheumatologic: Gout Endocrine: Diabetes PAST SURGICAL HISTORY Past Surgical History: Other ([place]) FAMILY HISTORY Family History: Hypertension SOCIAL HISTORY Smoke: Quit ALCOHOL: none Drugs: None Lives: with Family CURRENT MEDICATIONS CURRENT MEDICATIONS Current Medications Medications (Trade) Dose Ordered Sig/Cecile Route PRN Reason Start Time Stop Time Status Last Admin Dose Admin Aspirin (Aspirin Chewable) 324 mg 1X ONCE PO 07/29/19 08:00 07/29/19 08:01 DC 07/29/19 08:29 Ketorolac Tromethamine (Toradol 30mg Vial) 30 mg 1X ONCE IV 07/29/19 08:00 07/29/19 08:01 DC 07/29/19 08:30 ALLERGIES ALLERGIES: Coded Allergies: No Known Drug Allergies (Unverified , 11/30/18) ROS Review of System 14 point ROS evaluated with pertinent positives noted per HPI PHYSICAL EXAM General: Alert, Oriented X3, Cooperative, No acute distress HEENT: Atraumatic, Mucous membr. moist/pink Lungs: Clear to auscultation, Normal air movement Heart: Other (AFIB rate controlled) Abdomen: Soft, No tenderness Extremities: No cyanosis, No edema Skin: No breakdown, No significant lesion Neuro: Normal speech, Sensation intact Psych/Mental Status: Mental status NL, Mood NL MUSCULOSKELETAL: Osteoarthritic changes both hands VITALS/I&O VITALS/I&O: Vital Signs Date Time Temp Pulse Resp B/P (MAP) Pulse Ox O2 Delivery O2 Flow Rate FiO2 07/29/19 11:52 Room Air 07/29/19 10:20 70 125/87 (100) 99 07/29/19 08:20 12 07/29/19 07:52 98.1 98.1 LABS Lab: Laboratory Tests Test 07/29/19 08:00 White Blood Count 7.8 x10^3/uL (4.0-11.0) Red Blood Count 5.66 x10^6/uL (4.30-5.70) Hemoglobin 13.7 g/dL (13.0-17.5) Hematocrit 43.3 % (39.0-53.0) Mean Corpuscular Volume 76 fL (79-100) L Mean Corpuscular Hemoglobin 24 pg (25-35) L Mean Corpuscular Hemoglobin Concent 32 g/dL (31-37) Red Cell Distribution Width 14.9 % (11.5-14.5) H Platelet Count 266 x10^3/uL (140-400) Neutrophils (%) (Auto) 64 % (31-73) Lymphocytes (%) (Auto) 21 % (24-48) L Monocytes (%) (Auto) 13 % (0-9) H Eosinophils (%) (Auto) 2 % (0-3) Basophils (%) (Auto) 1 % (0-3) Neutrophils # (Auto) 4.9 x10^3/uL (1.8-7.7) Lymphocytes # (Auto) 1.6 x10^3/uL (1.0-4.8) Monocytes # (Auto) 1.0 x10^3/uL (0.0-1.1) Eosinophils # (Auto) 0.2 x10^3/uL (0.0-0.7) Basophils # (Auto) 0.1 x10^3/uL (0.0-0.2) Sodium Level 138 mmol/L (136-145) Potassium Level 4.0 mmol/L (3.5-5.1) Chloride Level 101 mmol/L (98-107) Carbon Dioxide Level 28 mmol/L (21-32) Anion Gap 9 (6-14) Blood Urea Nitrogen 13 mg/dL (8-26) Creatinine 1.2 mg/dL (0.7-1.3) Estimated GFR (Cockcroft-Gault) 59.7 BUN/Creatinine Ratio 11 (6-20) Glucose Level 111 mg/dL (70-99) H Uric Acid 6.5 mg/dL (3.5-7.2) Calcium Level 8.4 mg/dL (8.5-10.1) L Total Bilirubin 0.5 mg/dL (0.2-1.0) Aspartate Amino Transferase (AST) 28 U/L (15-37) Alanine Aminotransferase (ALT) 37 U/L (16-63) Alkaline Phosphatase 74 U/L (46-116) Troponin I Quantitative 0.038 ng/mL (0.000-0.055) TN-Flq-G-Type Natriuretic Peptide 769 pg/mL (0-124) H Total Protein 7.8 g/dL (6.4-8.2) Albumin 3.5 g/dL (3.4-5.0) Albumin/Globulin Ratio 0.8 (1.0-1.7) L Thyroid Stimulating Hormone (TSH) 2.812 uIU/mL (0.358-3.74) Laboratory Tests 07/29/19 08:00 Laboratory Tests 07/29/19 08:00 ECHOCARDIOGRAM ECHOCARDIOGRAM <Conclusion> The left ventricle is normal size. Left ventricle systolic function is normal. The Ejection Fraction is 55-60%. There is mild concentric left ventricular hypertrophy. There is no significant aortic valvular stenosis. Doppler and Color Flow revealed mild aortic regurgitation. Doppler and Color-flow revealed mild to moderate mitral regurgitation. Doppler and Color Flow revealed mild tricuspid regurgitation. The PA pressure was estimated at 52 mmHg. DATE: 12/02/18 1534 STRESS TEST STRESS TEST Conclusion 1. Abnormal baseline EKG but no EKG evidence of stress-induced ischemia. 2. Nuclear imaging shows no reversible ischemia or infarct. 3. Normal left ventricular systolic function with an ejection fraction of 67%. 4. Low to moderately low risk Lexiscan nuclear stress test. DATE: 05/05/19 1336 ASSESSMENT/PLAN ASSESSMENT/PLAN 1. Chest pain: UA features 2. CAD; suspect mild disease remotely per chart review via [place] 3. Chronic AFIB; rate controlled . On Eliquis for stroke prophylaxis last dose this AM 4. Hypertension: Controlled 5. HLP 6. DM2 7. H/o CVA 8. Left Epicondylitis with possible bursitis possibly gout related. Recommendations 1. LHC today via radial, risks and benefits discussed and agreeable to proceed. Informed spouse as well 2. Secondary prevention measures. Further treatment pending LHC result. KRISTINE ARIAS MD 07/29/19 1417: CARDIAC CONSULT ASSESSMENT/PLAN ASSESSMENT/PLAN Patient seen and examined. 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 Clinical picture suspicious for unstable angina. Agree with cardiac catheterization for definitive evaluation today. Risks and benefits were explained. Permanent atrial fibrillation rate controlled. Thank you for your consultation. JULEE ABDULLAHI APRN Jul 29, 2019 12:57 KRISTINE ARIAS MD Jul 29, 2019 14:17
[2019-07-29] MEDS ORDERED: IODIXANOL 320 MG/ML 100 ML VIAL. ONE ×2 (14:04→14:53)
[2019-07-29] MEDS ORDERED: LIDOCAINE 1% PF 2 ML VIAL. ONE (14:08)
[2019-07-29] MEDS ORDERED: HEPARIN for IV BOLUS 10,000 UNIT/10 ML VIAL. ONE (14:23)
[2019-07-29] MEDS ORDERED: fentaNYL PF VIAL 100 MCG/2 ML VIAL ONE (14:23)
[2019-07-29] MEDS ORDERED: VERAPAMIL 5 MG/2 ML VIAL. ONE (14:23)
[2019-07-29] MEDS ORDERED: MIDAZOLAM HCL/PF 2 MG/2 ML VIAL. ONE (14:23)
[2019-07-29] MEDS ORDERED: NITROGLYCERIN 200 MCG/2 ML SYRINGE FOR CATH/VASC LAB. ONE (14:24)
[2019-07-29] MEDS ORDERED: LIDOCAINE 1% PF 2 ML VIAL. INJ ONE (14:30)
[2019-07-29] MEDS ORDERED: fentaNYL PF VIAL 100 MCG/2 ML VIAL IV ONE (14:30)
[2019-07-29] MEDS ORDERED: IODIXANOL 320 MG/ML 100 ML VIAL. IART ONE (14:30)
[2019-07-29] MEDS ORDERED: NITROGLYCERIN 200 MCG/2 ML SYRINGE FOR CATH/VASC LAB. IART ONE (14:30)
[2019-07-29] MEDS ORDERED: HEPARIN for IV BOLUS 10,000 UNIT/10 ML VIAL. IART ONE (14:30)
[2019-07-29] MEDS ORDERED: MIDAZOLAM HCL/PF 2 MG/2 ML VIAL. IV ONE (14:30)
[2019-07-29] MEDS ORDERED: VERAPAMIL 5 MG/2 ML VIAL. IART ONE (14:30)
[2019-07-29] MEDS ORDERED: IV 1/2 NORMAL SALINE 1,000 ML IV SCH (15:20)
--- NOTE | 2019-07-29 15:20 | PDOC ---
MODERATE SEDATION ASSESSMENT RISKS/ALTERNATIVES Risks/Alternatives Risks and alternatives of this type of sedation and procedure discussed with: RISK/ALTERNATIVES: Patient H & P ON CHART H & P H & P on chart and reviewed for co-morbid conditions and appropriate labs. H&P ON CHART: Yes STATUS PREG STATUS ASSESSED: N/A MEDS/ALLERGIES REVIEWED Meds/Allergies Reviewed Medications and Allergies including time and route of recently administered narcotics and sedatives. MEDS/ALLERGIES REVIEWED: Yes ASA RATING ASA RATING: II AIRWAY ASSESSMENT Airway Assessment Airway patency, oral function limitations, presence of caps, crowns, dentures, partials, and ability to extend neck assessed. AIRWAY ASSESSMENT: Yes MALLAMPATI SCORE MALLAMPATI SCORE: II PRE-SEDATION ASSESSMENT PRE-SEDATION ASSESSMENT: Yes KRISTINE ARIAS MD Jul 29, 2019 15:20
[2019-07-29] MEDS ORDERED: 0.9 % SODIUM CHLORIDE 10 ML DISP.SYRIN. IV PRN (15:30)
[2019-07-29] MEDS: MULTIVITAMIN with MINERAL TABLET. PO SCH (20:53)
[2019-07-29] MEDS: ATORVASTATIN CALCIUM 40 MG TABLET. PO SCH (20:53)
--- NOTE | 2019-07-29 22:14 | NUR ---
TR Band removed at this time. Arm board remains in place. No signs of bleeding noticed at this time. Will continue to monitor.
[2019-07-30 03:20] VITALS: BP 108/67
[2019-07-30 07:00] VITALS: BP 135/76
[2019-07-30 07:19] LABS: ALBUMIN/GLOBULIN RATIO 0.8 (1.0-1.7); CALCIUM 8.3 mg/dL (8.5-10.1); CREATININE 1.2 mg/dL (0.7-1.3); GFR 59.7; POTASSIUM 3.8 mmol/L (3.5-5.1); TOTAL BILIRUBIN 0.8 mg/dL (0.2-1.0); TOTAL PROTEIN 6.8 g/dL (6.4-8.2)
[2019-07-30 07:26] LABS: BASO % 1 % (0-3); EOS # 0.1 x10^3/uL (0.0-0.7); EOS % 2 % (0-3); HEMATOCRIT 39.9 % (39.0-53.0); HEMOGLOBIN 12.7 g/dL (13.0-17.5); LYMPH # 1.6 x10^3/uL (1.0-4.8); LYMPH % 23 % (24-48); MEAN CORPUSCULAR HEMOGLOBIN 24 pg (25-35); MEAN CORPUSCULAR HGB CONC 32 g/dL (31-37); MEAN CORPUSCULAR VOLUME 76 fL (79-100); MONO % 15 % (0-9); NEUT # 4.1 x10^3/uL (1.8-7.7); NEUT % 60 % (31-73); PLATELET COUNT 234 x10^3/uL (140-400); RED BLOOD COUNT 5.27 x10^6/uL (4.30-5.70); RED CELL DISTRIBUTION WIDTH 14.3 % (11.5-14.5); WHITE BLOOD COUNT 6.8 x10^3/uL (4.0-11.0)
--- NOTE | 2019-07-30 07:33 | PDOC ---
PROGRESS NOTES Chief Complaint Chief Complaint A/P: Dyspnea - likely secondary to mild CHF exacerbation. No CXR abnormalities, no COVID19 exposure Acute diastolic congestive heart failure, cannot rule out systolic congestive heart failure. Mild compared to his previous episodes. BNP is lower than prior as well. Ex-smoker 2008, probable chronic obstructive pulmonary disease. 80 pack yr smoking hx Atrial fibrillation on eliquis, BB, rate controlled. Will continue Hypertension - cont home meds Diabetes mellitus - will place on ADA diet, basal bolus plus insulin regimen ?Bedbug infestation - living larvae sent to lab for confirmation, does appear to be a bedbug larvae. Permethrin topical BID Left elbow pain - with history of gout. Toradol helped, will give prn, cont colchicine, check uric acid level Anxiety with depression - reassurance, cont wellbutrin CAD s/p stenting - remote stenting. Will trend troponins given his chest pain. EKG reassuring. SOB could be anginal equivalent. cont telemetry GERD High Cholesterol Seizures - none recently, will cont meds H/o gout with chronic neck and back pain - will check uric acid as above. ETOH use disorder - counseled on cutting back, cessation. No history of withdrawal FEN - ADA diet PPX - lovenox FULL CODE Dispo - inpatient for HAMEED, CP, likely 2 midnights History of Present Illness History of Present Illness Mr Walker is a 69yo M w/ PMHx A-Fib, Angina, Anxiety, CAD s/p stenting, Depression, Diabetes-Type II, GERD, High Cholesterol, Hypertension, Seizures, chronic neck and back pain presents to ED with multiple complaints 07/29/19. C/o chest pain intermittently over the last 2 days currently he is not having any chest pain but he is having some left elbow pain and he notes this was his primary reason for coming to the hospital in addition to shortness of breath and dyspnea on exertion for 1 day. He denies any fever chills or sweats. He has not had a cough or congestion. He states nothing that he does takes care of the pain in his chest or elbow. He does state that moving his elbow around seems to make the pain worse. Given toradol with improvement in the ED. Troponin 0.038, BNP 769, WBC 7.8, Hb 13.7, MCV 76, BUN 13, Cr 1.2 CXR clear with previous scarring noted basilar. EKG: Normal sinus rhythm with significant T wave abnormality anterior laterally this is unchanged from previous EKG On further ROS noted with pruritis every morning when he awakens and small red larvae insect found resembling a bedbug or tick mite. He has had no outdoor travel but is concerned his daughter may have bedbugs in her home. he recently moved from [place] to [place] to be closer to family. Admitted for further care and investigation. 07/28: Clean cardiac cath. Uric acid 6.5. No further bedbugs found. Still having pretty severe left elbow pain and now swelling. Chest pain resolved. Shortness of breath improved. Vitals Vitals Vital Signs Date Time Temp Pulse Resp B/P (MAP) Pulse Ox O2 Delivery O2 Flow Rate FiO2 07/30/19 07:00 97.8 84 16 135/76 (95) 96 Room Air 97.8 Physical Exam General: Alert, Oriented X3, Cooperative, No acute distress Heart: Other (AFIB rate controlled) Lungs: Clear Abdomen: Soft, No tenderness Extremities: No cyanosis, No edema Skin: No breakdown, No significant lesion Labs LABS Laboratory Tests Test 07/29/19 08:00 07/29/19 13:30 07/29/19 16:00 07/30/19 07:00 White Blood Count 7.8 x10^3/uL (4.0-11.0) 6.8 x10^3/uL (4.0-11.0) Red Blood Count 5.66 x10^6/uL (4.30-5.70) 5.27 x10^6/uL (4.30-5.70) Hemoglobin 13.7 g/dL (13.0-17.5) 12.7 g/dL (13.0-17.5) Hematocrit 43.3 % (39.0-53.0) 39.9 % (39.0-53.0) Mean Corpuscular Volume 76 fL (79-100) 76 fL (79-100) Mean Corpuscular Hemoglobin 24 pg (25-35) 24 pg (25-35) Mean Corpuscular Hemoglobin Concent 32 g/dL (31-37) 32 g/dL (31-37) Red Cell Distribution Width 14.9 % (11.5-14.5) 14.3 % (11.5-14.5) Platelet Count 266 x10^3/uL (140-400) 234 x10^3/uL (140-400) Neutrophils (%) (Auto) 64 % (31-73) 60 % (31-73) Lymphocytes (%) (Auto) 21 % (24-48) 23 % (24-48) Monocytes (%) (Auto) 13 % (0-9) 15 % (0-9) Eosinophils (%) (Auto) 2 % (0-3) 2 % (0-3) Basophils (%) (Auto) 1 % (0-3) 1 % (0-3) Neutrophils # (Auto) 4.9 x10^3/uL (1.8-7.7) 4.1 x10^3/uL (1.8-7.7) Lymphocytes # (Auto) 1.6 x10^3/uL (1.0-4.8) 1.6 x10^3/uL (1.0-4.8) Monocytes # (Auto) 1.0 x10^3/uL (0.0-1.1) 1.0 x10^3/uL (0.0-1.1) Eosinophils # (Auto) 0.2 x10^3/uL (0.0-0.7) 0.1 x10^3/uL (0.0-0.7) Basophils # (Auto) 0.1 x10^3/uL (0.0-0.2) 0.0 x10^3/uL (0.0-0.2) Sodium Level 138 mmol/L (136-145) 136 mmol/L (136-145) Potassium Level 4.0 mmol/L (3.5-5.1) 3.8 mmol/L (3.5-5.1) Chloride Level 101 mmol/L (98-107) 101 mmol/L (98-107) Carbon Dioxide Level 28 mmol/L (21-32) 26 mmol/L (21-32) Anion Gap 9 (6-14) 9 (6-14) Blood Urea Nitrogen 13 mg/dL (8-26) 14 mg/dL (8-26) Creatinine 1.2 mg/dL (0.7-1.3) 1.2 mg/dL (0.7-1.3) Estimated GFR (Cockcroft-Gault) 59.7 59.7 BUN/Creatinine Ratio 11 (6-20) 12 (6-20) Glucose Level 111 mg/dL (70-99) 103 mg/dL (70-99) Uric Acid 6.5 mg/dL (3.5-7.2) Calcium Level 8.4 mg/dL (8.5-10.1) 8.3 mg/dL (8.5-10.1) Total Bilirubin 0.5 mg/dL (0.2-1.0) 0.8 mg/dL (0.2-1.0) Aspartate Amino Transf (AST/SGOT) 28 U/L (15-37) 21 U/L (15-37) Alanine Aminotransferase (ALT/SGPT) 37 U/L (16-63) 26 U/L (16-63) Alkaline Phosphatase 74 U/L (46-116) 60 U/L (46-116) Troponin I Quantitative 0.038 ng/mL (0.000-0.055) 0.022 ng/mL (0.000-0.055) 0.026 ng/mL (0.000-0.055) TZ-Yda-T-Type Natriuretic Peptide 769 pg/mL (0-124) Total Protein 7.8 g/dL (6.4-8.2) 6.8 g/dL (6.4-8.2) Albumin 3.5 g/dL (3.4-5.0) 3.0 g/dL (3.4-5.0) Albumin/Globulin Ratio 0.8 (1.0-1.7) 0.8 (1.0-1.7) Thyroid Stimulating Hormone (TSH) 2.812 uIU/mL (0.358-3.74) Iron Level 41 ug/dL (65-175) Total Iron Binding Capacity 298 ug/dL (250-450) Iron Saturation 14 % (15-34) Assessment and Plan Assessmemt and Plan Problems Medical Problems: (1) Chest pain Status: Acute (2) Shortness of breath Status: Acute Comment Review of Relevant I have reviewed the following items von (where applicable) has been applied. Labs Laboratory Tests Test 07/29/19 08:00 07/29/19 13:30 07/29/19 16:00 07/30/19 07:00 White Blood Count 7.8 x10^3/uL (4.0-11.0) 6.8 x10^3/uL (4.0-11.0) Red Blood Count 5.66 x10^6/uL (4.30-5.70) 5.27 x10^6/uL (4.30-5.70) Hemoglobin 13.7 g/dL (13.0-17.5) 12.7 g/dL (13.0-17.5) Hematocrit 43.3 % (39.0-53.0) 39.9 % (39.0-53.0) Mean Corpuscular Volume 76 fL (79-100) 76 fL (79-100) Mean Corpuscular Hemoglobin 24 pg (25-35) 24 pg (25-35) Mean Corpuscular Hemoglobin Concent 32 g/dL (31-37) 32 g/dL (31-37) Red Cell Distribution Width 14.9 % (11.5-14.5) 14.3 % (11.5-14.5) Platelet Count 266 x10^3/uL (140-400) 234 x10^3/uL (140-400) Neutrophils (%) (Auto) 64 % (31-73) 60 % (31-73) Lymphocytes (%) (Auto) 21 % (24-48) 23 % (24-48) Monocytes (%) (Auto) 13 % (0-9) 15 % (0-9) Eosinophils (%) (Auto) 2 % (0-3) 2 % (0-3) Basophils (%) (Auto) 1 % (0-3) 1 % (0-3) Neutrophils # (Auto) 4.9 x10^3/uL (1.8-7.7) 4.1 x10^3/uL (1.8-7.7) Lymphocytes # (Auto) 1.6 x10^3/uL (1.0-4.8) 1.6 x10^3/uL (1.0-4.8) Monocytes # (Auto) 1.0 x10^3/uL (0.0-1.1) 1.0 x10^3/uL (0.0-1.1) Eosinophils # (Auto) 0.2 x10^3/uL (0.0-0.7) 0.1 x10^3/uL (0.0-0.7) Basophils # (Auto) 0.1 x10^3/uL (0.0-0.2) 0.0 x10^3/uL (0.0-0.2) Sodium Level 138 mmol/L (136-145) 136 mmol/L (136-145) Potassium Level 4.0 mmol/L (3.5-5.1) 3.8 mmol/L (3.5-5.1) Chloride Level 101 mmol/L (98-107) 101 mmol/L (98-107) Carbon Dioxide Level 28 mmol/L (21-32) 26 mmol/L (21-32) Anion Gap 9 (6-14) 9 (6-14) Blood Urea Nitrogen 13 mg/dL (8-26) 14 mg/dL (8-26) Creatinine 1.2 mg/dL (0.7-1.3) 1.2 mg/dL (0.7-1.3) Estimated GFR (Cockcroft-Gault) 59.7 59.7 BUN/Creatinine Ratio 11 (6-20) 12 (6-20) Glucose Level 111 mg/dL (70-99) 103 mg/dL (70-99) Uric Acid 6.5 mg/dL (3.5-7.2) Calcium Level 8.4 mg/dL (8.5-10.1) 8.3 mg/dL (8.5-10.1) Total Bilirubin 0.5 mg/dL (0.2-1.0) 0.8 mg/dL (0.2-1.0) Aspartate Amino Transf (AST/SGOT) 28 U/L (15-37) 21 U/L (15-37) Alanine Aminotransferase (ALT/SGPT) 37 U/L (16-63) 26 U/L (16-63) Alkaline Phosphatase 74 U/L (46-116) 60 U/L (46-116) Troponin I Quantitative 0.038 ng/mL (0.000-0.055) 0.022 ng/mL (0.000-0.055) 0.026 ng/mL (0.000-0.055) OV-Svz-P-Type Natriuretic Peptide 769 pg/mL (0-124) Total Protein 7.8 g/dL (6.4-8.2) 6.8 g/dL (6.4-8.2) Albumin 3.5 g/dL (3.4-5.0) 3.0 g/dL (3.4-5.0) Albumin/Globulin Ratio 0.8 (1.0-1.7) 0.8 (1.0-1.7) Thyroid Stimulating Hormone (TSH) 2.812 uIU/mL (0.358-3.74) Iron Level 41 ug/dL (65-175) Total Iron Binding Capacity 298 ug/dL (250-450) Iron Saturation 14 % (15-34) Laboratory Tests Test 07/29/19 08:00 07/29/19 13:30 07/29/19 16:00 07/30/19 07:00 White Blood Count 7.8 x10^3/uL (4.0-11.0) 6.8 x10^3/uL (4.0-11.0) Red Blood Count 5.66 x10^6/uL (4.30-5.70) 5.27 x10^6/uL (4.30-5.70) Hemoglobin 13.7 g/dL (13.0-17.5) 12.7 g/dL (13.0-17.5) Hematocrit 43.3 % (39.0-53.0) 39.9 % (39.0-53.0) Mean Corpuscular Volume 76 fL (79-100) 76 fL (79-100) Mean Corpuscular Hemoglobin 24 pg (25-35) 24 pg (25-35) Mean Corpuscular Hemoglobin Concent 32 g/dL (31-37) 32 g/dL (31-37) Red Cell Distribution Width 14.9 % (11.5-14.5) 14.3 % (11.5-14.5) Platelet Count 266 x10^3/uL (140-400) 234 x10^3/uL (140-400) Neutrophils (%) (Auto) 64 % (31-73) 60 % (31-73) Lymphocytes (%) (Auto) 21 % (24-48) 23 % (24-48) Monocytes (%) (Auto) 13 % (0-9) 15 % (0-9) Eosinophils (%) (Auto) 2 % (0-3) 2 % (0-3) Basophils (%) (Auto) 1 % (0-3) 1 % (0-3) Neutrophils # (Auto) 4.9 x10^3/uL (1.8-7.7) 4.1 x10^3/uL (1.8-7.7) Lymphocytes # (Auto) 1.6 x10^3/uL (1.0-4.8) 1.6 x10^3/uL (1.0-4.8) Monocytes # (Auto) 1.0 x10^3/uL (0.0-1.1) 1.0 x10^3/uL (0.0-1.1) Eosinophils # (Auto) 0.2 x10^3/uL (0.0-0.7) 0.1 x10^3/uL (0.0-0.7) Basophils # (Auto) 0.1 x10^3/uL (0.0-0.2) 0.0 x10^3/uL (0.0-0.2) Sodium Level 138 mmol/L (136-145) 136 mmol/L (136-145) Potassium Level 4.0 mmol/L (3.5-5.1) 3.8 mmol/L (3.5-5.1) Chloride Level 101 mmol/L (98-107) 101 mmol/L (98-107) Carbon Dioxide Level 28 mmol/L (21-32) 26 mmol/L (21-32) Anion Gap 9 (6-14) 9 (6-14) Blood Urea Nitrogen 13 mg/dL (8-26) 14 mg/dL (8-26) Creatinine 1.2 mg/dL (0.7-1.3) 1.2 mg/dL (0.7-1.3) Estimated GFR (Cockcroft-Gault) 59.7 59.7 BUN/Creatinine Ratio 11 (6-20) 12 (6-20) Glucose Level 111 mg/dL (70-99) 103 mg/dL (70-99) Uric Acid 6.5 mg/dL (3.5-7.2) Calcium Level 8.4 mg/dL (8.5-10.1) 8.3 mg/dL (8.5-10.1) Total Bilirubin 0.5 mg/dL (0.2-1.0) 0.8 mg/dL (0.2-1.0) Aspartate Amino Transf (AST/SGOT) 28 U/L (15-37) 21 U/L (15-37) Alanine Aminotransferase (ALT/SGPT) 37 U/L (16-63) 26 U/L (16-63) Alkaline Phosphatase 74 U/L (46-116) 60 U/L (46-116) Troponin I Quantitative 0.038 ng/mL (0.000-0.055) 0.022 ng/mL (0.000-0.055) 0.026 ng/mL (0.000-0.055) SG-Fgr-L-Type Natriuretic Peptide 769 pg/mL (0-124) Total Protein 7.8 g/dL (6.4-8.2) 6.8 g/dL (6.4-8.2) Albumin 3.5 g/dL (3.4-5.0) 3.0 g/dL (3.4-5.0) Albumin/Globulin Ratio 0.8 (1.0-1.7) 0.8 (1.0-1.7) Thyroid Stimulating Hormone (TSH) 2.812 uIU/mL (0.358-3.74) Iron Level 41 ug/dL (65-175) Total Iron Binding Capacity 298 ug/dL (250-450) Iron Saturation 14 % (15-34) Medications Current Medications Aspirin (Aspirin Chewable) 324 mg 1X ONCE PO Last administered on 07/29/19at 0 8:29; Start 07/29/19 at 08:00; Stop 07/29/19 at 08:01; Status DC Ketorolac Tromethamine (Toradol 30mg Vial) 30 mg 1X ONCE IV Last administered on 07/29/19at 08:30; Start 07/29/19 at 08:00; Stop 07/29/19 at 08:01; Status DC Ondansetron HCl (Zofran) 4 mg PRN Q8HRS PRN IV NAUSEA/VOMITING; Start 07/29/19 at 10:15; Stop 07/29/19 at 12:21; Status DC Acetaminophen (Tylenol) 650 mg PRN Q4HRS PRN PO FEVER; Start 07/29/19 at 10:15; Stop 07/29/19 at 12:21; Status DC Nitroglycerin (Nitrostat) 0.4 mg PRN Q5MIN PRN SL CHEST PAIN; Start 07/29/19 at 10:15; Status Cancel Ondansetron HCl (Zofran) 4 mg PRN Q4HRS PRN IV NAUSEA/VOMITING; Start 07/29/19 at 12:30 Acetaminophen (Tylenol) 650 mg PRN Q6HRS PRN PO FEVER; Start 07/29/19 at 12:30 Albuterol Sulfate (Ventolin Neb Soln) 2.5 mg PRN BID PRN INH SHORTNESS OF BREATH; Start 07/29/19 at 12:30 Apixaban (Eliquis) 5 mg BID PO Last administered on 07/29/19at 20:53; Start 07/29/19 at 13:00 Aspirin (Aspirin Chewable) 81 mg DAILY PO ; Start 07/30/19 at 09:00 Atorvastatin Calcium (Lipitor) 40 mg QHS PO Last administered on 07/29/19at 20:53; Start 07/29/19 at 21:00 Colchicine (Colcrys) 0.6 mg DAILY PO ; Start 07/29/19 at 13:00 Furosemide (Lasix) 20 mg DAILY PO Last administered on 07/29/19at 12:51; Start 07/29/19 at 13:00 Acetaminophen/ Hydrocodone Bitart (Lortab 5/325) 1 tab PRN Q6HRS PRN PO PAIN Last administered on 07/29/19at 20:56; Start 07/29/19 at 12:30 Levetiracetam (Keppra) 1,000 mg BID PO Last administered on 07/29/19 20:53; Start 07/29/19 at 13:00 Metoprolol Tartrate (Lopressor) 12.5 mg BID PO Last administered on 07/29/19 20:53; Start 07/29/19 at 13:00 Multivitamins (Thera M Plus) 1 tab QHS PO Last administered on 07/29/19at 20:53; Start 07/29/19 at 21:00 Ascorbic Acid (Vitamin C) 500 mg DAILY PO ; Start 07/29/19 at 13:00 Bupropion HCl (Wellbutrin Sr) 200 mg DAILY PO ; Start 07/29/19 at 13:00 Permethrin (Elimite) 1 brandy PRN BID PRN TP insect bites; Start 07/29/19 at 12:30 Enoxaparin Sodium (Lovenox 40mg Syringe) 40 mg Q24H SQ ; Start 07/29/19 at 12:30; Status UNV Iodixanol (Visipaque 320) 100 ml STK-MED ONCE .ROUTE ; Start 07/29/19 at 14:04; Stop 07/29/19 at 14:04; Status DC Heparin Sodium/ Sodium Chloride 1,000 ml @ As Directed STK-MED ONCE .ROUTE ; Start 07/29/19 at 14:04; Stop 07/29/19 at 14:04; Status DC Lidocaine HCl (Xylocaine-Mpf 1% 2ml Vial) 2 ml STK-MED ONCE .ROUTE ; Start 07/29/19 at 14:08; Stop 07/29/19 at 14:08; Status DC Fentanyl Citrate (Fentanyl 2ml Vial) 100 mcg STK-MED ONCE .ROUTE ; Start 07/29/19 at 14:23; Stop 07/29/19 at 14:23; Status DC Midazolam HCl (Versed) 2 mg STK-MED ONCE .ROUTE ; Start 07/29/19 at 14:23; Stop 07/29/19 at 14:24; Status DC Heparin Sodium (Porcine) (Heparin Sodium) 10,000 unit STK-MED ONCE .ROUTE ; Start 07/29/19 at 14:23; Stop 07/29/19 at 14:24; Status DC Verapamil HCl (Verapamil) 5 mg STK-MED ONCE .ROUTE ; Start 07/29/19 at 14:23; Stop 07/29/19 at 14:24; Status DC Nitroglycerin (Nitroglycerin) 200 mcg STK-MED ONCE .ROUTE ; Start 07/29/19 at 14:24; Stop 07/29/19 at 14:24; Status DC Nitroglycerin (Nitroglycerin) 200 mcg 1X ONCE IART Last administered on 07/29/19at 14:58; Start 07/29/19 at 14:30; Stop 07/29/19 at 14:36; Status DC Verapamil HCl (Verapamil) 2.5 mg 1X ONCE IART Last administered on 07/29/19at 14:58; Start 07/29/19 at 14:30; Stop 07/29/19 at 14:36; Status DC Heparin Sodium (Porcine) (Heparin Sodium) 2,500 unit 1X ONCE IART Last administered on 07/29/19at 14:57; Start 07/29/19 at 14:30; Stop 07/29/19 at 14:36; Status DC Heparin Sodium/ Sodium Chloride (HEPARIN for ARTERIAL LINE FLUSH) 1,000 unit 1X ONCE IART Last administered on 07/29/19at 14:30; Start 07/29/19 at 14:30; Stop 07/29/19 at 14:36; Status DC Heparin Sodium/ Sodium Chloride (HEPARIN for ARTERIAL LINE FLUSH) 1,000 unit 1X ONCE IART Last administered on 07/29/19at 14:30; Start 07/29/19 at 14:30; Stop 07/29/19 at 14:36; Status DC Midazolam HCl (Versed) 2 mg 1X ONCE IV Last administered on 07/29/19at 14:56; Start 07/29/19 at 14:30; Stop 07/29/19 at 14:36; Status DC Fentanyl Citrate (Fentanyl 2ml Vial) 100 mcg 1X ONCE IV Last administered on 07/29/19at 14:56; Start 07/29/19 at 14:30; Stop 07/29/19 at 14:37; Status DC Iodixanol (Visipaque 320) 100 ml 1X ONCE IART Last administered on 07/29/19at 15:17; Start 07/29/19 at 14:30; Stop 07/29/19 at 14:36; Status DC Lidocaine HCl (Xylocaine-Mpf 1% 2ml Vial) 2 ml 1X ONCE INJ Last administered on 07/29/19at 14:57; Start 07/29/19 at 14:30; Stop 07/29/19 at 14:36; Status DC Iodixanol (Visipaque 320) 100 ml STK-MED ONCE .ROUTE ; Start 07/29/19 at 14:53; Stop 07/29/19 at 14:54; Status DC Sodium Chloride (Normal Saline Flush) 3 ml QSHIFT PRN IV AFTER MEDS AND BLOOD DRAWS; Start 07/29/19 at 15:30 Sodium Chloride 1,000 ml @ 100 mls/hr Q10H IV Last administered on 07/29/19at 15:55; Start 07/29/19 at 15:20; Stop 07/29/19 at 19:36; Status DC Nitroglycerin (Nitrostat) 0.4 mg PRN Q5MIN PRN SL CHEST PAIN; Start 07/29/19 at 15:30 Active Scripts Active Thera-M Tablet (Multivits,Ca,Minerals/Iron/Fa) 1 Each Tablet 1 Tab PO QHS 30 Days Acetaminophen 500 Mg Tablet 500 Mg PO PRN Q6HRS PRN 14 Days Colcrys (Colchicine) 0.6 Mg Tablet 0.6 Mg PO DAILY [place] 5-325 Tablet (Acetaminophen/Hydrocodone Bitart) 1 Each Tablet 1 Tab PO PRN Q6HRS PRN Keppra (Levetiracetam) 500 Mg Tablet 2 Tab PO BID 30 Days Atorvastatin Calcium 40 Mg Tablet 1 Tab PO DAILY 30 Days Proair Hfa Inhaler (Albuterol Sulfate) 8.5 Gm Hfa.aer.ad 2 Puff INH PRN BID PRN 30 Days Eliquis (Apixaban) 5 Mg Tablet 5 Mg PO BID 30 Days Lasix (Furosemide) 40 Mg Tablet 20 Mg PO DAILY 30 Days Reported Vitamin C (Ascorbic Acid) 500 Mg Capsule.er 500 Mg PO DAILY Wellbutrin Sr (Bupropion Hcl) 200 Mg Tablet.er 200 Mg PO DAILY Metoprolol Tartrate 25 Mg Tablet 12.5 Mg PO BID NITROGLYCERIN SubLingual (Nitroglycerin) 0.4 Mg Tab.subl 1 Tab SL UD Aspirin 81 Mg Tab.chew 1 Tab PO DAILY Vitals/I & O Vital Sign - Last 24 Hours 07/29/19 07/29/19 07/29/19 07/29/19 07:52 08:20 08:50 09:20 Temp 98.1 98.1 Pulse 79 76 78 70 Resp 12 12 B/P (MAP) 127/71 (89) 127/71 (89) 159/61 (93) 120/74 (89) Pulse Ox 96 96 98 98 O2 Delivery Room Air Room Air Room Air Room Air 07/29/19 07/29/19 07/29/19 07/29/19 10:20 11:52 12:52 14:27 Pulse 70 B/P (MAP) 125/87 (100) Pulse Ox 99 99 O2 Delivery Room Air Room Air Room Air Room Air 07/29/19 07/29/19 07/29/19 07/29/19 14:56 14:58 15:00 15:27 Temp 98.4 98.4 Pulse 73 83 80 Resp 16 18 19 B/P (MAP) 140/81 (100) Pulse Ox 94 98 O2 Delivery Room Air Room Air 07/29/19 07/29/19 07/29/19 07/29/19 15:30 15:40 15:45 16:00 Pulse 82 82 B/P (MAP) 140/81 (100) 134/78 (96) 126/77 (93) Pulse Ox 98 O2 Delivery Room Air 07/29/19 07/29/19 07/29/19 07/29/19 16:15 16:30 16:37 16:45 Pulse 78 78 78 B/P (MAP) 116/62 (80) 126/78 (94) 119/84 (96) Pulse Ox 96 O2 Delivery Room Air 07/29/19 07/29/19 07/29/19 07/29/19 17:00 17:15 18:25 19:30 Pulse 94 76 96 B/P (MAP) 122/63 (82) 147/84 (105) 130/67 (88) O2 Delivery Room Air 07/29/19 07/29/19 07/29/19 07/29/19 19:48 20:53 20:56 21:48 Temp 97.4 97.4 Pulse 90 86 Resp 18 16 16 B/P (MAP) 133/94 (107) 133/94 Pulse Ox 99 99 99 O2 Delivery Room Air Room Air Room Air 07/29/19 07/30/19 07/30/19 23:18 03:20 07:00 Temp 97.7 97.8 97.8 97.7 97.8 97.8 Pulse 84 82 84 Resp 18 18 16 B/P (MAP) 140/80 (100) 108/67 (81) 135/76 (95) Pulse Ox 98 96 96 O2 Delivery Room Air Room Air Room Air Intake and Output 07/29/19 07/29/19 07/30/19 15:00 23:00 07:00 Intake Total 0 ml 120 ml 1500 ml Output Total 555 ml Balance 0 ml -435 ml 1500 ml SINA KILLIAN MD Jul 30, 2019 07:33
[2019-07-30] MEDS: COLCHICINE 0.6 MG TABLET PO SCH (09:39)
[2019-07-30] MEDS: ASPIRIN CHEWABLE 81 MG TABLET. PO SCH (09:39)
[2019-07-30] MEDS: buPROPion SR 100 MG TABLET.SA. PO SCH (09:40)
[2019-07-30] MEDS: ASCORBIC ACID 500 MG TABLET PO SCH (09:40)
[2019-07-30] MEDS: APIXABAN 5 MG TABLET. PO SCH ×2 (09:41→21:03)
[2019-07-30] MEDS: FUROSEMIDE 20 MG TABLET PO SCH (09:41)
[2019-07-30] MEDS: HYDROcodone/APAP 5/325MG 1 TAB TABLET PO PRN ×3 (09:43→22:23)
[2019-07-30] MEDS: levETIRAcetam 500 MG TABLET PO SCH ×2 (09:44→21:03)
[2019-07-30] MEDS: METOPROLOL TART IMMED RELEASE 25 MG TABLET. PO SCH ×3 (09:44→21:04)
[2019-07-30 10:03] VITALS: BP 139/79
--- NOTE | 2019-07-30 12:06 | CARD ---
MR#: [id number] Date of Study: 07/29/2019 Ordering Physician: JULEE ABDULLAHI, Referring Physician: JULEE ABDULLAHI, Tech: RT Kirt (Jac) ROSEMARY APPROVED REPORT Technologist: RT Kirt (R) ROSEMARY Nurse: Edelmira Carbajal RN Procedure(s) performed: Left heart catheterization, selective coronary angiography and left ventricul ography via right transradial approach Sedation Time: 30 Minutes Dose: 57.45 Gycm2 Fluoro Time: 3.3 Minutes Contrast: 115mL Visipaque INDICATION The indication(s) include : unstable angina . PROCEDURE NARRATIVE After explaining the risks, benefits and alternative options, informed consent was obtained from ted ent. Patient was brought to the cardiac Insurance Sales Assistant and right wrist was prepped and draped in the usual fashion after confirming a positive modified Tate's test. Arterial access was obtained in the righ t radial artery and a 6 Serbian sheath was inserted. 6 Serbian Ok catheter was used to perform franco ective angiography of the left and right coronary arteries. 6 Serbian pigtail catheter was used to pe rform left ventriculography. Patient tolerated the procedure well. Hemostasis was achieved using TR band. There were no immediate complications. The following findings were noted. FINDINGS 1. Hemodynamics: Left ventricular end-diastolic pressure of 12 mmHg. No pullback gradient across th e aortic valve. 2. Left ventriculography: Hyperdynamic left ventricular systolic function with ejection fraction est imated at 70%. No significant mitral regurgitation seen. 3. Coronary angiography: a. The left main coronary artery arose from the left sinus of Valsalva, gave rise to the left anteri or descending and left circumflex arteries and did not show any significant stenosis. b. The left anterior descending artery did not show any significant stenosis. c. The left circumflex artery did not show any significant stenosis. d. The right coronary artery was a large and dominant vessel arising from the right sinus of Valsalv a that did not show any significant stenosis. Conclusion 1. No significant coronary disease 2. Hyperdynamic left ventricular systolic function with ejection fraction estimated at 70% Signed by : Jaspreet Pena, Electronically Approved : 07/30/2019 12:05:58
--- NOTE | 2019-07-30 12:37 | PDOC ---
JULEE ABDULLAHI ASSISTANT QUALITY MANAGER 07/30/19 1237: CARDIO Progress Notes Date and Time Date of Service 07/30/2019 Time of Evaluation 1020 Subjective Subjective: No Chest Pain, No shortness of breath, No Palpitations, Other (complians of left elbow pain) Vitals Vitals Vital Signs Date Time Temp Pulse Resp B/P (MAP) Pulse Ox O2 Delivery O2 Flow Rate FiO2 07/30/19 11:39 90 07/30/19 10:03 96.8 16 139/79 (99) 96 Room Air 96.8 Weight Weight [ ] Input and Output Intake and Output Intake and Output 07/30/19 07:00 Intake Total 1620 ml Output Total 555 ml Balance 1065 ml Intake Oral 620 ml IV Total 1000 ml Output Urine Total 555 ml # Voids 1 Laboratory Labs Laboratory Tests Test 07/29/19 13:30 07/29/19 16:00 07/30/19 07:00 Iron Level 41 ug/dL (65-175) Total Iron Binding Capacity 298 ug/dL (250-450) Iron Saturation 14 % (15-34) Troponin I Quantitative 0.022 ng/mL (0.000-0.055) 0.026 ng/mL (0.000-0.055) White Blood Count 6.8 x10^3/uL (4.0-11.0) Red Blood Count 5.27 x10^6/uL (4.30-5.70) Hemoglobin 12.7 g/dL (13.0-17.5) Hematocrit 39.9 % (39.0-53.0) Mean Corpuscular Volume 76 fL (79-100) Mean Corpuscular Hemoglobin 24 pg (25-35) Mean Corpuscular Hemoglobin Concent 32 g/dL (31-37) Red Cell Distribution Width 14.3 % (11.5-14.5) Platelet Count 234 x10^3/uL (140-400) Neutrophils (%) (Auto) 60 % (31-73) Lymphocytes (%) (Auto) 23 % (24-48) Monocytes (%) (Auto) 15 % (0-9) Eosinophils (%) (Auto) 2 % (0-3) Basophils (%) (Auto) 1 % (0-3) Neutrophils # (Auto) 4.1 x10^3/uL (1.8-7.7) Lymphocytes # (Auto) 1.6 x10^3/uL (1.0-4.8) Monocytes # (Auto) 1.0 x10^3/uL (0.0-1.1) Eosinophils # (Auto) 0.1 x10^3/uL (0.0-0.7) Basophils # (Auto) 0.0 x10^3/uL (0.0-0.2) Sodium Level 136 mmol/L (136-145) Potassium Level 3.8 mmol/L (3.5-5.1) Chloride Level 101 mmol/L (98-107) Carbon Dioxide Level 26 mmol/L (21-32) Anion Gap 9 (6-14) Blood Urea Nitrogen 14 mg/dL (8-26) Creatinine 1.2 mg/dL (0.7-1.3) Estimated GFR (Cockcroft-Gault) 59.7 BUN/Creatinine Ratio 12 (6-20) Glucose Level 103 mg/dL (70-99) Calcium Level 8.3 mg/dL (8.5-10.1) Total Bilirubin 0.8 mg/dL (0.2-1.0) Aspartate Amino Transf (AST/SGOT) 21 U/L (15-37) Alanine Aminotransferase (ALT/SGPT) 26 U/L (16-63) Alkaline Phosphatase 60 U/L (46-116) Total Protein 6.8 g/dL (6.4-8.2) Albumin 3.0 g/dL (3.4-5.0) Albumin/Globulin Ratio 0.8 (1.0-1.7) Physical Exam HEENT: Neck Supple W Full Motion Chest: Symmetric LUNGS: Clear to Auscultation Heart: irregularly irregular (AFIB RVR) Abdomen: Soft N/T Extremities: No Edema, No Calf Tenderness Neurology: alert, oriented, follow commands Other Exams left elbow pain with tenderness and limited ROM Assessment Assessment 1. Chest pain: UA features hence LHC. Revealed no significant disease. 2. Chronic AFIB; Presently with RVR 110-120s. This is likely the cause of his symptoms. 3. Hypertension: Controlled 4. HLP 5. DM2 6. H/o CVA 7. Left epicondylitis/bursitis: per PCP Recommendations 1. Optimize rate control with increased metoprolol. Eliquis for stroke prevention 2. Continue secondary prevention. TTE today 3. Follow up with Dr. Qureshi as an outpt. ANTONINA OSMAN MD 07/30/19 1358: CARDIO Progress Notes Assessment Assessment Patient seen and evaluated. Chest pain: Resolved. Heart catheterization showed no significant coronary artery disease. Continuing medical treatment. Chronic AFIB; rate improved. Increase metoprolol as above. Eliquis for anticoagulation. Hypertension: Controlled HLP DM2 H/o CVA JULEE ABDULLAHI ASSISTANT QUALITY MANAGER Jul 30, 2019 12:37 ANTONINA OSMAN MD Jul 30, 2019 13:58
--- NOTE | 2019-07-30 13:44 | CARD ---
MR#: [id number] Date of Study: 07/30/2019 Ordering Physician: JULEE ABDULLAHI, Referring Physician: JULEE ABDULLAHI Tech: Lesly Dodd AUNG APPROVED REPORT EXAM: LIMITED Two-dimensional echocardiogram with Doppler and color Other Information Quality : Good INDICATION Dyspnea Hypertension/HCVD 2D DIMENSIONS Left Atrium(2D)4.1 (1.6-4.0cm)IVSd1.6 (0.7-1.1cm) Aortic Root(2D)3.3 (2.0-3.7cm)LVDd4.9 (3.9-5.9cm) LVOT Diameter2.3 (1.8-2.4cm)PWd1.3 (0.7-1.1cm) LVDs2.5 (2.5-4.0cm)FS (%) 30.0 % SV89.2 mlLVEF(%)60.0 (>50%) Aortic Valve AoV Peak Hector.286.0cm/sAoV VTI47.6cm AO Peak GR.32.7mmHgLVOT VTI 19.07cm AO Mean GR.17mmHgAVA (VTI)1.70cm2 AI P 1/2 [id number] Tricuspid Valve TR P. [id number]/sRAP [id number] TR Peak Gr.[id number] LEFT VENTRICLE The left ventricle is normal size. There is mild concentric left ventricular hypertrophy. The left ve ntricular systolic function is normal and the ejection fraction is within normal range. The Ejection Fraction is 55-60%. There is normal LV segmental wall motion. RIGHT VENTRICLE The right ventricle is normal size. The right ventricular systolic function is normal. ATRIA The left atrium is mildly dilated. The right atrium size is normal. The interatrial septum is intact with no evidence for an atrial septal defect or patent foramen ovale as noted on 2-D or Doppler imagi ng. AORTIC VALVE The aortic valve is calcified and displays decreased opening. Doppler and Color Flow revealed mild ao rtic regurgitation. Calculated aortic valve area is 1.7 cm2 with maximum pressure gradient of 33 mmHg and mean pressure gradient of 17 mmHg. Doppler and color-flow analysis revealed mild aortic stenosis . MITRAL VALVE The mitral valve is calcified but opens well. There is no evidence of mitral valve prolapse. There is no mitral valve stenosis. Doppler and Color-flow revealed mild mitral regurgitation. TRICUSPID VALVE The tricuspid valve is normal in structure and function. Doppler and Color Flow revealed trace tricus pid regurgitation. The PA pressure was estimated at 39 mmHg. There is no tricuspid valve stenosis. PULMONIC VALVE The pulmonic valve is not well visualized. GREAT VESSELS The aortic root is normal in size. PERICARDIAL EFFUSION There is no evidence of significant pericardial effusion. Critical Notification Critical Value: No <Conclusion> The left ventricle is normal size. The left ventricular systolic function is normal and the ejection fraction is within normal range. The Ejection Fraction is 55-60%. There is mild concentric left ventricular hypertrophy. Doppler and Color Flow revealed mild aortic regurgitation. Calculated aortic valve area is 1.7 cm2 with maximum pressure gradient of 33 mmHg and mean pressure g radient of 17 mmHg. Doppler and color-flow analysis revealed mild aortic stenosis. Doppler and Color-flow revealed mild mitral regurgitation. Doppler and Color Flow revealed trace tricuspid regurgitation. The PA pressure was estimated at 39 mmHg. Signed by : Jorge De Santiago MD Electronically Approved : 07/30/2019 13:44:24
--- NOTE | 2019-07-30 14:02 | NUR ---
SS following for discharge planning. SS reviewed pt chart and discussed with pt RN. Pt is from home with spouse and is currently on room air. Pt is primarily Malagasy speaking and has possible bed bugs. SS will continue to follow for discharge planning.
[2019-07-30 14:21] VITALS: BP 122/70
--- NOTE | 2019-07-30 14:24 | RAD ---
3 views left elbow HISTORY: Pain swelling and redness AP lateral oblique views The visualized osseous structures appear normal. IMPRESSION: No acute findings. Electronically signed by: Milton Duong III, MD (07/30/2019 2:22 PM) [id number]
[2019-07-30] MEDS: predniSONE 10 MG TABLET PO SCH (16:00)
[2019-07-30] MEDS: DICLOFENAC SODIUM 1% TOPICAL GEL 100GM TUBE. TP SCH ×2 (16:00→21:05)
[2019-07-30 20:07] VITALS: BP 141/86
[2019-07-30] MEDS: ATORVASTATIN CALCIUM 40 MG TABLET. PO SCH (21:03)
[2019-07-30] MEDS: MULTIVITAMIN with MINERAL TABLET. PO SCH (21:03)
[2019-07-30 22:42] VITALS: BP 125/77
[2019-07-31 03:09] VITALS: BP 140/67
[2019-07-31] MEDS: HYDROcodone/APAP 5/325MG 1 TAB TABLET PO PRN (06:24)
[2019-07-31 07:00] VITALS: BP 114/74
[2019-07-31] MEDS ORDERED: HYDROcodone/APAP 5/325MG 1 TAB TABLET PO PRN ×2 (08:45→14:15)
[2019-07-31] MEDS: ASCORBIC ACID 500 MG TABLET PO SCH (08:52)
[2019-07-31] MEDS: COLCHICINE 0.6 MG TABLET PO SCH (08:52)
[2019-07-31] MEDS: APIXABAN 5 MG TABLET. PO SCH (08:52)
[2019-07-31] MEDS: levETIRAcetam 500 MG TABLET PO SCH (08:52)
[2019-07-31] MEDS: buPROPion SR 100 MG TABLET.SA. PO SCH (08:52)
[2019-07-31] MEDS: ASPIRIN CHEWABLE 81 MG TABLET. PO SCH (08:52)
[2019-07-31] MEDS: DICLOFENAC SODIUM 1% TOPICAL GEL 100GM TUBE. TP SCH (08:52)
[2019-07-31] MEDS: predniSONE 10 MG TABLET PO SCH (08:53)
[2019-07-31] MEDS: FUROSEMIDE 20 MG TABLET PO SCH (08:53)
[2019-07-31] MEDS: METOPROLOL TART IMMED RELEASE 25 MG TABLET. PO SCH (08:54)
--- NOTE | 2019-07-31 09:33 | CONS ---
DATE OF CONSULTATION: 07/31/2019 ATTENDING PHYSICIAN: Dr. Gallegos. REASON FOR CONSULTATION: The patient was seen at the request of Dr. Gallegos for rehab evaluation about his left elbow and wrist pain. LOCATION: He is in room 200. HISTORY OF PRESENT ILLNESS: This is a 69-year-old right-handed male with known atrial fibrillation, on anticoagulation, angina, anxiety, coronary artery disease, depression, diabetes mellitus type 2, gastroesophageal reflux disease, hypercholesterolemia, hypertension, seizure disorder, chronic neck and back pain, pulmonary embolism, and cardiac stents. Not known allergic to any medication. He is from [place], but recently moved here to stay with his family. No stairs for him to manage. The patient complains of pain in his left elbow without any specific injury for the last 3-4 days, he started having this pain radiating to his left wrist in the last day or so. He had x-rays of his left elbow, which failed to reveal any acute abnormalities. The patient denies any neck pain with radiation to the extremities or any tingling, numbness sensation in the extremities. PHYSICAL EXAMINATION: On physical examination today revealed an elderly male. He is alert, oriented to time, place, person and circumstance and follows commands appropriately, moves all 4 extremities voluntarily. He is protecting his left elbow and left wrist to some extent, tenderness to palpation over left lateral humeral epicondylar area and also over the dorsal aspect of left wrist, some edema of left elbow and wrist noted. He had pain on range of motion of his left elbow and left wrist, more so of left wrist. He had mild degree of hand intrinsic muscle weakness bilaterally. He had equal perception of touch and pinprick sensation bilaterally. Deep tendon reflexes are decreased overall. No significant tenderness to palpation of cervical spine or shoulder girdle muscles or both shoulders was noted at this time. He is independent with bed mobility and transfers and up walking without any loss of balance. His serum uric acid level is 6.5 at upper limits of normal. ASSESSMENT: Tendinitis, left lateral humeral epicondylar area and left wrist superimposed on degenerative joint disease of left wrist, to also rule out probable gout or pseudogout. The patient with diabetes mellitus with clinical evidence of peripheral neuropathy. RECOMMENDATIONS: To continue using physical modalities, to obtain wrist x-rays to have occupational therapy to instruct him in proper use of his left upper extremity in his day-to-day activities. To start him on prednisone orally at least for about 10 days, to increase the hydrocodone dose to 2 of them at a time as nursing reports of 1 is not helping that much. Hopefully, home with outpatient followup when medically stable. I can proceed with injecting his left elbow, but I think his left wrist is the main problem right now. That is the reason, I want to try some prednisone at least for about 10 days to 2 weeks to see if that might help. Being on anticoagulation, he is not a candidate for nonsteroidal anti-inflammatory medication, also his creatinine is at 1.2. Dr. Gallegos, I appreciate asking me to participate in the care of this interesting patient. I will be glad to see him for followup with you on as needed basis. RHIANNON MURRAY MD DR: SHAUNA/merritt JOB#: [id number] / [id number]
[2019-07-31] MEDS ORDERED: METO25TA4 PO (10:01)
--- NOTE | 2019-07-31 10:01 | PDOC ---
CARDIO Progress Notes Date and Time Date of Service 07/31/2019 Time of Evaluation 0910 Subjective Subjective: No Chest Pain, No shortness of breath, No Palpitations, Other (still complains of elbow pain) Vitals Vitals Vital Signs Date Time Temp Pulse Resp B/P (MAP) Pulse Ox O2 Delivery O2 Flow Rate FiO2 07/31/19 08:54 90 07/31/19 08:00 Room Air 07/31/19 07:00 98.4 16 114/74 (87) 97 98.4 Weight Weight [ ] Input and Output Intake and Output Intake and Output 07/31/19 07:00 Intake Total 790 ml Output Total 50 ml Balance 740 ml Intake Oral 790 ml Output Urine Total 50 ml Physical Exam HEENT: Neck Supple W Full Motion Chest: Symmetric LUNGS: Clear to Auscultation Heart: irregularly irregular (AFIB RVR) Abdomen: Soft N/T Extremities: No Edema, No Calf Tenderness Neurology: alert, oriented, follow commands Assessment Assessment 1. Chest pain: UA features hence LHC. Revealed no significant disease. CP/dyspnea due to RVR 2. Chronic AFIB with RVR; rate better with BB increase. EF and WM nml 3. Hypertension: Controlled 4. HLP 5. DM2 6. H/o CVA 7. Left epicondylitis/bursitis: per PCP 8. Mild Recommendations 1. Home with metoprolol 25 mg bid. Eliquis for stroke prevention 2. Continue secondary prevention 3. Follow up with Dr. Qureshi as an outpt. OK to DC per cardiac standpoint. JULEE ABDULLAHI APRN Jul 31, 2019 10:01
--- NOTE | 2019-07-31 10:20 | RAD ---
WRIST 3V LEFT INDICATION: Left wrist pain, swelling and tenderness and crepitus on ROM COMPARISON: None. FINDINGS: Limited lateral view due to nonneutral positioning. No acute fracture or malalignment. Mild radiocarpal arthrosis. Borderline widening of the scapholunate interval measuring 4 mm and scaphoid signet ring sign. Bony mineralization is normal for the patient's age. No significant soft tissue abnormality. No radiopaque foreign body. IMPRESSION: Limited lateral view due to nonneutral positioning. 1. No acute fracture or malalignment. 2. Mild radiocarpal arthrosis. Borderline widening of the scapholunate interval measuring 4 mm and scaphoid signet ring sign could relate to early/mild scapholunate dissociation. Electronically signed by: Marquis Best MD (07/31/2019 10:17 AM) [id number]
[2019-07-31 11:00] VITALS: BP 84/66
[2019-07-31] MEDS ORDERED: ANTI-COAG MONITOR BY PHARMACY. MC PRN (11:00)
--- NOTE | 2019-07-31 11:04 | PDOC ---
PROGRESS NOTES Chief Complaint Chief Complaint IMPRESSION Dyspnea - likely secondary to mild CHF exacerbation. No CXR abnormalities, no COVID19 exposure Acute diastolic congestive heart failure, cannot rule out systolic congestive heart failure. Mild compared to his previous episodes. BNP is lower than prior as well. Ex-smoker 2008, probable chronic obstructive pulmonary disease. 80 pack yr smoking hx Atrial fibrillation on eliquis, BB, rate controlled. Will continue Hypertension - cont home meds Diabetes mellitus - will place on ADA diet, basal bolus plus insulin regimen ?Bedbug infestation - living larvae sent to lab for confirmation, does appear to be a bedbug larvae. Permethrin topical BID Left elbow pain - with history of gout. Toradol helped, will give prn, cont colchicine, check uric acid level Anxiety with depression - reassurance, cont wellbutrin CAD s/p stenting - remote stenting. Will trend troponins given his chest pain. EKG reassuring. SOB could be anginal equivalent. cont telemetry GERD High Cholesterol Seizures - none recently, will cont meds H/o gout with chronic neck and back pain - will check uric acid as above. ETOH use disorder - counseled on cutting back, cessation. No history of withdrawal FEN - ADA diet PPX - lovenox FULL CODE Dispo - inpatient for HAMEED, CP, likely 2 midnights Being on anticoagulation, he is not a candidate for nonsteroidal anti- inflammatory medication, D/C TORADOL D/W RN History of Present Illness History of Present Illness Mr Walker is a 69yo M w/ PMHx A-Fib, Angina, Anxiety, CAD s/p stenting, Depression, Diabetes-Type II, GERD, High Cholesterol, Hypertension, Seizures, chronic neck and back pain presents to ED with multiple complaints 07/29/19. C/o chest pain intermittently over the last 2 days currently he is not having any chest pain but he is having some left elbow pain and he notes this was his primary reason for coming to the hospital in addition to shortness of breath and dyspnea on exertion for 1 day. He denies any fever chills or sweats. He has not had a cough or congestion. He states nothing that he does takes care of the pain in his chest or elbow. He does state that moving his elbow around seems to make the pain worse. Given toradol with improvement in the ED. Troponin 0.038, BNP 769, WBC 7.8, Hb 13.7, MCV 76, BUN 13, Cr 1.2 CXR clear with previous scarring noted basilar. EKG: Normal sinus rhythm with significant T wave abnormality anterior laterally this is unchanged from previous EKG On further ROS noted with pruritis every morning when he awakens and small red larvae insect found resembling a bedbug or tick mite. He has had no outdoor travel but is concerned his daughter may have bedbugs in her home. he recently moved from [place] to [place] to be closer to family. Admitted for further care and investigation. 07/28: Clean cardiac cath. Uric acid 6.5. No further bedbugs found. 07/30 severe left elbow pain and now swelling. Chest pain resolved. Shortness of breath improved. Vitals Vitals Vital Signs Date Time Temp Pulse Resp B/P (MAP) Pulse Ox O2 Delivery O2 Flow Rate FiO2 07/31/19 08:54 90 07/31/19 08:00 Room Air 07/31/19 07:00 98.4 16 114/74 (87) 97 98.4 Physical Exam General: Alert, Oriented X3, Cooperative, No acute distress Heart: Regular rate, Other (AFIB rate controlled) Lungs: Clear Abdomen: Normal bowel sounds, Soft, No tenderness Extremities: No cyanosis, No edema Skin: No breakdown, No significant lesion Labs LABS 3 views left elbow HISTORY: Pain swelling and redness AP lateral oblique views The visualized osseous structures appear normal. IMPRESSION: No acute findings. Electronically signed by: Kemar Aden III, MD (07/30/2019 2:22 PM) [id number] DICTATED and SIGNED BY: KEMAR ADEN III, MD DATE: 07/30/19 142 Assessment and Plan Assessmemt and Plan Problems Medical Problems: (1) Chest pain Status: Acute (2) Shortness of breath Status: Acute Comment Review of Relevant I have reviewed the following items von (where applicable) has been applied. Labs Laboratory Tests Test 07/29/19 13:30 07/29/19 16:00 07/30/19 07:00 Iron Level 41 ug/dL (65-175) Total Iron Binding Capacity 298 ug/dL (250-450) Iron Saturation 14 % (15-34) Troponin I Quantitative 0.022 ng/mL (0.000-0.055) 0.026 ng/mL (0.000-0.055) White Blood Count 6.8 x10^3/uL (4.0-11.0) Red Blood Count 5.27 x10^6/uL (4.30-5.70) Hemoglobin 12.7 g/dL (13.0-17.5) Hematocrit 39.9 % (39.0-53.0) Mean Corpuscular Volume 76 fL (79-100) Mean Corpuscular Hemoglobin 24 pg (25-35) Mean Corpuscular Hemoglobin Concent 32 g/dL (31-37) Red Cell Distribution Width 14.3 % (11.5-14.5) Platelet Count 234 x10^3/uL (140-400) Neutrophils (%) (Auto) 60 % (31-73) Lymphocytes (%) (Auto) 23 % (24-48) Monocytes (%) (Auto) 15 % (0-9) Eosinophils (%) (Auto) 2 % (0-3) Basophils (%) (Auto) 1 % (0-3) Neutrophils # (Auto) 4.1 x10^3/uL (1.8-7.7) Lymphocytes # (Auto) 1.6 x10^3/uL (1.0-4.8) Monocytes # (Auto) 1.0 x10^3/uL (0.0-1.1) Eosinophils # (Auto) 0.1 x10^3/uL (0.0-0.7) Basophils # (Auto) 0.0 x10^3/uL (0.0-0.2) Sodium Level 136 mmol/L (136-145) Potassium Level 3.8 mmol/L (3.5-5.1) Chloride Level 101 mmol/L (98-107) Carbon Dioxide Level 26 mmol/L (21-32) Anion Gap 9 (6-14) Blood Urea Nitrogen 14 mg/dL (8-26) Creatinine 1.2 mg/dL (0.7-1.3) Estimated GFR (Cockcroft-Gault) 59.7 BUN/Creatinine Ratio 12 (6-20) Glucose Level 103 mg/dL (70-99) Calcium Level 8.3 mg/dL (8.5-10.1) Total Bilirubin 0.8 mg/dL (0.2-1.0) Aspartate Amino Transf (AST/SGOT) 21 U/L (15-37) Alanine Aminotransferase (ALT/SGPT) 26 U/L (16-63) Alkaline Phosphatase 60 U/L (46-116) Total Protein 6.8 g/dL (6.4-8.2) Albumin 3.0 g/dL (3.4-5.0) Albumin/Globulin Ratio 0.8 (1.0-1.7) Medications Current Medications Aspirin (Aspirin Chewable) 324 mg 1X ONCE PO Last administered on 07/29/19at 08:29; Start 07/29/19 at 08:00; Stop 07/29/19 at 08:01; Status DC Ketorolac Tromethamine (Toradol 30mg Vial) 30 mg 1X ONCE IV Last administered on 07/29/19at 08:30; Start 07/29/19 at 08:00; Stop 07/29/19 at 08:01; Status DC Ondansetron HCl (Zofran) 4 mg PRN Q8HRS PRN IV NAUSEA/VOMITING; Start 07/29/19 at 10:15; Stop 07/29/19 at 12:21; Status DC Acetaminophen (Tylenol) 650 mg PRN Q4HRS PRN PO FEVER; Start 07/29/19 at 10:15; Stop 07/29/19 at 12:21; Status DC Nitroglycerin (Nitrostat) 0.4 mg PRN Q5MIN PRN SL CHEST PAIN; Start 07/29/19 at 10:15; Status Cancel Ondansetron HCl (Zofran) 4 mg PRN Q4HRS PRN IV NAUSEA/VOMITING; Start 07/29/19 at 12:30 Acetaminophen (Tylenol) 650 mg PRN Q6HRS PRN PO FEVER; Start 07/29/19 at 12:30 Albuterol Sulfate (Ventolin Neb Soln) 2.5 mg PRN BID PRN INH SHORTNESS OF BREATH; Start 07/29/19 at 12:30 Apixaban (Eliquis) 5 mg BID PO Last administered on 07/31/19at 08:52; Start 07/29/19 at 13:00 Aspirin (Aspirin Chewable) 81 mg DAILY PO Last administered on 07/31/19at 08:52; Start 07/30/19 at 09:00 Atorvastatin Calcium (Lipitor) 40 mg QHS PO Last administered on 4/15/20at 21:03; Start 07/29/19 at 21:00 Colchicine (Colcrys) 0.6 mg DAILY PO Last administered on 07/31/19 08:52; Start 07/29/19 at 13:00 Furosemide (Lasix) 20 mg DAILY PO Last administered on 07/31/19 08:53; Start 07/29/19 at 13:00 Acetaminophen/ Hydrocodone Bitart (Lortab 5/325) 1 tab PRN Q6HRS PRN PO PAIN Last administered on 07/31/19 06:24; Start 07/29/19 at 12:30; Stop 07/31/19 at 08:39; Status DC Levetiracetam (Keppra) 1,000 mg BID PO Last administered on 07/31/19 08:52; Start 07/29/19 at 13:00 Metoprolol Tartrate (Lopressor) 12.5 mg BID PO Last administered on 07/30/19at 09:44; Start 07/29/19 at 13:00; Stop 07/30/19 at 10:39; Status DC Multivitamins (Thera M Plus) 1 tab QHS PO Last administered on 07/30/19 21:03; Start 07/29/19 at 21:00 Ascorbic Acid (Vitamin C) 500 mg DAILY PO Last administered on 07/31/19 08:52; Start 07/29/19 at 13:00 Bupropion HCl (Wellbutrin Sr) 200 mg DAILY PO Last administered on 07/31/19 08:52; Start 07/29/19 at 13:00 Permethrin (Elimite) 1 brandy PRN BID PRN TP insect bites; Start 07/29/19 at 12:30 Enoxaparin Sodium (Lovenox 40mg Syringe) 40 mg Q24H SQ ; Start 07/29/19 at 12:30; Status UNV Iodixanol (Visipaque 320) 100 ml STK-MED ONCE .ROUTE ; Start 07/29/19 at 14:04; Stop 07/29/19 at 14:04; Status DC Heparin Sodium/ Sodium Chloride 1,000 ml @ As Directed STK-MED ONCE .ROUTE ; Start 07/29/19 at 14:04; Stop 07/29/19 at 14:04; Status DC Lidocaine HCl (Xylocaine-Mpf 1% 2ml Vial) 2 ml STK-MED ONCE .ROUTE ; Start 07/29/19 at 14:08; Stop 07/29/19 at 14:08; Status DC Fentanyl Citrate (Fentanyl 2ml Vial) 100 mcg STK-MED ONCE .ROUTE ; Start 07/29/19 at 14:23; Stop 07/29/19 at 14:23; Status DC Midazolam HCl (Versed) 2 mg STK-MED ONCE .ROUTE ; Start 07/29/19 at 14:23; Stop 07/29/19 at 14:24; Status DC Heparin Sodium (Porcine) (Heparin Sodium) 10,000 unit STK-MED ONCE .ROUTE ; Start 07/29/19 at 14:23; Stop 07/29/19 at 14:24; Status DC Verapamil HCl (Verapamil) 5 mg STK-MED ONCE .ROUTE ; Start 07/29/19 at 14:23; Stop 07/29/19 at 14:24; Status DC Nitroglycerin (Nitroglycerin) 200 mcg STK-MED ONCE .ROUTE ; Start 07/29/19 at 14:24; Stop 07/29/19 at 14:24; Status DC Nitroglycerin (Nitroglycerin) 200 mcg 1X ONCE IART Last administered on 07/29/19at 14:58; Start 07/29/19 at 14:30; Stop 07/29/19 at 14:36; Status DC Verapamil HCl (Verapamil) 2.5 mg 1X ONCE IART Last administered on 07/29/19at 14:58; Start 07/29/19 at 14:30; Stop 07/29/19 at 14:36; Status DC Heparin Sodium (Porcine) (Heparin Sodium) 2,500 unit 1X ONCE IART Last administered on 07/29/19at 14:57; Start 07/29/19 at 14:30; Stop 07/29/19 at 14:36; Status DC Heparin Sodium/ Sodium Chloride (HEPARIN for ARTERIAL LINE FLUSH) 1,000 unit 1X ONCE IART Last administered on 07/29/19at 14:30; Start 07/29/19 at 14:30; Stop 07/29/19 at 14:36; Status DC Heparin Sodium/ Sodium Chloride (HEPARIN for ARTERIAL LINE FLUSH) 1,000 unit 1X ONCE IART Last administered on 07/29/19at 14:30; Start 07/29/19 at 14:30; Stop 07/29/19 at 14:36; Status DC Midazolam HCl (Versed) 2 mg 1X ONCE IV Last administered on 07/29/19at 14:56; Start 07/29/19 at 14:30; Stop 07/29/19 at 14:36; Status DC Fentanyl Citrate (Fentanyl 2ml Vial) 100 mcg 1X ONCE IV Last administered on 07/29/19at 14:56; Start 07/29/19 at 14:30; Stop 07/29/19 at 14:37; Status DC Iodixanol (Visipaque 320) 100 ml 1X ONCE IART Last administered on 07/29/19at 15:17; Start 07/29/19 at 14:30; Stop 07/29/19 at 14:36; Status DC Lidocaine HCl (Xylocaine-Mpf 1% 2ml Vial) 2 ml 1X ONCE INJ Last administered on 07/29/19at 14:57; Start 07/29/19 at 14:30; Stop 07/29/19 at 14:36; Status DC Iodixanol (Visipaque 320) 100 ml STK-MED ONCE .ROUTE ; Start 07/29/19 at 14:53; Stop 07/29/19 at 14:54; Status DC Sodium Chloride (Normal Saline Flush) 3 ml QSHIFT PRN IV AFTER MEDS AND BLOOD DRAWS; Start 07/29/19 at 15:30 Sodium Chloride 1,000 ml @ 100 mls/hr Q10H IV Last administered on 07/29/19at 15:55; Start 07/29/19 at 15:20; Stop 07/29/19 at 19:36; Status DC Nitroglycerin (Nitrostat) 0.4 mg PRN Q5MIN PRN SL CHEST PAIN; Start 07/29/19 at 15:30 Metoprolol Tartrate (Lopressor) 25 mg BID PO Last administered on 07/31/19at 08: 54; Start 07/30/19 at 11:00 Diclofenac Sodium (Voltaren) 1 brandy BID TP Last administered on 07/31/19at 08:52; Start 07/30/19 at 12:30 Prednisone (Prednisone) 10 mg DAILY PO Last administered on 07/31/19at 08:53; Start 07/30/19 at 12:45 Acetaminophen/ Hydrocodone Bitart (Lortab 5/325) 2 tab PRN Q6HRS PRN PO MODERATE - SEVERE PAIN; Start 07/31/19 at 08:45 Info (Anti-Coagulation Monitoring By Pharmacy) 1 each PRN DAILY PRN MC SEE COMMENTS Last administered on 07/31/19at 10:47; Start 07/31/19 at 11:00 Active Scripts Active Thera-M Tablet (Multivits,Ca,Minerals/Iron/Fa) 1 Each Tablet 1 Tab PO QHS 30 Days Acetaminophen 500 Mg Tablet 500 Mg PO PRN Q6HRS PRN 14 Days Colcrys (Colchicine) 0.6 Mg Tablet 0.6 Mg PO DAILY [place] 5-325 Tablet (Acetaminophen/Hydrocodone Bitart) 1 Each Tablet 1 Tab PO PRN Q6HRS PRN Keppra (Levetiracetam) 500 Mg Tablet 2 Tab PO BID 30 Days Atorvastatin Calcium 40 Mg Tablet 1 Tab PO DAILY 30 Days Proair Hfa Inhaler (Albuterol Sulfate) 8.5 Gm Hfa.aer.ad 2 Puff INH PRN BID PRN 30 Days Eliquis (Apixaban) 5 Mg Tablet 5 Mg PO BID 30 Days Lasix (Furosemide) 40 Mg Tablet 20 Mg PO DAILY 30 Days Reported Vitamin C (Ascorbic Acid) 500 Mg Capsule.er 500 Mg PO DAILY Wellbutrin Sr (Bupropion Hcl) 200 Mg Tablet.er 200 Mg PO DAILY Metoprolol Tartrate 25 Mg Tablet 12.5 Mg PO BID NITROGLYCERIN SubLingual (Nitroglycerin) 0.4 Mg Tab.subl 1 Tab SL UD Aspirin 81 Mg Tab.chew 1 Tab PO DAILY Vitals/I & O Vital Sign - Last 24 Hours 07/30/19 07/30/19 07/30/19 07/30/19 11:39 14:21 20:00 20:07 Temp 97.6 99.4 97.6 99.4 Pulse 90 86 91 Resp 18 18 B/P (MAP) 122/70 (87) 141/86 (104) Pulse Ox 93 95 O2 Delivery Room Air Room Air Room Air 07/30/19 07/30/19 07/30/19 07/30/19 21:04 22:23 22:42 23:23 Temp 97.6 97.6 Pulse 91 87 Resp 18 18 18 B/P (MAP) 141/86 125/77 (93) Pulse Ox 97 97 O2 Delivery Room Air Room Air Room Air 07/31/19 07/31/19 07/31/19 07/31/19 03:09 06:24 07:00 08:00 Temp 97.7 98.4 97.7 98.4 Pulse 88 78 Resp 18 18 16 B/P (MAP) 140/67 (91) 114/74 (87) Pulse Ox 96 96 97 O2 Delivery Room Air Room Air Room Air Room Air 07/31/19 08:54 Pulse 90 Intake and Output 07/30/19 07/30/19 07/31/19 14:59 22:59 06:59 Intake Total 360 ml 180 ml 250 ml Output Total 50 ml Balance 310 ml 180 ml 250 ml CAROLE RIOS MD Jul 31, 2019 11:04
--- NOTE | 2019-07-31 11:28 | NUR ---
SS following up with discharge planning. SS discussed with pt RN. Pt will discharge to home when medically stable. No PT/OT needs at this time. SS will continue to follow for discharge planning.
--- NOTE | 2019-07-31 13:30 | PDOC3 ---
Discharge Summary Date of Admission: Jul 29, 2019 Date of Discharge: Jul 31, 2019 Follow-Up: 3-5 days Admitting Diagnosis comment: DISCHARGE DX Dyspnea - likely secondary to mild CHF exacerbation. No CXR abnormalities, no COVID19 exposure Acute diastolic congestive heart failure, cannot rule out systolic congestive heart failure. Mild compared to his previous episodes. BNP is lower than prior as well. Ex-smoker 2008, probable chronic obstructive pulmonary disease. 80 pack yr smoking hx Atrial fibrillation on eliquis, BB, rate controlled. Will INC Hypertension - cont home meds Diabetes mellitus - will place on ADA diet, basal bolus plus insulin regimen ?Bedbug infestation - living larvae sent to lab for confirmation, does appear to be a bedbug larvae. Permethrin topical BID Left elbow pain - with history of gout. Toradol helped, will give prn, cont colchicine, check uric acid level Anxiety with depression - reassurance, cont wellbutrin CAD s/p stenting - remote stenting. Will trend troponins given his chest pain. EKG reassuring. SOB could be anginal equivalent. cont telemetry GERD High Cholesterol Seizures - none recently, will cont meds H/o gout with chronic neck and back pain - will check uric acid as above. ETOH use disorder - counseled on cutting back, cessation. No history of withdrawal FEN - ADA diet PPX - lovenox FULL CODE Dispo - inpatient for NAHOMI HAMEED, likely 2 midnights Being on anticoagulation, he is not a candidate for nonsteroidal anti- inflammatory medication, D/C TORADOL D/W RN d/c planning 28 min History of Present Illness History of Present Illness Mr Walker is a 69yo M w/ PMHx A-Fib, Angina, Anxiety, CAD s/p stenting, Depression, Diabetes-Type II, GERD, High Cholesterol, Hypertension, Seizures, chronic neck and back pain presents to ED with multiple complaints 07/29/19. C/o chest pain intermittently over the last 2 days currently he is not having any chest pain but he is having some left elbow pain and he notes this was his primary reason for coming to the hospital in addition to shortness of breath and dyspnea on exertion for 1 day. He denies any fever chills or sweats. He has not had a cough or congestion. He states nothing that he does takes care of the pain in his chest or elbow. He does state that moving his elbow around seems to make the pain worse. Given toradol with improvement in the ED. Troponin 0.038, BNP 769, WBC 7.8, Hb 13.7, MCV 76, BUN 13, Cr 1.2 CXR clear with previous scarring noted basilar. EKG: Normal sinus rhythm with significant T wave abnormality anterior laterally this is unchanged from previous EKG On further ROS noted with pruritis every morning when he awakens and small red larvae insect found resembling a bedbug or tick mite. He has had no outdoor travel but is concerned his daughter may have bedbugs in her home. he recently moved from [place] to [place] to be closer to family. Admitted for further care and investigation. 07/28: Clean cardiac cath. Uric acid 6.5. No further bedbugs found. 07/30 severe left elbow pain and now swelling. Chest pain resolved. Shortness of breath improved., home on prednisone Vitals Vitals Vital Signs Date Time Temp Pulse Resp B/P (MAP) Pulse Ox O2 Delivery O2 Flow Rate FiO2 07/31/19 08:54 90 07/31/19 08:00 Room Air 07/31/19 07:00 98.4 16 114/74 (87) 97 98.4 Physical Exam General: Alert, Oriented X3, Cooperative, No acute distress Heart: Regular rate, Other (AFIB rate controlled) Lungs: Clear Abdomen: Normal bowel sounds, Soft, No tenderness Extremities: No cyanosis, No edema Skin: No breakdown, No significant lesion FINAL DIAGNOSIS Problems Medical Problems: (1) Chest pain Status: Acute (2) Shortness of breath Status: Acute Brief Hospital Course Mr. Walker is a 69 old [sex] who presented with [ ACUTE CHF, ANGINA] CONDITION AT DISCHARGE: Improved Discharge Medications Current Medications Aspirin (Aspirin Chewable) 324 mg 1X ONCE PO Last administered on 07/29/19at 08:29; Start 07/29/19 at 08:00; Stop 07/29/19 at 08:01; Status DC Ketorolac Tromethamine (Toradol 30mg Vial) 30 mg 1X ONCE IV Last administered on 07/29/19at 08:30; Start 07/29/19 at 08:00; Stop 07/29/19 at 08:01; Status DC Ondansetron HCl (Zofran) 4 mg PRN Q8HRS PRN IV NAUSEA/VOMITING; Start 07/29/19 at 10:15; Stop 07/29/19 at 12:21; Status DC Acetaminophen (Tylenol) 650 mg PRN Q4HRS PRN PO FEVER; Start 07/29/19 at 10:15; Stop 07/29/19 at 12:21; Status DC Nitroglycerin (Nitrostat) 0.4 mg PRN Q5MIN PRN SL CHEST PAIN; Start 07/29/19 at 10:15; Status Cancel Ondansetron HCl (Zofran) 4 mg PRN Q4HRS PRN IV NAUSEA/VOMITING; Start 07/29/19 at 12:30 Acetaminophen (Tylenol) 650 mg PRN Q6HRS PRN PO FEVER; Start 07/29/19 at 12:30 Albuterol Sulfate (Ventolin Neb Soln) 2.5 mg PRN BID PRN INH SHORTNESS OF BREATH; Start 07/29/19 at 12:30 Apixaban (Eliquis) 5 mg BID PO Last administered on 07/31/19at 08:52; Start 07/29/19 at 13:00 Aspirin (Aspirin Chewable) 81 mg DAILY PO Last administered on 07/31/19at 08:52; Start 07/30/19 at 09:00 Atorvastatin Calcium (Lipitor) 40 mg QHS PO Last administered on 07/30/19at 21:03; Start 07/29/19 at 21:00 Colchicine (Colcrys) 0.6 mg DAILY PO Last administered on 07/31/19 08:52; Start 07/29/19 at 13:00 Furosemide (Lasix) 20 mg DAILY PO Last administered on 07/31/19at 08:53; Start 07/29/19 at 13:00 Acetaminophen/ Hydrocodone Bitart (Lortab 5/325) 1 tab PRN Q6HRS PRN PO PAIN Last administered on 07/31/19at 06:24; Start 07/29/19 at 12:30; Stop 07/31/19 at 08:39; Status DC Levetiracetam (Keppra) 1,000 mg BID PO Last administered on 07/31/19at 08:52; Start 07/29/19 at 13:00 Metoprolol Tartrate (Lopressor) 12.5 mg BID PO Last administered on 07/30/19at 09:44; Start 07/29/19 at 13:00; Stop 07/30/19 at 10:39; Status DC Multivitamins (Thera M Plus) 1 tab QHS PO Last administered on 07/30/19at 21:03; Start 07/29/19 at 21:00 Ascorbic Acid (Vitamin C) 500 mg DAILY PO Last administered on 07/31/19at 08:52; Start 07/29/19 at 13:00 Bupropion HCl (Wellbutrin Sr) 200 mg DAILY PO Last administered on 07/31/19at 08:52; Start 07/29/19 at 13:00 Permethrin (Elimite) 1 brandy PRN BID PRN TP insect bites; Start 07/29/19 at 12:30 Enoxaparin Sodium (Lovenox 40mg Syringe) 40 mg Q24H SQ ; Start 07/29/19 at 12:30; Status UNV Iodixanol (Visipaque 320) 100 ml STK-MED ONCE .ROUTE ; Start 07/29/19 at 14:04; Stop 07/29/19 at 14:04; Status DC Heparin Sodium/ Sodium Chloride 1,000 ml @ As Directed STK-MED ONCE .ROUTE ; Start 07/29/19 at 14:04; Stop 07/29/19 at 14:04; Status DC Lidocaine HCl (Xylocaine-Mpf 1% 2ml Vial) 2 ml STK-MED ONCE .ROUTE ; Start 07/29/19 at 14:08; Stop 07/29/19 at 14:08; Status DC Fentanyl Citrate (Fentanyl 2ml Vial) 100 mcg STK-MED ONCE .ROUTE ; Start 07/29/19 at 14:23; Stop 07/29/19 at 14:23; Status DC Midazolam HCl (Versed) 2 mg STK-MED ONCE .ROUTE ; Start 07/29/19 at 14:23; Stop 07/29/19 at 14:24; Status DC Heparin Sodium (Porcine) (Heparin Sodium) 10,000 unit STK-MED ONCE .ROUTE ; Start 07/29/19 at 14:23; Stop 07/29/19 at 14:24; Status DC Verapamil HCl (Verapamil) 5 mg STK-MED ONCE .ROUTE ; Start 07/29/19 at 14:23; Stop 07/29/19 at 14:24; Status DC Nitroglycerin (Nitroglycerin) 200 mcg STK-MED ONCE .ROUTE ; Start 07/29/19 at 14:24; Stop 07/29/19 at 14:24; Status DC Nitroglycerin (Nitroglycerin) 200 mcg 1X ONCE IART Last administered on 07/29/19at 14:58; Start 07/29/19 at 14:30; Stop 07/29/19 at 14:36; Status DC Verapamil HCl (Verapamil) 2.5 mg 1X ONCE IART Last administered on 07/29/19at 14:58; Start 07/29/19 at 14:30; Stop 07/29/19 at 14:36; Status DC Heparin Sodium (Porcine) (Heparin Sodium) 2,500 unit 1X ONCE IART Last administered on 07/29/19at 14:57; Start 07/29/19 at 14:30; Stop 07/29/19 at 14:36; Status DC Heparin Sodium/ Sodium Chloride (HEPARIN for ARTERIAL LINE FLUSH) 1,000 unit 1X ONCE IART Last administered on 07/29/19at 14:30; Start 07/29/19 at 14:30; Stop 07/29/19 at 14:36; Status DC Heparin Sodium/ Sodium Chloride (HEPARIN for ARTERIAL LINE FLUSH) 1,000 unit 1X ONCE IART Last administered on 07/29/19at 14:30; Start 07/29/19 at 14:30; Stop 07/29/19 at 14:36; Status DC Midazolam HCl (Versed) 2 mg 1X ONCE IV Last administered on 07/29/19 14:56; Start 07/29/19 at 14:30; Stop 07/29/19 at 14:36; Status DC Fentanyl Citrate (Fentanyl 2ml Vial) 100 mcg 1X ONCE IV Last administered on 07/29/19at 14:56; Start 07/29/19 at 14:30; Stop 07/29/19 at 14:37; Status DC Iodixanol (Visipaque 320) 100 ml 1X ONCE IART Last administered on 07/29/19at 15:17; Start 07/29/19 at 14:30; Stop 07/29/19 at 14:36; Status DC Lidocaine HCl (Xylocaine-Mpf 1% 2ml Vial) 2 ml 1X ONCE INJ Last administered on 07/29/19at 14:57; Start 07/29/19 at 14:30; Stop 07/29/19 at 14:36; Status DC Iodixanol (Visipaque 320) 100 ml STK-MED ONCE .ROUTE ; Start 07/29/19 at 14:53; Stop 07/29/19 at 14:54; Status DC Sodium Chloride (Normal Saline Flush) 3 ml QSHIFT PRN IV AFTER MEDS AND BLOOD DRAWS; Start 07/29/19 at 15:30 Sodium Chloride 1,000 ml @ 100 mls/hr Q10H IV Last administered on 07/29/19at 15:55; Start 07/29/19 at 15:20; Stop 07/29/19 at 19:36; Status DC Nitroglycerin (Nitrostat) 0.4 mg PRN Q5MIN PRN SL CHEST PAIN; Start 07/29/19 at 15:30 Metoprolol Tartrate (Lopressor) 25 mg BID PO Last administered on 07/31/19at 08:54; Start 07/30/19 at 11:00 Diclofenac Sodium (Voltaren) 1 brandy BID TP Last administered on 07/31/19at 08:52; Start 07/30/19 at 12:30 Prednisone (Prednisone) 10 mg DAILY PO Last administered on 07/31/19at 08:53; Start 07/30/19 at 12:45 Acetaminophen/ Hydrocodone Bitart (Lortab 5/325) 2 tab PRN Q6HRS PRN PO MODERATE - SEVERE PAIN; Start 07/31/19 at 08:45 Info (Anti-Coagulation Monitoring By Pharmacy) 1 each PRN DAILY PRN MC SEE COMMENTS Last administered on 07/31/19at 10:47; Start 07/31/19 at 11:00 Active Scripts Active Thera-M Tablet (Multivits,Ca,Minerals/Iron/Fa) 1 Each Tablet 1 Tab PO QHS 30 Days Acetaminophen 500 Mg Tablet 500 Mg PO PRN Q6HRS PRN 14 Days Colcrys (Colchicine) 0.6 Mg Tablet 0.6 Mg PO DAILY [place] 5-325 Tablet (Acetaminophen/Hydrocodone Bitart) 1 Each Tablet 1 Tab PO PRN Q6HRS PRN Keppra (Levetiracetam) 500 Mg Tablet 2 Tab PO BID 30 Days Atorvastatin Calcium 40 Mg Tablet 1 Tab PO DAILY 30 Days Proair Hfa Inhaler (Albuterol Sulfate) 8.5 Gm Hfa.aer.ad 2 Puff INH PRN BID PRN 30 Days Eliquis (Apixaban) 5 Mg Tablet 5 Mg PO BID 30 Days Lasix (Furosemide) 40 Mg Tablet 20 Mg PO DAILY 30 Days Reported Vitamin C (Ascorbic Acid) 500 Mg Capsule.er 500 Mg PO DAILY Wellbutrin Sr (Bupropion Hcl) 200 Mg Tablet.er 200 Mg PO DAILY Metoprolol Tartrate 25 Mg Tablet 12.5 Mg PO BID NITROGLYCERIN SubLingual (Nitroglycerin) 0.4 Mg Tab.subl 1 Tab SL UD Aspirin 81 Mg Tab.chew 1 Tab PO DAILY Vital Signs Vital Signs Date Time Temp Pulse Resp B/P (MAP) Pulse Ox O2 Delivery O2 Flow Rate FiO2 07/31/19 11:00 98.5 81 16 84/66 (72) 98 Room Air 98.5 Labs Laboratory Tests Test 07/29/19 13:30 07/29/19 16:00 07/30/19 07:00 07/31/19 10:15 Iron Level 41 ug/dL (65-175) Total Iron Binding Capacity 298 ug/dL (250-450) Iron Saturation 14 % (15-34) Troponin I Quantitative 0.022 ng/mL (0.000-0.055) 0.026 ng/mL (0.000-0.055) White Blood Count 6.8 x10^3/uL (4.0-11.0) Red Blood Count 5.27 x10^6/uL (4.30-5.70) Hemoglobin 12.7 g/dL (13.0-17.5) Hematocrit 39.9 % (39.0-53.0) Mean Corpuscular Volume 76 fL (79-100) Mean Corpuscular Hemoglobin 24 pg (25-35) Mean Corpuscular Hemoglobin Concent 32 g/dL (31-37) Red Cell Distribution Width 14.3 % (11.5-14.5) Platelet Count 234 x10^3/uL (140-400) Neutrophils (%) (Auto) 60 % (31-73) Lymphocytes (%) (Auto) 23 % (24-48) Monocytes (%) (Auto) 15 % (0-9) Eosinophils (%) (Auto) 2 % (0-3) Basophils (%) (Auto) 1 % (0-3) Neutrophils # (Auto) 4.1 x10^3/uL (1.8-7.7) Lymphocytes # (Auto) 1.6 x10^3/uL (1.0-4.8) Monocytes # (Auto) 1.0 x10^3/uL (0.0-1.1) Eosinophils # (Auto) 0.1 x10^3/uL (0.0-0.7) Basophils # (Auto) 0.0 x10^3/uL (0.0-0.2) Sodium Level 136 mmol/L (136-145) Potassium Level 3.8 mmol/L (3.5-5.1) Chloride Level 101 mmol/L (98-107) Carbon Dioxide Level 26 mmol/L (21-32) Anion Gap 9 (6-14) Blood Urea Nitrogen 14 mg/dL (8-26) Creatinine 1.2 mg/dL (0.7-1.3) Estimated GFR (Cockcroft-Gault) 59.7 BUN/Creatinine Ratio 12 (6-20) Glucose Level 103 mg/dL (70-99) Calcium Level 8.3 mg/dL (8.5-10.1) Total Bilirubin 0.8 mg/dL (0.2-1.0) Aspartate Amino Transf (AST/SGOT) 21 U/L (15-37) Alanine Aminotransferase (ALT/SGPT) 26 U/L (16-63) Alkaline Phosphatase 60 U/L (46-116) Total Protein 6.8 g/dL (6.4-8.2) Albumin 3.0 g/dL (3.4-5.0) Albumin/Globulin Ratio 0.8 (1.0-1.7) Erythrocyte Sedimentation Rate 45 (0-15) Laboratory Tests Test 07/31/19 10:15 Erythrocyte Sedimentation Rate 45 (0-15) Allergies Allergies Coded Allergies Type Severity Reaction Last Updated Verified No Known Drug Allergies 11/30/18 No Disposition/Orders: D/C to Home CAROLE RIOS MD Jul 31, 2019 13:30
[2019-07-31] MEDS ORDERED: PRED-220 PO (13:33)
[2019-07-31] MEDS ORDERED: DICL100G18 TP (13:33)
[2019-07-31] MEDS ORDERED: PERM60CR11 TP (13:33)
--- NOTE | 2019-07-31 13:35 | DISCH ---
DISCHARGE INSTRUCTIONS Condition on Discharge Condition on Discharge: Stable Activity After Discharge Activity Instructions for Disc: Activity as tolerated Lifting Instructions after Dis: No heavy lifting, No pulling or pushing Driving Instructions after Dis: Do not drive Weight Bearing Status after Di: As tolerated Diet after Discharge Diet after Discharge: Cardiac Diet Texture: Regular Liquid Texture: Thin Liquid Swallowing Supervision: None needed Wound Incision Care Wound/Incision Care: No wound care needed Checks after Discharge Checks after discharge: Check blood press - daily, Check your Temp as needed Contacting the DR. after DC Call your doctor for: If your condition worsens Treatment/Equipment after DC Adaptive Equipment Issued: None Warfarin Follow-Up Warfarin Follow UP: SEE PCP NEXT WEEK CAROLE RIOS MD Jul 31, 2019 13:35
[2019-07-31 14:34] VITALS: BP 119/84
--- NOTE | 2019-07-31 15:43 | NUR ---
Discharge: Teaching verbal and written. Reviewed medication, cardiac cath, tendinitis, gout, Hypertension, eMAR. Patient's discharge printed in Thai. Patient verbalized understanding. All belongings with patient. IV removed without complications, catheter tip in-tact. Cab pass provided
--- NOTE | 2019-07-31 16:56 | NUR ---
Discharge: patient assisted off of unit via wheelchair accompanied by HYDROBLASTER. Cab pass provided
== END 2019-07-31 16:14 | disposition home or self-care (01) | DRG 287 ==
LOC: ER 07:27 → 2 NORTH 10:10
PROVIDERS: ADMIT Internal Medicine; ATTEND Internal Medicine
PROC: 4A023N7 Measurement of Cardiac Sampling and Pressure, Left Heart, Percutaneous Approach (ICD-10-PCS; principal; 2019-07-29)
PROC: B2111ZZ Fluoroscopy of Multiple Coronary Arteries using Low Osmolar Contrast (ICD-10-PCS; 2019-07-29)
PROC: B2151ZZ Fluoroscopy of Left Heart using Low Osmolar Contrast (ICD-10-PCS; 2019-07-29)
DX: I11.0 Hypertensive heart disease with heart failure (principal); I48.21 Permanent atrial fibrillation; I50.41 Acute combined systolic (congestive) and diastolic (congestive) heart failure; I25.110 Atherosclerotic heart disease of native coronary artery with unstable angina pectoris; B88.8 Other specified infestations; E11.42 Type 2 diabetes mellitus with diabetic polyneuropathy; E78.00 Pure hypercholesterolemia, unspecified; E78.5 Hyperlipidemia, unspecified; F41.8 Other specified anxiety disorders; G40.909 Epilepsy, unspecified, not intractable, without status epilepticus; G89.29 Other chronic pain; I50.9 Heart failure, unspecified; J44.9 Chronic obstructive pulmonary disease, unspecified; K21.9 Gastro-esophageal reflux disease without esophagitis; L29.9 Pruritus, unspecified; M19.032 Primary osteoarthritis, left wrist; M77.9 Enthesopathy, unspecified; Z79.01 Long term (current) use of anticoagulants; Z82.49 Family history of ischemic heart disease and other diseases of the circulatory system; Z86.711 Personal history of pulmonary embolism; Z86.73 Personal history of transient ischemic attack (TIA), and cerebral infarction without residual deficits; Z87.891 Personal history of nicotine dependence; Z95.5 Presence of coronary angioplasty implant and graft; M10.9 Gout, unspecified; M19.90 Unspecified osteoarthritis, unspecified site; I95.9 Hypotension, unspecified
CPT/HCPCS: 36415; 71045; 73080; 73110; 80053; 83540; 83550; 83880; 84443; 84484; 84550; 85025; 85651; 93005; 93308; 93458; 94760; 96374; 99152; 99153; 99285; C1769; C1892; J1644; J1885; J2250; J3010; J3490; J7512; Q9967; G0378

== ENCOUNTER 2019-08-04 10:20 | Emergency (ER) | payer BC ==
[~2019-08-04] VITALS: Ht 170.2 cm; Wt 100.0 kg
[~2019-08-04 10:20] MED LIST changes: +ASCO500C PO; +DICL100G18 TP; +PERM60CR11 TP; +PRED-220 PO
[2019-08-04 11:40] LABS: BASO # 0.1 x10^3/uL (0.0-0.2); BASO % 1 % (0-3); EOS # 0.1 x10^3/uL (0.0-0.7); EOS % 3 % (0-3); HEMATOCRIT 39.6 % (39.0-53.0); HEMOGLOBIN 12.5 g/dL (13.0-17.5); LYMPH # 1.2 x10^3/uL (1.0-4.8); LYMPH % 26 % (24-48); MEAN CORPUSCULAR HEMOGLOBIN 24 pg (25-35); MEAN CORPUSCULAR HGB CONC 32 g/dL (31-37); MEAN CORPUSCULAR VOLUME 76 fL (79-100); MONO # 0.4 x10^3/uL (0.0-1.1); MONO % 8 % (0-9); NEUT # 2.8 x10^3/uL (1.8-7.7); NEUT % 62 % (31-73); PLATELET COUNT 273 x10^3/uL (140-400); RED BLOOD COUNT 5.22 x10^6/uL (4.30-5.70); RED CELL DISTRIBUTION WIDTH 14.4 % (11.5-14.5); WHITE BLOOD COUNT 4.5 x10^3/uL (4.0-11.0)
[2019-08-04 11:49] LABS: CALCIUM 8.8 mg/dL (8.5-10.1); CREATININE 1.4 mg/dL (0.7-1.3)
[2019-08-04 11:55] LABS: ALBUMIN 3.1 g/dL (3.4-5.0); ALBUMIN/GLOBULIN RATIO 0.7 (1.0-1.7); TOTAL BILIRUBIN 0.3 mg/dL (0.2-1.0); TOTAL PROTEIN 7.5 g/dL (6.4-8.2)
--- NOTE | 2019-08-04 12:02 | RAD ---
Chest AP portable at 1124: Reason for examination: Short of breath with cough. Comparison is made to previous studies dated 07/29/2019 and 05/04/2019. The heart size is normal. Mediastinum is unremarkable. Lung garibay show linear density at the left lung base which probably reflects some atelectasis. No consolidated infiltrates or pleural effusions are seen. No pneumothorax is present. No acute bony abnormalities are seen. IMPRESSION: Linear density probably representing atelectasis at the left lung base. No consolidated infiltrates or pleural effusions. Electronically signed by: Brianne Casiano MD (08/04/2019 11:59 AM) [facility]
--- NOTE | 2019-08-04 12:37 | PHYS DOC ---
Past Medical History Past Medical History: A-Fib, Angina, Anxiety, CAD, Depression, Diabetes-Type II, GERD, High Cholesterol, Hypertension, Seizure Additional Past Medical Histor: BACK&NECK PAIN, PE Additional Past Surgical Histo: CARDIAC STENTS Smoking Status: Former Smoker Additional Information: quit smoking 2009 Alcohol Use: Sober Additional Information: quit drinking alcohol in 2009 Drug Use: None General Adult EDM: Chief Complaint: SHORTNESS OF BREATH HPI: HPI: Patient is a 69 year old male who presented to ER today for evaluation of trouble breathing. Patient woke up this morning having trouble breathing. Patient denies any chest pain, no cough, no fever. Patient was evaluated here, admitted on July 29, 2019 due to chest pain, he had echocardiogram done, show EF of 70%. Patient was taken to the [facility] due to unstable angina, and it was totally diagnostic exam. Patient was discharged home on the July 31, 2019, patient denied any chest pain at this time. Review of Systems: Review of Systems: Constitutional: Denies fever or chills. [] Eyes: Denies change in visual acuity. [] HENT: Denies nasal congestion or sore throat. [] Respiratory: Denies cough , positive for shortness of breath. [] Cardiovascular: Denies chest pain or edema. [] GI: Denies abdominal pain, nausea, vomiting, bloody stools or diarrhea. [] : Denies dysuria. [] Musculoskeletal: Denies back pain or joint pain. [] Integument: Denies rash. [] Neurologic: Denies headache, focal weakness or sensory changes. [] Endocrine: Denies polyuria or polydipsia. [] Lymphatic: Denies swollen glands. [] Psychiatric: Denies depression or anxiety. [] Heart Score: Risk Factors: Risk Factors: DM, Current or recent (<one month) smoker, HTN, HLP, family history of CAD, obesity. Risk Scores: Score 0 - 3: 2.5% MACE over next 6 weeks - Discharge Home Score 4 - 6: 20.3% MACE over next 6 weeks - Admit for Clinical Observation Score 7 - 10: 72.7% MACE over next 6 weeks - Early Invasive Strategies Allergies: Allergies: Allergies Coded Allergies Type Severity Reaction Last Updated Verified No Known Drug Allergies 11/30/18 No Physical Exam: PE: Constitutional: Well developed, well nourished, no acute distress, non-toxic appearance. [] HENT: Normocephalic, atraumatic, bilateral external ears normal, oropharynx moist, no oral exudates, nose normal. [] Eyes: PERRLA, EOMI, conjunctiva normal, no discharge. [] Neck: Normal range of motion, no tenderness, supple, no stridor. [] Cardiovascular:Heart rate regular rhythm, no murmur [] Lungs & Thorax: Bilateral breath sounds clear to auscultation [] Abdomen: Bowel sounds normal, soft, no tenderness, no masses, no pulsatile masses. [] Skin: Warm, dry, no erythema, no rash. [] Back: No tenderness, no CVA tenderness. [] Extremities: No tenderness, no cyanosis, no clubbing, ROM intact, no edema. [] Neurologic: Alert and oriented X 3, normal motor function, normal sensory function, no focal deficits noted. [] Psychologic: Affect normal, judgement normal, mood normal. [] Current Patient Data: Labs: Laboratory Tests Test 08/04/19 11:00 White Blood Count 4.5 x10^3/uL (4.0-11.0) Red Blood Count 5.22 x10^6/uL (4.30-5.70) Hemoglobin 12.5 g/dL (13.0-17.5) L Hematocrit 39.6 % (39.0-53.0) Mean Corpuscular Volume 76 fL (79-100) L Mean Corpuscular Hemoglobin 24 pg (25-35) L Mean Corpuscular Hemoglobin Concent 32 g/dL (31-37) Red Cell Distribution Width 14.4 % (11.5-14.5) Platelet Count 273 x10^3/uL (140-400) Neutrophils (%) (Auto) 62 % (31-73) Lymphocytes (%) (Auto) 26 % (24-48) Monocytes (%) (Auto) 8 % (0-9) Eosinophils (%) (Auto) 3 % (0-3) Basophils (%) (Auto) 1 % (0-3) Neutrophils # (Auto) 2.8 x10^3/uL (1.8-7.7) Lymphocytes # (Auto) 1.2 x10^3/uL (1.0-4.8) Monocytes # (Auto) 0.4 x10^3/uL (0.0-1.1) Eosinophils # (Auto) 0.1 x10^3/uL (0.0-0.7) Basophils # (Auto) 0.1 x10^3/uL (0.0-0.2) Sodium Level 137 mmol/L (136-145) Potassium Level 4.0 mmol/L (3.5-5.1) Chloride Level 101 mmol/L (98-107) Carbon Dioxide Level 24 mmol/L (21-32) Anion Gap 12 (6-14) Blood Urea Nitrogen 18 mg/dL (8-26) Creatinine 1.4 mg/dL (0.7-1.3) H Estimated GFR (Cockcroft-Gault) 50.0 BUN/Creatinine Ratio 13 (6-20) Glucose Level 127 mg/dL (70-99) H Calcium Level 8.8 mg/dL (8.5-10.1) Magnesium Level 2.0 mg/dL (1.8-2.4) Total Bilirubin 0.3 mg/dL (0.2-1.0) Aspartate Amino Transferase (AST) 42 U/L (15-37) H Alanine Aminotransferase (ALT) 47 U/L (16-63) Alkaline Phosphatase 80 U/L (46-116) Troponin I Quantitative < 0.017 ng/mL (0.000-0.055) SU-Mjk-G-Type Natriuretic Peptide 2441 pg/mL (0-124) H Total Protein 7.5 g/dL (6.4-8.2) Albumin 3.1 g/dL (3.4-5.0) L Albumin/Globulin Ratio 0.7 (1.0-1.7) L Laboratory Tests 08/04/19 11:00 Laboratory Tests 08/04/19 11:00 Vital Signs: Vital Signs Date Time Temp Pulse Resp B/P (MAP) Pulse Ox O2 Delivery O2 Flow Rate FiO2 08/04/19 10:50 97.9 72 20 111/59 (76) 98 Room Air 97.9 EKG: EKG: EKG was done at 1047, heart rate of 70 beats per minutes, atrial fibrillation, diffuse T wave inversion, no change compared to previous EKG last week. Radiology/Procedures: Radiology/Procedures: [][facility] [address] [place] [address] IMAGING REPORT Signed PATIENT: BRITNI EASON ACCOUNT: [id number] : 1950 LOCATION: ER AGE: 69 SEX: M EXAM STATUS: REG ER ORD. PHYSICIAN: MICHELLE WOLFE DO REASON: SOA, COUGH RM 20 PROCEDURE: CHEST AP ONLY Chest AP portable at 1124: Reason for examination: Short of breath with cough. Comparison is made to previous studies dated 07/29/2019 and 05/04/2019. The heart size is normal. Mediastinum is unremarkable. Lung garibay show linear density at the left lung base which probably reflects some atelectasis. No consolidated infiltrates or pleural effusions are seen. No pneumothorax is present. No acute bony abnormalities are seen. IMPRESSION: Linear density probably representing atelectasis at the left lung base. No consolidated infiltrates or pleural effusions. Electronically signed by: Brianne Estevez MD (08/04/2019 11:59 AM) [id number] DICTATED and SIGNED BY: BRIANNE ESTEVEZ MD DATE: 08/04/19 1159 Course & Med Decision Making: Course & Med Decision Making Pertinent Labs and Imaging studies reviewed. (See chart for details) Patient is a 69-year-old male who presented to ER today due to trouble breathing. Chest x-ray did not show any acute problem. His BNP is elevated. However he had a normal echocardiogram done about 6 days ago and have been normal cardiac catheterization done about 4 days ago. Patient will need to follow-up with his cardiology for outpatient evaluation. Dragon Disclaimer: Gail Disclaimer: This electronic medical record was generated, in whole or in part, using a voice recognition dictation system. Departure Departure Impression: Primary Impression: Dyspnea Disposition: 01 HOME, SELF-CARE Condition: IMPROVED Referrals: UNKNOWN PCP NAME (PCP) please follow up with your doctor this week. Patient Instructions: Shortness of Breath Additional Instructions: Thank you for visiting our Emergency Department. We appreciate you trusting us with your care. If any additional problems come up don't hesitate to return to visit us. Please follow up with your primary care provider so they can plan additional care if needed and know about the problem that you had. If symptoms worsen come back to the Emergency Department. Any concerning symptoms that start such as chest pain, shortness of air, weakness or numbness on one side of the body, running high fevers or any other concerning symptoms return to the ER. MICHELLE WOLFE DO Aug 04, 2019 12:37
[2019-08-04 12:38] LABS: BILIRUBIN,URINE NEGATIVE (NEG); CLARITY,URINE CLEAR; COLOR,URINE YELLOW; NITRITE,URINE NEGATIVE (NEG); PH,URINE 5.5 (<5.0-8.0); PROTEIN,URINE NEGATIVE (NEG-TRACE); UROBILINOGEN,URINE 0.2 mg/dL (0.2 mg/dL)
--- NOTE | 2019-08-04 12:54 | EKG ---
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
[2019-08-04 12:57] LABS: BACTERIA,URINE 0 /HPF (0-FEW); RBC,URINE 0 /HPF (0-2); SQUAMOUS EPITHELIAL CELL,UR FEW /LPF; WBC,URINE 0 /HPF (0-4)
[2019-08-04 14:00] VITALS: BP 115/80
== END 2019-08-04 14:31 | disposition home or self-care (01) ==
LOC: ER 10:20
DX: R06.00 Dyspnea, unspecified (principal); R06.02 Shortness of breath; I48.91 Unspecified atrial fibrillation; F41.9 Anxiety disorder, unspecified; I11.9 Hypertensive heart disease without heart failure; F32.9 Major depressive disorder, single episode, unspecified; E11.9 Type 2 diabetes mellitus without complications; E78.00 Pure hypercholesterolemia, unspecified; Z98.890 Other specified postprocedural states; Z87.891 Personal history of nicotine dependence
CPT/HCPCS: 36415; 71045; 80053; 81001; 83735; 83880; 84484; 85025; 93005; 99285